=== PATIENT | male | born 1985 | race African-American/Black ===

== ENCOUNTER 2016-03-17 12:15 | Inpatient (IN) | payer OTHER ==
[2016-03-17 12:31] VITALS: BMI 22.3
[2016-03-17] MEDS ORDERED: SODIUM CHLORIDE 2,000 ML IV STA ×2 (12:33→21:13)
--- NOTE | 2016-03-17 12:33 | PDOC ---
History of Present Illness - History of Present Illness Initial Comments: 03/17/16 13:35 Patient is a 30 year old male with significant medical hx of Type I DM who is presenting to the ED complaining of weakness and nausea for two days. Two nights ago the patient went out and had a heavy night of drinking. The following day he left work because he wasn't feeling well and went to [facility] at 3AM. The patient reports his sugar was high and he was put on an insulin drip. He also had an episode of vomiting yesterday but did not have any today. This afternoon the patient left [facility] because he wanted to go to work but continued to feel weak and decided to come here for further evaluation. Denies cough, chest pain, shortness of breath, diarrhea, abdominal pain, dysuria. Denies past surgeries and tobacco use. <Deann Noble - Last Filed: 03/17/16 13:35> - General History Source: Patient, Old Records Exam Limitations: No Limitations <Roxanne Ngo - Last Filed: 03/17/16 18:31> - General Chief Complaint: Weakness Stated Complaint: DIABETIC Time Seen by Provider: 03/17/16 12:27 Past History <Deann Noble - Last Filed: 03/17/16 13:35> - Past Medical History Asthma: Yes Diabetes: Yes (IDDM) - Immunization History Immunization Up to Date: Yes - Psycho/Social/Smoking Cessation Hx Anxiety: No Suicidal Ideation: No Smoking Status: No Smoking History: Never smoked Have you smoked in the past 12 months: No Number of Cigarettes Smoked Daily: 0 Information on smoking cessation initiated: No Hx Alcohol Use: Yes Drug/Substance Use Hx: No Substance Use Type: Alcohol <Roxanne Ngo - Last Filed: 03/17/16 18:31> - Past Medical History Allergies/Adverse Reactions: Allergies Allergy/AdvReac Type Severity Reaction Status Date / Time No Known Allergies Allergy Verified 03/17/16 12:31 Home Medications: Ambulatory Orders Insulin (Levemir) [Levemir Flexpen -] 30 units SQ ASDIR 10/12/13 Fluticasone Prop 0.05% Nasal [Flonase -] 1 spray NS BID #1 spray.pump 07/01/15 Insulin Aspart [Novolog] 0 unit SQ ASDIR 07/01/15 Montelukast Na [Singulair -] 10 mg PO HS #30 tablet 07/01/15 Review of Systems - Review of Systems Comments:: 03/17/16 13:40 GENERAL/CONSTITUTIONAL: Weakness. No fever or chills. HEAD, EYES, EARS, NOSE AND THROAT: No change in vision. No ear pain or discharge. No sore throat. CARDIOVASCULAR: No chest pain or shortness of breath. RESPIRATORY: No cough, wheezing, or hemoptysis. GASTROINTESTINAL: Nausea, vomiting. No diarrhea or constipation. GENITOURINARY: No dysuria, frequency, or change in urination. MUSCULOSKELETAL: No joint or muscle swelling or pain. No neck or back pain. SKIN: No rash NEUROLOGIC: No headache, vertigo, loss of consciousness, or change in strength/ sensation. <Deann Noble - Last Filed: 03/17/16 13:35> *Physical Exam - Vital Signs Last Vital Signs Temp Pulse Resp BP Pulse Ox 97.7 F 83 18 129/75 100 03/17/16 12:29 03/17/16 12:29 03/17/16 12:29 03/17/16 12:29 03/17/16 12:29 - Physical Exam Comments: 03/17/16 13:41 GENERAL: Awake, alert, and fully oriented, in no acute distress HEAD: No signs of trauma EYES: PERRLA, EOMI, sclera anicteric, conjunctiva clear ENT: Auricles normal inspection, hearing grossly normal, nares patent, oropharynx clear without exudates. Dry mucosa NECK: Normal ROM, supple, no lymphadenopathy, JVD, or masses LUNGS: Breath sounds equal, clear to auscultation bilaterally. No wheezes, and no crackles HEART: Regular rate and rhythm, normal S1 and S2, no murmurs, rubs or gallops ABDOMEN: Soft, nontender, normoactive bowel sounds. No guarding, no rebound. No masses EXTREMITIES: Normal range of motion, no edema. No clubbing or cyanosis. No cords, erythema, or tenderness NEUROLOGICAL: Cranial nerves II through XII grossly intact. Normal speech, normal gait SKIN: Warm, Dry, normal turgor, no rashes or lesions noted. ENDOCRINE: No abnormal weight change. HEMATOLOGIC/LYMPHATIC: No anemia, easy bleeding, or history of blood clots. ALLERGIC/IMMUNOLOGIC: No hives or skin allergy. <Deann Noble - Last Filed: 03/17/16 13:35> - Vital Signs Last Vital Signs Temp Pulse Resp BP Pulse Ox 97.7 F 83 18 129/75 100 03/17/16 12:29 03/17/16 12:29 03/17/16 12:29 03/17/16 12:29 03/17/16 12:29 <Roxanne Ngo - Last Filed: 03/17/16 18:31> ED Treatment Course - LABORATORY CBC & Chemistry Diagram: 03/17/16 12:50 03/17/16 12:50 - ADDITIONAL ORDERS Additional order review: 03/17/16 12:50 RBC 4.79 MCV 96.3 H MCHC 32.5 RDW 13.8 MPV 8.6 Neutrophils % 85.3 H D Lymphocytes % 10.4 D Monocytes % 3.9 Eosinophils % 0.1 D Basophils % 0.3 - RADIOLOGY Radiograph Interpretation: 03/17/16 13:42 Chest X-Ray Impression: No acute pathology. No significant change. Weak inspiratory effort. Clear lungs Reported By: Magan Wilder MD <Deann Noble - Last Filed: 03/17/16 13:35> - LABORATORY CBC & Chemistry Diagram: 03/17/16 12:50 03/17/16 17:00 <Roxanne Ngo - Last Filed: 03/17/16 18:31> Medical Decision Making - Medical Decision Making 03/17/16 13:00 30-year-old male with history of insulin-dependent diabetes who presents to the emergency department with three-day history of nausea, vomiting, generalized weakness; the patient signed out AMA from [facility] this morning. Glucose in the field was 380. Differential diagnosis includes but is not limited to: DKA, uncontrolled diabetes/hyperglycemia, dehydration, electrolyte abnormality, toxic/metabolic derangement. Plan: 1. Labs 2. EKG 3. Urine 4. IV fluids for hydration 5. Observe and reevaluate 03/17/16 14:55 Addendum: The labs were reviewed and are noted in the EMR. His glucose is 480 and he has an anion gap of 22 with a bicarbonate of 14. The potassium is 5.8. An insulin drip has been started at 0.1 units per kilogram per hour. He has positive ketones in his urine and the serum acetone is pending.. The plan is to admit the patient to a monitored setting on an insulin drip and continued IV fluids for hydration with a presumed diagnosis of diabetic ketoacidosis. 03/17/16 17:17 Addendum: Last glucose was 119 mg/dL. The IVF were changed to D5 1/2NS and the insulin drip was decreased to 3u/hr. Will recheck a potassium level as well to see if repletion is necessary at this time. 03/17/16 18:30 Addendum: Potassium is 3.0--KCL 40 mEq was added to the IVF. Will also order KCL 40mEq PO. <Roxanne Ngo - Last Filed: 03/17/16 18:31> *DC/Admit/Observation/Transfer - Attestations Scribe Attestion: 03/17/16 13:43 Documentation prepared by Deann Noble, acting as biomedical equipment specialist for Roxanne Ngo MD. <Deann Noble - Last Filed: 03/17/16 13:35> - Discharge Dispostion Admit: Yes - Attestations Physician Attestion: 03/17/16 13:02 I, Dr. Roxanne Ngo, attest that the scribes documentation that appears above has been prepared under my direction and personally reviewed by me in its entirety. I confirmed that the note above accurately reflects all work, treatment, procedures, and medical decision-making performed by me. <Roxanne Ngo - Last Filed: 03/17/16 18:31> Diagnosis at time of Disposition: Hyperglycemia, DKA (diabetic ketoacidoses), Hypokalemia - Discharge Dispostion Condition at time of disposition: Stable - Referrals
[2016-03-17 13:30] LABS: BASOPHIL 0.3 % (0-2.0); EOSINOPHIL 0.1 % (0-4.5); MCH 31.3 pg (25.7-33.7); MCHC 32.5 g/dl (32.0-35.9); MEAN CELL VOLUME 96.3 fl (80-96); MEAN PLT VOLUME 8.6 fl (7.5-11.1); NEUTROPHILS 85.3 % (42.8-82.8); PLATELET COUNT 247 K/MM3 (134-434); RDW 13.8 % (11.9-15.9); URINE APPEARANCE CLEAR; URINE BILIRUBIN NEGATIVE (NEGATIVE); URINE BLOOD NEGATIVE (NEGATIVE); URINE COLOR COLORLESS; URINE GLUCOSE (UA) 3+ (NEGATIVE); URINE KETONE 2+ (NEGATIVE); URINE LEUK ESTERASE NEGATIVE (NEGATIVE); URINE NITRITE NEGATIVE (NEGATIVE); URINE PROTEIN NEGATIVE (NEGATIVE); URINE UROBILINOGEN NEGATIVE E.U./dl (0.2-1.0); WHITE BLOOD COUNT 9.7 K/mm3 (4.0-10.0)
[2016-03-17 14:38] LABS: ALBUMIN 3.9 g/dl (3.4-5.0); ANION GAP 22 (8-16); BILIRUBIN,TOTAL 1.1 mg/dL (0.2-1.0); CALCIUM 8.7 mg/dL (8.5-10.1); CO2 14 mmol/L (21-32); CREATININE 1.4 mg/dL (0.7-1.3); SGOT/AST 20 U/L (15-37); SGPT/ALT 26 U/L (12-78); TOT PROT 7.2 g/dl (6.4-8.2)
[2016-03-17 14:39] LABS: ALK PHOS 81 U/L (45-117)
[2016-03-17 14:41] LABS: TROPONIN I < 0.02 ng/ml (0.00-0.05)
[2016-03-17 14:44] LABS: GLUCOSE,RANDOM 479 mg/dL (74-106)
[2016-03-17] MEDS ORDERED: INSULIN REGULAR 100 UNITS in SODIUM CHLORIDE 99 ML IVPB SCH (14:45)
[2016-03-17] MEDS ORDERED: SODIUM CHLORIDE 1,000 ML IV STA (14:47)
[2016-03-17] MEDS ORDERED: INSULIN REGULAR HUMAN 100 UNITS/ML *VIAL ONE (14:59)
[2016-03-17 15:28] LABS: ACETONE SERUM POSITIVE LARGE 3+ (NEGATIVE)
[2016-03-17 15:43] LABS: VENOUS BLOOD GAS HCO3 14.9 meq/L (22-29)
[2016-03-17 15:45] LABS: VENOUS PH 7.26 (7.31-7.41)
--- NOTE | 2016-03-17 16:43 | EKG ---
Test Reason : Blood Pressure : / mmHG Vent. Rate : 079 BPM Atrial Rate : 079 BPM P-R Int : 156 ms QRS Dur : 084 ms QT Int : 378 ms P-R-T Axes : 055 032 022 degrees QTc Int : 433 ms NORMAL SINUS RHYTHM ST ELEVATION, CONSIDER EARLY REPOLARIZATION, PERICARDITIS, OR INJURY ABNORMAL ECG WHEN COMPARED WITH ECG OF 14-APR-2006 16:25, NO SIGNIFICANT CHANGE WAS FOUND (p wave morphology has normalized) Confirmed by RAMON AGUILERA MD ([id number]) on 03/17/2016 4:42:47 PM Referred By: Confirmed By:RAMON AGUILERA MD
[2016-03-17] MEDS ORDERED: DEXTROSE 5%-0.45% SALINE 1,000 ML IV SCH (17:30)
[2016-03-17] MEDS ORDERED: D5-1/2NS+40 MEQ KCL - 1,000 ML IV SCH (18:30)
[2016-03-17] MEDS ORDERED: POTASSIUM CHLORIDE TABS 20 MEQ TABLET.ER (FP) PO ONE ×2 (18:31→18:38)
[2016-03-17] MEDS ORDERED: HEMOQUE TEST 1 EACH EACH ONE (20:01)
--- NOTE | 2016-03-17 20:08 | PN ---
<WonSammy - Last Filed: 03/17/16 20:08> Teaching Attending Note Name of Resident: Chiqui Raymond ATTENDING PHYSICIAN STATEMENT I saw and evaluated the patient. I reviewed the resident's note and discussed the case with the resident. I agree with the resident's findings and plan as documented. SUBJECTIVE: OBJECTIVE: ASSESSMENT AND PLAN: <SherronSawyer - Last Filed: 03/18/16 00:34> Teaching Attending Note ATTENDING PHYSICIAN STATEMENT I saw and evaluated the patient. I reviewed the resident's note and discussed the case with the resident. I agree with the resident's findings and plan as documented. Imaging and data charts reviewed. SUBJECTIVE: Patient is a 30 year old male with significant medical history of Type I DM (non -compliant) who is presented to the ED with weakness and nausea for two days. The patient reported that two nights ago he went out and had a heavy night of drinking. The following day he left work s/p 2 episodes of vomiting and was admitted at [facility]. The patient reported that the next morning he left [facility] AMA because he felt better and wanted to go to work. When the patient got home from work yesterday he said that he began to feel weak and nauseous again and presented to [facility]. The patient stated that he has been hospitalized 5 times before with similar symptoms after heavy alcohol intake. The patient also stated that he does not check his finger-stick regularly and only takes his diabetic medication when he remembers. Denies headache, fever, cough, chest pain, shortness of breath, diarrhea, abdominal pain, dysuria. Denies past surgeries and tobacco use. OBJECTIVE: Vital Signs: Last Vital Signs Temp Pulse Resp BP Pulse Ox 97.7 F 80 18 120/78 98 03/17/16 12:29 03/17/16 20:23 03/17/16 20:23 03/17/16 20:23 03/17/16 20:23 Physical Exam: GENERAL: Awake, alert, and fully oriented, in no acute distress. HEENT: Atraumatic. Dry oral mucosa. Normocephalic. No sinus tenderness. No LAD. NECK: No JVD. No thyroid masses. Supple. LUNGS: Clear to auscultation bilaterally. No wheezing, rhonchi or rales. HEART: Regular rate and rhythm, normal S1 and S2, no murmurs, rubs or gallops, peripheral pulses normal and equal bilaterally. ABDOMEN: Soft, nontender, normoactive bowel sounds. No guarding, no rebound. No Masses. MUSCULOSKELETAL: No joint tenderness or erythema. No muscle tenderness. Normal muscle bulk and tone. EXTREMITIES: Normal inspection, No edema. No clubbing or cyanosis. Moves all extremities. NEUROLOGICAL: Normal speech, normal gait, no focal sensorimotor deficits. SKIN: Warm, dry, normal turgor, no rashes or lesions noted. Tattoos on the skin. Labs: CBCD WBC 10.5 K/mm3 (4.0-10.0) H 03/17/16 20:55 RBC 4.22 M/mm3 (4.00-5.60) 03/17/16 20:55 Hgb 13.3 GM/dL (11.7-16.9) D 03/17/16 20:55 Hct 39.4 % (35.4-49) 03/17/16 20:55 MCV 93.4 fl (80-96) 03/17/16 20:55 MCHC 33.8 g/dl (32.0-35.9) 03/17/16 20:55 RDW 13.4 % (11.9-15.9) 03/17/16 20:55 Plt Count 222 K/MM3 (134-434) 03/17/16 20:55 MPV 8.3 fl (7.5-11.1) 03/17/16 20:55 CMP Sodium 136 mmol/L (136-145) 03/17/16 12:50 Potassium 3.0 mmol/L (3.5-5.1) L D 03/17/16 17:00 Chloride 100 mmol/L (98-107) 03/17/16 12:50 Carbon Dioxide 14 mmol/L (21-32) L D 03/17/16 12:50 Anion Gap 22 (8-16) H 03/17/16 12:50 BUN 15 mg/dL (7-18) D 03/17/16 12:50 Creatinine 1.4 mg/dL (0.7-1.3) H D 03/17/16 12:50 Creat Clearance w eGFR > 60 (>60) 03/17/16 12:50 Calcium 8.7 mg/dL (8.5-10.1) 03/17/16 12:50 Total Bilirubin 1.1 mg/dL (0.2-1.0) H D 03/17/16 12:50 AST 20 U/L (15-37) 03/17/16 12:50 ALT 26 U/L (12-78) 03/17/16 12:50 Alkaline Phosphatase 81 U/L (45-117) D 03/17/16 12:50 Total Protein 7.2 g/dl (6.4-8.2) 03/17/16 12:50 Albumin 3.9 g/dl (3.4-5.0) 03/17/16 12:50 Imaging: CXR Discussion: Single AP portable view of the chest reveals a weak inspiratory effort, clear lungs, normal mediastinum and sharp angles. The bones and soft tissues are intact. Since 12/21/2013, there is no change of an adverse nature. Impression: No acute pathology. No significant change. Weak inspiratory effort. Clear lungs. ASSESSMENT AND PLAN: 1. DKA secondary to medication non com. and ETOH abuse now improved after insulin drip and IVF given in the ER. -Continue insulin trip until anion gap closes and bridge with lung acting insulin -DKA protocol -Switch to D5V half normal NS when glucose is <200 mg/dl -Copious IVF hydration -K supplementation -Recheck Electrolytes including Mg and phosphate and replace as necessary -Switch to insulin sliding scale when DKA resolved -If no more nausea and vomiting, restart diabetic diet -Diabetes counseling 2. LILIAN likely pre-renal -Urine lytes -UA -IVF hydration -Avoid nephrotoxic medications 3. Lucocytosis likely reactive from DKA. No evidence of current infection. Now improved. 4. DVT PPX low risk -intermittent compression stockings Admit to ICU Documentation prepared by Sawyer Siu, acting as medical sociologist for Dr. Won MD.
--- NOTE | 2016-03-17 20:19 | HP ---
CHIEF COMPLAINT: Weakness and feeling tired x 2 days PCP: Dr. Shnatel Varghese HISTORY OF PRESENT ILLNESS: 30 year old female presented to the ED via EMS with the chief complaint of weakness and feeling tired x 2 days. A/c to the patient, he was feeling well until when he went to the bar and had a couple of drinks (binge drinking). Was able to drive home, but the next day he started feeling unwell. He went to his work, had stomach pain, nausea, 4 episodes of vomiting. EMS was called, finger stick glucose was around 400, was taken to [facility]. Patient mentioned he got IV fluids and Insulin at [facility], felt better and signed out AMA since he wanted to go to work. As soon as patient went home, he started feeling unwell with stomach pain and nausea but no vomiting and immediately called 911. Patient reports that he takes sliding scale insulin and long acting but is non compliant. Denies chest pain, sob, palpitation, cough, headache, fever, chills rigors, sweating. No bowel movements since 3 days. Passed urine once since admission here. Denies burning urination, urgency or incontinence. Appetite decreased since illness. Sleep normal. ER course was notable for: (1) CBC, CMP, LA-2.4, RBS-479, AG-22, creat-1.4 (2) VBG-Metabolic acidosis, UA-Glucose +++, Ketones ++ (3) CXR normal. Recent Travel: None PAST MEDICAL HISTORY: Diabetes type 1 diagnosed 12 yrs ago PAST SURGICAL HISTORY: None Social History: Smoking: Occasional smoker Alcohol: Binge drinking once a week Drugs: No use of illicit drugs Family History: Grandmother had Type 2 DM Allergies No Known Allergies Allergy (Verified 03/17/16 12:31) HOME MEDICATIONS: Home Medications Medication Instructions Recorded Insulin (Levemir) [Levemir Flexpen 30 units SQ ASDIR 10/12/13 -] Fluticasone Prop 0.05% Nasal 1 spray NS BID #1 spray.pump 07/01/15 [Flonase -] Insulin Aspart [Novolog] 0 unit SQ ASDIR 07/01/15 Montelukast Na [Singulair -] 10 mg PO HS #30 tablet 07/01/15 REVIEW OF SYSTEMS CONSTITUTIONAL: Absent: fever, chills, diaphoresis, generalized weakness, malaise, loss of appetite, weight change HEENT: Absent: rhinorrhea, nasal congestion, throat pain, throat swelling, difficulty swallowing, mouth swelling, ear pain, eye pain, visual changes CARDIOVASCULAR: Absent: chest pain, syncope, palpitations, irregular heart rate, lightheadedness , peripheral edema RESPIRATORY: Absent: cough, shortness of breath, dyspnea with exertion, orthopnea, wheezing, stridor, hemoptysis GASTROINTESTINAL: Present: abdominal pain, abdominal distension, nausea, vomiting Absent: diarrhea, constipation, melena, hematochezia GENITOURINARY: Absent: dysuria, frequency, urgency, hesitancy, hematuria, flank pain, genital pain MUSCULOSKELETAL: Absent: myalgia, arthralgia, joint swelling, back pain, neck pain SKIN: Absent: rash, itching, pallor HEMATOLOGIC/IMMUNOLOGIC: Absent: easy bleeding, easy bruising, lymphadenopathy, frequent infections ENDOCRINE: Absent: unexplained weight gain, unexplained weight loss, heat intolerance, cold intolerance NEUROLOGIC: Absent: headache, focal weakness or paresthesias, dizziness, unsteady gait, seizure, mental status changes, bladder or bowel incontinence PSYCHIATRIC: Absent: anxiety, depression, suicidal or homicidal ideation, hallucinations. PHYSICAL EXAMINATION GENERAL: Young male, comfortably lying in bed, Awake, alert, and fully oriented , in no acute distress. HEAD: Normal with no signs of trauma. EYES:EOM intact, no pallor or icterus EARS, NOSE, THROAT: Ears normal. Dry mucous membranes. NECK: Supple LUNGS: Breath sounds equal, clear to auscultation bilaterally. No wheezes, and no crackles. No accessory muscle use. HEART: Regular rate and rhythm, normal S1 and S2 without murmur, rub or gallop. ABDOMEN: Soft, nontender, not distended, normoactive bowel sounds, no guarding, no rebound, no masses. No hepatomegaly or splenomegaly. MUSCULOSKELETAL: Normal range of motion at all joints. No bony deformities or tenderness. No CVA tenderness. UPPER EXTREMITIES: 2+ pulses, warm, well-perfused. No cyanosis. No clubbing. Cap refill <2 seconds. No peripheral edema. LOWER EXTREMITIES: 2+ pulses, warm, well-perfused. No calf tenderness. No peripheral edema. NEUROLOGICAL: Cranial nerves II-XII intact. Normal speech. Normal gait. PSYCHIATRIC: Cooperative. Good eye contact. Appropriate mood and affect. SKIN: Multiple tattoos, Warm, dry, normal turgor, no rashes or lesions noted. Laboratory Results - last 24 hr 03/17/16 03/17/16 03/17/16 15:35 16:34 16:40 VBG pH 7.26 L POC VBG pCO2 34.7 L POC VBG pO2 37.6 Potassium POC Glucometer [phone] Random Glucose 119 H D 03/17/16 03/17/16 17:00 18:28 VBG pH POC VBG pCO2 POC VBG pO2 Potassium 3.0 L D POC Glucometer [id number] Random Glucose ASSESSMENT/PLAN: 30 year old male with significant past medical hx of Type I Diabetes presented to the ED via EMS with the chief complaint of weakness and feeling tired x 2 days. # Diabetic Ketoacidosis most likely precipitated by binge drinking and non compliance to Insulin. 2days ago, patient had nausea, 4episdose of vomiting. Signed out AMA at [facility]. On arrival, hemodyanmically stable, LA-2.4, RBS-479, AG-22, creat-1.4, VBG showed Metabolic acidosis, UA-Glucose +++, Ketones ++ In the ED, Patient received 1unit of Insulin, 2L of NS, D5 1/2NS with 40K @ 150mls Patient now admitted in the ICU. Ordered stat EKG, CMP, CMP, Lactic acid, Magnesium, Phosphorus, will adjust medication once repeat labs are obtained 2L of bolus of NS given and maintainance @ 150mls/hr as patient looks very dehydrated, patient passed urine once since 10hrs. IV D5-1/2NS 40mEq K @ 150 Insulin drip @ 3Units, repeat finger stick was 220 Started him on diabetic diet, patient tolerated Once patients AG closes will overlap Insulin drip with sliding scale CMP to be ordered 4 hrly, BGM every hrly Watch for hypoglycemic episodes Monitor vitals Patient counselled about medication compliance, the effects of uncontrolled diabetes. To follow up with primary doctor within a day or two once he gets discharged. Yearly eye/foot examination. # LILIAN Creatinine of 1.4, baseline unknown IV NS Avoid nephrotoxic drugs # Leukocytosis Afebrile, No acute infection at this time. # Binge drinking counseling # FEN 2L of bolus of NS followed by NS @ 150mls/hr D5-1/2NS with K 40mEq @ 150mls/hr\ Pending electrolytes Diabetic diet. # Prophylaxis For DVT- On SCDS, ambulatory For GI- Not indicated # Code Status- Full code # Dispo- Admitted in the ICU. Duration of stay unknown. Illness, Investigation and Plan of care explained to the patient. He verbalized understanding. Case seen and discussed with Dr. Upton. Visit type - Emergency Visit Emergency Visit: Yes ED Registration Date: 03/17/16 Care time: The patient presented to the Emergency Department on the above date and was hospitalized for further evaluation of their emergent condition. - New Patient This patient is new to me today: Yes Date on this admission: 03/17/16 - Critical Care Critical Care patient: No
--- NOTE | 2016-03-17 21:11 | CONSULT ---
Consult Consult Specialty:: Pulm/Critical Care Referred by:: Dick Phan Reason for Consultation:: DKA - History of Present Illness Chief Complaint: nausea, abdominal pain History of Present Illness: 30 y/o man with type 1DM who presented with weakness and nausea x 2 days. Per pt , he was out drinking 2 nights prior to admission. He felt fine that night and went to bed but developed nausea the following day and left work. He presented to [facility] and was told his fingerstick was high, started on insulin gtt. He signed out AMA because he wanted to go to work but had worsening abdominal pain and nausea and called 911, presented to [facility] ED. Pt reports longstanding non-compliance and multiple hospital admissions for DKA. He denied CP, SOB, palpitation, cough, fever, urinary symptoms. In the ED, labs notable for lactate 2.4, BG 479, creatinine 1.4 and anion gap 22 with UA + ketones. He was started on insulin gtt. He had a CXR which was unremarkable and was transferred to ICU. In the ICU, pt continued on IVF and potassium supplemented. Blood sugars down trending. CBCD WBC 10.5 K/mm3 (4.0-10.0) H 03/17/16 20:55 RBC 4.22 M/mm3 (4.00-5.60) 03/17/16 20:55 Hgb 13.3 GM/dL (11.7-16.9) D 03/17/16 20:55 Hct 39.4 % (35.4-49) 03/17/16 20:55 MCV 93.4 fl (80-96) 03/17/16 20:55 MCHC 33.8 g/dl (32.0-35.9) 03/17/16 20:55 RDW 13.4 % (11.9-15.9) 03/17/16 20:55 Plt Count 222 K/MM3 (134-434) 03/17/16 20:55 MPV 8.3 fl (7.5-11.1) 03/17/16 20:55 CMP Sodium 140 mmol/L (136-145) 03/17/16 20:55 Potassium 4.9 mmol/L (3.5-5.1) D 03/17/16 20:55 Chloride 109 mmol/L (98-107) H 03/17/16 20:55 Carbon Dioxide 21 mmol/L (21-32) D 03/17/16 20:55 Anion Gap 10 (8-16) 03/17/16 20:55 BUN 9 mg/dL (7-18) D 03/17/16 20:55 Creatinine 1.0 mg/dL (0.7-1.3) D 03/17/16 20:55 Creat Clearance w eGFR > 60 (>60) 03/17/16 20:55 Calcium 8.1 mg/dL (8.5-10.1) L 03/17/16 20:55 Total Bilirubin 1.1 mg/dL (0.2-1.0) H 03/17/16 20:55 AST 16 U/L (15-37) 03/17/16 20:55 ALT 19 U/L (12-78) D 03/17/16 20:55 Alkaline Phosphatase 62 U/L (45-117) D 03/17/16 20:55 Total Protein 5.5 g/dl (6.4-8.2) L D 03/17/16 20:55 Albumin 3.0 g/dl (3.4-5.0) L D 03/17/16 20:55 - History Source History Provided By: Patient, Medical Record Limitations to Obtaining History: No Limitations - Past Medical History Pulmonary: Yes: Asthma Endocrine: Yes: Diabetes Mellitus - Alcohol/Substance Use Hx Alcohol Use: Yes - Smoking History Smoking history: Never smoked Have you smoked in the past 12 months: No Aproximately how many cigarettes per day: 0 - Social History Usual Living Arrangement: With Parent Occupation: [employer] Home Medications - Allergies Allergies/Adverse Reactions: Allergies Allergy/AdvReac Type Severity Reaction Status Date / Time No Known Allergies Allergy Verified 03/17/16 12:31 - Home Medications Home Medications: Ambulatory Orders Insulin (Levemir) [Levemir Flexpen -] 30 units SQ ASDIR 10/12/13 Fluticasone Prop 0.05% Nasal [Flonase -] 1 spray NS BID #1 spray.pump 07/01/15 Insulin Aspart [Novolog] 0 unit SQ ASDIR 07/01/15 Montelukast Na [Singulair -] 10 mg PO HS #30 tablet 07/01/15 Review of Systems - Review of Systems Constitutional: reports: Weakness Cardiovascular: denies: Chest Pain, Palpitations, Shortness of Breath Respiratory: denies: Cough, SOB Gastrointestinal: reports: Abdominal Pain, Nausea. denies: Vomiting Genitourinary: denies: Burning, Dysuria Physical Exam Vital Signs: Vital Signs Temperature 97.7 F 03/17/16 12:29 Pulse Rate 80 03/17/16 20:23 Respiratory Rate 18 03/17/16 20:23 Blood Pressure 120/78 03/17/16 20:23 O2 Sat by Pulse Oximetry (%) 98 03/17/16 20:23 Constitutional: Yes: Well Nourished Eyes: Yes: WNL, Conjunctiva Clear, PERRL HENT: Yes: Atraumatic Cardiovascular: Yes: Regular Rate and Rhythm. No: Murmur Respiratory: Yes: CTA Bilaterally. No: Wheezes Gastrointestinal: Yes: Normal Bowel Sounds, Soft. No: Distention, Tenderness Extremities: Yes: WNL Edema: No Peripheral Pulses WNL: Yes Neurological: Yes: WNL ...Motor Strength: WNL Labs: CBCD WBC 10.5 K/mm3 (4.0-10.0) H 03/17/16 20:55 RBC 4.22 M/mm3 (4.00-5.60) 03/17/16 20:55 Hgb 13.3 GM/dL (11.7-16.9) D 03/17/16 20:55 Hct 39.4 % (35.4-49) 03/17/16 20:55 MCV 93.4 fl (80-96) 03/17/16 20:55 MCHC 33.8 g/dl (32.0-35.9) 03/17/16 20:55 RDW 13.4 % (11.9-15.9) 03/17/16 20:55 Plt Count 222 K/MM3 (134-434) 03/17/16 20:55 MPV 8.3 fl (7.5-11.1) 03/17/16 20:55 CMP Sodium 140 mmol/L (136-145) 03/17/16 20:55 Potassium 4.9 mmol/L (3.5-5.1) D 03/17/16 20:55 Chloride 109 mmol/L (98-107) H 03/17/16 20:55 Carbon Dioxide 21 mmol/L (21-32) D 03/17/16 20:55 Anion Gap 10 (8-16) 03/17/16 20:55 BUN 9 mg/dL (7-18) D 03/17/16 20:55 Creatinine 1.0 mg/dL (0.7-1.3) D 03/17/16 20:55 Creat Clearance w eGFR > 60 (>60) 03/17/16 20:55 Calcium 8.1 mg/dL (8.5-10.1) L 03/17/16 20:55 Total Bilirubin 1.1 mg/dL (0.2-1.0) H 03/17/16 20:55 AST 16 U/L (15-37) 03/17/16 20:55 ALT 19 U/L (12-78) D 03/17/16 20:55 Alkaline Phosphatase 62 U/L (45-117) D 03/17/16 20:55 Total Protein 5.5 g/dl (6.4-8.2) L D 03/17/16 20:55 Albumin 3.0 g/dl (3.4-5.0) L D 03/17/16 20:55 Imaging - Results Chest X-ray: Report Reviewed Problem List - Problems (1) DKA (diabetic ketoacidoses) Code(s): E13.10 - OTH DIABETES MELLITUS WITH KETOACIDOSIS WITHOUT COMA (2) AA (alcohol abuse) Code(s): F10.10 - ALCOHOL ABUSE, UNCOMPLICATED Assessment/Plan ASSESSMENT/PLAN: 30 y/o man with DM1 who presented with weakness and nausea in setting of binge drinking, found to be in DKA, admitted to ICU Endo: DKA -continue insulin gtt until ketones clear -continue IVF with potassium now that K < 5.0 -additional K supplementation as needed -phos supplementation as needed -would maintain pt NPO until gap closed -serial fingerstick and adjust insulin as needed -monitor for hypoglycemia -trend BMP, lytes, AG and urine ketones/ serum acetone -diabetes counseling CV: dehydration, lactic acidosis -IVF for rehydration -trend lactate -hemodynamic monitoring ID: no active issues; leukocytosis likely in setting of DKA -trend fever curve, wbc Renal: elevated creatinine, unknown baseline, likely in setting of dehydration -fluid resuscitation -trend creatinine Ppx: -SCDs -no GI ppx indicated Jacki Busch ACNP 35 mins
[2016-03-17] MEDS ORDERED: SODIUM CHLORIDE 1,000 ML IV SCH ×2 (21:15→22:15)
[2016-03-17 21:27] LABS: MCH 31.5 pg (25.7-33.7); MCHC 33.8 g/dl (32.0-35.9); MEAN CELL VOLUME 93.4 fl (80-96); MEAN PLT VOLUME 8.3 fl (7.5-11.1); PLATELET COUNT 222 K/MM3 (134-434); RDW 13.4 % (11.9-15.9); WHITE BLOOD COUNT 10.5 K/mm3 (4.0-10.0)
[2016-03-17 21:59] LABS: ALK PHOS 62 U/L (45-117); ANION GAP 10 (8-16); BILIRUBIN,TOTAL 1.1 mg/dL (0.2-1.0); CALCIUM 8.1 mg/dL (8.5-10.1); CO2 21 mmol/L (21-32); GLUCOSE,RANDOM 242 mg/dL (74-106); MAGNESIUM 2.3 mg/dL (1.8-2.4); PHOSPHOROUS 2.1 mg/dL (2.5-4.9); SGOT/AST 16 U/L (15-37); SGPT/ALT 19 U/L (12-78); TOT PROT 5.5 g/dl (6.4-8.2)
[2016-03-17] MEDS ORDERED: MUPIROCIN 2% TOPICAL OINTMENT FOR DECOLONIZATION NS SCH (22:00)
[2016-03-17] MEDS ORDERED: CHLORHEXIDINE GLUCONATE 4% CLEANSER FOR DECOLONIZATION TP SCH (22:00)
[2016-03-17] MEDS ORDERED: INSULIN DETEMIR 100 UNITS/ML MDV SQ ONE (22:08)
[2016-03-18] MEDS ORDERED: IBUPROFEN 400 MG TABLET (FP) PO ONE (05:42)
[2016-03-18] MEDS ORDERED: SODIUM CHLORIDE NASAL SPRAY 44 ML BOTTLE NS PRN ×2 (05:54→08:48)
[2016-03-18 05:56] LABS: MCH 31.9 pg (25.7-33.7); MEAN CELL VOLUME 93.8 fl (80-96); MEAN PLT VOLUME 7.8 fl (7.5-11.1); PLATELET COUNT 217 K/MM3 (134-434); RDW 13.6 % (11.9-15.9); WHITE BLOOD COUNT 7.6 K/mm3 (4.0-10.0)
[2016-03-18 06:31] LABS: ALBUMIN 2.6 g/dl (3.4-5.0); ANION GAP 12 (8-16); BILIRUBIN,TOTAL 0.8 mg/dL (0.2-1.0); CALCIUM 7.6 mg/dL (8.5-10.1); CO2 19 mmol/L (21-32); CREATININE 0.9 mg/dL (0.7-1.3); GLUCOSE,RANDOM 103 mg/dL (74-106); SGOT/AST 20 U/L (15-37); SGPT/ALT 18 U/L (12-78); TOT PROT 4.9 g/dl (6.4-8.2)
[2016-03-18 06:32] LABS: ALK PHOS 50 U/L (45-117)
[2016-03-18] MEDS ORDERED: INSULIN SLIDING SCALE (NOVOLOG) 1 VIAL SQ SCH ×2 (07:00→11:00)
--- NOTE | 2016-03-18 08:39 | PN ---
Progress Note, Physician - Current Medication List Current Medications: Active Medications Chlorhexidine Gluconate (Hibiclens For Decolonization -) 1 applic TP HS SENG Last Admin: 03/17/16 22:13 Dose: 1 applic Sodium Chloride (Normal Saline -) 1,000 mls @ 100 mls/hr IV ASDIR SENG Last Admin: 03/17/16 22:30 Dose: 100 mls/hr Insulin Aspart (Novolog Vial Sliding Scale -) 1 vial SQ ACHS SENG PRN Reason: Protocol Last Admin: 03/18/16 06:20 Dose: Not Given Insulin Detemir (Levemir Vial) 10 units SQ HS SENG Mupirocin (Bactroban Ointment (For Decolonization) -) 1 applic NS BID SENG Stop: 03/22/16 21:59 Last Admin: 03/17/16 22:14 Dose: 1 applic Sodium Chloride ([place] Nasal [place] -) 1 spray NS Q6H PRN PRN Reason: NASAL CONGESTION Last Admin: 03/18/16 06:20 Dose: 1 spray - Objective Vital Signs: Vital Signs Temperature 98.3 F 03/18/16 06:00 Pulse Rate 84 03/18/16 06:00 Respiratory Rate 21 03/18/16 06:00 Blood Pressure 127/86 03/18/16 06:00 O2 Sat by Pulse Oximetry (%) 100 03/18/16 07:37 Constitutional: Yes: Well Nourished, No Distress, Calm Eyes: Yes: WNL, Conjunctiva Clear HENT: Yes: Atraumatic, Normocephalic, Other (dry mucous membranes) Neck: Yes: WNL, Supple, Trachea Midline Cardiovascular: Yes: WNL, Regular Rate and Rhythm Respiratory: Yes: WNL, Regular, CTA Bilaterally Gastrointestinal: Yes: WNL, Normal Bowel Sounds Musculoskeletal: Yes: WNL Extremities: Yes: WNL Edema: No Integumentary: Yes: WNL Neurological: Yes: WNL, Alert, Oriented ...Motor Strength: WNL Psychiatric: Yes: WNL Labs: CBC, BMP 03/18/16 05:20 03/18/16 05:20 Impression/Plan Impression/Plan: 30 year old man with type ! DM admitted for acute DKA with metabolic acidosis DM -anion gap has remained closed greater than 12 hours -AAOx3 with no complaints -pt states he is supposed to take levemir 30 daily at home with sliding scale but often forgets to take insulin -as he had hypoglycemic episode last night with just 10 units levemir will cont that dose for now (pt is now eating) -cont sliding scale insulin -cont IVF as pt has dry mucous membranes and still has decreased bicarb -trend labs in the AM Visit type - Emergency Visit Emergency Visit: Yes ED Registration Date: 03/17/16 Care time: The patient presented to the Emergency Department on the above date and was hospitalized for further evaluation of their emergent condition. - New Patient This patient is new to me today: Yes Date on this admission: 03/18/16 - Critical Care Critical Care patient: Yes Total Critical Care Time (in minutes): 40 Critical Care Statement: The care of this patient involved high complexity decision making to prevent further life threatening deterioration of the patient 's condition and/or to evalute & treat vital organ system(s) failure or risk of failure.
[2016-03-18] MEDS ORDERED: SODIUM CHLORIDE 1,000 ML IV SCH (08:48)
--- NOTE | 2016-03-18 09:03 | PN ---
Progress Note (short form) - Note Progress Note: PULMONARY / CRITICAL CARE MEDICINE PROGRESS NOTE: Pt seen and examined in the ICU EVENTS: AG closed, transitioned to SQ insulin, tolerating a PO diet, called in for floor bed Current Medications Sodium Chloride (Normal Saline -) 1,000 mls @ 125 mls/hr IV ASDIR SENG Insulin Aspart (Novolog Vial Sliding Scale -) 1 vial SQ ACHS SENG PRN Reason: Protocol Insulin Detemir (Levemir Vial) 10 units SQ HS SENG Sodium Chloride ([place] Nasal [place] -) 1 spray NS Q6H PRN PRN Reason: NASAL CONGESTION Vital Signs Temp 98.3 F 03/18/16 06:00 Pulse 84 03/18/16 06:00 Resp 21 03/18/16 06:00 BP 127/86 03/18/16 06:00 Pulse Ox 100 03/18/16 07:37 Intake & Output 03/17/16 03/18/16 03/18/16 18:59 06:59 18:59 Intake Total 1000 2810 Output Total 400 Balance 1000 2410 Weight 58.967 kg 59 kg Intake: IV 1000 2700 Normal Saline - 2,000 ml 2000 @ 1000 mls/hr IV ASDIR STA Rx#:[id number] Normal Saline - 1,000 ml 700 @ 100 mls/hr IV ASDIR SENG Rx#:[id number] IVPB 10 Oral 100 Output: Urine 400 Void 400 Other: Voiding Method Urinal Urinal Bowel Movement No Height 5 ft 4 in 5 ft 4 in Body Mass Index (BMI) 22.3 22.3 Weight Measurement Method Built in Bedscale EXAM Neuro: alert HENNT: PERRL Lungs: clear Heart: RRR Abd: soft Skin: warm/dry CBC, BMP 03/18/16 05:20 03/18/16 05:20 Imaging - Results Chest X-ray: Report Reviewed Problem List - Problems (1) DKA (diabetic ketoacidoses) Code(s): E13.10 - OTH DIABETES MELLITUS WITH KETOACIDOSIS WITHOUT COMA (2) AA (alcohol abuse) Code(s): F10.10 - ALCOHOL ABUSE, UNCOMPLICATED Assessment/Plan ASSESSMENT/PLAN: 30 y/o man with DM1 who presented with weakness and nausea in setting of binge drinking, found to be in DKA, admitted to ICU, now AG is closed, he has been transitioned to SQ insulin and is tolerating a PO diet. -SQ insulin -PO diet -Education Transfer to the floor Ted Powell/SCOTT RATCHET SETTER
[2016-03-18] MEDS: KCL 10 MEQ IVPB 100 ML IVPB SCH (09:07)
[2016-03-18 14:20] VITALS: BP 128/88; PULSE 75; TEMP 98
[2016-03-18] MEDS ORDERED: INSULIN DETEMIR 100 UNITS/ML MDV SQ SCH ×2 (22:00)
== END 2016-03-18 16:00 | disposition left against medical advice (07) | DRG 420 ==
LOC: JER 12:15 → JERBED 15:31 → UNDOADMIN 15:34 → JERBED 15:34 → JICU 20:29
PROVIDERS: ADMIT Internal Medicine; ATTEND Internal Medicine
DX: E10.10 Type 1 diabetes mellitus with ketoacidosis without coma (principal); F10.10 Alcohol abuse, uncomplicated; E86.0 Dehydration; E87.2 Acidosis; Z79.4 Long term (current) use of insulin; N17.9 Acute kidney failure, unspecified; D72.829 Elevated white blood cell count, unspecified
CPT/HCPCS: 36415; 71010-TC; 80053; 81003; 82009; 82550; 82553; 82803; 82947; 83036; 83605; 83690; 83735; 84100; 84132; 84484; 85025; 85027; 93005; 93010; 99285-25

== ENCOUNTER 2016-04-09 00:39 | Emergency (ER) | payer OTHER ==
[2016-04-09 00:50] VITALS: BP 146/93; PULSE 93; TEMP 98.3; BMI 22.3
--- NOTE | 2016-04-09 01:29 | PDOC ---
"History of Present Illness - General Chief Complaint: Toothache Stated Complaint: TOOTH PAIN Time Seen by Provider: 04/09/16 01:10 History Source: Patient Exam Limitations: No Limitations - History of Present Illness Initial Comments: 04/09/16 01:22 30yo Male patient presents to ED c/o dental pain/caries. Patient reports symptoms ongoing. He states he does not have money or dental insurance but is trying to find a way to deal with current situation. Patient denies any other complaints at this time. logo Welcome Kartik Gaston Update Personal Info | FAQ | Help | Search Results Help Mandatory Electronic Prescribing Effective as of May 08, 2015. Additional information pertaining to electronic prescribing may be accessed at the following link: [email or web address].[place].gov/professionals/[email or web address] Patient Search Multi-Patient Search Reports Drug Listing Designation My DEMARCO Numbers Data Detail Level: Printer-Friendly View | Show Extended View Confidential Drug Utilization Report Search Terms: Spencer Danielle, 1985 Search Date: 04/09/2016 01:22:07 AM The Drug Utilization Report below displays all of the controlled substance prescriptions, if any, that your patient has filled in the last twelve months. The information displayed on this report is compiled from pharmacy submissions to the Department, and accurately reflects the information as submitted by the pharmacies. This report was requested by: Kartik Gaston | Reference #: [id number] There are no results for the search terms that you entered. Past History - Travel Traveled outside of the country in the last 30 days: No Close contact w/someone who was outside of country & ill: No - Past Medical History Allergies/Adverse Reactions: Allergies Allergy/AdvReac Type Severity Reaction Status Date / Time No Known Allergies Allergy Verified 04/09/16 00:49 Home Medications: Ambulatory Orders Insulin (Levemir) [Levemir Flexpen -] 30 units SQ ASDIR 10/12/13 Fluticasone Prop 0.05% Nasal [Flonase -] 1 spray NS BID #1 spray.pump 07/01/15 Insulin Aspart [Novolog] 0 unit SQ ASDIR 07/01/15 Montelukast Na [Singulair -] 10 mg PO HS #30 tablet 07/01/15 Amoxicillin - [Amoxicillin 500mg Capsule -] 500 mg PO Q6H #28 capsule 04/09/16 Ibuprofen [Motrin -] 600 mg PO Q6H PRN #30 tablet 04/09/16 Oxycodone HCl/Acetaminophen [Percocet 5-325 mg Tablet] 1 tab PO Q8H PRN #6 tablet MDD 3 tabs 04/09/16 Asthma: Yes Diabetes: Yes (IDDM) - Immunization History Immunization Up to Date: Yes - Psycho/Social/Smoking Cessation Hx Anxiety: No Suicidal Ideation: No Smoking Status: No Smoking History: Never smoked Have you smoked in the past 12 months: No Number of Cigarettes Smoked Daily: 0 'Breaking Loose' booklet given: 03/17/16 Hx Alcohol Use: Yes Drug/Substance Use Hx: Yes Substance Use Type: Alcohol Hx Substance Use Treatment: No Review of Systems - Review of Systems Able to Perform ROS?: Yes Is the patient limited [place] Citizen proficient: No Constitutional: No: Chills, Fever HEENTM: Yes: Dental Problems. No: Nose Congestion, Throat Pain, Mouth Pain Respiratory: No: Cough, Orthopnea, Shortness of Breath, Stridor, Wheezing, Productive cough Cardiac (ROS): No: Chest Pain All Other Systems: Reviewed and Negative *Physical Exam - Vital Signs Last Vital Signs Temp Pulse Resp BP Pulse Ox 98.3 F 93 H 18 146/93 100 04/09/16 00:49 04/09/16 00:49 04/09/16 00:49 04/09/16 00:49 04/09/16 00:49 - Physical Exam General Appearance: Yes: Nourished, Appropriately Dressed. No: Apparent Distress, Mild Distress, Moderate Distress, Severe Distress HEENT: positive: EOMI, ZACHERY, Normal ENT Inspection, Normal Voice, Symmetrical, TMs Normal, Pharynx Normal, Other (teeth 14-16 decay to root. No inflammation of gums noted. No active bleeding noted.). negative: Pharyngeal Erythema, Tonsillar Exudate, Tonsillar Erythema, TM Bulging, TM Dull, TM Erythema Neck: positive: Trachea midline, Normal Thyroid, Supple Respiratory/Chest: positive: Lungs Clear, Normal Breath Sounds. negative: Chest Tender, Respiratory Distress, Accessory Muscle Use, Labored Respiration, Rapid RR Cardiovascular: positive: Regular Rhythm, Regular Rate Extremity: positive: Normal Capillary Refill, Normal Inspection, Normal Range of Motion Integumentary: positive: Normal Color, Dry, Warm Neurologic: positive: wire insulator II-XII NML intact, Fully Oriented, Alert, Normal Mood/ Affect, Normal Response, Motor Strength 5/5 *DC/Admit/Observation/Transfer Diagnosis at time of Disposition: Dental caries - Discharge Dispostion Disposition: HOME Condition at time of disposition: Stable Admit: No - Prescriptions Prescriptions: Amoxicillin - [Amoxicillin 500mg Capsule -] 500 mg PO Q6H #28 capsule Ibuprofen [Motrin -] 600 mg PO Q6H PRN #30 tablet PRN Reason: Mild Pain Oxycodone HCl/Acetaminophen [Percocet 5-325 mg Tablet] 1 tab PO Q8H PRN #6 tablet MDD 3 tabs PRN Reason: Severe Pain - Patient Instructions Printed Discharge Instructions: DI for Dental Pain Print Language: IRANIAN"
[2016-04-09] MEDS ORDERED: OXYCODONE/APAP 5/325MG COMBO TABLET PO ONE (01:35)
[2016-04-09] MEDS ORDERED: AMOXICILLIN 500 MG CAPSULE (FP) PO ONE (01:35)
[2016-04-09] MEDS ORDERED: AMOXICILLIN 500 MG CAPSULE (FP) ONE (01:38)
[2016-04-09] MEDS ORDERED: OXYCODONE/APAP 5/325MG COMBO TABLET ONE (01:39)
== END 2016-04-09 01:51 | disposition home or self-care (01) ==
LOC: JER 00:39
DX: K02.9 Dental caries, unspecified (principal); E10.9 Type 1 diabetes mellitus without complications; Z79.4 Long term (current) use of insulin; J45.909 Unspecified asthma, uncomplicated
CPT/HCPCS: 99281-25

== ENCOUNTER 2016-06-09 04:04 | Observation (INO) | payer OTHER ==
[2016-06-09 04:18] VITALS: BMI 22.3
--- NOTE | 2016-06-09 04:34 | PDOC ---
History of Present Illness - General Chief Complaint: Overdose Stated Complaint: OVER DOSE ON INSULIN Time Seen by Provider: 06/09/16 04:14 History Source: Patient Exam Limitations: No Limitations - History of Present Illness Initial Comments: 06/09/16 05:32 30-year-old male with a history of IDDM presents to the emergency department after taking twice the amount of insulin just prior to his arrival. Patient states instead of taking insulin 30 units, he decided to take 60 units times one hour prior to his arrival. Patient states he was eating a lot this afternoon into this evening and the food contained an increased amount of sugar. Patient states he wanted to try something new and decided to double dose his insulin. Patient denies any headache, dizziness, lightheadedness, visual disturbance, lethargy, chest pain, shortness of breath, abdominal pains, urinary symptoms. 06/09/16 06:20 Timing/Duration: 1-3 hours Severity: mild Associated Symptoms: reports: denies symptoms Past History - Travel Traveled outside of the country in the last 30 days: No Close contact w/someone who was outside of country & ill: No - Past Medical History Allergies/Adverse Reactions: Allergies Allergy/AdvReac Type Severity Reaction Status Date / Time No Known Allergies Allergy Verified 06/09/16 04:16 Home Medications: Ambulatory Orders Insulin (Levemir) [Levemir Flexpen -] 30 units SQ ASDIR 10/12/13 Fluticasone Prop 0.05% Nasal [Flonase -] 1 spray NS BID #1 spray.pump 07/01/15 Montelukast Na [Singulair -] 10 mg PO HS #30 tablet 07/01/15 Asthma: Yes Diabetes: Yes (IDDM) - Immunization History Immunization Up to Date: Yes - Psycho/Social/Smoking Cessation Hx Anxiety: No Suicidal Ideation: No Smoking Status: No Smoking History: Never smoked Have you smoked in the past 12 months: No Number of Cigarettes Smoked Daily: 0 Information on smoking cessation initiated: No 'Breaking Loose' booklet given: 03/17/16 Hx Alcohol Use: No Drug/Substance Use Hx: No Substance Use Type: None Hx Substance Use Treatment: No Review of Systems - Review of Systems Able to Perform ROS?: Yes Comments:: 06/09/16 05:31 CONSTITUTIONAL: Absent: fever, chills, diaphoresis, generalized weakness, malaise, loss of appetite HEENT: Absent: rhinorrhea, nasal congestion, throat pain, throat swelling, difficulty swallowing, mouth swelling, ear pain, eye pain, visual Changes CARDIOVASCULAR: Absent: chest pain, loss of consciousness, palpitations, irregular heart rate, peripheral edema RESPIRATORY: Absent: cough, shortness of breath, dyspnea with exertion, orthopnea, wheezing, stridor, hemoptysis GASTROINTESTINAL: Absent: abdominal pain, abdominal distension, nausea, vomiting, diarrhea, constipation, melena, hematochezia GENITOURINARY: Absent: dysuria, frequency, urgency, hesitancy, hematuria, flank pain, genital pain MUSCULOSKELETAL: Absent: myalgia, arthralgia, joint swelling SKIN: Absent: rash, itching, pallor HEMATOLOGIC/IMMUNOLOGIC: Absent: easy bleeding, easy bruising, lymphadenopathy, frequent infections ENDOCRINE: Absent: unexplained weight gain, unexplained weight loss, heat intolerance, cold intolerance NEUROLOGIC: Absent: headache, focal weakness or paresthesias, dizziness, unsteady gait, seizure, mental status changes, bladder or bowel incontinence PSYCHIATRIC: Absent: anxiety, depression, suicidal or homicidal ideation, hallucinations. Is the patient limited [place] proficient: No *Physical Exam - Vital Signs Last Vital Signs Temp Pulse Resp BP Pulse Ox 97.6 F 84 20 127/87 99 06/09/16 04:16 06/09/16 04:16 06/09/16 04:16 06/09/16 04:16 06/09/16 04:16 - Physical Exam Comments: 06/09/16 05:32 GENERAL: Well developed, well nourished. Awake and alert. No acute distress. HEENT: Normocephalic, atraumatic. PERRLA, EOMI. No conjunctival pallor. Sclera are non- icteric. Moist mucous membranes. Oropharynx is clear. NECK: Supple. Full ROM. No JVD. Carotid pulses 2+ and symmetric, without bruits. No thyromegaly. No lymphadenopathy. CARDIOVASCULAR: Regular rate and rhythm. No murmurs, rubs, or gallops. Distal pulses are 2+ and symmetric. PULMONARY: No evidence of respiratory distress. Lungs clear to auscultation bilaterally. No wheezing, rales or rhonchi. ABDOMINAL: Soft. Non-tender. Non-distended. No rebound or guarding. No organomegaly. Normoactive bowel sounds. MUSCULOSKELETAL Normal range of motion at all joints. No bony deformities or tenderness. No CVA tenderness. EXTREMITIES: No cyanosis. No clubbing. No edema. No calf tenderness. SKIN: Warm and dry. Normal capillary refill. No rashes. No jaundice. NEUROLOGICAL: Alert, awake, appropriate. Cranial nerves 2-12 intact. No deficits to light touch and temperature in face, upper extremities and lower extremities. No motor deficits in the in face, upper extremities and lower extremities. Normoreflexic in the upper and lower extremities. Normal speech. Toes are down- going bilaterally. Gait is normal without ataxia. PSYCHIATRIC: Cooperative. Good eye contact. Appropriate mood and affect. ED Treatment Course - LABORATORY CBC & Chemistry Diagram: 06/09/16 04:40 06/09/16 04:40 *DC/Admit/Observation/Transfer Diagnosis at time of Disposition: Insulin overdose Qualifiers: Encounter type: initial encounter Injury intent: undetermined intent Qualified Code(s): T38.3X4A - Poisoning by insulin and oral hypoglycemic [antidiabetic] drugs, undetermined, initial encounter - Discharge Dispostion Disposition: HOME Condition at time of disposition: Stable Admit: Yes - Referrals
[2016-06-09 04:53] LABS: BASOPHIL 0.5 % (0-2.0); EOSINOPHIL 3.3 % (0-4.5); MCH 31.2 pg (25.7-33.7); MCHC 33.6 g/dl (32.0-35.9); MEAN CELL VOLUME 92.8 fl (80-96); MEAN PLT VOLUME 7.5 fl (7.5-11.1); NEUTROPHILS 52.8 % (42.8-82.8); PLATELET COUNT 230 K/MM3 (134-434); RDW 12.9 % (11.9-15.9); WHITE BLOOD COUNT 5.7 K/mm3 (4.0-10.0)
[2016-06-09 05:16] LABS: ALBUMIN 3.3 g/dl (3.4-5.0); ALK PHOS 60 U/L (45-117); ANION GAP 11 (8-16); BILIRUBIN,TOTAL 0.2 mg/dL (0.2-1.0); CALCIUM 8.6 mg/dL (8.5-10.1); CO2 25 mmol/L (21-32); COCKROFT - GAULT 101.91; CREATININE 0.9 mg/dL (0.7-1.3); GLUCOSE,RANDOM 129 mg/dL (74-106); SGOT/AST 22 U/L (15-37); SGPT/ALT 21 U/L (12-78)
--- NOTE | 2016-06-09 06:23 | PN ---
Teaching Attending Note Name of Resident: Dru Bauer ATTENDING PHYSICIAN STATEMENT I saw and evaluated the patient. I reviewed the resident's note and discussed the case with the resident. I agree with the resident's findings and plan as documented. SUBJECTIVE: 30 y/o male with IDDM since age 14y reported to have taken double his normal dose of insulin today out of curiousity. Denies any depressed mood or suicidal intent. OBJECTIVE: Physical Exam GEN: A&Ox3 in no acute distress HEENT: NC. AT, PERRLA, EOMI, oral mucosa moist CVS: RRR, S1, S2 no M/G/R Lungs: CTA no wheezing, rhonchi Abd: Soft, NT, ND, BS+, no organomegaly Ext: 2+ DP, nl ROM, no edema CBCD WBC 5.7 K/mm3 (4.0-10.0) 06/09/16 04:40 RBC 4.02 M/mm3 (4.00-5.60) 06/09/16 04:40 Hgb 12.5 GM/dL (11.7-16.9) 06/09/16 04:40 Hct 37.3 % (35.4-49) 06/09/16 04:40 MCV 92.8 fl (80-96) 06/09/16 04:40 MCHC 33.6 g/dl (32.0-35.9) 06/09/16 04:40 RDW 12.9 % (11.9-15.9) 06/09/16 04:40 Plt Count 230 K/MM3 (134-434) 06/09/16 04:40 MPV 7.5 fl (7.5-11.1) 06/09/16 04:40 CMP Sodium 140 mmol/L (136-145) 06/09/16 04:40 Potassium 3.9 mmol/L (3.5-5.1) 06/09/16 04:40 Chloride 104 mmol/L (98-107) 06/09/16 04:40 Carbon Dioxide 25 mmol/L (21-32) D 06/09/16 04:40 Anion Gap 11 (8-16) 06/09/16 04:40 BUN 13 mg/dL (7-18) D 06/09/16 04:40 Creatinine 0.9 mg/dL (0.7-1.3) 06/09/16 04:40 Creat Clearance w eGFR > 60 (>60) 06/09/16 04:40 Random Glucose 129 mg/dL (74-106) H D 06/09/16 04:40 Calcium 8.6 mg/dL (8.5-10.1) 06/09/16 04:40 Total Bilirubin 0.2 mg/dL (0.2-1.0) D 06/09/16 04:40 AST 22 U/L (15-37) 06/09/16 04:40 ALT 21 U/L (12-78) 06/09/16 04:40 Alkaline Phosphatase 60 U/L (45-117) 06/09/16 04:40 Total Protein 6.0 g/dl (6.4-8.2) L D 06/09/16 04:40 Albumin 3.3 g/dl (3.4-5.0) L D 06/09/16 04:40 ASSESSMENT AND PLAN: Hypoglycemia secondary to Insulin overdose- Observation hold insulin today D5 1/2NS at 100cc/h Diabetic diet with snacks monitor FS q2h, then once stable q4h Diabetes education Patient counselled on the risk of insulin overdose including coma and .
--- NOTE | 2016-06-09 06:36 | HP ---
CHIEF COMPLAINT: Levemir overdose PCP:Najma HISTORY OF PRESENT ILLNESS: Patient is a 30 year old male with PMH of Type I DM (since age 14) who presents to ED s/p Levemir overdose. Patient states he "ate way too much food" yesterday so he decided at 10pm to increase his Levemir dose from 30units to 60units. He states he woke up around 3am and felt a little light-headed & weak and became concerned that he may have took too much Levemir. He decided to come to ED. Patient adamantly states that he is not suicidal & has no problems at home. He states that he simply thought the increased food intake warranted increased dose of medication. Denies chest pain, shortness of breath, headache, visual changes, fever, chills , dysuria. ER course was notable for: (1)Glucose 133 in triage, dropped to 88 within 2 hours (2)Started on D5-1/2NS drip @100cc/hr (3)Instructed nursing staff to check FS BG q2h & monitor for changes in mental status Recent Travel: none noted PAST MEDICAL HISTORY: as above PAST SURGICAL HISTORY: none reported Social History: Smoking:denies Alcohol:social, 3-5 drinks Drugs: denies Family History: DM (GM) Allergies No Known Allergies Allergy (Verified 06/09/16 04:16) HOME MEDICATIONS: Home Medications Medication Instructions Recorded Insulin (Levemir) [Levemir Flexpen 30 units SQ ASDIR 10/12/13 -] Fluticasone Prop 0.05% Nasal 1 spray NS BID #1 spray.pump 07/01/15 [Flonase -] Montelukast Na [Singulair -] 10 mg PO HS #30 tablet 07/01/15 REVIEW OF SYSTEMS CONSTITUTIONAL: (+)generalized weakness, Absent: fever, chills, diaphoresis, malaise, loss of appetite, weight change HEENT: Absent: rhinorrhea, nasal congestion, throat pain, throat swelling, difficulty swallowing, mouth swelling, ear pain, eye pain, visual changes CARDIOVASCULAR: Absent: chest pain, syncope, palpitations, irregular heart rate, lightheadedness , peripheral edema RESPIRATORY: Absent: cough, shortness of breath, dyspnea with exertion, orthopnea, wheezing, stridor, hemoptysis GASTROINTESTINAL: Absent: abdominal pain, abdominal distension, nausea, vomiting, diarrhea, constipation, melena, hematochezia GENITOURINARY: Absent: dysuria, frequency, urgency, hesitancy, hematuria, flank pain, genital pain MUSCULOSKELETAL: Absent: myalgia, arthralgia, joint swelling, back pain, neck pain SKIN: Absent: rash, itching, pallor HEMATOLOGIC/IMMUNOLOGIC: Absent: easy bleeding, easy bruising, lymphadenopathy, frequent infections ENDOCRINE: Absent: unexplained weight gain, unexplained weight loss, heat intolerance, cold intolerance NEUROLOGIC: Absent: headache, focal weakness or paresthesias, dizziness, unsteady gait, seizure, mental status changes, bladder or bowel incontinence PSYCHIATRIC: Absent: anxiety, depression, suicidal or homicidal ideation, hallucinations. PHYSICAL EXAMINATION Vital Signs - 24 hr 06/09/16 04:16 Temperature 97.6 F Pulse Rate 84 Respiratory 20 Rate Blood Pressure 127/87 O2 Sat by Pulse 99 Oximetry (%) GENERAL: Awake, alert, and fully oriented, in no acute distress. HEENT: LUNGS: Breath sounds equal, clear to auscultation bilaterally. No wheezes, and no crackles. No accessory muscle use. HEART: Regular rate and rhythm, normal S1 and S2 without murmur, rub or gallop. ABDOMEN: Soft, nontender, not distended, normoactive bowel sounds, no guarding, no rebound, no masses. No hepatomegaly or splenomegaly. MUSCULOSKELETAL: Normal range of motion at all joints. No bony deformities or tenderness. No CVA tenderness. UPPER EXTREMITIES: 2+ pulses, warm, well-perfused. No cyanosis. No clubbing. No peripheral edema. LOWER EXTREMITIES: 2+ pulses, warm, well-perfused. No calf tenderness. No peripheral edema. NEUROLOGICAL: Cranial nerves II-XII intact. Normal speech. Normal gait. PSYCHIATRIC: Cooperative. Good eye contact. Appropriate mood and affect. SKIN: Warm, dry, normal turgor, no rashes or lesions noted, normal capillary refill. Laboratory Results - last 24 hr 06/09/16 06/09/16 04:40 04:40 WBC 5.7 RBC 4.02 Hgb 12.5 Hct 37.3 MCV 92.8 MCHC 33.6 RDW 12.9 Plt Count 230 MPV 7.5 Neutrophils % 52.8 D Lymphocytes % 34.1 D Monocytes % 9.3 D Eosinophils % 3.3 D Basophils % 0.5 Sodium 140 Potassium 3.9 Chloride 104 Carbon Dioxide 25 D Anion Gap 11 BUN 13 D Creatinine 0.9 Creat Clearance w eGFR > 60 Random Glucose 129 H D Calcium 8.6 Total Bilirubin 0.2 D AST 22 ALT 21 Alkaline Phosphatase 60 Total Protein 6.0 L D Albumin 3.3 L D ASSESSMENT/PLAN: 30 year old male with PMH of Type I DM (since age 14) who presents to ED s/p Levemir overdose. #Accidental Levemir Overdose -placed in observation -D5-1/2NS started at 100cc/hr -fingerstick BGM q2h, when stabilizes can switch to q4h -regular diet -diabetes education -urine toxicology ordered Prophylaxis -EAM -no PPI indicated Visit type - Emergency Visit Emergency Visit: Yes Care time: The patient presented to the Emergency Department on the above date and was hospitalized for further evaluation of their emergent condition. - New Patient This patient is new to me today: Yes Date on this admission: 06/09/16 - Critical Care Critical Care patient: No
[2016-06-09] MEDS ORDERED: DEXTROSE 5%-0.45% SALINE 1,000 ML IV SCH (06:45)
[2016-06-09 07:54] VITALS: BP 133/74; PULSE 78; TEMP 97.7
--- NOTE | 2016-06-09 08:44 | PN ---
Physical Exam: SUBJECTIVE: Patient seen and examined Patient is comfortable with no acute distress, no nausea or vomiting, no loss of consciousness, no nausea otr vomting, no lightheadedness. OBJECTIVE: Vital Signs Temperature 97.7 F 06/09/16 07:48 Pulse Rate 78 06/09/16 07:48 Respiratory Rate 20 06/09/16 07:58 Blood Pressure 133/74 06/09/16 07:48 O2 Sat by Pulse Oximetry (%) 99 06/09/16 07:58 GENERAL: The patient is awake, alert, and fully oriented, in no acute distress. HEAD: Normal with no signs of trauma. EYES: PERRL, extraocular movements intact, sclera anicteric, conjunctiva clear. No ptosis. ENT: Ears normal, nares patent, oropharynx clear without exudates, moist mucous membranes. NECK: Trachea midline, full range of motion, supple. LUNGS: Breath sounds equal, clear to auscultation bilaterally, no wheezes, no crackles, no accessory muscle use. HEART: Regular rate and rhythm, S1, S2 without murmur, rub or gallop. ABDOMEN: Soft, nontender, nondistended, normoactive bowel sounds, no guarding, no rebound, no hepatosplenomegaly, no masses. EXTREMITIES: 2+ pulses, warm, well-perfused, no edema. NEUROLOGICAL: Cranial nerves II through XII grossly intact. Normal speech, gait not observed. PSYCH: Normal mood, normal affect. SKIN: Warm, dry, normal turgor, no rashes or lesions noted CBCD WBC 5.7 K/mm3 (4.0-10.0) 06/09/16 04:40 RBC 4.02 M/mm3 (4.00-5.60) 06/09/16 04:40 Hgb 12.5 GM/dL (11.7-16.9) 06/09/16 04:40 Hct 37.3 % (35.4-49) 06/09/16 04:40 MCV 92.8 fl (80-96) 06/09/16 04:40 MCHC 33.6 g/dl (32.0-35.9) 06/09/16 04:40 RDW 12.9 % (11.9-15.9) 06/09/16 04:40 Plt Count 230 K/MM3 (134-434) 06/09/16 04:40 MPV 7.5 fl (7.5-11.1) 06/09/16 04:40 CMP Sodium 140 mmol/L (136-145) 06/09/16 04:40 Potassium 3.9 mmol/L (3.5-5.1) 06/09/16 04:40 Chloride 104 mmol/L (98-107) 06/09/16 04:40 Carbon Dioxide 25 mmol/L (21-32) D 06/09/16 04:40 Anion Gap 11 (8-16) 06/09/16 04:40 BUN 13 mg/dL (7-18) D 06/09/16 04:40 Creatinine 0.9 mg/dL (0.7-1.3) 06/09/16 04:40 Creat Clearance w eGFR > 60 (>60) 06/09/16 04:40 Random Glucose 129 mg/dL (74-106) H D 06/09/16 04:40 Calcium 8.6 mg/dL (8.5-10.1) 06/09/16 04:40 Total Bilirubin 0.2 mg/dL (0.2-1.0) D 06/09/16 04:40 AST 22 U/L (15-37) 06/09/16 04:40 ALT 21 U/L (12-78) 06/09/16 04:40 Alkaline Phosphatase 60 U/L (45-117) 06/09/16 04:40 Total Protein 6.0 g/dl (6.4-8.2) L D 06/09/16 04:40 Albumin 3.3 g/dl (3.4-5.0) L D 06/09/16 04:40 Current Medications Generic Name Dose Route Start Last Admin Trade Name Freq PRN Reason Stop Dose Admin Dextrose/Sodium Chloride 1,000 mls @ 100 mls/hr 06/09/16 06:45 06/09/16 06:47 D5-1/2ns - IV 100 mls/hr ASDIR SENG Administration Home Medications Medication Instructions Recorded Insulin (Levemir) [Levemir Flexpen 30 units SQ ASDIR 10/12/13 -] Fluticasone Prop 0.05% Nasal 1 spray NS BID #1 spray.pump 07/01/15 [Flonase -] Montelukast Na [Singulair -] 10 mg PO HS #30 tablet 07/01/15 ASSESSMENT/PLAN: Patient is a 30 year old male with PMH of Type I DM (since age 14) who presents to ED s/p Levemir overdose. #Accidental Levemir Overdose, patient is comfortable now, had his lunch with no hypoglycemic event will discharge the patient. will discharge the patient. discharge time 32 minutes Visit type - Emergency Visit Emergency Visit: Yes ED Registration Date: 06/09/16 Care time: The patient presented to the Emergency Department on the above date and was hospitalized for further evaluation of their emergent condition. - New Patient This patient is new to me today: Yes Date on this admission: 06/09/16 - Critical Care Critical Care patient: No
--- NOTE | 2016-06-09 13:50 | DS ---
Physical Exam: SUBJECTIVE: Patient seen and examined Patient is comfortable with no acute distress. OBJECTIVE: Vital Signs Period Temp Pulse Resp BP Sys/Eid Pulse Ox Last 24 Hr 97.5 F-97.8 F 77-80 18-20 127-138/74-94 99-99 PHYSICAL EXAM GENERAL: The patient is awake, alert, and fully oriented, in no acute distress. HEAD: Normal with no signs of trauma. EYES: PERRL, extraocular movements intact, sclera anicteric, conjunctiva clear. ENT: Ears normal, nares patent, oropharynx clear without exudates, moist mucous membranes. NECK: Trachea midline, full range of motion, supple. LUNGS: Breath sounds equal, clear to auscultation bilaterally, no wheezes, no crackles, no accessory muscle use. HEART: Regular rate and rhythm, S1, S2 without murmur, rub or gallop. ABDOMEN: Soft, nontender, nondistended, normoactive bowel sounds, no guarding, no rebound, no hepatosplenomegaly, no masses. EXTREMITIES: 2+ pulses, warm, well-perfused, no edema. NEUROLOGICAL: Cranial nerves II through XII grossly intact. Normal speech, gait not observed. PSYCH: Normal mood, normal affect. SKIN: Warm, dry, normal turgor, no rashes or lesions noted. LABS Laboratory Results - last 24 hr 06/09/16 06/09/16 11:19 13:24 POC Glucometer 136 223 HOSPITAL COURSE: Date of Admission:06/09/16 Date of Discharge: 06/09/16 Patient is a 30 year old male with PMH of Type I DM (since age 14) who presents to ED s/p Levemir overdose. #Accidental Levemir Overdose, patient is comfortable now, had his lunch with no hypoglycemic event will discharge the patient. discharge time 32 minutes Minutes to complete discharge: 32 Discharge Summary Reason For Visit: INSULIN OVERDOSE Current Active Problems Insulin overdose (Acute) Condition: Stable - Instructions Diet, Activity, Other Instructions: continue current regimen , No extra levemir without notification of your doctor. Do not adjust or give extra Levemir to yourself. Referrals: Lauren Amaya MD [Primary Care Provider] - Disposition: HOME - Home Medications Comprehensive Discharge Medication List: Ambulatory Orders Insulin (Levemir) [Levemir Flexpen -] 30 units SQ ASDIR 10/12/13 Fluticasone Prop 0.05% Nasal [Flonase -] 1 spray NS BID #1 spray.pump 07/01/15 Montelukast Na [Singulair -] 10 mg PO HS #30 tablet 07/01/15 This patient is new to me today: Yes Date on this admission: 06/09/16 Emergency Visit: Yes ED Registration Date: 06/09/16 Care time: The patient presented to the Emergency Department on the above date and was hospitalized for further evaluation of their emergent condition. Critical Care patient: No - Discharge Referral Referred to [facility] No Physician Referral: Steve Taylor MD ([facility]), Cele Sharif MD ([facility])
== END 2016-06-09 13:53 | disposition home or self-care (01) ==
LOC: JER 04:04 → JERBED 06:14 → J8W 07:46
PROVIDERS: ADMIT Internal Medicine; ATTEND Internal Medicine
PROC: 3E0337Z Introduction of Electrolytic and Water Balance Substance into Peripheral Vein, Percutaneous Approach (ICD-10-PCS; principal; 2016-06-09)
DX: T38.3X4A Poisoning by insulin and oral hypoglycemic [antidiabetic] drugs, undetermined, initial encounter (principal); E10.649 Type 1 diabetes mellitus with hypoglycemia without coma; Y92.9 Unspecified place or not applicable; Z79.4 Long term (current) use of insulin
CPT/HCPCS: 36415; 80053; 85025; 99285-25; G0378

== ENCOUNTER 2016-07-27 20:24 | Emergency (ER) | payer OTHER ==
[2016-07-27 20:28] VITALS: BP 148/101; PULSE 90; TEMP 98; BMI 22.3
--- NOTE | 2016-07-27 21:03 | PDOC ---
History of Present Illness - General Chief Complaint: Toothache Stated Complaint: INFECTION Time Seen by Provider: 07/27/16 20:40 History Source: Patient Exam Limitations: No Limitations - History of Present Illness Initial Comments: 07/27/16 20:55 Patient is a 30-year-old male who presents for evaluation of dental pain. Patient states that he had 2 teeth extracted #21 and 20 for dental abscess. And now having increased pain, and feels the antibiotics are not working for the infection. Seen at the dentist yesterday, states was told to continue antibiotics. Patient has been afebrile, no edema to face. Past Medical History: Denies. Allergies: No known allergies Medications: Amoxicillin Family History: Non-contributory Social History: Denies smoking, alcohol use, or IVDU Review of Systems GENERAL/CONSTITUTIONAL: No fever or chills. No weakness. No weight change. HEAD, EYES, EARS, NOSE AND THROAT: No change in vision. No ear pain or discharge. No sore throat. Pain to dental area of #21 and 20 CARDIOVASCULAR: No chest pain or shortness of breath. RESPIRATORY: No cough, wheezing, or hemoptysis. MUSCULOSKELETAL: No joint or muscle swelling or pain. No neck or back pain. SKIN : No rash or easy bruising. NEUROLOGIC: No headache, vertigo, loss of consciousness, or loss of sensation. PSYCHIATRIC: Reports depression from pain HEMATOLOGIC/LYMPHATIC: No anemia, easy bleeding, or history of blood clots. No lymphadenopathy Physical Exam: GENERAL: The patient is awake, alert, and fully oriented, in no acute distress. EYES: Pupils equal, round and reactive to light, extraocular movements intact, sclera anicteric, conjunctiva clear. ENT: Ears normal, nares patent, oropharynx clear without exudates. Moist mucous membranes. No uvula deviation. Clean socket to dental extraction #20 and 21 there is no visible abscess erythema to the gumline. NECK: Normal range of motion, supple without lymphadenopathy, JVD, or masses. LUNGS: Breath sounds equal, clear to auscultation bilaterally. No wheezes, and no crackles. HEART: Regular rate and rhythm, normal S1 and S2 without murmur, rub or gallop. MUSCULOSKELETAL: Normal range of motion, no edema. No clubbing or cyanosis. No cords, erythema, or tenderness. No CVA Tenderness with fist palpation. SKIN: Warm, Dry, normal turgor, no rashes or lesions noted. Past History - Past Medical History Allergies/Adverse Reactions: Allergies Allergy/AdvReac Type Severity Reaction Status Date / Time No Known Allergies Allergy Verified 07/27/16 20:26 Home Medications: Ambulatory Orders Insulin (Levemir) [Levemir Flexpen -] 30 units SQ ASDIR 10/12/13 Fluticasone Prop 0.05% Nasal [Flonase -] 1 spray NS BID #1 spray.pump 07/01/15 Montelukast Na [Singulair -] 10 mg PO HS #30 tablet 07/01/15 Amox-Tr/K Cl [Augmentin - 875Mg Tablet] 1 tab PO BID #14 tablet 07/27/16 Chlorhexidine Gluconate 10 ml MM BID #1 bottle 07/27/16 Asthma: Yes Diabetes: Yes (IDDM) - Immunization History Immunization Up to Date: Yes - Psycho/Social/Smoking Cessation Hx Anxiety: No Suicidal Ideation: No Smoking Status: No Smoking History: Never smoked Have you smoked in the past 12 months: No Number of Cigarettes Smoked Daily: 0 'Breaking Loose' booklet given: 03/17/16 Hx Alcohol Use: No Drug/Substance Use Hx: No Substance Use Type: None Hx Substance Use Treatment: No *Physical Exam - Vital Signs Last Vital Signs Temp Pulse Resp BP Pulse Ox 98 F 90 18 148/101 100 07/27/16 20:27 07/27/16 20:27 07/27/16 20:27 07/27/16 20:27 07/27/16 20:27 Medical Decision Making - Medical Decision Making 07/27/16 21:00 A/P: Patient with dental pain after extraction and scraping of abscess. Patient is on amoxicillin 3 times a day . Patient reports that infection continues to persist and feels that is not being cured by antibiotic. Also complaining of foul odor in mouth and pain 10 out of 10. On physical examination there is no new visible abscess noted, no facial edema, no lymphadenopathy, gumline is erythematous. Extractions are healing well with no dry socket. Chlorhexidine oral wash once a day strict follow-up with dental tomorrow morning. Motrin for pain. Take pain medication that was prescribed to for severe pain *DC/Admit/Observation/Transfer Diagnosis at time of Disposition: Dental abscess, Pain, dental - Discharge Dispostion Disposition: HOME Condition at time of disposition: Good Admit: No - Prescriptions Prescriptions: Amox-Tr/K Cl [Augmentin - 875Mg Tablet] 1 tab PO BID #14 tablet Chlorhexidine Gluconate 10 ml MM BID #1 bottle - Referrals Referrals: Lauren Amaya MD [Primary Care Provider] - - Patient Instructions Printed Discharge Instructions: DI for Dental Pain Additional Instructions: Please follow-up with dentist tomorrow If any respiratory difficulty, increased pain, vomiting, fever, or any other concerns return to ER Please take pain medication as previously prescribed
== END 2016-07-27 22:14 | disposition home or self-care (01) ==
LOC: JERFT 20:24
DX: K04.7 Periapical abscess without sinus (principal); K08.1 Complete loss of teeth; E10.9 Type 1 diabetes mellitus without complications; Z79.4 Long term (current) use of insulin
CPT/HCPCS: 99281-25

== ENCOUNTER 2016-11-26 16:32 | Emergency (ER) | payer OTHER ==
[2016-11-26 16:41] VITALS: BP 138/88; PULSE 80; TEMP 97.6; BMI 23.1
[2016-11-26] MEDS ORDERED: KETOROLAC TROMETHAMINE 30 MG/1 ML VIAL IM ONE (17:07)
--- NOTE | 2016-11-26 17:12 | PDOC ---
History of Present Illness - General Chief Complaint: Toothache Stated Complaint: HEADACHE Past History - Past Medical History Allergies/Adverse Reactions: Allergies Allergy/AdvReac Type Severity Reaction Status Date / Time No Known Allergies Allergy Verified 11/26/16 16:42 Home Medications: Ambulatory Orders Insulin (Levemir) [Levemir Flexpen -] 30 units SQ ASDIR 10/12/13 Fluticasone Prop 0.05% Nasal [Flonase -] 1 spray NS BID #1 spray.pump 07/01/15 Montelukast Na [Singulair -] 10 mg PO HS #30 tablet 07/01/15 Amox-Tr/K Cl [Augmentin - 875Mg Tablet] 1 tab PO BID #14 tablet 07/27/16 Chlorhexidine Gluconate 10 ml MM BID #1 bottle 07/27/16 Amoxicillin/Potassium Clav [Amox-Clav 875-125 mg Tablet] 1 each PO BID #14 tablet 11/26/16 Asthma: Yes Diabetes: Yes (IDDM) - Immunization History Immunization Up to Date: Yes - Suicide/Smoking/Psychosocial Hx Smoking Status: No Smoking History: Never smoked Have you smoked in the past 12 months: No Number of Cigarettes Smoked Daily: 0 Information on smoking cessation initiated: No 'Breaking Loose' booklet given: 03/17/16 Hx Alcohol Use: Yes (WEEKENDS) Drug/Substance Use Hx: No Substance Use Type: Alcohol Hx Substance Use Treatment: No *Physical Exam - Vital Signs Last Vital Signs Temp Pulse Resp BP Pulse Ox 97.6 F 80 16 138/88 98 11/26/16 16:39 11/26/16 16:39 11/26/16 16:39 11/26/16 16:39 11/26/16 16:39 *DC/Admit/Observation/Transfer Diagnosis at time of Disposition: Toothache - Discharge Dispostion Disposition: HOME Condition at time of disposition: Good Admit: No - Patient Instructions Printed Discharge Instructions: DI for Tooth Decay Additional Instructions: Discharge instructions 1. Please follow up with your primary physician within the next few days and explain that you have been seen here in the Emergency Room. You must follow up with a dentist and make an appointment to be seen I have started you on antibiotics You can take motrin for pain Avoid hard foods and candy 2. If you experience any worsening of symptoms, please return to the ER 3. Rest 4. Drink plenty of water
[2016-11-26] MEDS ORDERED: KETOROLAC TROMETHAMINE 60 MG/2 ML VIAL ONE (17:14)
[2016-11-26] MEDS ORDERED: KETOROLAC TROMETHAMINE 30 MG/1 ML VIAL ONE (17:15)
== END 2016-11-26 17:17 | disposition home or self-care (01) ==
LOC: JERFT 16:32
PROC: 3E0233Z Introduction of Anti-inflammatory into Muscle, Percutaneous Approach (ICD-10-PCS; principal; 2016-11-26)
DX: K08.9 Disorder of teeth and supporting structures, unspecified (principal)
CPT/HCPCS: 96372; 99281-25

== ENCOUNTER 2017-06-21 09:28 | Emergency (ER) | payer OTHER ==
[2017-06-21 09:38] VITALS: BP 130/92; PULSE 75; TEMP 97.7; BMI 22.3
[2017-06-21] MEDS ORDERED: IBUPROFEN 400 MG TABLET (FP) PO ONE ×2 (10:52→10:59)
--- NOTE | 2017-06-21 11:36 | PDOC ---
History of Present Illness - General Chief Complaint: Injury Stated Complaint: LEFT FOOT PAIN Time Seen by Provider: 06/21/17 10:17 History Source: Patient - History of Present Illness Occurred: reports: this morning Severity: Yes: moderate Lower Extremity Pain Location: left: foot Method of Injury: Yes: other Past History - Past Medical History Allergies/Adverse Reactions: Allergies Allergy/AdvReac Type Severity Reaction Status Date / Time No Known Allergies Allergy Verified 06/21/17 09:34 Home Medications: Ambulatory Orders Insulin (Levemir) [Levemir Flexpen -] 30 units SQ ASDIR 10/12/13 Fluticasone Prop 0.05% Nasal [Flonase -] 1 spray NS BID #1 spray.pump 07/01/15 Montelukast Na [Singulair -] 10 mg PO HS #30 tablet 07/01/15 Amox-Tr/K Cl [Augmentin - 875Mg Tablet] 1 tab PO BID #14 tablet 07/27/16 Chlorhexidine Gluconate 10 ml MM BID #1 bottle 07/27/16 Amoxicillin/Potassium Clav [Amox-Clav 875-125 mg Tablet] 1 each PO BID #14 tablet 11/26/16 Amoxicillin/Potassium Clav [Amox-Clav 875-125 mg Tablet] 1 each PO BID #14 tablet 11/26/16 Asthma: Yes COPD: No Diabetes: Yes (IDDM) - Immunization History Immunization Up to Date: Yes - Suicide/Smoking/Psychosocial Hx Smoking Status: No Smoking History: Never smoked Have you smoked in the past 12 months: No Number of Cigarettes Smoked Daily: 0 Information on smoking cessation initiated: No 'Breaking Loose' booklet given: 03/17/16 Hx Alcohol Use: No Drug/Substance Use Hx: No Substance Use Type: Alcohol Hx Substance Use Treatment: No Review of Systems - Review of Systems Musculoskeletal: Yes: Joint Pain, Joint Swelling *Physical Exam - Vital Signs Last Vital Signs Temp Pulse Resp BP Pulse Ox 97.7 F 75 16 130/92 100 06/21/17 09:34 06/21/17 09:34 06/21/17 09:34 06/21/17 09:34 06/21/17 09:34 - Physical Exam General Appearance: Yes: Appropriately Dressed. No: Apparent Distress HEENT: positive: Normal Voice Neck: positive: Supple Respiratory/Chest: negative: Respiratory Distress Musculoskeletal: positive: Other (minimal swelling and ttp over dorsum of proximal mid to lateral L foot) ED Treatment Course - RADIOLOGY Radiology Studies Ordered: Category Date Time Status FOOT-LEFT [RAD] Stat Radiology 06/21/17 10:52 Taken - Medications Given in the ED: ED Medications Discontinued Medications Generic Name Dose Route Start Last Admin Trade Name [place] PRN Reason Stop Dose Admin Ibuprofen 800 mg 06/21/17 10:52 06/21/17 10:58 Motrin - PO 06/21/17 10:53 800 mg ONCE ONE Administration Medical Decision Making - Medical Decision Making 06/21/17 11:32 31-year-old male, no significant history here with left foot pain after injury at work this a.m. States while getting out of truck, foot got caught between truck and a trailer. Has been able to bear weight but painful. No ankle pain or swelling. Patient well-appearing and stable with minimal tenderness and swelling to lateral aspect of left foot. X-ray done and negative for any obvious fracture or other acute pathology. DC with supportive treatment and orthopedic follow-up as needed in 2 weeks *DC/Admit/Observation/Transfer Diagnosis at time of Disposition: Sprain of foot, left Qualifiers: Encounter type: initial encounter Qualified Code(s): S93.602A - Unspecified sprain of left foot, initial encounter - Discharge Dispostion Disposition: HOME Condition at time of disposition: Good - Referrals Referrals: Colten Keene MD [Staff Physician] - - Patient Instructions Printed Discharge Instructions: DI for Foot Sprain Additional Instructions: You have a foot sprain, which will heal over the next few days to week. Use ice and elevate leg to help with swelling. Take Motrin for pain. Use crutches as needed. If pain persists after 2 weeks, follow-up with Dr. Keene of orthopedics - Post Discharge Activity Forms/Work/School Notes: Back to Work
== END 2017-06-21 12:01 | disposition home or self-care (01) ==
LOC: JERFT 09:28
DX: S93.602A Unspecified sprain of left foot, initial encounter (principal); X58.XXXA Exposure to other specified factors, initial encounter; Y99.0 Civilian activity done for income or pay; Y93.89 Activity, other specified; Y92.9 Unspecified place or not applicable; J45.909 Unspecified asthma, uncomplicated; E11.9 Type 2 diabetes mellitus without complications
CPT/HCPCS: 73630-TC-LT; 99281-25

== ENCOUNTER 2017-10-16 15:46 | Emergency (ER) | payer SELFPAY ==
[2017-10-16 16:00] VITALS: BP 123/76; PULSE 86; TEMP 98.2; BMI 22.3
--- NOTE | 2017-10-16 16:00 | PDOC ---
Rapid Medical Evaluation Time Seen by Provider: 10/16/17 15:58 Medical Evaluation: Allergies Allergy/AdvReac Type Severity Reaction Status Date / Time No Known Allergies Allergy Verified 06/21/17 09:34 10/16/17 15:58 Pt c/o: rash x 2 days Pt on brief exam: scattered erythematous papular rash to periumbilical area, Pt ordered for: none pt to proceed to the ED 10/16/17 15:59 Discharge Disposition - Diagnosis Rash - Referrals - Patient Instructions - Post Discharge Activity
[2017-10-16] MEDS ORDERED: AZITHROMYCIN 1 GM PACKET PO ONE (16:16)
[2017-10-16] MEDS ORDERED: AZITHROMYCIN 250 MG TABLET PO ONE (16:20)
--- NOTE | 2017-10-16 16:22 | PDOC ---
History of Present Illness - General Chief Complaint: Rash Stated Complaint: RASH Time Seen by Provider: 10/16/17 15:58 - History of Present Illness Initial Comments: 32-year-old male type I diabetic presents for evaluation of rash and a painful lesion on his penis times one day. He states he saw primary care provider he was given of the given a prescription for hydrocortisone cream for the rash and it was no concern about the lesion on his penis. The rash is pruritic in the lesion on his penis is painful. He has no other associated symptoms. 10/16/17 16:17 Past History - Past Medical History Allergies/Adverse Reactions: Allergies Allergy/AdvReac Type Severity Reaction Status Date / Time No Known Allergies Allergy Verified 10/16/17 16:01 Home Medications: Ambulatory Orders Insulin (Levemir) [Levemir Flexpen -] 30 units SQ ASDIR 10/12/13 Asthma: Yes COPD: No Diabetes: Yes (IDDM) - Immunization History Immunization Up to Date: Yes - Suicide/Smoking/Psychosocial Hx Smoking Status: No Smoking History: Never smoked Have you smoked in the past 12 months: No Number of Cigarettes Smoked Daily: 0 'Breaking Loose' booklet given: 03/17/16 Hx Alcohol Use: No Drug/Substance Use Hx: No Substance Use Type: Alcohol Hx Substance Use Treatment: No Review of Systems - Review of Systems : Yes: See HPI, Lesions Integumentary: Yes: Pruritus, Rash All Other Systems: Reviewed and Negative *Physical Exam - Vital Signs Last Vital Signs Temp Pulse Resp BP Pulse Ox 98.2 F 86 18 123/76 98 10/16/17 15:57 10/16/17 15:57 10/16/17 15:57 10/16/17 15:57 10/16/17 15:57 - Physical Exam Comments: HEAD: NC/AT EYES: Conjuntiva clear Ears: Canals and TM's normal NOSE: No d/c THROAT: Moist mucous membrances, oral pharanx clear, uvula midline NECK: Supple without adenopathy CARDIAC: S1 S2 LUNGS: CTA Full and Equal breath sounds ABDOMEN: Soft NT ND MS: Full ROM in all joints without edema NEUROLOGIC: No gross sensory or motor deficits, NVID SKIN: Normal color and temperature there is a diffuse maculopapular rash on the anterior aspect of the abdomen and bilateral upper extremities there is normal surrounding skin color and temperature the rash appears to have raised wheals. Genitourinary exam: There is a tender raised irregularly-shaped lesion which is closed without losing on the right lateral shaft of the penis just below the glans. The remainder of the penis and external genitalia are normal 10/16/17 16:18 Medical Decision Making - Medical Decision Making 10/16/17 16:21 I will treat him for chancroid GC and chlamydia, he already has prescription for hydrocortisone for his rash. He has declined HIV testing because he does not want to wait for results. *DC/Admit/Observation/Transfer Diagnosis at time of Disposition: Rash, Rash due to allergy, [place] - Discharge Dispostion Disposition: HOME Condition at time of disposition: Stable Decision to Admit order: No - Referrals - Patient Instructions Printed Discharge Instructions: Facts About Sexually Transmitted Infections, How to Detect and Treat STDs, Chlamydia: The Silent STD, DI for Rash Additional Instructions: Continue with the hydrocortisone cream as prescribed. You were treated for gonorrhea and chlamydia today in the emergency room. Follow-up with her primary care provider in one to 2 days for further evaluation and treatment options. Return to the emergency room should you want an HIV test. Return to the emergency room if symptoms worsen or go unresolved. - Post Discharge Activity
[2017-10-16] MEDS ORDERED: AZITHROMYCIN 500 MG TABLET ONE (16:40)
== END 2017-10-16 16:48 | disposition home or self-care (01) ==
LOC: JERFT 15:46
PROC: 3E0233Z Introduction of Anti-inflammatory into Muscle, Percutaneous Approach (ICD-10-PCS; principal; 2017-10-16)
DX: R21 Rash and other nonspecific skin eruption (principal); A51.0 Primary genital syphilis; E11.9 Type 2 diabetes mellitus without complications; Z79.4 Long term (current) use of insulin
CPT/HCPCS: 36415; 87491; 87591; 99281-25

== ENCOUNTER 2017-10-17 10:40 | Emergency (ER) | payer SELFPAY ==
[2017-10-17 10:55] VITALS: BP 116/60; PULSE 82; TEMP 98.5; BMI 22.3
--- NOTE | 2017-10-17 11:42 | PDOC ---
History of Present Illness - General Chief Complaint: Rash Stated Complaint: REVISIT, RASH Time Seen by Provider: 10/17/17 11:14 History Source: Patient Exam Limitations: No Limitations - History of Present Illness Initial Comments: 10/17/17 11:41 32y M hx of IDDM presents with complaint of penile lesion. Non pruitic, non painful. x 2 days. Pt notes he had sexual intercourse on saturday where his condom broke. 2 days ago, he noticed a penile lesion that was nonpainful, no associated fever/chills, penile dc, abd pain, diarrhea, dysuria. Pt was here yesterday and was treated with abx for GC, chancroid. no testicular tendnerness , no back pain. pt has no new complaints but was wondering if there was anything topical he can put on it. Past History - Past Medical History Allergies/Adverse Reactions: Allergies Allergy/AdvReac Type Severity Reaction Status Date / Time No Known Allergies Allergy Verified 10/16/17 16:01 Home Medications: Ambulatory Orders Insulin (Levemir) [Levemir Flexpen -] 30 units SQ ASDIR 10/12/13 Asthma: Yes COPD: No Diabetes: Yes (IDDM) - Immunization History Immunization Up to Date: Yes - Suicide/Smoking/Psychosocial Hx Smoking Status: No Smoking History: Former smoker Have you smoked in the past 12 months: No Number of Cigarettes Smoked Daily: 0 Information on smoking cessation initiated: No 'Breaking Loose' booklet given: 03/17/16 Hx Alcohol Use: No Drug/Substance Use Hx: No Substance Use Type: Alcohol Hx Substance Use Treatment: No Review of Systems - Review of Systems Able to Perform ROS?: Yes Comments:: 10/17/17 12:04 Constitutional - no reported Fever, Chills, Abd/GI: no reported abd pain, nausea, vomiting, diarrhea : +Penile lesion no reported dysuria, frequency, discharge Musculskelatal - no reported back pain, joint swelling skin - no reported bruising, erythema, rash *Physical Exam - Vital Signs Last Vital Signs Temp Pulse Resp BP Pulse Ox 98.5 F 82 20 116/60 98 10/17/17 10:53 10/17/17 10:53 10/17/17 10:53 10/17/17 10:53 10/17/17 10:53 - Physical Exam Comments: 10/17/17 12:05 GENERAL: The patient is awake, alert, and fully oriented, Nontoxic - in no acute distress. ABDOMEN: Soft, nontender, normoactive bowel sounds. No guarding, no rebound. . No CVA tenderness : approx 4x5cm lesion on penis that his smooth, raised, nontender, non erythemadous, no testciuarl tendenrss, normal lie. +lymphadenoapthy on L inguinal region Medical Decision Making - Medical Decision Making 10/17/17 12:06 consider possible chancroid pt s/p treatment will await gc will dc with pmd fu return precautions were dsicussed *DC/Admit/Observation/Transfer Diagnosis at time of Disposition: Penile lesion - Discharge Dispostion Disposition: HOME Condition at time of disposition: Improved Decision to Admit order: No - Referrals Referrals: [facility] [Provider Group] - Patient Instructions Printed Discharge Instructions: DI for Rash Additional Instructions: Please follow up with your primary care doctor for reevaluation of your rash. if it does not improve return for furthe revaluation. Print Language: MALIAN - Post Discharge Activity
== END 2017-10-17 15:02 | disposition home or self-care (01) ==
LOC: JER 10:40
DX: L98.8 Other specified disorders of the skin and subcutaneous tissue (principal); N48.89 Other specified disorders of penis; E10.9 Type 1 diabetes mellitus without complications; Z79.4 Long term (current) use of insulin
CPT/HCPCS: 99281-25

== ENCOUNTER 2017-11-26 18:51 | Emergency (ER) | payer OTHER ==
[2017-11-26 19:54] VITALS: BP 137/87; PULSE 87; TEMP 98.4; BMI 25.7
--- NOTE | 2017-11-26 20:21 | PDOC ---
History of Present Illness - General Chief Complaint: Cold Symptoms Stated Complaint: COLD SYMPTOMS Time Seen by Provider: 11/26/17 20:15 - History of Present Illness Initial Comments: 11/26/17 20:19 32-year-old male presents for evaluation of cold symptoms 3 days. No associated fever his is an insulin-dependent diabetic. Past History - Past Medical History Allergies/Adverse Reactions: Allergies Allergy/AdvReac Type Severity Reaction Status Date / Time No Known Allergies Allergy Verified 11/26/17 20:05 Home Medications: Ambulatory Orders Insulin (Levemir) [Levemir Flexpen -] 30 units SQ ASDIR 10/12/13 Asthma: Yes COPD: No Diabetes: Yes (IDDM) - Immunization History Immunization Up to Date: Yes - Suicide/Smoking/Psychosocial Hx Smoking Status: No Smoking History: Never smoked Have you smoked in the past 12 months: No Number of Cigarettes Smoked Daily: 0 Information on smoking cessation initiated: No 'Breaking Loose' booklet given: 03/17/16 Hx Alcohol Use: No Drug/Substance Use Hx: No Substance Use Type: Alcohol Hx Substance Use Treatment: No Review of Systems - Review of Systems HEENTM: Yes: Nose Congestion All Other Systems: Reviewed and Negative *Physical Exam - Vital Signs Last Vital Signs Temp Pulse Resp BP Pulse Ox 98.4 F 87 20 137/87 100 11/26/17 19:51 11/26/17 19:51 11/26/17 19:51 11/26/17 19:51 11/26/17 19:51 - Physical Exam Comments: 11/26/17 20:20 HEAD: NC/AT EYES: Conjuntiva clear Ears: Canals and TM's normal NOSE: No d/c THROAT: Moist mucous membrances, oral pharanx clear, uvula midline NECK: Supple without adenopathy CARDIAC: S1 S2 LUNGS: CTA Full and Equal breath sounds ABDOMEN: Soft NT ND MS: Full ROM in all joints without edema NEUROLOGIC: No gross sensory or motor deficits, NVID SKIN: Normal color and temperature no lesions or rashes Medical Decision Making - Medical Decision Making Benign exam and his 32-year-old insulin-dependent diabetic was likely an upper respiratory infection I'll have her follow up with his primary care physician. 11/26/17 20:20 *DC/Admit/Observation/Transfer Diagnosis at time of Disposition: URI (upper respiratory infection) - Discharge Dispostion Disposition: HOME Condition at time of disposition: Stable Decision to Admit order: No - Referrals Referrals: Donald Chung [Non Staff, Medical] - - Patient Instructions Printed Discharge Instructions: DI for Viral Upper Respiratory Infection -- Adult Additional Instructions: Return to the emergency room should symptoms worsen ago unresolved. Otherwise follow-up with her primary care physician in one to 2 days for further evaluation and treatment options. He may take Tylenol and Motrin as needed for pain or fever should you develop one. Also vzfa-udy-wydhlga Mucinex twice a day with plenty of water help with her cough - Post Discharge Activity
== END 2017-11-26 20:27 | disposition home or self-care (01) ==
LOC: JERFT 18:51
DX: J06.9 Acute upper respiratory infection, unspecified (principal); E10.9 Type 1 diabetes mellitus without complications; Z79.4 Long term (current) use of insulin; Z87.09 Personal history of other diseases of the respiratory system
CPT/HCPCS: 99281-25

== ENCOUNTER 2017-12-06 12:57 | Emergency (ER) | payer OTHER ==
[2017-12-06 13:05] VITALS: BP 135/88; PULSE 114; TEMP 97.9; BMI 25.7
[2017-12-06] MEDS ORDERED: SODIUM CHLORIDE 1,000 ML IV STA (13:32)
--- NOTE | 2017-12-06 13:46 | PDOC ---
History of Present Illness - General History Source: Patient - History of Present Illness Timing/Duration: 1 hour <Romain Cai - Last Filed: 12/06/17 13:59> <Jesus Machado - Last Filed: 12/06/17 15:34> - General Chief Complaint: Substance Abuse Stated Complaint: INTOX Time Seen by Provider: 12/06/17 13:23 Past History - Past Medical History Asthma: Yes COPD: No Diabetes: Yes (IDDM) - Immunization History Immunization Up to Date: Yes - Suicide/Smoking/Psychosocial Hx Smoking Status: No Smoking History: Current every day smoker Have you smoked in the past 12 months: No Number of Cigarettes Smoked Daily: 0 Information on smoking cessation initiated: No 'Breaking Loose' booklet given: 03/17/16 Hx Alcohol Use: No Drug/Substance Use Hx: No Substance Use Type: Alcohol Hx Substance Use Treatment: No <Romain Cai - Last Filed: 12/06/17 13:59> <Jesus Machado - Last Filed: 12/06/17 15:34> - Past Medical History Allergies/Adverse Reactions: Allergies Allergy/AdvReac Type Severity Reaction Status Date / Time No Known Allergies Allergy Verified 12/06/17 13:04 Review of Systems - Review of Systems Respiratory: No: Shortness of Breath Cardiac (ROS): No: Chest Pain, Lightheadedness, Palpitations ABD/GI: No: Nausea, Vomiting, Abdominal cramping <Romain Cai - Last Filed: 12/06/17 13:59> *Physical Exam - Vital Signs Last Vital Signs Temp Pulse Resp BP Pulse Ox 97.9 F 114 H 18 135/88 100 12/06/17 13:04 12/06/17 13:04 12/06/17 13:04 12/06/17 13:04 12/06/17 13:04 - Physical Exam Comments: 12/06/17 14:07 Pt lying on stretcher in no apparent distress General Appearance: Yes: Appropriately Dressed. No: Apparent Distress HEENT: positive: Normal Voice Neck: positive: Supple Respiratory/Chest: positive: Lungs Clear, Normal Breath Sounds. negative: Respiratory Distress Cardiovascular: positive: S1, S2, Tachycardia Gastrointestinal/Abdominal: positive: Soft. negative: Tender Extremity: positive: Normal Inspection Integumentary: positive: Dry, Warm Neurologic: positive: Alert, Other (odd affect) <Romain Cai - Last Filed: 12/06/17 13:59> - Vital Signs Last Vital Signs Temp Pulse Resp BP Pulse Ox 97.9 F 114 H 18 135/88 100 12/06/17 13:04 12/06/17 13:04 12/06/17 13:04 12/06/17 13:04 12/06/17 13:04 <Jesus Machado - Last Filed: 12/06/17 15:34> Medical Decision Making - Medical Decision Making 12/06/17 13:48 32-year-old male, history of type 1 diabetes, here with AMS in the setting of smoking marijuana. Patient states an hr after smoking marijuana an hr go, began "feeling weird" w/ racing throughts and head spinning per pt. Patient admits smoking marijuana frequently but has never felt like this before. Patient vague w/ answers and refuses to answer some of my questions and at some point tells me that I'm asking him too many questions. Refuses to tell me where he got the marijuana today and if he tried any other substances. When asked if he feels like hurting himself, pt told me yes but then told ED nurse that he does not feel like hurting himself. Denies auditory/visual hallucinations. 1:1 was ordered on patient, but patient eloped from ER immediately after I placed order and prior to 1:1 being executed. Staff including ED nurse and security chased after patient but to no avail. Security to contact [employer]. No IV was in placed at the time. ED attg made aware 12/06/17 14:07 <Romain Cai - Last Filed: 12/06/17 13:59> - Medical Decision Making I reviewed the case of the mid-level practitioner and was available for consultation while in the emergency department <Jesus Machado - Last Filed: 12/06/17 15:34> *DC/Admit/Observation/Transfer <Romain Cai - Last Filed: 12/06/17 13:59> <Jesus Machado - Last Filed: 12/06/17 15:34> Diagnosis at time of Disposition: Altered mental state Qualifiers: Altered mental status type: unspecified Qualified Code(s): R41.82 - Altered mental status, unspecified - Discharge Dispostion Disposition: ELOPED - Referrals Referrals: America Tim MD [Primary Care Provider] - - Patient Instructions - Post Discharge Activity
== END 2017-12-06 14:00 | disposition left against medical advice (07) ==
LOC: JER 12:57
DX: R41.82 Altered mental status, unspecified (principal); F17.210 Nicotine dependence, cigarettes, uncomplicated; J45.909 Unspecified asthma, uncomplicated; E11.9 Type 2 diabetes mellitus without complications
CPT/HCPCS: 99282-25

== ENCOUNTER 2018-02-22 09:44 | Inpatient (IN) | payer OTHER ==
[2018-02-22 09:55] VITALS: BMI 23.1
--- NOTE | 2018-02-22 10:21 | PDOC ---
History of Present Illness - General Chief Complaint: Blood Pressure Problem Stated Complaint: BLOOD SUGAR PROBLEM Time Seen by Provider: 02/22/18 10:17 History Source: Patient, Old Records Exam Limitations: No Limitations - History of Present Illness Initial Comments: HPI: 32 y/o male presenting to [facility] ER via private auto complaining of nausea and hyperglycemia. Pt states the nausea started after waking this morning. Denies vomiting or abdominal pain. Reports drinking two glasses of vodka and smoking hookah last night. Denies marijuana or other street drug usage. Checked his BGL this AM and found it above range of glucometer. Took eight units of short acting insulin (Novilin 70-30) at approx. 9 am before arrival at department. Did not take his BGL yesterday. 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 Obtains insulin by just calling the hospital. Had a insulin pump in the past but didnt like it. PCP: None Social Hx: - H/o EtOH abuse, last drank 2 cups of vodka last night - Tobacco: Hookah last night - Street Drugs: H/o of marijuana abuse per chart but pt denies recent Medical Hx: - T1DM, managed with Novilin (70-30) and Novalog per chart Past History - Past Medical History Allergies/Adverse Reactions: Allergies Allergy/AdvReac Type Severity Reaction Status Date / Time No Known Allergies Allergy Verified 12/06/17 13:04 Home Medications: Ambulatory Orders Insulin (Novolog 70/30) [Novolog Mix 70/30 Vial] 0 ml SQ DAILY 02/22/18 Insulin NPH Hum/Reg Insulin Hm [Novolin 70-30 Flexpen] 0 unit SQ DAILY 02/22/18 Asthma: Yes COPD: No Diabetes: Yes (IDDM) - Immunization History Immunization Up to Date: Yes - Suicide/Smoking/Psychosocial Hx Smoking Status: No Smoking History: Never smoked Have you smoked in the past 12 months: No Number of Cigarettes Smoked Daily: 0 'Breaking Loose' booklet given: 03/17/16 Hx Alcohol Use: No Drug/Substance Use Hx: No Substance Use Type: Alcohol Hx Substance Use Treatment: No Review of Systems - Review of Systems Able to Perform ROS?: Yes Comments:: In addition to that documented in the HPI above, the additional ROS was obtained : Constitutional: Denies fevers or chills Eyes: Denies vision changes ENMT: Denies sore throat CV: Denies chest pain Resp: Denies SOB GI: Denies vomiting or diarrhea : Denies painful urination MSK: Denies recent trauma Skin: Denies new rashes Neuro: Denies new numbness or tingling or weakness Endocrine: Endorses dry mouth Heme: Denies bleeding or bruising *Physical Exam - Vital Signs Last Vital Signs Temp Pulse Resp BP Pulse Ox 97.9 F 107 H 16 153/69 96 02/22/18 09:52 02/22/18 09:52 02/22/18 09:52 02/22/18 09:52 02/22/18 09:52 - Physical Exam Comments: Constitutional: Well-developed, well-nourished male in no acute distress or obvious discomfort. Found semi-fowlers in hospital bed. Alert and oriented x4. Answered all questions appropriately and completely. Speech was non-labored, non -pressured. Head: Normocephalic. No obvious external signs of trauma. Eyes: Sclerae white. Conjunctiva moist and not injected. EARS: Hearing grossly intact. NOSE: No nasal discharge. THROAT: Oral cavity and pharynx normal. No inflammation, swelling, exudate, or lesions. Mucosa dry appearing. Neck: Supple, trachea is midline. Cardiovascular: Regular rate and regular rhythm. No murmur, rubs, clicks, or gallops. Peripheral pulses: Radial pulses full. Respiratory: Breathing unlabored. Equal chest rise and fall. Clear to auscultation bilaterally. No stridor, no wheezing, no rhonchi. Gastrointestinal: abdomen is soft, non-tender, non-distended. No pulsatile masses. No overlying skin lesions or obvious signs of trauma.. Neuro: Alert and oriented. Moving all four extremities spontaneously. Skin: Warm, dry, and intact. Psych: Affect: appropriate. Mood: normal. Moderate Sedation - Procedure Monitoring Vital Signs: Procedure Monitoring Vital Signs Temperature 97.9 F 02/22/18 09:52 Pulse Rate 107 H 02/22/18 09:52 Respiratory Rate 16 02/22/18 09:52 Blood Pressure 153/69 02/22/18 09:52 O2 Sat by Pulse Oximetry (%) 96 02/22/18 09:52 ED Treatment Course - LABORATORY CBC & Chemistry Diagram: 02/22/18 10:39 02/22/18 10:39 Medical Decision Making - Medical Decision Making *Reviewed vital signs, nursing notes, and prior visit documentation (if available). 32 y/o T1DM presenting to hyperglycemia above home and ED POC glucometers. Endorses nausea without vomiting or abdominal pain. Drank vodka last night and smoked hookah. Reports noncompliance with home insulin regimen. Does not follow with any clinic. D/D includes symptomatic hyperglycemia with/without DKA, nausea following acute EtOH intoxication, carbon monoxide poisoning. Ordered 2L NS IFVB. CMP revealed elevated glucose with elevated anion gap. Bicarb of 17. 2+ serum acetone. VBG revealed mild acidosis. Suspect DKA. Repeated POC glucose to evaluate current BGL as pt took insulin just prior to arrival. Ordered insulin bolus, insulin drip, and D5NS gtts. Will repeat POC glucose in one hour to evaluate trend. Potassium not repeated as it was above 3.5. 12:06 Microblog sent to [facility] Hospitalist service for admission. Awaiting call back. 12:07 Page sent to ICU for consultation. Awaiting callback. ED Attending consulted with both Dr. Barr and LOPEZ Patterson of ICU service. Pt will be accepted to ICU for Dr. Montes. *DC/Admit/Observation/Transfer Diagnosis at time of Disposition: Acute kidney injury DKA (diabetic ketoacidoses) Qualifiers: Diabetes mellitus type: type 1 Diabetes mellitus complication detail: without coma Qualified Code(s): E10.10 - Type 1 diabetes mellitus with ketoacidosis without coma - Discharge Dispostion Condition at time of disposition: Stable - Referrals - Patient Instructions - Post Discharge Activity
[2018-02-22] MEDS ORDERED: SODIUM CHLORIDE 0.9% 500 ML INFUS.BAG IV ONE ×2 (10:36→12:02)
--- NOTE | 2018-02-22 10:54 | PDOC ---
Attending Attestation - Resident Resident Name: Brandon Gupta - ED Attending Attestation I have performed the following: I have examined & evaluated the patient, The case was reviewed & discussed with the resident, I agree w/resident's findings & plan, Exceptions are as noted - HPI HPI: 02/22/18 11:03 32 year old male c/ hx of marijuana and alcohol abuse, type 1 DM (intermittent adherent to her novolin and lantus) presents with hyperglycemia. Yesterday, has had 2 drinks of alcohol and food. Today, woke up. Intermittent compliance with his insulin. This morning, noted that his sugars were over 300 and noted that he had nausea. No davion vomiting, fevers, chills, diarrhea, dysuria. Came in out of concerns for elevated glucose. - Physicial Exam PE: 02/22/18 11:09 GENERAL: Awake, alert, and fully oriented, in no acute distress HEAD: No signs of trauma EYES: EOMI, sclera anicteric, conjunctiva clear ENT: Auricles normal inspection, hearing grossly normal, nares patent, dry mucous membranes NECK: Normal ROM, supple, LUNGS: Breath sounds equal, clear to auscultation bilaterally. No wheezes, and no crackles HEART: Regular rate and rhythm, normal S1 and S2, no murmurs, rubs or gallops ABDOMEN: Soft, nontender No guarding, no rebound. No masses EXTREMITIES: Normal range of motion, no edema. No clubbing or cyanosis. No cords, erythema, or tenderness NEUROLOGICAL: Cranial nerves II through XII grossly intact. Normal speech, normal gait SKIN: Warm, Dry, normal turgor, no rashes or lesions noted. - Critical Care Time Total Critical Care Time: 35 Critical Care Statement: The care of this patient involved high complexity decision making to prevent further life threatening deterioration of the patient 's condition and/or to evaluate & treat vital organ system(s) failure or risk of failure. - Medical Decision Making 02/22/18 11:09 Vital Signs Temp Pulse Resp BP Pulse Ox 97.9 F 94 H 18 127/75 98 02/22/18 09:52 02/22/18 10:47 02/22/18 10:47 02/22/18 10:47 02/22/18 10:47 Given the elevated hyperglycemia, I suspect this is secondary to nonadherence to his medications. However, we'll need to rule out diabetic ketoacidosis. We' ll obtain labs including a CMP for anion gap and a VBG to evaluate for pH. Patient has some nausea and vomiting which may be secondary to gastroparesis or from his hyperglycemia. However, we'll obtain labs including lipase. Less likely to be cardiac but we'll obtain a troponin and EKG. IV fluids, insulin and reassess. 02/22/18 12: CBC, BMP 02/22/18 10:39 02/22/18 10:39 CMP Sodium 128 mmol/L (136-145) L 02/22/18 10:39 Potassium 5.0 mmol/L (3.5-5.1) 02/22/18 10:39 Chloride 91 mmol/L (98-107) L 02/22/18 10:39 Carbon Dioxide 17 mmol/L (21-32) L 02/22/18 10:39 Anion Gap 20 MMOL/L (8-16) H 02/22/18 10:39 BUN 25 mg/dL (7-18) H 02/22/18 10:39 Creatinine 1.5 mg/dL (0.55-1.3) H 02/22/18 10:39 Creat Clearance w eGFR 54.95 (>60) 02/22/18 10:39 Calcium 10.0 mg/dL (8.5-10.1) 02/22/18 10:39 Phosphorus 6.9 mg/dL (2.5-4.9) H 02/22/18 10:39 Magnesium 2.7 mg/dL (1.8-2.4) H 02/22/18 10:39 Total Bilirubin 0.8 mg/dL (0.2-1) 02/22/18 10:39 AST 22 U/L (15-37) 02/22/18 10:39 ALT 35 U/L (13-61) 02/22/18 10:39 Alkaline Phosphatase 113 U/L (45-117) 02/22/18 10:39 Troponin I < 0.02 ng/ml (0.00-0.05) 02/22/18 10:39 Total Protein 8.0 g/dl (6.4-8.2) 02/22/18 10:39 Albumin 4.2 g/dl (3.4-5.0) 02/22/18 10:39 Lipase 76 U/L (73-393) 02/22/18 10:39 Urine Test Results Urine Color Straw 02/22/18 11:28 Urine Appearance Clear 02/22/18 11:28 Urine pH 5.0 (5.0-8.0) 02/22/18 11:28 Ur Specific [place] 1.026 (1.010-1.035) 02/22/18 11:28 Urine Protein Negative (NEGATIVE) 02/22/18 11:28 Urine Glucose (UA) 3+ (NEGATIVE) H 02/22/18 11:28 Urine Ketones 2+ (NEGATIVE) H 02/22/18 11:28 Urine Blood Negative (NEGATIVE) 02/22/18 11:28 Urine Nitrite Negative (NEGATIVE) 02/22/18 11:28 Urine Bilirubin Negative (<2.0 mg/dL) 02/22/18 11:28 Ur Leukocyte Esterase Negative (NEGATIVE) 02/22/18 11:28 2+ ketones, elevated AG, concerning for DKA. Will start insulin subq, insulin drip. As glucose is getting closer to 250, start D5 NS drip. Admit 02/22/18 12:45 Case discussed with ICU BRAND ENGINEER Jesus. Patient accepted to ICU. Case discussed with Dr. Johnathon Barr. Pt accepted. *DC/Admit/Observation/Transfer Diagnosis at time of Disposition: Acute kidney injury DKA (diabetic ketoacidoses) Qualifiers: Diabetes mellitus type: type 1 Diabetes mellitus complication detail: without coma Qualified Code(s): E10.10 - Type 1 diabetes mellitus with ketoacidosis without coma - Discharge Dispostion Condition at time of disposition: Stable Decision to Admit order: Yes - Referrals Referrals: America Tim MD [Primary Care Provider] - - Patient Instructions - Post Discharge Activity Heart Score/ECG Review #1 ECG reviewed & interpreted by me at: 11:20 02/22/18 11:20 NR 94, no std/jessica, normal axis, normal intervals, QTC 425 msec
[2018-02-22 11:09] LABS: VENOUS PC02 33.3 mmHg (38-52); VENOUS PH 7.31 (7.32-7.42); VENOUS PO2 85.3 mmHg (28-48)
[2018-02-22 11:10] LABS: BASO % 0.5 % (0-2.0); EOS % 0.2 % (0-4.5); HEMATOCRIT 46.8 % (35.4-49); HEMOGLOBIN 16.3 GM/dL (11.7-16.9); LYMPH % 11.8 % (8-40); MCH 32.5 pg (25.7-33.7); MCHC 34.7 g/dl (32.0-35.9); MEAN CELL VOLUME 93.6 fl (80-96); MEAN PLT VOLUME 8.4 fl (7.5-11.1); MONO % 5.4 % (3.8-10.2); NEUT % 82.1 % (42.8-82.8); PLATELET COUNT 308 K/MM3 (134-434); RDW 13.6 % (11.9-15.9); WHITE BLOOD COUNT 8.7 K/mm3 (4.0-10.0)
[2018-02-22 11:33] LABS: ALBUMIN 4.2 g/dl (3.4-5.0); ALK PHOS 113 U/L (45-117); ANION GAP 20 MMOL/L (8-16); BILIRUBIN,TOTAL 0.8 mg/dL (0.2-1); BLOOD UREA NITROGEN 25 mg/dL (7-18); CHLORIDE 91 mmol/L (98-107); CO2 17 mmol/L (21-32); CREATININE 1.5 mg/dL (0.55-1.3); LIPASE 76 U/L (73-393); PHOSPHOROUS 6.9 mg/dL (2.5-4.9); SGOT/AST 22 U/L (15-37); SGPT/ALT 35 U/L (13-61); SODIUM 128 mmol/L (136-145)
[2018-02-22 11:47] LABS: URINE APPEARANCE CLEAR; URINE BILIRUBIN NEGATIVE (<2.0 mg/dL); URINE COLOR STRAW; URINE GLUCOSE (UA) 3+ (NEGATIVE); URINE KETONE 2+ (NEGATIVE); URINE LEUK ESTERASE NEGATIVE (NEGATIVE); URINE NITRITE NEGATIVE (NEGATIVE); URINE PROTEIN NEGATIVE (NEGATIVE); URINE UROBILINOGEN NEGATIVE mg/dL (0.2-1.0)
[2018-02-22] MEDS ORDERED: INSULIN REGULAR HUMAN 100 UNITS/ML *VIAL SQ ONE (12:12)
[2018-02-22] MEDS ORDERED: INSULIN REGULAR 100 UNITS in SODIUM CHLORIDE 99 ML IVPB SCH (12:15)
[2018-02-22 12:16] LABS: MAGNESIUM 2.7 mg/dL (1.8-2.4)
[2018-02-22 12:21] LABS: GLUCOSE,RANDOM 429 mg/dL (74-106)
[2018-02-22] MEDS ORDERED: DEXTROSE 5%-NORMAL SALINE 1,000 ML IV SCH (12:30)
[2018-02-22] MEDS ORDERED: INSULIN REGULAR HUMAN 100 UNITS/ML *VIAL ONE (12:30)
--- NOTE | 2018-02-22 13:59 | HP ---
Admitting History and Physical - Primary Care Physician PCP: none - Admission Chief Complaint: Low energy History of Present Illness: Mr Danielle is a 32 year old male with history of Type 1 diabetes who comes in with DKA. He is disinterested in discussing the reason he came into the hospital , often closing his eyes and not answering questions. From what I can gather he was out last night smoking hookah (tobacco) and drank 2-[address] beers[address] He drove home and was in his normal state of health, but this morning he woke up feeling weak. He said he also had a sore throat secondary to his allergies. He denies fevers, chills, recent illness, lightheadedness, dizziness, passing out, chest pain or pressure, shortness of breath, nausea, vomiting, diarrhea, constipation , difficulty or pain on urination, or swelling. He says he feels "ok" now. He is non-compliant with his insulin regimen. He says he will not test his sugars on a regular basis and only takes insulin when he feels he "needs it". History Source: Patient Limitations to Obtaining History: No Limitations - Past Medical History Pulmonary: Yes: Asthma Endocrine: Yes: Diabetes Mellitus - Smoking History Smoking history: Never smoked Have you smoked in the past 12 months: No Aproximately how many cigarettes per day: 0 - Alcohol/Substance Use Hx Alcohol Use: Yes (2-3 drinks on the weekend) History of Substance Use: reports: None - Social History ADL: Independent Occupation: [employer] History of Recent Travel: No Home Medications - Allergies Allergies/Adverse Reactions: Allergies Allergy/AdvReac Type Severity Reaction Status Date / Time No Known Allergies Allergy Verified 12/06/17 13:04 - Home Medications Home Medications: Ambulatory Orders Insulin (Novolog 70/30) [Novolog Mix 70/30 Vial] 0 ml SQ DAILY 02/22/18 Insulin NPH Hum/Reg Insulin Hm [Novolin 70-30 Flexpen] 0 unit SQ DAILY 02/22/18 Family Disease History - Family Disease History Family Disease History: Diabetes: Grandparent (HTN) Review of Systems Findings/Remarks: Full review of systems obtained, as per HPI and otherwise negative Physical Examination Vital Signs: Vital Signs Temperature 36.6 C 02/22/18 09:52 Pulse Rate 94 H 02/22/18 10:47 Respiratory Rate 18 02/22/18 10:47 Blood Pressure 130/76 02/22/18 11:17 O2 Sat by Pulse Oximetry (%) 98 02/22/18 10:47 Constitutional: Yes: Well Nourished, No Distress, Calm Eyes: Yes: Conjunctiva Clear, EOM Intact, PERRL HENT: Yes: Atraumatic, Normocephalic Cardiovascular: Yes: Regular Rate and Rhythm. No: Gallop, Murmur, Rub Respiratory: Yes: Regular, CTA Bilaterally. No: Rales, Rhonchi, Wheezes Gastrointestinal: Yes: Normal Bowel Sounds, Soft. No: Distention, Tenderness Extremities: Yes: WNL Edema: No Labs: CBC, BMP 02/22/18 10:39 02/22/18 10:39 Problem List - Problems (1) DKA (diabetic ketoacidoses) Assessment/Plan: -admit patient to the hospital -placed on insulin gtt in the ED -upon seeing him, glucose was below 250 so D5 NS was added until gap closed -checked FSBS q1h -bmp q3h until gap closed -since gap has closed at time of writing, patient was given levemir 10 units SC x1 and insulin gtt was stopped -changed D5 NS to NS at same rate -started on diet -rechecked bmp, gap remains closed -put on levemir 10 units qam -diabetic diet and SSI -if has nausea or vomiting, check ABG, BMP, glucose to see if gap reopened Code(s): E13.10 - OTH DIABETES MELLITUS WITH KETOACIDOSIS WITHOUT COMA Qualifiers: Diabetes mellitus type: type 1 Diabetes mellitus complication detail: without coma Qualified Code(s): E10.10 - Type 1 diabetes mellitus with ketoacidosis without coma (2) Acute kidney injury Assessment/Plan: -resolving with IVF -continue NS at 125 ml/hr Code(s): N17.9 - ACUTE KIDNEY FAILURE, UNSPECIFIED
[2018-02-22] MEDS ORDERED: LORATADINE 10 MG TABLET PO SCH (14:15)
[2018-02-22 14:32] LABS: ANION GAP 9 MMOL/L (8-16); BLOOD UREA NITROGEN 20 mg/dL (7-18); CHLORIDE 104 mmol/L (98-107); CO2 22 mmol/L (21-32); CREATININE 1.1 mg/dL (0.55-1.3); GLUCOSE,RANDOM 159 mg/dL (74-106); POTASSIUM 4.2 mmol/L (3.5-5.1); SODIUM 135 mmol/L (136-145)
[2018-02-22 14:47] VITALS: PULSE 95
[2018-02-22] MEDS ORDERED: INSULIN (LEVEMIR) 100 UNITS/ML UNITS SQ ONE ×3 (15:02→16:49)
[2018-02-22] MEDS ORDERED: LORATADINE 10 MG TABLET ONE (15:23)
[2018-02-22] MEDS ORDERED: BENZOCAINE/MENTH/CETYLPYRD CL 1 EACH LOZENGE MM PRN (15:55)
[2018-02-22] MEDS ORDERED: SODIUM CHLORIDE 1,000 ML IV SCH (16:00)
[2018-02-22 16:47] VITALS: BP 134/85; TEMP 98.4
[2018-02-22 18:03] LABS: ANION GAP 10 MMOL/L (8-16); BLOOD UREA NITROGEN 18 mg/dL (7-18); CALCIUM 8.8 mg/dL (8.5-10.1); CHLORIDE 102 mmol/L (98-107); CO2 24 mmol/L (21-32); CREATININE 1.1 mg/dL (0.55-1.3); GLUCOSE,RANDOM 108 mg/dL (74-106); POTASSIUM 4.6 mmol/L (3.5-5.1); SODIUM 136 mmol/L (136-145)
--- NOTE | 2018-02-22 20:17 | HOSP ---
Subjective - Review of Symptoms Events since last encounter: Called to see patient in ED as he wanted to leave AMA. Discussed risks of leaving with pt, explained at length. Pt still refusing tx and decided to leave AMA. Form given to ED nurse Mehreen Goldberg MD PGY-2 Night resident Physical Examination Vital Signs: Vital Signs Temperature 98.4 F 02/22/18 16:46 Pulse Rate 95 H 02/22/18 16:46 Respiratory Rate 18 02/22/18 14:46 Blood Pressure 134/85 02/22/18 16:46 O2 Sat by Pulse Oximetry (%) 98 02/22/18 17:46 Labs: CBC, BMP 02/22/18 10:39 02/22/18 17:12 Visit type - Emergency Visit Emergency Visit: Yes ED Registration Date: 02/22/18 Care time: The patient presented to the Emergency Department on the above date and was hospitalized for further evaluation of their emergent condition. - New Patient This patient is new to me today: Yes Date on this admission: 02/22/18 - Critical Care Critical Care patient: No
[2018-02-22] MEDS ORDERED: INSULIN SLIDING SCALE (NOVOLOG) 1 VIAL SQ SCH (22:00)
[2018-02-22] MEDS ORDERED: MUPIROCIN 2% TOPICAL OINTMENT FOR DECOLONIZATION NS SCH (22:00)
[2018-02-22] MEDS ORDERED: CHLORHEXIDINE GLUCONATE 4% CLEANSER FOR DECOLONIZATION TP SCH (22:00)
[2018-02-23] MEDS ORDERED: INSULIN (LEVEMIR) 100 UNITS/ML UNITS SQ SCH (07:00)
--- NOTE | 2018-02-23 08:42 | EKG ---
Test Reason : Blood Pressure : / mmHG Vent. Rate : 094 BPM Atrial Rate : 094 BPM P-R Int : 150 ms QRS Dur : 070 ms QT Int : 340 ms P-R-T Axes : 066 039 039 degrees QTc Int : 425 ms NORMAL SINUS RHYTHM BIATRIAL ENLARGEMENT ABNORMAL ECG WHEN COMPARED WITH ECG OF 17-MAR-2016 15:41, NO SIGNIFICANT CHANGE WAS FOUND Confirmed by OLMAN STOREY, STERLING ([id number]) on 02/23/2018 8:42:12 AM Referred By: Confirmed By:STERLING THURMAN MD
--- NOTE | 2018-02-23 11:26 | DS ---
Physical Examination Vital Signs: Vital Signs Temperature 36.9 C 02/22/18 16:46 Pulse Rate 95 H 02/22/18 16:46 Respiratory Rate 18 02/22/18 14:46 Blood Pressure 134/85 02/22/18 16:46 O2 Sat by Pulse Oximetry (%) 98 02/22/18 17:46 Labs: CBC, BMP 02/22/18 10:39 02/22/18 17:12 Discharge Summary Reason For Visit: ACUTE KIDNEY INJURY, DIABETIC KETOACIDOSIS Current Active Problems Acute kidney injury (Acute) DKA (diabetic ketoacidoses) (Acute) Hospital Course: Mr Danielle left AMA overnight Condition: Stable - Instructions Referrals: America iTm MD [Primary Care Provider] - - Home Medications Comprehensive Discharge Medication List: Ambulatory Orders Insulin (Novolog 70/30) [Novolog Mix 70/30 Vial] 0 ml SQ DAILY 02/22/18 Insulin NPH Hum/Reg Insulin Hm [Novolin 70-30 Flexpen] 0 unit SQ DAILY 02/22/18
== END 2018-02-22 20:30 | disposition left against medical advice (07) | DRG 460 ==
LOC: JER 09:44 → JERBED 12:45
PROVIDERS: ADMIT Internal Medicine; ATTEND Internal Medicine
DX: N17.9 Acute kidney failure, unspecified (principal); E10.10 Type 1 diabetes mellitus with ketoacidosis without coma; Z91.14 Patient's other noncompliance with medication regimen; F10.10 Alcohol abuse, uncomplicated; Z79.4 Long term (current) use of insulin
CPT/HCPCS: 36415; 80048; 80053; 81003; 82009; 82375; 82803; 82962; 83690; 83735; 84100; 84484; 85025; 93005; 93010; 99285-25; J7030

== ENCOUNTER 2018-05-22 09:26 | Emergency (ER) | payer OTHER ==
[2018-05-22 09:33] VITALS: BP 123/75; PULSE 73; TEMP 97.6; BMI 22.3
[2018-05-22] MEDS ORDERED: SODIUM CHLORIDE 1,000 ML IV STA (10:01)
[2018-05-22] MEDS ORDERED: INSULIN REGULAR HUMAN 100 UNITS/ML *VIAL IVPUSH ONE (10:01)
--- NOTE | 2018-05-22 10:06 | PDOC ---
History of Present Illness - General Chief Complaint: Blood Sugar Problem Stated Complaint: SUGAR PROBLEM Time Seen by Provider: 05/22/18 09:34 History Source: Patient - History of Present Illness Timing/Duration: other (this am) Past History - Past Medical History Allergies/Adverse Reactions: Allergies Allergy/AdvReac Type Severity Reaction Status Date / Time No Known Allergies Allergy Verified 12/06/17 13:04 Home Medications: Ambulatory Orders Ipratropium [place] 2 sprays NS BID PRN #1 spray 09/27/17 Methylprednisolone [Medrol Dose Etienne] 4 mg PO ASDIR #21 tablet 09/27/17 Insulin (Novolog 70/30) [Novolog Mix 70/30 Vial] 0 ml SQ DAILY 02/22/18 Insulin NPH Hum/Reg Insulin Hm [Novolin 70-30 Flexpen] 0 unit SQ DAILY 02/22/18 Asthma: Yes COPD: No Diabetes: Yes (I) Hypercholesterolemia: No - Surgical History GI Surgery: No - Immunization History Immunization Up to Date: Yes - Suicide/Smoking/Psychosocial Hx Smoking Status: No Smoking History: Current some day smoker Have you smoked in the past 12 months: Yes Number of Cigarettes Smoked Daily: 0 Information on smoking cessation initiated: No 'Breaking Loose' booklet given: 03/17/16 Hx Alcohol Use: No Drug/Substance Use Hx: No Substance Use Type: None, Alcohol Hx Substance Use Treatment: No Review of Systems - Review of Systems Constitutional: No: Chills, Fever Respiratory: No: Shortness of Breath Cardiac (ROS): No: Chest Pain ABD/GI: No: Nausea, Vomiting, Abdominal cramping : No: Dysuria Neurological: No: Headache, Dizziness *Physical Exam - Vital Signs Last Vital Signs Temp Pulse Resp BP Pulse Ox 97.6 F 73 18 123/75 100 05/22/18 09:30 05/22/18 09:30 05/22/18 09:30 05/22/18 09:30 05/22/18 09:30 - Physical Exam Comments: 05/22/18 10:58 Well-appearing, currently sitting on stretcher and talking on his cell phone General Appearance: Yes: Appropriately Dressed. No: Apparent Distress HEENT: positive: Normal Voice Neck: positive: Supple Respiratory/Chest: positive: Lungs Clear, Normal Breath Sounds. negative: Respiratory Distress Cardiovascular: positive: Regular Rate, S1, S2 Gastrointestinal/Abdominal: positive: Soft. negative: Tender Musculoskeletal: negative: CVA Tenderness Integumentary: positive: Dry, Warm Neurologic: positive: Fully Oriented, Alert, Normal Mood/Affect ED Treatment Course - LABORATORY CBC & Chemistry Diagram: 05/22/18 10:08 05/22/18 10:08 - ADDITIONAL ORDERS Additional order review: Laboratory Results 05/22/18 09:55 POC Glucometer 439 05/22/18 09:55 POC Glucometer 439 Medical Decision Making - Medical Decision Making 05/22/18 10:05 32 yo male, IDDM, DKA (s/p admission for same 03/01), polysubstance abuse, here with hyperglycemia. Patient states his sugar this a.m. was over 500. Only complains of generalized body cramping that started this morning. Patient admits that he does not take his insulin as he should and states that this is because at work, he is usually too busy to keep up with his nutrition and fears taken his insulin if his blood sugar is low. Patient states he has not followed up with his delivery specialist in a long time See exam Hyperglycemia R/o complications Non-compliant w/ insulin -IVF -insulin -labs -reassess 05/22/18 10:56 05/22/18 11:23 No acetone or gap on labs. NA 128 w/ cr 1.5 and K 5.5 prior to IVF. Finger stick after meds now 100. Patient remains stable and well-appearing. Will discharge with strict instructions to resume his insulin and follow-up with delivery specialist this week. ED attg aware of dispo *DC/Admit/Observation/Transfer Diagnosis at time of Disposition: Hyperglycemia - Discharge Dispostion Disposition: HOME Condition at time of disposition: Improved - Referrals - Patient Instructions Printed Discharge Instructions: DI for Hyperglycemia -- Adult Additional Instructions: You need to start taking your insulin as prescribed in order to prevent complications as discussed today in the ER. Return to ER for worsening of symptoms. Otherwise, please follow-up with your delivery specialist this week - Post Discharge Activity
[2018-05-22 10:20] LABS: BASO % 0.9 % (0-2.0); EOS % 3.1 % (0-4.5); HEMATOCRIT 49.7 % (35.4-49); HEMOGLOBIN 17.1 GM/dL (11.7-16.9); LYMPH % 29.8 % (8-40); MCH 31.8 pg (25.7-33.7); MCHC 34.4 g/dl (32.0-35.9); MEAN CELL VOLUME 92.4 fl (80-96); MEAN PLT VOLUME 8.6 fl (7.5-11.1); MONO % 5.2 % (3.8-10.2); PLATELET COUNT 260 K/MM3 (134-434); RBC 5.38 M/mm3 (4.00-5.60); RDW 12.7 % (11.9-15.9); WHITE BLOOD COUNT 5.6 K/mm3 (4.0-10.0)
[2018-05-22 11:01] LABS: URINE APPEARANCE CLEAR; URINE BILIRUBIN NEGATIVE (NEGATIVE); URINE COLOR YELLOW; URINE GLUCOSE (UA) 3+ (NEGATIVE); URINE KETONE TRACE (NEGATIVE); URINE LEUK ESTERASE NEGATIVE (NEGATIVE); URINE NITRITE NEGATIVE (NEGATIVE); URINE PROTEIN NEGATIVE (NEGATIVE); URINE UROBILINOGEN 0.2 mg/dL (0.2-1.0)
[2018-05-22 11:12] LABS: ALBUMIN 4.4 g/dl (3.4-5.0); ALK PHOS 106 U/L (45-117); ANION GAP 9 MMOL/L (8-16); BILIRUBIN,TOTAL 0.7 mg/dL (0.2-1); BLOOD UREA NITROGEN 21 mg/dL (7-18); CALCIUM 9.9 mg/dL (8.5-10.1); CHLORIDE 96 mmol/L (98-107); CO2 23 mmol/L (21-32); CREATININE 1.5 mg/dL (0.55-1.3); POTASSIUM 5.4 mmol/L (3.5-5.1); SGOT/AST 19 U/L (15-37); SGPT/ALT 22 U/L (13-61); SODIUM 128 mmol/L (136-145); TOT PROT 8.4 g/dl (6.4-8.2)
[2018-05-22 11:36] LABS: GLUCOSE,RANDOM 426 mg/dL (74-106)
== END 2018-05-22 12:12 | disposition home or self-care (01) ==
LOC: JER 09:26
PROC: 3E033VG Introduction of Insulin into Peripheral Vein, Percutaneous Approach (ICD-10-PCS; principal; 2018-05-22)
PROC: 3E0337Z Introduction of Electrolytic and Water Balance Substance into Peripheral Vein, Percutaneous Approach (ICD-10-PCS; 2018-05-22)
DX: E11.65 Type 2 diabetes mellitus with hyperglycemia (principal); F10.121 Alcohol abuse with intoxication delirium
CPT/HCPCS: 36415; 80053; 81003; 82009; 82962; 85025; 99282-25; J7030

== ENCOUNTER 2018-07-13 14:25 | Inpatient (IN) | payer OTHER ==
[2018-07-13] MEDS ORDERED: ONDANSETRON 4 MG/2 ML VIAL IVPUSH ONE (14:44)
[2018-07-13] MEDS ORDERED: SODIUM CHLORIDE 1,000 ML IV STA ×2 (14:44→16:10)
[2018-07-13] MEDS ORDERED: ONDANSETRON 4 MG/2 ML VIAL ONE (14:54)
--- NOTE | 2018-07-13 15:06 | PDOC ---
History of Present Illness - General Chief Complaint: Nausea/Vomiting Stated Complaint: HIGH BLOOD SUGAR Time Seen by Provider: 07/13/18 14:36 History Source: Patient Exam Limitations: No Limitations - History of Present Illness Initial Comments: 07/13/18 15:07 Patient is a 32M with history of IDDM, multiple DKA admissions, here today complaining of vomiting and epigastric abdominal pain that started this morning. Patient reports that his blood sugar was in the 400s at home. Endorses multiple episodes non-bloody, non-bilious vomiting. Endorses drinking only grape juice today. Patient states that he "doesn't know" if he has been taking his insulin. Denies fevers, chills. Denies chest pain, shortness of breath, and dysuria. Patient states that he is not seeing anyone for his diabetes. Past History - Past Medical History Allergies/Adverse Reactions: Allergies Allergy/AdvReac Type Severity Reaction Status Date / Time No Known Allergies Allergy Verified 07/08/18 05:54 Home Medications: Ambulatory Orders Ipratropium [place] 2 sprays NS BID PRN #1 spray 09/27/17 Methylprednisolone [Medrol Dose Etienne] 4 mg PO ASDIR #21 tablet 09/27/17 Insulin (Novolog 70/30) [Novolog Mix 70/30 Vial] 0 ml SQ DAILY 02/22/18 Insulin NPH Hum/Reg Insulin Hm [Novolin 70-30 Flexpen] 0 unit SQ DAILY 02/22/18 Asthma: Yes COPD: No Diabetes: Yes (I) Hypercholesterolemia: No - Surgical History GI Surgery: No - Immunization History Immunization Up to Date: Yes - Suicide/Smoking/Psychosocial Hx Smoking Status: No Smoking History: Unknown if ever smoked Have you smoked in the past 12 months: No Number of Cigarettes Smoked Daily: 0 'Breaking Loose' booklet given: 03/17/16 Hx Alcohol Use: No Drug/Substance Use Hx: No Substance Use Type: None, Alcohol Hx Substance Use Treatment: No Review of Systems - Review of Systems Able to Perform ROS?: Yes Comments:: 07/13/18 15:14 GENERAL/CONSTITUTIONAL: No fever or chills. No weakness. HEAD, EYES, EARS, NOSE AND THROAT: No change in vision. No sore throat. CARDIOVASCULAR: No chest pain or shortness of breath RESPIRATORY: No cough, wheezing, or hemoptysis. GASTROINTESTINAL: +nausea, +vomiting, no diarrhea or constipation. GENITOURINARY: No dysuria, frequency, or change in urination. MUSCULOSKELETAL: No joint or muscle swelling or pain. No neck or back pain. SKIN: No rash NEUROLOGIC: No headache, vertigo, loss of consciousness, or change in strength/ sensation. ENDOCRINE: No increased thirst. No abnormal weight change ALLERGIC/IMMUNOLOGIC: No hives or skin allergy. *Physical Exam - Vital Signs Last Vital Signs Temp Pulse Resp BP Pulse Ox 97.4 F L 104 H 18 127/77 96 07/13/18 14:32 07/13/18 14:32 07/13/18 14:32 07/13/18 14:32 07/13/18 14:32 - Physical Exam Comments: 07/13/18 15:16 GENERAL: Awake, alert, and fully oriented HEAD: No signs of trauma, normocephalic, atraumatic EYES: PERRLA, EOMI, sclera anicteric, conjunctiva clear ENT: Auricles normal inspection, hearing grossly normal, nares patent, oropharynx clear without exudates. Dry mucosa NECK: Normal ROM, supple, no lymphadenopathy, JVD, or masses LUNGS: No distress, speaks full sentences, clear to auscultation bilaterally HEART: Regular rate and rhythm, normal S1 and S2, no murmurs, rubs or gallops, peripheral pulses normal and equal bilaterally. ABDOMEN: Soft, nontender, normoactive bowel sounds. No guarding, no rebound. No masses EXTREMITIES: Normal inspection, Normal range of motion, no edema. No clubbing or cyanosis. NEUROLOGICAL: Cranial nerves II through XII grossly intact. Normal speech, no focal sensorimotor deficits SKIN: Warm, Dry, normal turgor, no rashes or lesions noted. ED Treatment Course - LABORATORY CBC & Chemistry Diagram: 07/13/18 14:58 07/13/18 14:58 - RADIOLOGY Radiology Studies Ordered: Category Date Time Status CHEST X-RAY PORTABLE* [RAD] Stat Radiology 07/13/18 14:44 Ordered Medical Decision Making - Critical Care Time Total Critical Care Time (minutes): 45 Critical Care Statement: The care of this patient involved high complexity decision making to prevent further life threatening deterioration of the patient 's condition and/or to evaluate & treat vital organ system(s) failure or risk of failure. - Medical Decision Making 07/13/18 15:17 Patient is 32M here today with vomiting. DDx includes, but is not limited to: dka, gastritis, gastroparesis. Vitals notable for tachycardia. Abdomen soft and nontender. Will evaluate with cbc, cmp, pt/inr, ekg, vbg, bc, ua, uc. Will treat with fluids, zofran, and pepcid. 07/13/18 15:46 EKG shows NSR, no st elevations/depressions. Normal axis. Normal intervals. No significant t wave abnormalities. No u waves. 07/13/18 16:36 K 6.2 Gap 24 Bicarb 14 Glucose 702. CXR clear. UA pending. 10U insulin bolus given. Drip started. Approved for ICU by Brendan Rodarte Accepted by Dr Mendoza *DC/Admit/Observation/Transfer Diagnosis at time of Disposition: DKA (diabetic ketoacidoses) - Discharge Dispostion Condition at time of disposition: Critical Decision to Admit order: Yes - Referrals - Patient Instructions - Post Discharge Activity
[2018-07-13] MEDS ORDERED: FAMOTIDINE 20 MG/50 ML IVPB 20 MG/50 ML MG IVPB ONE ×2 (15:07→15:17)
[2018-07-13 15:23] LABS: VENOUS PH 7.2 (7.31-7.41); VENOUS PO2 36.2 mmHg (30-40)
[2018-07-13 15:25] LABS: HEMATOCRIT 53.4 % (35.4-49); HEMOGLOBIN 17.3 GM/dL (11.7-16.9); INR 0.92 (0.83-1.09); MCH 31.7 pg (25.7-33.7); MCHC 32.5 g/dl (32.0-35.9); MEAN CELL VOLUME 97.5 fl (80-96); MEAN PLT VOLUME 9.1 fl (7.5-11.1); PLATELET COUNT 297 K/MM3 (134-434); PROTHROMBIN TIME (PATIENT) 10.8 SEC (9.7-13.0); RBC 5.48 M/mm3 (4.00-5.60); RDW 14.4 % (11.9-15.9); WHITE BLOOD COUNT 9.3 K/mm3 (4.0-10.0)
--- NOTE | 2018-07-13 15:37 | PDOC ---
Documentation entered by Demond Ardon SCRIBE, acting as scribe for Indira Ware MD. Indira Ware MD: This documentation has been prepared by the Duglas myrick Daniel, SCRIBE, under my direction and personally reviewed by me in its entirety. I confirm that the documentation accurately reflects all work, treatment, procedures, and medical decision making performed by me. Attending Attestation - Resident Resident Name: Bib Pardo - ED Attending Attestation I have performed the following: I have examined & evaluated the patient, The case was reviewed & discussed with the resident, I agree w/resident's findings & plan, Exceptions are as noted - HPI HPI: 07/13/18 14:52 The patient is a 32 year old male with a past medical history of diabetes and multiple episodes of DKA (patient non compliant with medication) here today for evaluation of nausea vomiting. The patient reports that he had an onset of nausea and vomiting today. He notes that his vomit looked red but states that he has been drinking grape juice. Patient denies headache, lightheadedness. Denies fever, chills. Denies chest pain, shortness of breath. Denies diarrhea, abdominal pain. Allergies: NKA - Physicial Exam PE: GENERAL: Awake, alert, and fully oriented, appears ill HEAD: No signs of trauma EYES: PERRLA, EOMI, sclera anicteric, conjunctiva clear ENT: Auricles normal inspection, hearing grossly normal, nares patent, oropharynx clear without exudates. Dry mucosa NECK: Normal ROM, supple, no lymphadenopathy, JVD, or masses LUNGS: Breath sounds equal, clear to auscultation bilaterally. No wheezes, and no crackles HEART: Regular rate and rhythm, normal S1 and S2, no murmurs, rubs or gallops ABDOMEN: Soft, nontender, +hypoactive bowel sounds. No guarding, no rebound. No masses EXTREMITIES: Normal range of motion, no edema. No clubbing or cyanosis. No cords, erythema, or tenderness NEUROLOGICAL: Cranial nerves II through XII grossly intact. Normal speech, normal gait. Motor and sensation intact SKIN: Warm, Dry, normal turgor, no rashes or lesions noted. - Medical Decision Making 32 yo M with poorly controlled diabetes (is "not sure" if he took insulin today ) presents with hyperglycemia, vomiting, dehydration. High suspicoin for DKA. Await labs, then will start insulin gtt.
[2018-07-13 15:56] LABS: ALBUMIN 5.1 g/dl (3.4-5.0); ALK PHOS 123 U/L (45-117); ANION GAP 24 MMOL/L (8-16); BILIRUBIN,TOTAL 0.9 mg/dL (0.2-1); BLOOD UREA NITROGEN 38 mg/dL (7-18); CALCIUM 11.6 mg/dL (8.5-10.1); CHLORIDE 89 mmol/L (98-107); CO2 14 mmol/L (21-32); CREATININE 1.9 mg/dL (0.55-1.3); SGOT/AST 56 U/L (15-37); SGPT/ALT 47 U/L (13-61); SODIUM 127 mmol/L (136-145); TOT PROT 9.2 g/dl (6.4-8.2)
[2018-07-13 16:08] LABS: GLUCOSE,RANDOM 702 mg/dL (74-106)
[2018-07-13 16:09] LABS: POTASSIUM 6.2 mmol/L (3.5-5.1)
[2018-07-13] MEDS ORDERED: INSULIN REGULAR HUMAN 100 UNITS/ML *VIAL IVPUSH ONE (16:09)
[2018-07-13] MEDS ORDERED: INSULIN REGULAR 100 UNITS in SODIUM CHLORIDE 99 ML IVPB SCH ×2 (16:15→20:32)
[2018-07-13] MEDS ORDERED: INSULIN REGULAR HUMAN 100 UNITS/ML *VIAL ONE (16:18)
--- NOTE | 2018-07-13 16:32 | CONSULT ---
Consult - text type - Consultation Consultation Note: PULM/CCM CC: nausea HPI: obtained from pt and medical record: 32 y/o man with poorly controlled IDDM , multiple DKA admissions presents with same in setting of non-compliance, without sick prodrome or localizing symptoms of infection. He relates being at barbeque, drinking and eating alot yesterday. Started feeling bad today. States "not sure" if taking insulin or how often checks BGL. Developed N/V in last 24+ hrs, non-bloody non bilious, also poor po intake. In ED normothermic, SBP 120s, HR 100, RR 18. Labs notable for pH 7.2, BGL 700, AG 24, K 6.2, Hco3 14 , Cr 1.9. Appear clinically dry. EKG without acute hyperkalemic changes. Given 2L IV fluid, Bolus Insulin and gtt, zofran. 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 Travel No Ambulatory Orders Ipratropium Savage 2 sprays NS BID PRN #1 spray 09/27/17 Methylprednisolone [Medrol Dose Etienne] 4 mg PO ASDIR #21 tablet 09/27/17 Insulin (Novolog 70/30) [Novolog Mix 70/30 Vial] 0 ml SQ DAILY 02/22/18 Insulin NPH Hum/Reg Insulin Hm [Novolin 70-30 Flexpen] 0 unit SQ DAILY 02/22/18 Current Medications Chlorhexidine Gluconate (Hibiclens For Decolonization -) 1 applic TP HS SENG Enoxaparin Sodium (Lovenox -) 40 mg SQ DAILY [facility] Insulin Human Regular 100 (units/ Sodium Chloride) 100 mls @ 5.89 mls/hr IVPB TITR SENG; Protocol Sodium Chloride (Normal Saline -) 1,000 mls @ 1,000 mls/hr IV ASDIR SENG Stop: 07/15/18 18:29 Mupirocin (Bactroban Ointment (For Decolonization) -) 1 applic NS BID SENG Stop: 07/18/18 21:59 Thiamine HCl (Vitamin B1 Injection -) 100 mg IVPB DAILY [facility] CBC, BMP 07/13/18 14:58 07/13/18 14:58 Vital Signs Temp 97.4 F L 07/13/18 14:32 Pulse 104 H 07/13/18 14:32 Resp 18 07/13/18 14:32 BP 127/77 07/13/18 14:32 Pulse Ox 96 07/13/18 14:32 Intake & Output 07/12/18 07/13/18 07/13/18 23:59 11:59 23:59 Weight 58.967 kg Other: Height 5 ft 4 in Body Mass Index (BMI) 22.3 Weight Measurement Method Est/Stated by Patient PE: GENERAL: Awake, alert, and fully oriented, in no acute distress. HEAD: Normal with no signs of trauma. EYES: PERRL, EOMI EARS, NOSE, THROAT: Ears normal, nares patent, oropharynx clear without exudates. Dry mucous membranes. NECK: Normal range of motion, supple without lymphadenopathy, JVD, or masses. LUNGS: CTAB HEART: Regular rate and rhythm, normal S1 and S2 without murmur, rub or gallop. ABDOMEN: Soft, nontender, not distended, normoactive bowel sounds, no guarding, no rebound, no masses. No hepatomegaly or splenomegaly. UPPER EXTREMITIES: 2+ pulses, warm, well-perfused. No cyanosis. No clubbing. No peripheral edema. LOWER EXTREMITIES: 2+ pulses, warm, well-perfused. No calf tenderness. No peripheral edema. NEUROLOGICAL: Cranial nerves II-XII intact. Normal speech. Normal gait. PSYCHIATRIC:WNL SKIN: dry, no rash Plan/ DKA, Pseudohyponatremia (na 137) -Insulin drip 0.1units/kg/hr --if BG doesnt fall by 50-70 mg/dl in first hr double insulin infusion until BG drops by 50-70 mg/dl --goal B-200mg/dl until AG closes --if BG fall <70 mg/dl hold insulin x15m and bolus D50 IVP --restart insulin at half prior dose and notify prodiver -IV fluids 100-250ml/hr --corrected sodium >140 use d5 1/2NS --corrected sodium <140 use NS --add D5 once BG reaches 250 mg/dl -potassium replacement --K> 5.5mEq/l no replacement --K 4-5 mEq/l add KCl 20 mEq to each liter of IVF --K 3.5-3.9 mEq/l add KCL 20-40 mEq to each liter of IVF --K 3.1-3.4 mEq/l add KCL 40-60 mEq to each liter of IVF --K <3 mEq/l add KCL 40-80 mEq to each liter of IVF (call provider) -BMP q4hrs until AG closes -Once AG closed and ketosis resolved and able to tolerate PO diet transition to long acting insulin sq LILIAN --IVF as above -Trend BUN/CR -monitor UOP -further workup if doesnt improve Rest of plan as per primary team ICU monitoring Cayden ACNP [id number] 35min CCT
[2018-07-13 17:02] LABS: URINE APPEARANCE CLEAR; URINE BILIRUBIN NEGATIVE (NEGATIVE); URINE COLOR YELLOW; URINE GLUCOSE (UA) 3+ (NEGATIVE); URINE KETONE 4+ (NEGATIVE); URINE LEUK ESTERASE NEGATIVE (NEGATIVE); URINE NITRITE NEGATIVE (NEGATIVE); URINE PROTEIN NEGATIVE (NEGATIVE); URINE UROBILINOGEN 0.2 mg/dL (0.2-1.0)
--- NOTE | 2018-07-13 17:04 | PN ---
Teaching Attending Note Name of Resident: Mehreen Goldberg ATTENDING PHYSICIAN STATEMENT I saw and evaluated the patient. I reviewed the resident's note and discussed the case with the resident. I agree with the resident's findings and plan as documented. SUBJECTIVE: Nausea, vomiting, abdominal discomfort resolving. He cannot remember when he last took insulin - now says earlier today, previously said last week. OBJECTIVE: Afebrile, Hemodynamically Stable. Appears mildly confused - Oriented x 2, drowsy. ED reports AAO x 3 on presentation. Last Vital Signs Temp Pulse Resp BP Pulse Ox 97.4 F L 104 H 18 127/77 96 07/13/18 14:32 07/13/18 14:32 07/13/18 14:32 07/13/18 14:32 07/13/18 14:32 HEENT - Atraumatic, Normocephalic. Heart - S1, S2, RRR Lungs - Clear to auscultation Abdomen - soft, epigastric tenderness. Bowel Sounds normal. Extremities - no edema, no calf tenderness. Neuro - AAO x 2. Moving all 4 extremities, no tremor. Laboratory Results - last 24 hr 07/13/18 07/13/18 07/13/18 14:58 14:58 14:58 WBC 9.3 RBC 5.48 Hgb 17.3 H Hct 53.4 H MCV 97.5 H MCH 31.7 MCHC 32.5 RDW 14.4 D Plt Count 297 MPV 9.1 PT with INR 10.80 INR 0.92 VBG pH 7.20 L POC VBG pCO2 39.0 L POC VBG pO2 36.2 VBG HCO3 15.3 L VBG O2 Sat (Thomas) 53.2 L VBG Base Excess -11.9 L Sodium Potassium Chloride Carbon Dioxide Anion Gap BUN Creatinine Est GFR (CKD-EPI)AfAm Est GFR (CKD-EPI)NonAf POC Glucometer Random Glucose Calcium Total Bilirubin AST ALT Alkaline Phosphatase Total Protein Albumin Alcohol, Quantitative 07/13/18 07/13/18 14:58 15:07 WBC RBC Hgb Hct MCV MCH MCHC RDW Plt Count MPV PT with INR INR VBG pH POC VBG pCO2 POC VBG pO2 VBG HCO3 VBG O2 Sat (Thomas) VBG Base Excess Sodium 127 L Potassium 6.2 H* Chloride 89 L Carbon Dioxide 14 L Anion Gap 24 H BUN 38 H Creatinine 1.9 H Est GFR (CKD-EPI)AfAm 53.64 Est GFR (CKD-EPI)NonAf 46.28 POC Glucometer > 600 Random Glucose 702 H* Calcium 11.6 H Total Bilirubin 0.9 AST 56 H ALT 47 Alkaline Phosphatase 123 H Total Protein 9.2 H Albumin 5.1 H Alcohol, Quantitative < 3.0 Current Medications Generic Name Dose Route Start Last Admin Trade Name Freq PRN Reason Stop Dose Admin Insulin Human Regular 100 100 mls @ 5.89 mls/hr 07/13/18 16:15 units/ Sodium Chloride IVPB TITR SENG Protocol 0.1 UNITS/KG/HR Sodium Chloride 1,000 mls @ 1,000 mls/hr 07/13/18 16:10 07/13/18 16:20 Normal Saline - IV 07/13/18 17:09 1,000 mls/hr ASDIR STA Administration Home Medications Medication Instructions Recorded Insulin (Novolog 70/30) [Novolog 0 ml SQ DAILY 02/22/18 Mix 70/30 Vial] Insulin NPH Hum/Reg Insulin Hm 0 unit SQ DAILY 02/22/18 [Novolin 70-30 Flexpen] ASSESSMENT AND PLAN: 32 year old male with history of DM 1, non-compliant with Insulin, presents with nausea, vomiting, epigastric discomfort after alcohol binge last night. Vomiting is NBNB. No hematemesis, melena, hematochezia. 1. Acute DKA secondary to non-compliance with Insulin Bicarb 14, AG 24, Glucose 702 Currently on 2nd liter of normal saline bolus Recommend 3 further boluses x 1L with subsequent maintenance at 175mls/hr Insulin drip with q1hr fingerstick glucose measurements. No signs of underlying infection, asymptomatic, CXR normal. Once FS < 250, change fluid to to D5-0.5NS and continue Insulin drip until acidosis resolves and gap is closed. ICU admission, q4hly labs. Lipase added to admission labs - to follow. Home Insulin regimen is unclear - will need to confirm meds. 2. Acute Encephalopathy secondary to DKA/Dehydration - waxing/waning orientation Although no signs of head trauma, will order CT Head to exclude any intra- cranial cause for altered sensorium. Thiamine IV ordered. 3. LILIAN - BUN/Creat 38/1.9 - likely secondary to dehydration/pre-renal failure due to intravascular volume depletion due to DKA Monitor renal function in response to IV hydration 4. Hyperkalemia sec to LILIAN/dehydration Received 10 units Insulin bolus IV in ED Monitor K levels in response to insulin and hydration Will also monitor other electrolytes. 5. Hx Alcohol Binge Drinking - denies daily alcohol use. No history or evidence of withdrawals Will monitor. Will give MVI, Thiamine, Folic Acid 6. Pseudohyponateremia sec to hyperglycemia - Na corrected to 137 DVT Px - Lovenox SQ GI Px - Famotidine
[2018-07-13 17:25] LABS: ACETONE SERUM POSITIVE SMALL 1+ (NEGATIVE)
--- NOTE | 2018-07-13 17:29 | HP ---
CHIEF COMPLAINT: nausea/vomiting/epigastric PCP:none HISTORY OF PRESENT ILLNESS: 32 y/o male with PMH of insulin dependent diabetes (type 1 diagnosed at age 14) with multiple admissions for DKA presents to the ED with complaints of nausea/ vomiting epigastric pain. Patient states that last night he had about 6 cups of brown liquor mixed with grape juice at a libertarian and when he woke up this AM he felt very nauseated with epigatsric pain and vomited around 5 times (non-bloody , non-bilious) so he came to the ED. Patient does not recall the last time he took his insulin thinks its been about 5-6 days and he does not check his sugars regularly nor does he follow up with a PCP regularly. In terms of his insulin regimen, he states that he takes 30 of long acting with a sliding scale (occasionally). he denies any recent travel, sick contacts or recent illnesses. ER course was notable for: (1)Glucose 720, Ph 7.2, AG 24 4+ ketones (2)given 10 units of insulin; started on drip; given zofran/pepcid (3)CXR clear Recent Travel: denies PAST MEDICAL HISTORY: see above PAST SURGICAL HISTORY: none Social History: Smoking:denies tobacco use; occasional marijuana use Alcohol:has episodes of binge drinking; denies ever suffering from withdrawals Drugs: Family History: DM on both sides of family (later diagnoses in life) Allergies No Known Allergies Allergy (Verified 07/08/18 05:54) HOME MEDICATIONS: Home Medications Medication Instructions Recorded Ipratropium Marshall 2 sprays NS BID PRN #1 spray 09/27/17 Methylprednisolone [Medrol Dose 4 mg PO ASDIR #21 tablet 09/27/17 Etienne] Insulin (Novolog 70/30) [Novolog 0 ml SQ DAILY 02/22/18 Mix 70/30 Vial] Insulin NPH Hum/Reg Insulin Hm 0 unit SQ DAILY 02/22/18 [Novolin 70-30 Flexpen] REVIEW OF SYSTEMS CONSTITUTIONAL: Absent: fever, chills, diaphoresis, generalized weakness, malaise, loss of appetite, weight change HEENT: Absent: rhinorrhea, nasal congestion, throat pain, throat swelling, difficulty swallowing, mouth swelling, ear pain, eye pain, visual changes CARDIOVASCULAR: Absent: chest pain, syncope, palpitations, irregular heart rate, lightheadedness , peripheral edema RESPIRATORY: Absent: cough, shortness of breath, dyspnea with exertion, orthopnea, wheezing, stridor, hemoptysis GASTROINTESTINAL: Present: nausea/vomiting/epigastric discomfort Absent:, abdominal distension, diarrhea, constipation, melena, hematochezia GENITOURINARY: Absent: dysuria, frequency, urgency, hesitancy, hematuria, flank pain, genital pain MUSCULOSKELETAL: Absent: myalgia, arthralgia, joint swelling, back pain, neck pain SKIN: Absent: rash, itching, pallor HEMATOLOGIC/IMMUNOLOGIC: Absent: easy bleeding, easy bruising, lymphadenopathy, frequent infections ENDOCRINE: Absent: unexplained weight gain, unexplained weight loss, heat intolerance, cold intolerance NEUROLOGIC: Absent: headache, focal weakness or paresthesias, dizziness, unsteady gait, seizure, mental status changes, bladder or bowel incontinence PSYCHIATRIC: Absent: anxiety, depression, suicidal or homicidal ideation, hallucinations. PHYSICAL EXAMINATION Vital Signs - 24 hr 07/13/18 14:32 Temperature 97.4 F L Pulse Rate 104 H Respiratory 18 Rate Blood Pressure 127/77 O2 Sat by Pulse 96 Oximetry (%) GENERAL: slightly drowsy but arousable; NAD EYES: PEERLA: EOMI; no scleral icterus LUNGS: CTA B/L; no rales, rhonchi or wheezing HEART: Regular rate and rhythm, normal S1 and S2 without murmur, rub or gallop. ABDOMEN: Soft, slight epigastric tenderness, not distended, normoactive bowel sounds, no guarding, no rebound, no masses. No hepatomegaly or splenomegaly. MUSCULOSKELETAL: Normal range of motion at all joints. No bony deformities or tenderness. No CVA tenderness. EXTREMITIES; warm; well-perfused no clubbing/cyanosis or edema NEUROLOGICAL: Cranial nerves II-XII intact. Normal speech. Normal gait. PSYCHIATRIC: Cooperative. Good eye contact. Appropriate mood and affect. SKIN: Warm, dry, normal turgor, no rashes or lesions noted, normal capillary refill. Laboratory Results - last 24 hr 07/13/18 07/13/18 07/13/18 14:58 14:58 14:58 WBC 9.3 RBC 5.48 Hgb 17.3 H Hct 53.4 H MCV 97.5 H MCH 31.7 MCHC 32.5 RDW 14.4 D Plt Count 297 MPV 9.1 PT with INR 10.80 INR 0.92 VBG pH 7.20 L POC VBG pCO2 39.0 L POC VBG pO2 36.2 VBG HCO3 15.3 L VBG O2 Sat (Thomas) 53.2 L VBG Base Excess -11.9 L Sodium Potassium Chloride Carbon Dioxide Anion Gap BUN Creatinine Est GFR (CKD-EPI)AfAm Est GFR (CKD-EPI)NonAf POC Glucometer Random Glucose Calcium Total Bilirubin AST ALT Alkaline Phosphatase Total Protein Albumin Urine Color Urine Appearance Urine pH Ur Specific [place] Urine Protein Urine Glucose (UA) Urine Ketones Urine Blood Urine Nitrite Urine Bilirubin Urine Urobilinogen Ur Leukocyte Esterase Alcohol, Quantitative Acetone, Qual 07/13/18 07/13/18 07/13/18 14:58 15:07 16:30 WBC RBC Hgb Hct MCV MCH MCHC RDW Plt Count MPV PT with INR INR VBG pH POC VBG pCO2 POC VBG pO2 VBG HCO3 VBG O2 Sat (Thomas) VBG Base Excess Sodium 127 L Potassium 6.2 H* Chloride 89 L Carbon Dioxide 14 L Anion Gap 24 H BUN 38 H Creatinine 1.9 H Est GFR (CKD-EPI)AfAm 53.64 Est GFR (CKD-EPI)NonAf 46.28 POC Glucometer > 600 Random Glucose 702 H* Calcium 11.6 H Total Bilirubin 0.9 AST 56 H ALT 47 Alkaline Phosphatase 123 H Total Protein 9.2 H Albumin 5.1 H Urine Color Yellow Urine Appearance Clear Urine pH 5.0 Ur Specific [place] 1.030 Urine Protein Negative Urine Glucose (UA) 3+ H Urine Ketones 4+ H Urine Blood Negative Urine Nitrite Negative Urine Bilirubin Negative Urine Urobilinogen 0.2 Ur Leukocyte Esterase Negative Alcohol, Quantitative < 3.0 Acetone, Qual Positive small 1+ ASSESSMENT/PLAN: 32 y/o male with PMH of Type 1 diabetes presents with nausea/vomiting/ epigastric pain found to be in DKA #DKA 2/2 medication non-compliance patients glucose was 720, PH 7.2, AG 24, 4+ ketones in urine K 6.2 -given 10 units of insulin then started on insulin drip -on 2nd liter of NS, will give 3 more boluses then c/w NS @175 for maintenance; -insulin drip with BGMS q1h and BMP q4H starting at 7pm -NPO for now -once BGM <250- switch fluids to d51/2 NS -c/w insulin drip until gap closes and no longer in acidosis then switch to long acting sub q insulin and can advance diet if tolerate -f/u lipase as patient was complaining of epigastric discomfort and also has drinking history #LILIAN likely 2/2 dehydration -Cr 1.9 on admission -c/w IVF -monitor response #Binge drinking history patient not withdrawing nor has he ever suffered from withdrawal in past -Thiamine/multivitamin/folate -monitor for signs and symptoms of withdrawal #Pseudohyponatremia 2/2 hyperglycemia; corrected 137 #Hyperkalemia K 6.2; patient already received 10 units of insulin -will continue to monitor -no changes on EKG F/E/N NS bolus X3; then maintenance NS at 175mls/hr BMP q4H starting at 7pm NPO DVT PPX: lovenox GI PPX: IV famotidine BID dispo: ICU Problem List - Problem (1) DKA (diabetic ketoacidoses) Code(s): E13.10 - OTH DIABETES MELLITUS WITH KETOACIDOSIS WITHOUT COMA (2) AA (alcohol abuse) Code(s): F10.10 - ALCOHOL ABUSE, UNCOMPLICATED (3) Abdominal pain Code(s): R10.9 - UNSPECIFIED ABDOMINAL PAIN (4) Acute kidney injury Code(s): N17.9 - ACUTE KIDNEY FAILURE, UNSPECIFIED Visit type - Emergency Visit Emergency Visit: Yes ED Registration Date: 07/13/18 Care time: The patient presented to the Emergency Department on the above date and was hospitalized for further evaluation of their emergent condition. - New Patient This patient is new to me today: Yes Date on this admission: 07/13/18 - Critical Care Critical Care patient: Yes Total Critical Care Time (in minutes): 35 Critical Care Statement: The care of this patient involved high complexity decision making to prevent further life threatening deterioration of the patient 's condition and/or to evaluate & treat vital organ system(s) failure or risk of failure.
[2018-07-13] MEDS ORDERED: SODIUM CHLORIDE 1,000 ML IV SCH ×2 (17:30→20:00)
[2018-07-13] MEDS ORDERED: ENOXAPARIN NA (PORCINE) 40 MG/0.4 ML DISP.SYRIN SQ ONE (17:37)
[2018-07-13] MEDS ORDERED: THIAMINE HCL 200 MG/2 ML VIAL ONE (17:37)
[2018-07-13] MEDS: THIAMINE HCL 200 MG/2 ML VIAL IVPB SCH (17:40)
[2018-07-13] MEDS: ENOXAPARIN NA (PORCINE) 40 MG/0.4 ML DISP.SYRIN SQ SCH (17:53)
[2018-07-13 18:11] LABS: LIPASE 66 U/L (73-393)
[2018-07-13 18:46] VITALS: BMI 20.9
[2018-07-13 19:58] LABS: CALCIUM 9.1 mg/dL (8.5-10.1); CREATININE 1.6 mg/dL (0.55-1.3); MAGNESIUM 2.7 mg/dL (1.8-2.4); PHOSPHOROUS 3.7 mg/dL (2.5-4.9); POTASSIUM 4.5 mmol/L (3.5-5.1)
[2018-07-13] MEDS ORDERED: D5-1/2NS+20 MEQ KCL - 20 MEQ/1,000 ML INFUS.BAG IV SCH (20:15)
[2018-07-13] MEDS: MUPIROCIN 2% TOPICAL OINTMENT FOR DECOLONIZATION NS SCH (21:15)
[2018-07-13] MEDS: FAMOTIDINE 20 MG/50 ML IVPB 20 MG/50 ML MG IVPB SCH (21:17)
[2018-07-13] MEDS ORDERED: FOLIC ACID 5 MG/1 ML SQ ONE (21:30)
[2018-07-13] MEDS ORDERED: CHLORHEXIDINE GLUCONATE 4% CLEANSER FOR DECOLONIZATION TP SCH (22:00)
[2018-07-13] MEDS: FOLIC ACID 1 MG TABLET (FP) PO SCH (23:43)
[2018-07-14 00:19] LABS: CALCIUM 8.9 mg/dL (8.5-10.1); CREATININE 1.4 mg/dL (0.55-1.3); POTASSIUM 4.9 mmol/L (3.5-5.1)
[2018-07-14] MEDS ORDERED: INSULIN (LEVEMIR) 100 UNITS/ML UNITS SQ ONE ×2 (00:26→08:00)
[2018-07-14 05:44] LABS: BASO % 0.5 % (0-2.0); HEMATOCRIT 39.8 % (35.4-49); HEMOGLOBIN 13.4 GM/dL (11.7-16.9); LYMPH % 20.1 % (8-40); MCH 31.6 pg (25.7-33.7); MCHC 33.7 g/dl (32.0-35.9); MEAN CELL VOLUME 93.9 fl (80-96); MEAN PLT VOLUME 8.5 fl (7.5-11.1); MONO % 7.5 % (3.8-10.2); NEUT % 70.9 % (42.8-82.8); PLATELET COUNT 250 K/MM3 (134-434); RBC 4.24 M/mm3 (4.00-5.60); RDW 14.1 % (11.9-15.9); WHITE BLOOD COUNT 11.4 K/mm3 (4.0-10.0)
[2018-07-14] MEDS ORDERED: FOLIC ACID 5 MG/1 ML SQ ONE (06:00)
[2018-07-14 06:22] LABS: ALBUMIN 3.4 g/dl (3.4-5.0); BILIRUBIN,TOTAL 0.8 mg/dL (0.2-1); CALCIUM 8.7 mg/dL (8.5-10.1); CREATININE 1.3 mg/dL (0.55-1.3); MAGNESIUM 2.5 mg/dL (1.8-2.4); PHOSPHOROUS 4.2 mg/dL (2.5-4.9); POTASSIUM 4.9 mmol/L (3.5-5.1); TOT PROT 6.2 g/dl (6.4-8.2)
--- NOTE | 2018-07-14 07:47 | PN ---
Physical Exam: SUBJECTIVE: Patient seen and examined at beside; no acute events overnight patient states he is feeling well and is no longer having any nausea or abodminal pains; AG closed at midnight and the drip stopped at around 2 am; denies CP/SOB/N/V OBJECTIVE: Vital Signs Period Temp Pulse Resp BP Sys/Eid Pulse Ox Last 24 Hr 97.4 F-98.5 F 72-112 14-21 104-131/65-82 96-100 GENERAL: The patient is awake, alert, and fully oriented, in no acute distress.. EYES:PEERLA: EOMI no scleral icterus . NECKno JVD; no lymphadenopathy LUNGS: CTA B/L; no rales, rhonchi or wheezing HEART: Regular rate and rhythm, S1, S2 without murmur, rub or gallop. ABDOMEN: Soft, nontender, nondistended, normoactive bowel sounds, no guarding, no rebound, no hepatosplenomegaly, no masses. EXTREMITIES: 2+ pulses, warm, well-perfused, no edema. PSYCH: Normal mood, normal affect. SKIN: Warm, dry, normal turgor, no rashes or lesions noted Laboratory Results - last 24 hr 07/13/18 07/13/18 07/13/18 14:58 14:58 14:58 WBC 9.3 RBC 5.48 Hgb 17.3 H Hct 53.4 H MCV 97.5 H MCH 31.7 MCHC 32.5 RDW 14.4 D Plt Count 297 MPV 9.1 Absolute Neuts (auto) Neutrophils % Lymphocytes % Monocytes % Eosinophils % Basophils % Nucleated RBC % PT with INR 10.80 INR 0.92 VBG pH 7.20 L POC VBG pCO2 39.0 L POC VBG pO2 36.2 VBG HCO3 15.3 L VBG O2 Sat (Thomas) 53.2 L VBG Base Excess -11.9 L Sodium Potassium Chloride Carbon Dioxide Anion Gap BUN Creatinine Est GFR (CKD-EPI)AfAm Est GFR (CKD-EPI)NonAf POC Glucometer Random Glucose Calcium Phosphorus Magnesium Total Bilirubin AST ALT Alkaline Phosphatase Total Protein Albumin Lipase Urine Color Urine Appearance Urine pH Ur Specific [place] Urine Protein Urine Glucose (UA) Urine Ketones Urine Blood Urine Nitrite Urine Bilirubin Urine Urobilinogen Ur Leukocyte Esterase Alcohol, Quantitative Acetone, Qual 07/13/18 07/13/18 07/13/18 14:58 15:07 16:30 WBC RBC Hgb Hct MCV MCH MCHC RDW Plt Count MPV Absolute Neuts (auto) Neutrophils % Lymphocytes % Monocytes % Eosinophils % Basophils % Nucleated RBC % PT with INR INR VBG pH POC VBG pCO2 POC VBG pO2 VBG HCO3 VBG O2 Sat (Thomas) VBG Base Excess Sodium 127 L Potassium 6.2 H* Chloride 89 L Carbon Dioxide 14 L Anion Gap 24 H BUN 38 H Creatinine 1.9 H Est GFR (CKD-EPI)AfAm 53.64 Est GFR (CKD-EPI)NonAf 46.28 POC Glucometer > 600 Random Glucose 702 H* Calcium 11.6 H Phosphorus Magnesium Total Bilirubin 0.9 AST 56 H ALT 47 Alkaline Phosphatase 123 H Total Protein 9.2 H Albumin 5.1 H Lipase 66 L Urine Color Yellow Urine Appearance Clear Urine pH 5.0 Ur Specific [place] 1.030 Urine Protein Negative Urine Glucose (UA) 3+ H Urine Ketones 4+ H Urine Blood Negative Urine Nitrite Negative Urine Bilirubin Negative Urine Urobilinogen 0.2 Ur Leukocyte Esterase Negative Alcohol, Quantitative < 3.0 Acetone, Qual Positive small 1+ 07/13/18 07/13/18 07/13/18 17:49 18:50 19:25 WBC RBC Hgb Hct MCV MCH MCHC RDW Plt Count MPV Absolute Neuts (auto) Neutrophils % Lymphocytes % Monocytes % Eosinophils % Basophils % Nucleated RBC % PT with INR INR VBG pH POC VBG pCO2 POC VBG pO2 VBG HCO3 VBG O2 Sat (Thomas) VBG Base Excess Sodium 144 Potassium 4.5 Chloride 110 H Carbon Dioxide 17 L Anion Gap 18 H BUN 33 H Creatinine 1.6 H Est GFR (CKD-EPI)AfAm 66.02 Est GFR (CKD-EPI)NonAf 56.96 POC Glucometer 358 285 Random Glucose 265 H Calcium 9.1 Phosphorus 3.7 Magnesium 2.7 H Total Bilirubin AST ALT Alkaline Phosphatase Total Protein Albumin Lipase Urine Color Urine Appearance Urine pH Ur Specific [place] Urine Protein Urine Glucose (UA) Urine Ketones Urine Blood Urine Nitrite Urine Bilirubin Urine Urobilinogen Ur Leukocyte Esterase Alcohol, Quantitative Acetone, Qual 07/13/18 07/13/18 07/13/18 20:11 20:18 21:30 WBC RBC Hgb Hct MCV MCH MCHC RDW Plt Count MPV Absolute Neuts (auto) Neutrophils % Lymphocytes % Monocytes % Eosinophils % Basophils % Nucleated RBC % PT with INR INR VBG pH POC VBG pCO2 POC VBG pO2 VBG HCO3 VBG O2 Sat (Thomas) VBG Base Excess Sodium Potassium Chloride Carbon Dioxide Anion Gap BUN Creatinine Est GFR (CKD-EPI)AfAm Est GFR (CKD-EPI)NonAf POC Glucometer 164 166 126 Random Glucose Calcium Phosphorus Magnesium Total Bilirubin AST ALT Alkaline Phosphatase Total Protein Albumin Lipase Urine Color Urine Appearance Urine pH Ur Specific [place] Urine Protein Urine Glucose (UA) Urine Ketones Urine Blood Urine Nitrite Urine Bilirubin Urine Urobilinogen Ur Leukocyte Esterase Alcohol, Quantitative Acetone, Qual 07/13/18 07/13/18 07/14/18 23:13 23:30 00:13 WBC RBC Hgb Hct MCV MCH MCHC RDW Plt Count MPV Absolute Neuts (auto) Neutrophils % Lymphocytes % Monocytes % Eosinophils % Basophils % Nucleated RBC % PT with INR INR VBG pH POC VBG pCO2 POC VBG pO2 VBG HCO3 VBG O2 Sat (Thomas) VBG Base Excess Sodium 142 Potassium 4.9 Chloride 112 H Carbon Dioxide 22 Anion Gap 8 BUN 25 H Creatinine 1.4 H Est GFR (CKD-EPI)AfAm 77.59 Est GFR (CKD-EPI)NonAf 66.94 POC Glucometer 98 137 Random Glucose 114 H Calcium 8.9 Phosphorus Magnesium Total Bilirubin AST ALT Alkaline Phosphatase Total Protein Albumin Lipase Urine Color Urine Appearance Urine pH Ur Specific [place] Urine Protein Urine Glucose (UA) Urine Ketones Urine Blood Urine Nitrite Urine Bilirubin Urine Urobilinogen Ur Leukocyte Esterase Alcohol, Quantitative Acetone, Qual 07/14/18 07/14/18 07/14/18 00:58 02:09 04:10 WBC RBC Hgb Hct MCV MCH MCHC RDW Plt Count MPV Absolute Neuts (auto) Neutrophils % Lymphocytes % Monocytes % Eosinophils % Basophils % Nucleated RBC % PT with INR INR VBG pH POC VBG pCO2 POC VBG pO2 VBG HCO3 VBG O2 Sat (Thomas) VBG Base Excess Sodium Potassium Chloride Carbon Dioxide Anion Gap BUN Creatinine Est GFR (CKD-EPI)AfAm Est GFR (CKD-EPI)NonAf POC Glucometer 137 174 232 Random Glucose Calcium Phosphorus Magnesium Total Bilirubin AST ALT Alkaline Phosphatase Total Protein Albumin Lipase Urine Color Urine Appearance Urine pH Ur Specific [place] Urine Protein Urine Glucose (UA) Urine Ketones Urine Blood Urine Nitrite Urine Bilirubin Urine Urobilinogen Ur Leukocyte Esterase Alcohol, Quantitative Acetone, Qual 06/04/2907/14/18 07/14/18 05:31 05:31 06:52 WBC 11.4 H RBC 4.24 Hgb 13.4 Hct 39.8 D MCV 93.9 MCH 31.6 MCHC 33.7 RDW 14.1 Plt Count 250 MPV 8.5 Absolute Neuts (auto) 8.1 H Neutrophils % 70.9 Lymphocytes % 20.1 D Monocytes % 7.5 Eosinophils % 1.0 Basophils % 0.5 Nucleated RBC % 0 PT with INR INR VBG pH POC VBG pCO2 POC VBG pO2 VBG HCO3 VBG O2 Sat (Thomas) VBG Base Excess Sodium 139 Potassium 4.9 Chloride 109 H Carbon Dioxide 22 Anion Gap 8 BUN 22 H Creatinine 1.3 Est GFR (CKD-EPI)AfAm 84.86 Est GFR (CKD-EPI)NonAf 73.22 POC Glucometer 191 Random Glucose 241 H Calcium 8.7 Phosphorus 4.2 Magnesium 2.5 H Total Bilirubin 0.8 AST 27 ALT 30 Alkaline Phosphatase 74 Total Protein 6.2 L Albumin 3.4 Lipase Urine Color Urine Appearance Urine pH Ur Specific [place] Urine Protein Urine Glucose (UA) Urine Ketones Urine Blood Urine Nitrite Urine Bilirubin Urine Urobilinogen Ur Leukocyte Esterase Alcohol, Quantitative Acetone, Qual Active Medications Generic Name Dose Route Start Last Admin Trade Name Freq PRN Reason Stop Dose Admin Chlorhexidine Gluconate 1 applic 07/13/18 22:00 07/13/18 21:16 Hibiclens For Decolonization - TP 1 applic HS SENG Administration Enoxaparin Sodium 40 mg 07/13/18 17:30 07/13/18 17:53 Lovenox - SQ 40 mg DAILY SENG Administration Folic Acid 1 mg 07/13/18 21:30 07/13/18 23:43 Folic Acid - PO 1 mg DAILY SENG Administration Famotidine/Sodium Chloride 20 mg in 50 mls @ 100 mls/hr 07/13/18 22:00 21:17 Pepcid 20 Mg Premixed Ivpb - IVPB 100 mls/hr BID SENG Administration Potassium Chloride/Dextrose/Sod Cl 20 meq in 1,000 mls @ 150 mls/hr 07/13/18 20:15 07/13/18 20:20 D5-1/2ns+20 Meq Kcl - IV 150 mls/hr ASDIR SENG Administration Insulin Human Regular 100 100 mls @ 2.94 mls/hr 07/13/18 20:32 07/14/18 02:27 units/ Sodium Chloride IVPB 0 units/kg/hr TITR SENG 0 mls/hr Titration Protocol 0.05 UNITS/KG/HR Insulin Aspart 1 vial 07/14/18 07:00 Novolog Vial Sliding Scale - SQ ACHS SENG Protocol Insulin Detemir 15 units 07/14/18 08:00 Levemir Vial SQ 07/14/18 08:01 ONCE ONE Multivitamins/Minerals/Vitamin C 1 tab 07/14/18 10:00 Tab-A-Vit - PO DAILY SENG Mupirocin 1 applic 07/13/18 22:00 07/13/18 21:15 Bactroban Ointment (For Decolonization) - NS 07/18/18 21:59 1 applic BID SENG Administration Thiamine HCl 100 mg 07/13/18 17:15 07/13/18 17:40 Vitamin B1 Injection - IVPB 100 mg DAILY SENG Administration ASSESSMENT/PLAN: 32 y/o male with PMH of insulin dependent diabetes who presented to the ED with complaints of nausea/vomiting/epigastric pain found to have an elevated anion gap metabolic acidosis #Endocrine high anion gap metabolic acidosis 2/2 medication non compliance -DKA resolving; no longer on insulin drip -ISS -BGMS ACHS -stressed importance of medication compliance -should have consistent endocrine follow up upon discharge #Renal patient presented with LILIAN and hyperkalemia likely 2/2 dehydration -resolving -Cr down to 1.6 from 1.9 -K has now normalized -monitor electrolytes F/E/N not on fluids monitor electrolytes diabetic diet DVt PPX: lovenox GI PPX: famotidine dispo: transfer to med-surg Problem List - Problems (1) DKA (diabetic ketoacidoses) Code(s): E13.10 - OTH DIABETES MELLITUS WITH KETOACIDOSIS WITHOUT COMA (2) AA (alcohol abuse) Code(s): F10.10 - ALCOHOL ABUSE, UNCOMPLICATED (3) Abdominal pain Code(s): R10.9 - UNSPECIFIED ABDOMINAL PAIN (4) Acute kidney injury Code(s): N17.9 - ACUTE KIDNEY FAILURE, UNSPECIFIED Visit type - Emergency Visit Emergency Visit: Yes ED Registration Date: 07/13/18 Care time: The patient presented to the Emergency Department on the above date and was hospitalized for further evaluation of their emergent condition. - New Patient This patient is new to me today: No - Critical Care Critical Care patient: Yes Total Critical Care Time (in minutes): 35 Critical Care Statement: The care of this patient involved high complexity decision making to prevent further life threatening deterioration of the patient 's condition and/or to evaluate & treat vital organ system(s) failure or risk of failure.
[2018-07-14] MEDS: INSULIN SLIDING SCALE (NOVOLOG) 1 VIAL SQ SCH ×3 (07:51→16:40)
[2018-07-14] MEDS ORDERED: MULTIVITAMINS (DAILY MVI) TABLET (FP) PO SCH (10:00)
[2018-07-14] MEDS ORDERED: PT OWN MED DRAWER 7, Y5N ONE (10:27)
[2018-07-14] MEDS: FAMOTIDINE 20 MG/50 ML IVPB 20 MG/50 ML MG IVPB SCH (11:10)
[2018-07-14] MEDS: FOLIC ACID 1 MG TABLET (FP) PO SCH (11:11)
[2018-07-14] MEDS: ENOXAPARIN NA (PORCINE) 40 MG/0.4 ML DISP.SYRIN SQ SCH (11:11)
[2018-07-14] MEDS: MUPIROCIN 2% TOPICAL OINTMENT FOR DECOLONIZATION NS SCH (11:13)
--- NOTE | 2018-07-14 11:16 | EKG ---
Test Reason : Blood Pressure : / mmHG Vent. Rate : 099 BPM Atrial Rate : 099 BPM P-R Int : 148 ms QRS Dur : 082 ms QT Int : 340 ms P-R-T Axes : 075 060 050 degrees QTc Int : 436 ms NORMAL SINUS RHYTHM RIGHT ATRIAL ENLARGEMENT BORDERLINE ECG WHEN COMPARED WITH ECG OF 22-FEB-2018 11:16, NO SIGNIFICANT CHANGE WAS FOUND Confirmed by MICHELL MCGREGOR MD ([id number]) on 07/14/2018 11:16:32 AM Referred By: Confirmed By:MICHELL MCGREGOR MD
[2018-07-14] MEDS: THIAMINE HCL 200 MG/2 ML VIAL IVPB SCH (11:41)
--- NOTE | 2018-07-14 12:18 | PN ---
Teaching Attending Note Name of Resident: Fouzia Hall ATTENDING PHYSICIAN STATEMENT I saw and evaluated the patient. I reviewed the resident's note and discussed the case with the resident. I agree with the resident's findings and plan as documented. SUBJECTIVE: Patient seen and examined in the ICU. Awake and alert. Currently off IV Insulin. No CP or SOB. No GI or complaints. Intake & Output 07/11/18 07/12/18 07/13/18 07/14/18 23:59 23:59 23:59 23:59 Intake Total 1999 2071 Output Total 900 500 Balance 1100 1572 Weight 122 lb 1.6 oz 126 lb 8 oz Last Vital Signs Temp Pulse Resp BP Pulse Ox 98.3 F 85 22 H 118/77 100 07/14/18 08:00 07/14/18 10:00 07/14/18 10:00 07/14/18 10:00 07/14/18 09:00 Active Medications Chlorhexidine Gluconate (Hibiclens For Decolonization -) 1 applic TP HS [facility] Last Admin: 07/13/18 21:16 Dose: 1 applic Enoxaparin Sodium (Lovenox -) 40 mg SQ DAILY [facility] Last Admin: 07/14/18 11:11 Dose: 40 mg Folic Acid (Folic Acid -) 1 mg PO DAILY [facility] Last Admin: 07/14/18 11:11 Dose: 1 mg Famotidine/Sodium Chloride (Pepcid 20 Mg Premixed Ivpb -) 20 mg in 50 mls @ 100 mls/hr IVPB BID [facility] Last Admin: 07/14/18 11:10 Dose: 100 mls/hr Insulin Aspart (Novolog Vial Sliding Scale -) 1 vial SQ ACHS [facility]; Protocol Last Admin: 07/14/18 07:51 Dose: Not Given Multivitamins/Minerals/Vitamin C (Tab-A-Vit -) 1 tab PO DAILY [facility] Last Admin: 07/14/18 11:11 Dose: 1 tab Mupirocin (Bactroban Ointment (For Decolonization) -) 1 applic NS BID [facility] Stop: 07/18/18 21:59 Last Admin: 07/14/18 11:13 Dose: 1 applic Thiamine HCl (Vitamin B1 Injection -) 100 mg IVPB DAILY [facility] Last Admin: 07/14/18 11:41 Dose: Not Given GENERAL: Awake and alert EYES: PEERLA: EOMI; no scleral icterus LUNGS: CTA B/L; no rales, rhonchi or wheezing HEART: Regular rate and rhythm, normal S1 and S2 without murmur, rub or gallop. ABDOMEN: Soft, slight epigastric tenderness, not distended, normoactive bowel sounds, no guarding, no rebound, no masses. No hepatomegaly or splenomegaly. MUSCULOSKELETAL: Normal range of motion at all joints. No bony deformities or tenderness. No CVA tenderness. EXTREMITIES; warm; well-perfused no clubbing/cyanosis or edema NEUROLOGICAL: Non-focal PSYCHIATRIC: Cooperative. Good eye contact. Appropriate mood and affect. SKIN: Warm, dry, normal turgor, no rashes or lesions noted, normal capillary refill. Laboratory Results - last 24 hr 07/13/18 07/13/18 07/13/18 14:58 14:58 14:58 WBC 9.3 RBC 5.48 Hgb 17.3 H Hct 53.4 H MCV 97.5 H MCH 31.7 MCHC 32.5 RDW 14.4 D Plt Count 297 MPV 9.1 Absolute Neuts (auto) Neutrophils % Lymphocytes % Monocytes % Eosinophils % Basophils % Nucleated RBC % PT with INR 10.80 INR 0.92 VBG pH 7.20 L POC VBG pCO2 39.0 L POC VBG pO2 36.2 VBG HCO3 15.3 L VBG O2 Sat (Thomas) 53.2 L VBG Base Excess -11.9 L Sodium Potassium Chloride Carbon Dioxide Anion Gap BUN Creatinine Est GFR (CKD-EPI)AfAm Est GFR (CKD-EPI)NonAf POC Glucometer Random Glucose Calcium Phosphorus Magnesium Total Bilirubin AST ALT Alkaline Phosphatase Total Protein Albumin Lipase Urine Color Urine Appearance Urine pH Ur Specific [place] Urine Protein Urine Glucose (UA) Urine Ketones Urine Blood Urine Nitrite Urine Bilirubin Urine Urobilinogen Ur Leukocyte Esterase Alcohol, Quantitative Acetone, Qual 07/13/18 07/13/18 07/13/18 14:58 15:07 16:30 WBC RBC Hgb Hct MCV MCH MCHC RDW Plt Count MPV Absolute Neuts (auto) Neutrophils % Lymphocytes % Monocytes % Eosinophils % Basophils % Nucleated RBC % PT with INR INR VBG pH POC VBG pCO2 POC VBG pO2 VBG HCO3 VBG O2 Sat (Thomas) VBG Base Excess Sodium 127 L Potassium 6.2 H* Chloride 89 L Carbon Dioxide 14 L Anion Gap 24 H BUN 38 H Creatinine 1.9 H Est GFR (CKD-EPI)AfAm 53.64 Est GFR (CKD-EPI)NonAf 46.28 POC Glucometer > 600 Random Glucose 702 H* Calcium 11.6 H Phosphorus Magnesium Total Bilirubin 0.9 AST 56 H ALT 47 Alkaline Phosphatase 123 H Total Protein 9.2 H Albumin 5.1 H Lipase 66 L Urine Color Yellow Urine Appearance Clear Urine pH 5.0 Ur Specific [place] 1.030 Urine Protein Negative Urine Glucose (UA) 3+ H Urine Ketones 4+ H Urine Blood Negative Urine Nitrite Negative Urine Bilirubin Negative Urine Urobilinogen 0.2 Ur Leukocyte Esterase Negative Alcohol, Quantitative < 3.0 Acetone, Qual Positive small 1+ 07/13/18 07/13/18 07/13/18 17:49 18:50 19:25 WBC RBC Hgb Hct MCV MCH MCHC RDW Plt Count MPV Absolute Neuts (auto) Neutrophils % Lymphocytes % Monocytes % Eosinophils % Basophils % Nucleated RBC % PT with INR INR VBG pH POC VBG pCO2 POC VBG pO2 VBG HCO3 VBG O2 Sat (Thomas) VBG Base Excess Sodium 144 Potassium 4.5 Chloride 110 H Carbon Dioxide 17 L Anion Gap 18 H BUN 33 H Creatinine 1.6 H Est GFR (CKD-EPI)AfAm 66.02 Est GFR (CKD-EPI)NonAf 56.96 POC Glucometer 358 285 Random Glucose 265 H Calcium 9.1 Phosphorus 3.7 Magnesium 2.7 H Total Bilirubin AST ALT Alkaline Phosphatase Total Protein Albumin Lipase Urine Color Urine Appearance Urine pH Ur Specific [place] Urine Protein Urine Glucose (UA) Urine Ketones Urine Blood Urine Nitrite Urine Bilirubin Urine Urobilinogen Ur Leukocyte Esterase Alcohol, Quantitative Acetone, Qual 07/13/18 07/13/18 07/13/18 20:11 20:18 21:30 WBC RBC Hgb Hct MCV MCH MCHC RDW Plt Count MPV Absolute Neuts (auto) Neutrophils % Lymphocytes % Monocytes % Eosinophils % Basophils % Nucleated RBC % PT with INR INR VBG pH POC VBG pCO2 POC VBG pO2 VBG HCO3 VBG O2 Sat (Thomas) VBG Base Excess Sodium Potassium Chloride Carbon Dioxide Anion Gap BUN Creatinine Est GFR (CKD-EPI)AfAm Est GFR (CKD-EPI)NonAf POC Glucometer 164 166 126 Random Glucose Calcium Phosphorus Magnesium Total Bilirubin AST ALT Alkaline Phosphatase Total Protein Albumin Lipase Urine Color Urine Appearance Urine pH Ur Specific [place] Urine Protein Urine Glucose (UA) Urine Ketones Urine Blood Urine Nitrite Urine Bilirubin Urine Urobilinogen Ur Leukocyte Esterase Alcohol, Quantitative Acetone, Qual 07/13/18 07/13/18 07/14/18 23:13 23:30 00:13 WBC RBC Hgb Hct MCV MCH MCHC RDW Plt Count MPV Absolute Neuts (auto) Neutrophils % Lymphocytes % Monocytes % Eosinophils % Basophils % Nucleated RBC % PT with INR INR VBG pH POC VBG pCO2 POC VBG pO2 VBG HCO3 VBG O2 Sat (Thomas) VBG Base Excess Sodium 142 Potassium 4.9 Chloride 112 H Carbon Dioxide 22 Anion Gap 8 BUN 25 H Creatinine 1.4 H Est GFR (CKD-EPI)AfAm 77.59 Est GFR (CKD-EPI)NonAf 66.94 POC Glucometer 98 137 Random Glucose 114 H Calcium 8.9 Phosphorus Magnesium Total Bilirubin AST ALT Alkaline Phosphatase Total Protein Albumin Lipase Urine Color Urine Appearance Urine pH Ur Specific [place] Urine Protein Urine Glucose (UA) Urine Ketones Urine Blood Urine Nitrite Urine Bilirubin Urine Urobilinogen Ur Leukocyte Esterase Alcohol, Quantitative Acetone, Qual 07/14/18 07/14/18 07/14/18 00:58 02:09 04:10 WBC RBC Hgb Hct MCV MCH MCHC RDW Plt Count MPV Absolute Neuts (auto) Neutrophils % Lymphocytes % Monocytes % Eosinophils % Basophils % Nucleated RBC % PT with INR INR VBG pH POC VBG pCO2 POC VBG pO2 VBG HCO3 VBG O2 Sat (Thomas) VBG Base Excess Sodium Potassium Chloride Carbon Dioxide Anion Gap BUN Creatinine Est GFR (CKD-EPI)AfAm Est GFR (CKD-EPI)NonAf POC Glucometer 137 174 232 Random Glucose Calcium Phosphorus Magnesium Total Bilirubin AST ALT Alkaline Phosphatase Total Protein Albumin Lipase Urine Color Urine Appearance Urine pH Ur Specific [place] Urine Protein Urine Glucose (UA) Urine Ketones Urine Blood Urine Nitrite Urine Bilirubin Urine Urobilinogen Ur Leukocyte Esterase Alcohol, Quantitative Acetone, Qual 07/14/18 07/14/18 07/14/18 05:31 05:31 06:52 WBC 11.4 H RBC 4.24 Hgb 13.4 Hct 39.8 D MCV 93.9 MCH 31.6 MCHC 33.7 RDW 14.1 Plt Count 250 MPV 8.5 Absolute Neuts (auto) 8.1 H Neutrophils % 70.9 Lymphocytes % 20.1 D Monocytes % 7.5 Eosinophils % 1.0 Basophils % 0.5 Nucleated RBC % 0 PT with INR INR VBG pH POC VBG pCO2 POC VBG pO2 VBG HCO3 VBG O2 Sat (Thomas) VBG Base Excess Sodium 139 Potassium 4.9 Chloride 109 H Carbon Dioxide 22 Anion Gap 8 BUN 22 H Creatinine 1.3 Est GFR (CKD-EPI)AfAm 84.86 Est GFR (CKD-EPI)NonAf 73.22 POC Glucometer 191 Random Glucose 241 H Calcium 8.7 Phosphorus 4.2 Magnesium 2.5 H Total Bilirubin 0.8 AST 27 ALT 30 Alkaline Phosphatase 74 Total Protein 6.2 L Albumin 3.4 Lipase Urine Color Urine Appearance Urine pH Ur Specific [place] Urine Protein Urine Glucose (UA) Urine Ketones Urine Blood Urine Nitrite Urine Bilirubin Urine Urobilinogen Ur Leukocyte Esterase Alcohol, Quantitative Acetone, Qual Problem List - Problem (1) DKA (diabetic ketoacidoses) Code(s): E13.10 - OTH DIABETES MELLITUS WITH KETOACIDOSIS WITHOUT COMA (2) AA (alcohol abuse) Code(s): F10.10 - ALCOHOL ABUSE, UNCOMPLICATED (3) Abdominal pain Code(s): R10.9 - UNSPECIFIED ABDOMINAL PAIN (4) Acute kidney injury Code(s): N17.9 - ACUTE KIDNEY FAILURE, UNSPECIFIED ASSESSMENT/PLAN: Resolving DKA Medication non-compliance Resolving LILIAN History of ETOH binge drinking Hyperkalemia IVF Insulin SQ PO as tolerated Advised about medication compliance OOB to chair VTE prophylaxis Floor Dr Bobo
--- NOTE | 2018-07-14 13:32 | PN ---
Teaching Attending Note Name of Resident: Mehreen Goldberg ATTENDING PHYSICIAN STATEMENT I saw and evaluated the patient. I reviewed the resident's note and discussed the case with the resident. I agree with the resident's findings and plan as documented. SUBJECTIVE:asymptomatic. poor appetite this AM but states he is starting to get hungry. states he forgets to take his insulin. use to have a pump but was not working well adn would have labile sugars. have not seen PMD for over a year. denies Cp, SOB, fever, chills, N/V/C/D OBJECTIVE: Last Vital Signs Temp Pulse Resp BP Pulse Ox 97.8 F 70 18 120/82 100 07/14/18 12:00 07/14/18 12:00 07/14/18 12:00 07/14/18 12:00 07/14/18 09:00 General NAD CV S1 S2 RRR no murmur/rub/gallop Lungs CTA B/L no wheezing/rales/rhonchi Abdomen soft NT/ND Extremiteis no pedal edema ASSESSMENT AND PLAN: 33 yo M with PMH DM with non compliance presenting with nausea/vomiting after ETOH binge yesterday and found to have DKA with acute metabolic encephalopathy 1. DKA- AG closed. received lantus 10 units last night. and 18 units this AM. will cont to check BGM and titrate insulin as tolerated. should try to do an easy regimen for him to follow. Ideally once a day in order to gain better compliance. stressed importance of compliance and [facility] complications of hyperglycemia. encouraged to put alarm on phone to remind to take insulin. dietary consult. stressed need for compliance and follow up with PMD, can d/w them other treatment modalities 2. ACute metabolic encephalopathy- due to hyperglycemia. resolved. 3. LILIAN - due to dehydration and hyperglycemia. improved. cont to trend. avoid nephrotoxic agents 4. Hyperkalemia- due to fluid shifts. now resolved 5. Intermittent ETOH abuse- binges on the weekends. counselled need on reduce ETOH intake. AA meetings as outpatient 6. pseudohyponatremia- due to fluid shifts. now resolved 7. DVT ppx- lovenox 8. MICU. can downgrade to medical floors. possible discharge in next 24-48H
[2018-07-14 18:34] VITALS: BP 134/93; PULSE 73; TEMP 98.8
--- NOTE | 2018-07-14 18:44 | PN ---
Physical Exam: SUBJECTIVE: Patient seen and examined at bedside. Able to tolerate half of food. Without emesis. OBJECTIVE: Vital Signs Period Temp Pulse Resp BP Sys/Eid Pulse Ox Last 24 Hr 97.8 F-98.8 F 70-103 14-23 104-134/68-93 100-100 GENERAL: The patient is awake, alert, and fully oriented, in no acute distress. HEAD: Normal with no signs of trauma. EYES: PERRL, extraocular movements intact, sclera anicteric, conjunctiva clear. ENT: Ears normal, nares patent, oropharynx clear without exudates, dry mucous membranes. NECK: Trachea midline, supple. LUNGS: Breath sounds equal, clear to auscultation bilaterally, no wheezes, no crackles, no accessory muscle use. HEART: Regular rate and rhythm, S1, S2 without murmur, rub or gallop. ABDOMEN: Soft, nontender, nondistended EXTREMITIES: 2+ pt pulses, warm, well-perfused, no edema. NEUROLOGICAL: Cranial nerves II through XII grossly intact. PSYCH: Normal mood, normal affect. SKIN: Warm, dry Laboratory Results 07/14/18 07/14/18 07/14/18 05:31 12:54 16:37 Sodium 139 Potassium 4.9 Chloride 109 H Carbon Dioxide 22 Anion Gap 8 BUN 22 H POC Glucometer 267 165 Random Glucose 241 H Calcium 8.7 Phosphorus 4.2 Magnesium 2.5 H Total Protein 6.2 L Albumin 3.4 ASSESSMENT/PLAN: 32 y/o M with hx IDDM, DKA, who presented with N/V after intoxication. Found to be in DKA. #DKA -AG closed, off insulin gtt. for transfer out of ICU to floor -will start with levemir 20u AM tomorrow. will trend sugars, can also c/w ISS -dietary consult -c/w pepcid -will need close f/u. noncompliant #LILIAN 2/2 dehydration 2/2 DKA -will encourage PO intake. resolving -cont to monitor #F/E/N off ivf continue to follow lytes diabetic diet #PPX dvt: lovenox #Dispo for transfer out of icu to floor anticipate dc in 24 hrs if sugars better controlled Visit type - Emergency Visit Emergency Visit: No - New Patient This patient is new to me today: No - Critical Care Critical Care patient: No
[2018-07-14] MEDS ORDERED: INSULIN SLIDING SCALE (NOVOLOG) 1 VIAL SQ SCH (22:00)
[2018-07-14] MEDS ORDERED: FAMOTIDINE 20 MG/50 ML IVPB 20 MG/50 ML MG IVPB SCH (22:00)
[2018-07-15] MEDS ORDERED: INSULIN (LEVEMIR) 100 UNITS/ML UNITS SQ SCH (07:00)
[2018-07-15] MEDS ORDERED: MULTIVITAMINS (DAILY MVI) TABLET (FP) PO SCH (10:00)
[2018-07-15] MEDS ORDERED: FOLIC ACID 1 MG TABLET (FP) PO SCH (10:00)
[2018-07-15] MEDS ORDERED: ENOXAPARIN NA (PORCINE) 40 MG/0.4 ML DISP.SYRIN SQ SCH (10:00)
--- NOTE | 2018-07-15 15:42 | DS ---
Physical Exam: SUBJECTIVE: Patient left AMA before I could reassess him yesterday. OBJECTIVE: Vital Signs Period Temp Pulse Resp BP Sys/Eid Pulse Ox Last 24 Hr 98.8 F 73-79 15-23 126-134/92-93 100 PHYSICAL EXAM please see above. unable to conduct exam as pt left AMA LABS Laboratory Results - last 24 hr 07/14/18 07/14/18 16:37 20:38 POC Glucometer 165 200 Additional labs 07/13/18 07/13/18 07/13/18 14:58 14:58 16:30 Hgb 17.3 H Hct 53.4 H Sodium 127 L Carbon Dioxide 14 L BUN 38 H Creatinine 1.9 H Random Glucose 702 H* Urine Glucose (UA) 3+ H Urine Ketones 4+ H 07/13/18 07/13/18 07/14/18 19:25 23:30 05:31 Hgb Hct Sodium 144 142 139 Carbon Dioxide 17 L 22 22 BUN 33 H 25 H 22 H Creatinine 1.6 H 1.4 H 1.3 Random Glucose 265 H 114 H 241 H Urine Glucose (UA) Urine Ketones HOSPITAL COURSE: Date of Admission:07/13/18 Date of Discharge: 07/14/18 Admit diagnosis: DKA 32 y/o male with PMH of insulin dependent diabetes (type 1 diagnosed at age 14) with multiple admissions for DKA presents to the ED with complaints of nausea/ vomiting epigastric pain. Patient states that last night he had about 6 cups of brown liquor mixed with grape juice at a libertarian and when he woke up this AM he felt very nauseated with epigatsric pain and vomited around 5 times (non-bloody , non-bilious) so he came to the ED. Patient does not recall the last time he took his insulin thinks its been about 5-6 days and he does not check his sugars regularly nor does he follow up with a PCP regularly. In terms of his insulin regimen, he states that he takes 30 of long acting with a sliding scale (occasionally). he denies any recent travel, sick contacts or recent illnesses. ER course was notable for: (1)Glucose 720, Ph 7.2, AG 24 4+ ketones (2)given 10 units of insulin; started on drip; given zofran/pepcid (3)CXR clear Pt was initially managed in the ICU with insulin gtt, BMP q4h, pepcid for sx relief, as well as BGM q1hr. Anion gap closed in the evening of admission, and pt was d/c off insulin gtt. Pt was transitioned to levemir 10u sq and was given food. Was able to tolerate most of meal. Was transferred to floor, however pt left AMA before reassessment. Minutes to complete discharge: 44 Discharge Summary Reason For Visit: DIABETIC KETOACIDOSIS Condition: Fair - Instructions Disposition: ELOPED - Home Medications Comprehensive Discharge Medication List: Ambulatory Orders Ipratropium [place] 2 sprays NS BID PRN #1 spray 09/27/17 Insulin (Novolog 70/30) [Novolog Mix 70/30 Vial] 0 ml SQ DAILY 02/22/18 Insulin NPH Hum/Reg Insulin Hm [Novolin 70-30 Flexpen] 0 unit SQ DAILY 02/22/18 This patient is new to me today: No Emergency Visit: No Critical Care patient: No - Discharge Referral Referred to [facility] No
== END 2018-07-14 22:55 | disposition left against medical advice (07) | DRG 420 ==
LOC: JER 14:25 → JERBED 16:36 → JICU 18:20 → J7W 07-14 18:43
PROVIDERS: ATTEND Internal Medicine
DX: E11.10 Type 2 diabetes mellitus with ketoacidosis without coma (principal); N17.9 Acute kidney failure, unspecified; G93.49 Other encephalopathy; E87.5 Hyperkalemia; E86.0 Dehydration; Z91.14 Patient's other noncompliance with medication regimen; Z79.4 Long term (current) use of insulin; J45.909 Unspecified asthma, uncomplicated; E87.1 Hypo-osmolality and hyponatremia; F10.10 Alcohol abuse, uncomplicated; E87.2 Acidosis
CPT/HCPCS: 36415; 71045-TC-FY; 80048; 80053; 80307; 81003; 82009; 82803; 82962; 83690; 83735; 84100; 85025; 85027; 85610; 87040; 87086; 93005; 93010; 99283-25; J7030

== ENCOUNTER 2018-10-22 13:12 | Inpatient (IN) | payer OTHER ==
--- NOTE | 2018-10-22 13:24 | PDOC ---
Rapid Medical Evaluation Time Seen by Provider: 10/22/18 13:18 Medical Evaluation: Allergies Allergy/AdvReac Type Severity Reaction Status Date / Time No Known Allergies Allergy Verified 07/08/18 05:54 10/22/18 13:18 Pt with PMH of IDDM (uncontrolled) presents to the ER for cough, sore throat and upper abdominal pain for two days. Pt states that when he eats he feels nauseous. Admits to NBNB vomiting, but denies diarrhea. Last took his sugar yesterday and it was in the 200's. Did not use any insulin this morning. Exam: NAD, abdomen SNT, lungs CTAB Orders: Labs, IV insert, rapid strep Pt to proceed to the ER for further evaluation Discharge Disposition - Diagnosis Weakness - Referrals - Patient Instructions - Post Discharge Activity
[2018-10-22] MEDS ORDERED: ONDANSETRON 4 MG/2 ML VIAL IVPUSH ONE (13:26)
[2018-10-22] MEDS ORDERED: SODIUM CHLORIDE 1,000 ML IV STA ×2 (13:26→14:37)
[2018-10-22] MEDS ORDERED: ONDANSETRON 4 MG/2 ML VIAL ONE (13:32)
--- NOTE | 2018-10-22 13:33 | PDOC ---
History of Present Illness - General Chief Complaint: Pain Stated Complaint: ABDOMINAL PAIN/NAUSEA Time Seen by Provider: 10/22/18 13:18 Past History - Past Medical History Allergies/Adverse Reactions: Allergies Allergy/AdvReac Type Severity Reaction Status Date / Time No Known Allergies Allergy Verified 10/22/18 13:23 Home Medications: Ambulatory Orders Ipratropium [place] 2 sprays NS BID PRN #1 spray 09/27/17 Insulin (Novolog 70/30) [Novolog Mix 70/30 Vial] 0 ml SQ DAILY 02/22/18 Insulin NPH Hum/Reg Insulin Hm [Novolin 70-30 Flexpen] 0 unit SQ DAILY 02/22/18 Asthma: Yes COPD: No Diabetes: Yes (I) Hypercholesterolemia: No - Surgical History GI Surgery: No - Immunization History Immunization Up to Date: Yes - Suicide/Smoking/Psychosocial Hx Smoking Status: No Smoking History: Never smoked Have you smoked in the past 12 months: No Number of Cigarettes Smoked Daily: 0 Information on smoking cessation initiated: No 'Breaking Loose' booklet given: 03/17/16 Hx Alcohol Use: No Drug/Substance Use Hx: No Substance Use Type: Alcohol Hx Substance Use Treatment: No *Physical Exam - Vital Signs Last Vital Signs Temp Pulse Resp BP Pulse Ox 98.2 F 91 H 19 136/84 100 10/22/18 13:20 10/22/18 13:20 10/22/18 13:20 10/22/18 13:20 10/22/18 13:20 ED Treatment Course - LABORATORY CBC & Chemistry Diagram: 10/22/18 13:43 10/23/18 09:42 Medical Decision Making - Medical Decision Making HPI: 33yo M with PMH of type 1 diabetes, multiple DKA admissions presenting with nausea, sore throat, and dry cough. Patient reports feeling "congested" with pressure in his forehead and sinus area. Patient endorses nausea that started today and has vomited three times today with no blood. He took aspirin "for the nausea" which "seemed to help." Drinking water makes the nausea worse. Denies abdominal pain. Was recently admitted to this ICU for DKA in July 2018. When asked if this feels like his DKA, he states "maybe." Patient takes novalog and humalog for his diabetes and has been non-adherent, missing about half the doses. Last took novalog yesterday. He also reports chills, foul smelling urine for 2 days, dry mouth. He denies fever, increased thirst, MAJOR, chest pain, SOB, abdominal pain, penile discharge, or loose stools. Personal Lines Sales Executive: Dr. Mendoza (spelling?) PCP: none ROS: Constitutional: no fever, +chills HEENT: +throat pain, +dry mouth Cardiovascular: no chest pain, no palpitations Respiratory: +cough, no shortness of breath Gastrointestinal: no abdominal pain, +nausea Genitourinary: no dysuria, +foul-smelling urine Musculoskeletal: no myalgia, no arthralgia Skin: no rash, no itching Neurologic: +headache, no weakness PE: General: Awake, alert, and fully oriented, in no acute distress Head: No signs of trauma Eyes: EOMI, sclera anicteric ENT: Dry mucus membranes Neck: Normal ROM, supple Lungs: Lungs clear, Normal breath sounds Cardio: Regular rhythm, S1 and S2, systolic murmur present Abdomen: Soft, nontender. No guarding, no rebound, no masses Extremities: Normal range of motion, Distal pulses present SKIN: Warm, Dry, normal turgor Neurologic: Cranial nerves II through XII grossly intact. Normal speech ED Course/MDM: DDX including but not limited to DKA, URI, Strep, electrolyte disturbance, sinusitis, gastroenteritis Patient poorly compliant with novalog and humalog at home; concern for DKA Labs, EKG, CXR IV fluids EKG: rate 92, QTc 432, NSR 10/22/18 13:33 Fingerstick glucose >600 CBC WBC 6.6 K/mm3 (4.0-10.0) 10/22/18 13:43 RBC 4.58 M/mm3 (4.00-5.60) 10/22/18 13:43 Hgb 14.7 GM/dL (11.7-16.9) 10/22/18 13:43 Hct 44.2 % (35.4-49) 10/22/18 13:43 MCV 96.6 fl (80-96) H 10/22/18 13:43 MCH 32.0 pg (25.7-33.7) 10/22/18 13:43 MCHC 33.2 g/dl (32.0-35.9) 10/22/18 13:43 RDW 13.0 % (11.9-15.9) 10/22/18 13:43 Plt Count 259 K/MM3 (134-434) 10/22/18 13:43 MPV 8.8 fl (7.5-11.1) 10/22/18 13:43 Absolute Neuts (auto) 5.4 K/mm3 (1.5-8.0) 10/22/18 13:43 Neutrophils % 82.7 % (42.8-82.8) 10/22/18 13:43 Lymphocytes % 11.0 % (8-40) D 10/22/18 13:43 Monocytes % 4.6 % (3.8-10.2) 10/22/18 13:43 Eosinophils % 1.0 % (0-4.5) 10/22/18 13:43 Basophils % 0.7 % (0-2.0) 10/22/18 13:43 Nucleated RBC % 0 % (0-0) 10/22/18 13:43 No leukocytosis CMP Sodium 127 mmol/L (136-145) L 10/22/18 13:43 Potassium 5.2 mmol/L (3.5-5.1) H 10/22/18 13:43 Chloride 88 mmol/L (98-107) L 10/22/18 13:43 Carbon Dioxide 19 mmol/L (21-32) L 10/22/18 13:43 Anion Gap 19 MMOL/L (8-16) H 10/22/18 13:43 BUN 22.4 mg/dL (7-18) H 10/22/18 13:43 Creatinine 1.5 mg/dL (0.55-1.3) H 10/22/18 13:43 Est GFR (CKD-EPI)AfAm 70.88 10/22/18 13:43 Est GFR (CKD-EPI)NonAf 61.15 10/22/18 13:43 POC Glucometer > 600 UNITS (80-120) 10/22/18 14:15 Random Glucose 840 mg/dL (74-106) H* 10/22/18 13:43 Lactic Acid 2.1 mmol/L (0.4-2.0) H 10/22/18 13:43 Calcium 10.1 mg/dL (8.5-10.1) 10/22/18 13:43 Total Bilirubin 0.9 mg/dL (0.2-1) 10/22/18 13:43 AST 22 U/L (15-37) 10/22/18 13:43 ALT 34 U/L (13-61) 10/22/18 13:43 Alkaline Phosphatase 120 U/L (45-117) H 10/22/18 13:43 Total Protein 7.7 g/dl (6.4-8.2) 10/22/18 13:43 Albumin 4.2 g/dl (3.4-5.0) 10/22/18 13:43 Corrected Na is 139 Glucose 840 Anion gap is 19 Consistent with DKA 10/22/18 14:49 Following the [place] [employer] Protocol for the management of adult patients with DKA Patient is ~60kg We will administer a 6u bolus of insulin 6u/hr insulin drip 125cc/hr fluids with 20meq KCl q1hr glucose checks q2hr BMP ABG ordered 10/22/18 15:01 ABG with pH=7.3 Patient expressing frustration at having another episode of DKA. Amenable to admission but states: "This is just going to happen again. This has happened so many times." 10/22/18 16:10 Glc 412 Repeat CMP planned for 5pm 10/22/18 16:25 CMP Sodium 140 mmol/L (136-145) 10/22/18 16:57 Potassium 4.2 mmol/L (3.5-5.1) 10/22/18 16:57 Chloride 104 mmol/L (98-107) 10/22/18 16:57 Carbon Dioxide 16 mmol/L (21-32) L 10/22/18 16:57 Anion Gap 20 MMOL/L (8-16) H 10/22/18 16:57 BUN 17.3 mg/dL (7-18) 10/22/18 16:57 Creatinine 1.5 mg/dL (0.55-1.3) H 10/22/18 16:57 Est GFR (CKD-EPI)AfAm 70.88 10/22/18 16:57 Est GFR (CKD-EPI)NonAf 61.15 10/22/18 16:57 POC Glucometer 149 UNITS (80-120) 10/22/18 18:00 Random Glucose 313 mg/dL (74-106) H 10/22/18 16:57 Lactic Acid 2.1 mmol/L (0.4-2.0) H 10/22/18 13:43 Calcium 9.2 mg/dL (8.5-10.1) 10/22/18 16:57 Total Bilirubin 0.6 mg/dL (0.2-1) 10/22/18 16:57 AST 18 U/L (15-37) 10/22/18 16:57 ALT 29 U/L (13-61) 10/22/18 16:57 Alkaline Phosphatase 98 U/L (45-117) 10/22/18 16:57 Total Protein 7.0 g/dl (6.4-8.2) 10/22/18 16:57 Albumin 3.8 g/dl (3.4-5.0) 10/22/18 16:57 Patient still with anion gap, now slightly increased to 20 Glucose 149 K=4.2 Fluids changed to D5-1/2NS at 150cc/hr with 20meq KCl Insulin infusion changed to 3cc/hr Plan for admission to ICU 10/22/18 18:[address] Pardo who accepted patient to the ICU 10/22/18 18:18 *DC/Admit/Observation/Transfer Diagnosis at time of Disposition: Weakness DKA (diabetic ketoacidoses) Qualifiers: Diabetes mellitus type: type 1 Diabetes mellitus complication detail: without coma Qualified Code(s): E10.10 - Type 1 diabetes mellitus with ketoacidosis without coma - Discharge Dispostion Condition at time of disposition: Guarded Decision to Admit order: Yes - Referrals - Patient Instructions - Post Discharge Activity
[2018-10-22 14:01] LABS: BASO % 0.7 % (0-2.0); HEMATOCRIT 44.2 % (35.4-49); HEMOGLOBIN 14.7 GM/dL (11.7-16.9); MCHC 33.2 g/dl (32.0-35.9); MEAN CELL VOLUME 96.6 fl (80-96); MEAN PLT VOLUME 8.8 fl (7.5-11.1); MONO % 4.6 % (3.8-10.2); NEUT % 82.7 % (42.8-82.8); PLATELET COUNT 259 K/MM3 (134-434); RBC 4.58 M/mm3 (4.00-5.60); VENOUS PC02 36.8 mmHg (38-52); VENOUS PH 7.29 (7.31-7.41); VENOUS PO2 52.4 mmHg (28-48); WHITE BLOOD COUNT 6.6 K/mm3 (4.0-10.0)
[2018-10-22 14:11] LABS: INR 0.9 (0.83-1.09); PROTHROMBIN TIME (PATIENT) 10.6 SEC (9.7-13.0)
[2018-10-22 14:36] LABS: ALBUMIN 4.2 g/dl (3.4-5.0); BILIRUBIN,TOTAL 0.9 mg/dL (0.2-1); BLOOD UREA NITROGEN 22.4 mg/dL (7-18); CALCIUM 10.1 mg/dL (8.5-10.1); CREATININE 1.5 mg/dL (0.55-1.3); POTASSIUM 5.2 mmol/L (3.5-5.1); TOT PROT 7.7 g/dl (6.4-8.2)
--- NOTE | 2018-10-22 14:41 | EKG ---
Test Reason : Blood Pressure : / mmHG Vent. Rate : 092 BPM Atrial Rate : 092 BPM P-R Int : 144 ms QRS Dur : 086 ms QT Int : 350 ms P-R-T Axes : 060 015 038 degrees QTc Int : 432 ms NORMAL SINUS RHYTHM POSSIBLE LEFT ATRIAL ENLARGEMENT BORDERLINE ECG WHEN COMPARED WITH ECG OF 13-JUL-2018 15:21, NO SIGNIFICANT CHANGE WAS FOUND Confirmed by STERLING THURMAN MD ([id number]) on 10/22/2018 2:40:41 PM Referred By: Confirmed By:STERLING THURMAN MD
[2018-10-22] MEDS ORDERED: INSULIN REGULAR HUMAN 100 UNITS/ML *VIAL IVPUSH ONE (14:58)
[2018-10-22] MEDS ORDERED: INSULIN REGULAR 100 UNITS in SODIUM CHLORIDE 99 ML IVPB SCH ×2 (15:00→18:12)
[2018-10-22 15:14] LABS: ARTERIAL BLD GAS O2 SATURATION 97.5 % (95-98); ARTERIAL BLOOD GAS BASE EXCESS -9.2 meq/l (-2-2); ARTERIAL BLOOD GAS PCO2 34.1 mmHg (35-45); ARTERIAL BLOOD GAS PO2 103 mmHg (80-100); CARBOXYHEMOGLOBIN 1.2 % (0-2)
[2018-10-22] MEDS ORDERED: SODIUM CHLORIDE 0.9%/KCL 20 MEQ/1,000 ML INFUS.BAG IV SCH (15:15)
[2018-10-22 15:17] LABS: ALLENS TEST POSITIVE
[2018-10-22 16:29] LABS: URINE APPEARANCE CLEAR; URINE BILIRUBIN NEGATIVE (NEGATIVE); URINE COLOR YELLOW; URINE GLUCOSE (UA) 3+ (NEGATIVE); URINE KETONE 2+ (NEGATIVE); URINE LEUK ESTERASE NEGATIVE (NEGATIVE); URINE NITRITE NEGATIVE (NEGATIVE); URINE PROTEIN NEGATIVE (NEGATIVE); URINE UROBILINOGEN 0.2 mg/dL (0.2-1.0)
--- NOTE | 2018-10-22 17:24 | PDOC ---
Documentation entered by Demond Ardon SCRIBE, acting as scribe for Joseline Chau MD. Joseline Chau MD: This documentation has been prepared by the Duglas myrick Daniel, SCRIBE, under my direction and personally reviewed by me in its entirety. I confirm that the documentation accurately reflects all work, treatment, procedures, and medical decision making performed by me. Attending Attestation - Resident Resident Name: KelliiAlynIndira - ED Attending Attestation I have performed the following: I have examined & evaluated the patient, The case was reviewed & discussed with the resident, I agree w/resident's findings & plan, Exceptions are as noted - HPI HPI: 10/22/18 15:01 The patient is a 33 year old male with a past medical history of insulin dependent diabetes (poorly controlled) here today for evaluation of sore throat , cough, and nausea. The patient reports that he has had a few days of sore throat, cough, and nausea. He notes vomiting 3 times prior to arrival today. He also notes foul smelling urine 2 days ago but attributes that to drinking sugary alcoholic drinks. Patient admits to missing a few insulin doses. Patient denies headache, lightheadedness. Denies fever, chills. Denies chest pain, shortness of breath. Denies diarrhea, abdominal pain. Allergies: NKA PCP: none Compliance Testing Analyst: Romero Poe - Physicial Exam PE: 10/22/18 16:08 GENERAL: The patient is in no acute distress. HEAD: Normal with no signs of trauma. EYES: PERRLA, EOMI, sclera anicteric, conjunctiva clear. ENT: Ears normal, nares patent, oropharynx clear without exudates. Dry mucous membranes. NECK: Normal range of motion, supple without lymphadenopathy, JVD, or masses. LUNGS: Breath sounds equal, clear to auscultation bilaterally. No wheezes, and no crackles. HEART:Regular rate and rhythm, normal S1 and S2 without murmur, rub or gallop. ABDOMEN: Soft, nontender, normoactive bowel sounds. No guarding, no rebound. No masses palpable. EXTREMITIES: Normal range of motion, no edema. No clubbing or cyanosis. No erythema, or tenderness. NEUROLOGICAL: Cranial nerves II through XII grossly intact. Normal speech. No focal neurological deficits. MUSCULOSKELETAL: Back non-tender to palpation, no CVA tenderness SKIN: Warm, Dry, normal turgor, no rashes or lesions noted. - Critical Care Time Total Critical Care Time: 60 Critical Care Statement: The care of this patient involved high complexity decision making to prevent further life threatening deterioration of the patient 's condition and/or to evaluate & treat vital organ system(s) failure or risk of failure. - Medical Decision Making 10/22/18 14:11 Spencer is a 33 yo M h/o IDDM (previously pt had an Insulin pump) Pt presents with throat pain, elevated blood glucose, polyuria and polydypsia Pt is not compliant with Insulin therapy EKG : NSR rate of 92 bpm, axis nml, intervals nml, no st elevation or depression , j point elevation v 2-v3 10/22/18 16:47 Laboratory Tests 10/22/18 10/22/18 10/22/18 13:30 13:43 13:43 WBC 6.6 Hgb 14.7 Hct 44.2 Plt Count 259 INR ABG pH ABG pCO2 at Pt Temp ABG pO2 at Pt Temp ABG HCO3 Sodium 127 L Potassium 5.2 H Chloride 88 L Carbon Dioxide 19 L Anion Gap 19 H BUN 22.4 H Creatinine 1.5 H Random Glucose 840 H* Lactic Acid Urine Blood Urine Nitrite Ur Leukocyte Esterase Acetone, Qual Group A Strep Rapid Negative 10/22/18 10/22/18 10/22/18 13:43 13:43 13:43 WBC Hgb Hct Plt Count INR 0.90 ABG pH ABG pCO2 at Pt Temp ABG pO2 at Pt Temp ABG HCO3 Sodium Potassium Chloride Carbon Dioxide Anion Gap BUN Creatinine Random Glucose Lactic Acid 2.1 H Urine Blood Urine Nitrite Ur Leukocyte Esterase Acetone, Qual Positive small 1+ Group A Strep Rapid 10/22/18 10/22/18 14:51 15:30 WBC Hgb Hct Plt Count INR ABG pH 7.30 L ABG pCO2 at Pt Temp 34.1 L ABG pO2 at Pt Temp 103 H ABG HCO3 16.0 L Sodium Potassium Chloride Carbon Dioxide Anion Gap BUN Creatinine Random Glucose Lactic Acid Urine Blood Negative Urine Nitrite Negative Ur Leukocyte Esterase Negative Acetone, Qual Group A Strep Rapid 10/22/18 16:53 Insulin drip initiated Repeat fingerstick 400 Will do CMP 10/22/18 18:09 Laboratory Tests 10/22/18 10/22/18 16:57 18:00 Sodium 140 Potassium 4.2 Chloride 104 Carbon Dioxide 16 L Anion Gap 20 H Creatinine 1.5 H POC Glucometer 149 BLood glucose less than 200 Will initiate Dextrose 5 - 1/2 NS 200cc/hr Will decrease Insulin drip to 3 units/hr Will admit to ICU Clinical Impression: DKA, initial presentation Dehydration , initial presentation
[2018-10-22 17:41] LABS: ALBUMIN 3.8 g/dl (3.4-5.0); BILIRUBIN,TOTAL 0.6 mg/dL (0.2-1); BLOOD UREA NITROGEN 17.3 mg/dL (7-18); CALCIUM 9.2 mg/dL (8.5-10.1); CREATININE 1.5 mg/dL (0.55-1.3); POTASSIUM 4.2 mmol/L (3.5-5.1)
[2018-10-22] MEDS ORDERED: D5-1/2NS+20 MEQ KCL - 20 MEQ/1,000 ML INFUS.BAG IV SCH (18:15)
--- NOTE | 2018-10-22 18:46 | CONSULT ---
Consultation: REQUESTING PROVIDER: CONSULT REQUEST: We have been asked to medically evaluate this patient for ICU care. HISTORY OF PRESENT ILLNESS: Patient is a 33M with history of T1DM with prior episodes of DKA 2/2 insulin noncompliance here today complaining of vomiting that started today. Patient endorses rhinorrhea, cough and chest pain worsening with cough. No sick contacts reported. Patient reports that he hasn't been taking insulin as directed. Denies fevers, chills. Denies blood and bile in vomit. Denies shortness of breath, abdominal pain, dysuria, urinary frequency, back pain, headache and neck pain. REVIEW OF SYSTEMS: CONSTITUTIONAL: Absent: fever, chills, diaphoresis, generalized weakness HEENT: Present: rhinorrhea, nasal congestion, throat pain Absent: throat swelling, difficulty swallowing, mouth swelling, ear pain, eye pain, visual changes CARDIOVASCULAR: Absent: syncope, palpitations, irregular heart rate, lightheadedness, peripheral edema Present: Chest pain RESPIRATORY: Absent: shortness of breath, dyspnea with exertion, orthopnea, wheezing, stridor , hemoptysis Present: cough GASTROINTESTINAL: Absent: abdominal pain, abdominal distension, diarrhea, constipation, melena, hematochezia Present: nausea, vomiting GENITOURINARY: Absent: dysuria, frequency, urgency, hesitancy, hematuria, flank pain, genital pain MUSCULOSKELETAL: Absent: myalgia, arthralgia, joint swelling, back pain, neck pain SKIN: Absent: rash, itching, pallor HEMATOLOGIC/IMMUNOLOGIC: Absent: easy bleeding, easy bruising, lymphadenopathy, frequent infections ENDOCRINE: Absent: unexplained weight gain, unexplained weight loss, heat intolerance, cold intolerance NEUROLOGIC: Absent: headache, focal weakness or paresthesias, dizziness, unsteady gait PSYCHIATRIC: Absent: anxiety, depression, suicidal or homicidal ideation, hallucinations. PHYSICAL EXAMINATION Vital Signs - 24 hr 10/22/18 10/22/18 13:20 17:25 Temperature 98.2 F Pulse Rate 91 H Respiratory 19 Rate Blood Pressure 136/84 O2 Sat by Pulse 100 98 Oximetry (%) GENERAL: Awake, alert, and fully oriented, in no acute distress. HEAD: Normal with no signs of trauma. EYES: Pupils equal, round and reactive to light, extraocular movements intact, sclera anicteric, conjunctiva clear. No lid lag. EARS, NOSE, THROAT: Ears normal, nares patent, oropharynx clear without exudates. Moist mucous membranes. NECK: Normal range of motion, supple without lymphadenopathy, JVD, or masses. LUNGS: Breath sounds equal, clear to auscultation bilaterally. No wheezes, and no crackles. No accessory muscle use. HEART: Regular rate and rhythm, normal S1 and S2 without murmur, rub or gallop. ABDOMEN: Soft, nontender, not distended, normoactive bowel sounds, no guarding, no rebound, no masses. No hepatomegaly or splenomegaly. MUSCULOSKELETAL: Normal range of motion at all joints. No bony deformities or tenderness. No CVA tenderness. UPPER EXTREMITIES: 2+ pulses, warm, well-perfused. No cyanosis. No clubbing. Cap refill <2 seconds. No peripheral edema. LOWER EXTREMITIES: 2+ pulses, warm, well-perfused. No calf tenderness. No peripheral edema. NEUROLOGICAL: Cranial nerves II-XII intact. Normal speech. Normal gait. PSYCHIATRIC: Cooperative. Good eye contact. Appropriate mood and affect. SKIN: Warm, dry, normal turgor, no rashes or lesions noted. Laboratory Results - last 24 hr 10/22/18 10/22/18 10/22/18 13:30 13:43 13:43 WBC 6.6 RBC 4.58 Hgb 14.7 Hct 44.2 MCV 96.6 H MCH 32.0 MCHC 33.2 RDW 13.0 Plt Count 259 MPV 8.8 Absolute Neuts (auto) 5.4 Neutrophils % 82.7 Lymphocytes % 11.0 D Monocytes % 4.6 Eosinophils % 1.0 Basophils % 0.7 Nucleated RBC % 0 PT with INR INR Anticoagulation Therapy Puncture Site ABG pH ABG pCO2 at Pt Temp ABG pO2 at Pt Temp ABG HCO3 ABG O2 Sat (Measured) ABG O2 Content ABG Base Excess Miguel Test VBG pH POC VBG pCO2 POC VBG pO2 VBG HCO3 VBG O2 Sat (Thomas) VBG Base Excess Carboxyhemoglobin Methemoglobin O2 Delivery Device Oxygen Flow Rate Vent Mode Vent Rate Mechanical Rate Pressure Support Vent Sodium 127 L Potassium 5.2 H Chloride 88 L Carbon Dioxide 19 L Anion Gap 19 H BUN 22.4 H Creatinine 1.5 H Est GFR (CKD-EPI)AfAm 70.88 Est GFR (CKD-EPI)NonAf 61.15 POC Glucometer Random Glucose 840 H* Lactic Acid Calcium 10.1 Total Bilirubin 0.9 AST 22 ALT 34 Alkaline Phosphatase 120 H Total Protein 7.7 Albumin 4.2 Urine Color Urine Appearance Urine pH Ur Specific [place] Urine Protein Urine Glucose (UA) Urine Ketones Urine Blood Urine Nitrite Urine Bilirubin Urine Urobilinogen Ur Leukocyte Esterase Acetone, Qual Group A Strep Rapid Negative 10/22/18 10/22/18 10/22/18 13:43 13:43 13:43 WBC RBC Hgb Hct MCV MCH MCHC RDW Plt Count MPV Absolute Neuts (auto) Neutrophils % Lymphocytes % Monocytes % Eosinophils % Basophils % Nucleated RBC % PT with INR 10.60 INR 0.90 Anticoagulation Therapy Puncture Site ABG pH ABG pCO2 at Pt Temp ABG pO2 at Pt Temp ABG HCO3 ABG O2 Sat (Measured) ABG O2 Content ABG Base Excess Miguel Test VBG pH 7.29 L POC VBG pCO2 36.8 L POC VBG pO2 52.4 H VBG HCO3 17.3 L VBG O2 Sat (Thomas) 82.6 H VBG Base Excess -8.1 L Carboxyhemoglobin Methemoglobin O2 Delivery Device Oxygen Flow Rate Vent Mode Vent Rate Mechanical Rate Pressure Support Vent Sodium Potassium Chloride Carbon Dioxide Anion Gap BUN Creatinine Est GFR (CKD-EPI)AfAm Est GFR (CKD-EPI)NonAf POC Glucometer Random Glucose Lactic Acid Calcium Total Bilirubin AST ALT Alkaline Phosphatase Total Protein Albumin Urine Color Urine Appearance Urine pH Ur Specific [place] Urine Protein Urine Glucose (UA) Urine Ketones Urine Blood Urine Nitrite Urine Bilirubin Urine Urobilinogen Ur Leukocyte Esterase Acetone, Qual Positive small 1+ Group A Strep Rapid 10/22/18 10/22/18 10/22/18 13:43 14:15 14:51 WBC RBC Hgb Hct MCV MCH MCHC RDW Plt Count MPV Absolute Neuts (auto) Neutrophils % Lymphocytes % Monocytes % Eosinophils % Basophils % Nucleated RBC % PT with INR INR Anticoagulation Therapy No Result Required. Puncture Site Right brachial ABG pH 7.30 L ABG pCO2 at Pt Temp 34.1 L ABG pO2 at Pt Temp 103 H ABG HCO3 16.0 L ABG O2 Sat (Measured) 97.5 ABG O2 Content 18.1 ABG Base Excess -9.2 L Miguel Test Positive VBG pH POC VBG pCO2 POC VBG pO2 VBG HCO3 VBG O2 Sat (Thomas) VBG Base Excess Carboxyhemoglobin 1.2 Methemoglobin < 1.0 O2 Delivery Device No Result Required. Oxygen Flow Rate No Vent Mode No Result Required. Vent Rate No Result Required. Mechanical Rate No Result Required. Pressure Support Vent No Result Required. Sodium Potassium Chloride Carbon Dioxide Anion Gap BUN Creatinine Est GFR (CKD-EPI)AfAm Est GFR (CKD-EPI)NonAf POC Glucometer > 600 Random Glucose Lactic Acid 2.1 H Calcium Total Bilirubin AST ALT Alkaline Phosphatase Total Protein Albumin Urine Color Urine Appearance Urine pH Ur Specific [place] Urine Protein Urine Glucose (UA) Urine Ketones Urine Blood Urine Nitrite Urine Bilirubin Urine Urobilinogen Ur Leukocyte Esterase Acetone, Qual Group A Strep Rapid 10/22/18 10/22/18 10/22/18 15:30 16:14 16:57 WBC RBC Hgb Hct MCV MCH MCHC RDW Plt Count MPV Absolute Neuts (auto) Neutrophils % Lymphocytes % Monocytes % Eosinophils % Basophils % Nucleated RBC % PT with INR INR Anticoagulation Therapy Puncture Site ABG pH ABG pCO2 at Pt Temp ABG pO2 at Pt Temp ABG HCO3 ABG O2 Sat (Measured) ABG O2 Content ABG Base Excess Miguel Test VBG pH POC VBG pCO2 POC VBG pO2 VBG HCO3 VBG O2 Sat (Thomas) VBG Base Excess Carboxyhemoglobin Methemoglobin O2 Delivery Device Oxygen Flow Rate Vent Mode Vent Rate Mechanical Rate Pressure Support Vent Sodium 140 Potassium 4.2 Chloride 104 Carbon Dioxide 16 L Anion Gap 20 H BUN 17.3 Creatinine 1.5 H Est GFR (CKD-EPI)AfAm 70.88 Est GFR (CKD-EPI)NonAf 61.15 POC Glucometer 417 Random Glucose 313 H Lactic Acid Calcium 9.2 Total Bilirubin 0.6 AST 18 ALT 29 Alkaline Phosphatase 98 Total Protein 7.0 Albumin 3.8 Urine Color Yellow Urine Appearance Clear Urine pH 5.0 Ur Specific [place] 1.037 H Urine Protein Negative Urine Glucose (UA) 3+ H Urine Ketones 2+ H Urine Blood Negative Urine Nitrite Negative Urine Bilirubin Negative Urine Urobilinogen 0.2 Ur Leukocyte Esterase Negative Acetone, Qual Group A Strep Rapid 10/22/18 18:00 WBC RBC Hgb Hct MCV MCH MCHC RDW Plt Count MPV Absolute Neuts (auto) Neutrophils % Lymphocytes % Monocytes % Eosinophils % Basophils % Nucleated RBC % PT with INR INR Anticoagulation Therapy Puncture Site ABG pH ABG pCO2 at Pt Temp ABG pO2 at Pt Temp ABG HCO3 ABG O2 Sat (Measured) ABG O2 Content ABG Base Excess Miguel Test VBG pH POC VBG pCO2 POC VBG pO2 VBG HCO3 VBG O2 Sat (Thomas) VBG Base Excess Carboxyhemoglobin Methemoglobin O2 Delivery Device Oxygen Flow Rate Vent Mode Vent Rate Mechanical Rate Pressure Support Vent Sodium Potassium Chloride Carbon Dioxide Anion Gap BUN Creatinine Est GFR (CKD-EPI)AfAm Est GFR (CKD-EPI)NonAf POC Glucometer 149 Random Glucose Lactic Acid Calcium Total Bilirubin AST ALT Alkaline Phosphatase Total Protein Albumin Urine Color Urine Appearance Urine pH Ur Specific [place] Urine Protein Urine Glucose (UA) Urine Ketones Urine Blood Urine Nitrite Urine Bilirubin Urine Urobilinogen Ur Leukocyte Esterase Acetone, Qual Group A Strep Rapid Active Medications Generic Name Dose Route Start Last Admin Trade Name Freq PRN Reason Stop Dose Admin Potassium Chloride/Dextrose/Sod Cl 20 meq in 1,000 mls @ 150 mls/hr 10/22/18 18:15 10/22/18 18:31 D5-1/2ns+20 Meq Kcl - IV 150 mls/hr ASDIR SENG Administration Insulin Human Regular 100 100 mls @ 3 mls/hr 10/22/18 18:12 10/22/18 18:31 units/ Sodium Chloride IVPB 3 units/hr TITR SENG 3 mls/hr Administration Protocol 3 UNITS/HR ASSESSMENT/PLAN: Patient is 33M with history of T1DM here today with DKA 2/2 insulin noncompliance. No signs of infection. Vitals stable. #Endocrine DKA 2/2 insulin noncompliance - Corrected Na >140, K 4.2, FSG 150, will give d5-1/2NS-20meq KCl at 200cc/hr - Insulin drip set to 0.05 units/kg/hr due to rapid drop in sugar - BMP Q4H, FSG Q1H given rapid drop in sugars - If BGM <70 hold insulin for 15 minutes, bolus d50 ivp - Once gap closes, transition to PO diet and insulin to sq #ID - CXR clear, UA clear, Strep negative - No signs of infection at this time #GI - NPO - Current not nauseated Dispo: ICU monitoring Visit type - Emergency Visit Emergency Visit: Yes ED Registration Date: 10/22/18 Care time: The patient presented to the Emergency Department on the above date and was hospitalized for further evaluation of their emergent condition. - New Patient This patient is new to me today: Yes Date on this admission: 10/22/18 - Critical Care Critical Care patient: Yes Total Critical Care Time (in minutes): 35 Critical Care Statement: The care of this patient involved high complexity decision making to prevent further life threatening deterioration of the patient 's condition and/or to evaluate & treat vital organ system(s) failure or risk of failure. ATTENDING PHYSICIAN STATEMENT I saw and evaluated the patient. I reviewed the resident's note and discussed the case with the resident. I agree with the resident's findings and plan as documented. SUBJECTIVE: OBJECTIVE: ASSESSMENT AND PLAN:
[2018-10-22] MEDS ORDERED: ACETAMINOPHEN 1000 MG/100 ML VIAL (NON FORMULARY) IVPB PRN (20:30)
--- NOTE | 2018-10-22 20:42 | HP ---
Admitting History and Physical - Primary Care Physician PCP: Loc Castillo - Admission History of Present Illness: 33yo M with PMH of type 1 diabetes, multiple DKA admissions presenting with nausea, sore throat, and dry cough. Patient reports feeling "congested" with pressure in his forehead and sinus area. Patient endorses nausea that started today and has vomited three times today with no blood. He took aspirin "for the nausea" which "seemed to help." Drinking water makes the nausea worse. Denies abdominal pain. Was recently admitted to this ICU for DKA in July 2018. When asked if this feels like his DKA, he states "maybe." Patient takes novalog and humalog for his diabetes and has been non-adherent, missing about half the doses. Last took novalog yesterday. He also reports chills, foul smelling urine for 2 days, dry mouth. He denies fever, increased thirst, MAJOR, chest pain, SOB, abdominal pain, diarrhea, penile discharge. - Past Medical History Pulmonary: Yes: Asthma Endocrine: Yes: Diabetes Mellitus - Smoking History Smoking history: Never smoked Have you smoked in the past 12 months: No Aproximately how many cigarettes per day: 0 - Alcohol/Substance Use Hx Alcohol Use: No History of Substance Use: reports: None - Social History ADL: Independent Occupation: [employer] History of Recent Travel: No Home Medications - Allergies Allergies/Adverse Reactions: Allergies Allergy/AdvReac Type Severity Reaction Status Date / Time No Known Allergies Allergy Verified 10/22/18 13:23 - Home Medications Home Medications: Ambulatory Orders Ipratropium [place] 2 sprays NS BID PRN #1 spray 09/27/17 Insulin (Novolog 70/30) [Novolog Mix 70/30 Vial] 0 ml SQ DAILY 02/22/18 Insulin NPH Hum/Reg Insulin Hm [Novolin 70-30 Flexpen] 0 unit SQ DAILY 02/22/18 Family Disease History - Family Disease History Family Disease History: Diabetes: Grandparent (HTN) Physical Examination Vital Signs: Vital Signs Temperature 98.2 F 10/22/18 13:20 Pulse Rate 91 H 10/22/18 19:33 Respiratory Rate 18 10/22/18 19:33 Blood Pressure 124/84 10/22/18 19:33 O2 Sat by Pulse Oximetry (%) 98 09/11/19 19:33 Constitutional: Yes: No Distress HENT: Yes: Atraumatic Neck: Yes: Supple Cardiovascular: Yes: Regular Rate and Rhythm Respiratory: Yes: CTA Bilaterally Gastrointestinal: Yes: Normal Bowel Sounds Extremities: Yes: WNL Edema: No Neurological: Yes: Alert, Oriented Labs: CBC, BMP 10/22/18 13:43 10/22/18 16:57 Problem List - Problems (1) DKA (diabetic ketoacidoses) Assessment/Plan: ivf insulin drip, bgms endo consult r/o infection Code(s): E13.10 - OTH DIABETES MELLITUS WITH KETOACIDOSIS WITHOUT COMA (2) Weakness Code(s): R53.1 - WEAKNESS (3) AA (alcohol abuse) Assessment/Plan: last drink few days ago watch for withdrawl prn ativan Code(s): F10.10 - ALCOHOL ABUSE, UNCOMPLICATED Assessment/Plan Laboratory Tests 10/22/18 10/22/18 10/22/18 13:30 13:43 13:43 WBC 6.6 RBC 4.58 Hgb 14.7 Hct 44.2 MCV 96.6 H MCH 32.0 MCHC 33.2 RDW 13.0 Plt Count 259 MPV 8.8 Absolute Neuts (auto) 5.4 Neutrophils % 82.7 Lymphocytes % 11.0 D Monocytes % 4.6 Eosinophils % 1.0 Basophils % 0.7 Nucleated RBC % 0 PT with INR INR Anticoagulation Therapy Puncture Site ABG pH ABG pCO2 at Pt Temp ABG pO2 at Pt Temp ABG HCO3 ABG O2 Sat (Measured) ABG O2 Content ABG Base Excess Miguel Test VBG pH POC VBG pCO2 POC VBG pO2 VBG HCO3 VBG O2 Sat (Thomas) VBG Base Excess Carboxyhemoglobin Methemoglobin O2 Delivery Device Oxygen Flow Rate Vent Mode Vent Rate Mechanical Rate Pressure Support Vent Sodium 127 L Potassium 5.2 H Chloride 88 L Carbon Dioxide 19 L Anion Gap 19 H BUN 22.4 H Creatinine 1.5 H Est GFR (CKD-EPI)AfAm 70.88 Est GFR (CKD-EPI)NonAf 61.15 POC Glucometer Random Glucose 840 H* Lactic Acid Calcium 10.1 Total Bilirubin 0.9 AST 22 ALT 34 Alkaline Phosphatase 120 H Total Protein 7.7 Albumin 4.2 Urine Color Urine Appearance Urine pH Ur Specific [place] Urine Protein Urine Glucose (UA) Urine Ketones Urine Blood Urine Nitrite Urine Bilirubin Urine Urobilinogen Ur Leukocyte Esterase Acetone, Qual Group A Strep Rapid Negative 10/22/18 10/22/18 10/22/18 13:43 13:43 13:43 WBC RBC Hgb Hct MCV MCH MCHC RDW Plt Count MPV Absolute Neuts (auto) Neutrophils % Lymphocytes % Monocytes % Eosinophils % Basophils % Nucleated RBC % PT with INR 10.60 INR 0.90 Anticoagulation Therapy Puncture Site ABG pH ABG pCO2 at Pt Temp ABG pO2 at Pt Temp ABG HCO3 ABG O2 Sat (Measured) ABG O2 Content ABG Base Excess Miguel Test VBG pH 7.29 L POC VBG pCO2 36.8 L POC VBG pO2 52.4 H VBG HCO3 17.3 L VBG O2 Sat (Thomas) 82.6 H VBG Base Excess -8.1 L Carboxyhemoglobin Methemoglobin O2 Delivery Device Oxygen Flow Rate Vent Mode Vent Rate Mechanical Rate Pressure Support Vent Sodium Potassium Chloride Carbon Dioxide Anion Gap BUN Creatinine Est GFR (CKD-EPI)AfAm Est GFR (CKD-EPI)NonAf POC Glucometer Random Glucose Lactic Acid Calcium Total Bilirubin AST ALT Alkaline Phosphatase Total Protein Albumin Urine Color Urine Appearance Urine pH Ur Specific [place] Urine Protein Urine Glucose (UA) Urine Ketones Urine Blood Urine Nitrite Urine Bilirubin Urine Urobilinogen Ur Leukocyte Esterase Acetone, Qual Positive small 1+ Group A Strep Rapid 10/22/18 10/22/18 10/22/18 13:43 14:15 14:51 WBC RBC Hgb Hct MCV MCH MCHC RDW Plt Count MPV Absolute Neuts (auto) Neutrophils % Lymphocytes % Monocytes % Eosinophils % Basophils % Nucleated RBC % PT with INR INR Anticoagulation Therapy No Result Required. Puncture Site Right brachial ABG pH 7.30 L ABG pCO2 at Pt Temp 34.1 L ABG pO2 at Pt Temp 103 H ABG HCO3 16.0 L ABG O2 Sat (Measured) 97.5 ABG O2 Content 18.1 ABG Base Excess -9.2 L Miguel Test Positive VBG pH POC VBG pCO2 POC VBG pO2 VBG HCO3 VBG O2 Sat (Thomas) VBG Base Excess Carboxyhemoglobin 1.2 Methemoglobin < 1.0 O2 Delivery Device No Result Required. Oxygen Flow Rate No Vent Mode No Result Required. Vent Rate No Result Required. Mechanical Rate No Result Required. Pressure Support Vent No Result Required. Sodium Potassium Chloride Carbon Dioxide Anion Gap BUN Creatinine Est GFR (CKD-EPI)AfAm Est GFR (CKD-EPI)NonAf POC Glucometer > 600 Random Glucose Lactic Acid 2.1 H Calcium Total Bilirubin AST ALT Alkaline Phosphatase Total Protein Albumin Urine Color Urine Appearance Urine pH Ur Specific [place] Urine Protein Urine Glucose (UA) Urine Ketones Urine Blood Urine Nitrite Urine Bilirubin Urine Urobilinogen Ur Leukocyte Esterase Acetone, Qual Group A Strep Rapid 10/22/18 10/22/18 10/22/18 15:30 16:14 16:57 WBC RBC Hgb Hct MCV MCH MCHC RDW Plt Count MPV Absolute Neuts (auto) Neutrophils % Lymphocytes % Monocytes % Eosinophils % Basophils % Nucleated RBC % PT with INR INR Anticoagulation Therapy Puncture Site ABG pH ABG pCO2 at Pt Temp ABG pO2 at Pt Temp ABG HCO3 ABG O2 Sat (Measured) ABG O2 Content ABG Base Excess Miguel Test VBG pH POC VBG pCO2 POC VBG pO2 VBG HCO3 VBG O2 Sat (Thomas) VBG Base Excess Carboxyhemoglobin Methemoglobin O2 Delivery Device Oxygen Flow Rate Vent Mode Vent Rate Mechanical Rate Pressure Support Vent Sodium 140 Potassium 4.2 Chloride 104 Carbon Dioxide 16 L Anion Gap 20 H BUN 17.3 Creatinine 1.5 H Est GFR (CKD-EPI)AfAm 70.88 Est GFR (CKD-EPI)NonAf 61.15 POC Glucometer 417 Random Glucose 313 H Lactic Acid Calcium 9.2 Total Bilirubin 0.6 AST 18 ALT 29 Alkaline Phosphatase 98 Total Protein 7.0 Albumin 3.8 Urine Color Yellow Urine Appearance Clear Urine pH 5.0 Ur Specific [place] 1.037 H Urine Protein Negative Urine Glucose (UA) 3+ H Urine Ketones 2+ H Urine Blood Negative Urine Nitrite Negative Urine Bilirubin Negative Urine Urobilinogen 0.2 Ur Leukocyte Esterase Negative Acetone, Qual Group A Strep Rapid 10/22/18 10/22/18 18:00 19:51 WBC RBC Hgb Hct MCV MCH MCHC RDW Plt Count MPV Absolute Neuts (auto) Neutrophils % Lymphocytes % Monocytes % Eosinophils % Basophils % Nucleated RBC % PT with INR INR Anticoagulation Therapy Puncture Site ABG pH ABG pCO2 at Pt Temp ABG pO2 at Pt Temp ABG HCO3 ABG O2 Sat (Measured) ABG O2 Content ABG Base Excess Miguel Test VBG pH POC VBG pCO2 POC VBG pO2 VBG HCO3 VBG O2 Sat (Thomas) VBG Base Excess Carboxyhemoglobin Methemoglobin O2 Delivery Device Oxygen Flow Rate Vent Mode Vent Rate Mechanical Rate Pressure Support Vent Sodium Potassium Chloride Carbon Dioxide Anion Gap BUN Creatinine Est GFR (CKD-EPI)AfAm Est GFR (CKD-EPI)NonAf POC Glucometer 149 133 Random Glucose Lactic Acid Calcium Total Bilirubin AST ALT Alkaline Phosphatase Total Protein Albumin Urine Color Urine Appearance Urine pH Ur Specific [place] Urine Protein Urine Glucose (UA) Urine Ketones Urine Blood Urine Nitrite Urine Bilirubin Urine Urobilinogen Ur Leukocyte Esterase Acetone, Qual Group A Strep Rapid Active Medications Generic Name Dose Route Start Last Admin Trade Name Freq PRN Reason Stop Dose Admin Acetaminophen 1,000 mg 10/22/18 20:30 Ofirmev Injection - IVPB Q6H PRN PAIN LEVEL 1-5 OR FEVER Potassium Chloride/Dextrose/Sod Cl 20 meq in 1,000 mls @ 150 mls/hr 10/22/18 18:15 10/22/18 18:31 D5-1/2ns+20 Meq Kcl - IV 150 mls/hr ASDIR SENG Administration Insulin Human Regular 100 100 mls @ 3 mls/hr 10/22/18 18:12 10/22/18 18:31 units/ Sodium Chloride IVPB 3 units/hr TITR SENG 3 mls/hr Administration Protocol 3 UNITS/HR Active Medications Generic Name Dose Route Start Last Admin Trade Name Freq PRN Reason Stop Dose Admin Acetaminophen 1,000 mg 10/22/18 20:30 Ofirmev Injection - IVPB Q6H PRN PAIN LEVEL 1-5 OR FEVER Heparin Sodium (Porcine) 5,000 unit 10/22/18 22:00 Heparin - SQ BID SENG Potassium Chloride/Dextrose/Sod Cl 20 meq in 1,000 mls @ 150 mls/hr 10/22/18 18:15 10/22/18 18:31 D5-1/2ns+20 Meq Kcl - IV 150 mls/hr ASDIR SENG Administration Insulin Human Regular 100 100 mls @ 3 mls/hr 10/22/18 18:12 10/22/18 18:31 units/ Sodium Chloride IVPB 3 units/hr TITR SENG 3 mls/hr Administration Protocol 3 UNITS/HR cc time 60 min
[2018-10-22] MEDS ORDERED: DEXTROSE 50%-WATER - 25 GM/50 ML VIAL IVPUSH ONE (20:51)
[2018-10-22] MEDS ORDERED: LORazepam 2 MG/ML SDV VIAL IVPUSH PRN (20:57)
[2018-10-22 21:01] VITALS: BMI 22.6
[2018-10-22] MEDS ORDERED: SODIUM CHLORIDE NASAL SPRAY 44 ML BOTTLE NS PRN (21:32)
[2018-10-22 21:47] LABS: URINE APPEARANCE CLEAR; URINE BILIRUBIN NEGATIVE (NEGATIVE); URINE COLOR YELLOW; URINE GLUCOSE (UA) 3+ (NEGATIVE); URINE KETONE 3+ (NEGATIVE); URINE LEUK ESTERASE NEGATIVE (NEGATIVE); URINE NITRITE NEGATIVE (NEGATIVE); URINE PROTEIN NEGATIVE (NEGATIVE); URINE UROBILINOGEN 0.2 mg/dL (0.2-1.0)
[2018-10-22] MEDS ORDERED: METOCLOPRAMIDE HCL INJECTION 10 MG/2 ML VIAL IVPUSH PRN (22:10)
[2018-10-22] MEDS: HEPARIN NA (PORCINE) 5,000 UNITS/ML 1ML VIAL SQ SCH (22:23)
[2018-10-22] MEDS ORDERED: METOCLOPRAMIDE HCL INJECTION 10 MG/2 ML VIAL IVPB PRN (22:24)
[2018-10-22 22:28] LABS: BLOOD UREA NITROGEN 12.8 mg/dL (7-18); CREATININE 0.9 mg/dL (0.55-1.3); POTASSIUM 4.1 mmol/L (3.5-5.1)
[2018-10-22] MEDS: D5-1/2NS+20 MEQ KCL - 20 MEQ/1,000 ML INFUS.BAG IV SCH (22:47)
[2018-10-22] MEDS ORDERED: LACTATED RINGERS SOLUTION 1,000 ML/1,000 ML INFUS.BAG IV SCH ×2 (23:15)
[2018-10-22] MEDS ORDERED: INSULIN (LEVEMIR) 100 UNITS/ML UNITS SQ SCH (23:20)
[2018-10-22] MEDS: INSULIN SLIDING SCALE (NOVOLOG) 1 VIAL SQ SCH (23:25)
[2018-10-23 02:55] LABS: BLOOD UREA NITROGEN 9.5 mg/dL (7-18); CALCIUM 7.8 mg/dL (8.5-10.1); CREATININE 0.9 mg/dL (0.55-1.3)
[2018-10-23] MEDS: INSULIN SLIDING SCALE (NOVOLOG) 1 VIAL SQ SCH ×3 (06:12→17:38)
[2018-10-23 06:38] LABS: BLOOD UREA NITROGEN 10.4 mg/dL (7-18); CALCIUM 8.8 mg/dL (8.5-10.1); CREATININE 0.9 mg/dL (0.55-1.3); POTASSIUM 4.2 mmol/L (3.5-5.1)
[2018-10-23] MEDS ORDERED: INSULIN SLIDING SCALE (NOVOLOG) 1 VIAL SQ SCH ×2 (07:00→22:00)
[2018-10-23] MEDS: HEPARIN NA (PORCINE) 5,000 UNITS/ML 1ML VIAL SQ SCH ×2 (09:51→21:49)
[2018-10-23 10:20] LABS: BLOOD UREA NITROGEN 9.1 mg/dL (7-18); CALCIUM 8.9 mg/dL (8.5-10.1); POTASSIUM 4.5 mmol/L (3.5-5.1)
--- NOTE | 2018-10-23 10:53 | PN ---
Teaching Attending Note Name of Resident: Paxton Galarza ATTENDING PHYSICIAN STATEMENT I saw and evaluated the patient. I reviewed the resident's note and discussed the case with the resident. I agree with the resident's findings and plan as documented. SUBJECTIVE: Patient seen and examined in the ICU. Awake and alert. Feels better today. No CP or SOB. Blood sugars improved. No GI or symptoms. Intake & Output 10/20/18 10/21/18 10/22/18 10/23/18 23:59 23:59 23:59 23:59 Intake Total 1253 Output Total 600 400 Balance -600 853 Weight 132 lb 132 lb 1.6 oz Last Vital Signs Temp Pulse Resp BP Pulse Ox 98.5 F 78 15 138/83 98 10/23/18 10:00 10/23/18 10:00 10/23/18 10:00 10/23/18 10:00 10/23/18 08:00 Active Medications Acetaminophen (Ofirmev Injection -) 1,000 mg IVPB Q6H PRN PRN Reason: PAIN LEVEL 1-5 OR FEVER Heparin Sodium (Porcine) (Heparin -) 5,000 unit SQ BID SENG Last Admin: 10/23/18 09:51 Dose: Not Given Potassium Chloride/Dextrose/Sod Cl (D5-1/2ns+20 Meq Kcl -) 20 meq in 1,000 mls @ 100 mls/hr IV ASDIR SENG Last Admin: 10/22/18 22:47 Dose: 100 mls/hr Insulin Aspart (Novolog Vial Sliding Scale -) 1 vial SQ Q6H SENG; Protocol Last Admin: 10/23/18 06:12 Dose: Not Given Insulin Detemir (Levemir Vial) 15 units SQ HS SENG Lorazepam (Ativan Injection -) 1 mg IVPUSH Q4H PRN PRN Reason: WITHDRAWAL(CONT SUBST) Last Admin: 10/22/18 22:17 Dose: 1 mg Metoclopramide HCl (Reglan Injection -) 10 mg IVPB Q6H PRN PRN Reason: NAUSEA AND/OR VOMITING Sodium Chloride ([place] Nasal [place] -) 2 spray NS Q12H PRN PRN Reason: NASAL CONGESTION Last Admin: 10/22/18 22:18 Dose: 2 sprays GENERAL: Awake, alert, and fully oriented, in no acute distress. HEAD: Normal with no signs of trauma. EYES: sclera anicteric, conjunctiva clear. No lid lag. EARS, NOSE, THROAT: Ears normal, nares patent, oropharynx clear without exudates. Moist mucous membranes. NECK: Normal range of motion, supple without lymphadenopathy, JVD, or masses. LUNGS: Clear to auscultation bilaterally. No wheezes, and no crackles. No accessory muscle use. HEART: Regular rate and rhythm, normal S1 and S2 without murmur, rub or gallop. ABDOMEN: Soft, nontender, not distended, normoactive bowel sounds, no guarding, no rebound, no masses. No hepatomegaly or splenomegaly. MUSCULOSKELETAL: Normal range of motion at all joints. No bony deformities or tenderness. No CVA tenderness. UPPER EXTREMITIES: 2+ pulses, warm, well-perfused. No cyanosis. No clubbing. Cap refill <2 seconds. No peripheral edema. LOWER EXTREMITIES: 2+ pulses, warm, well-perfused. No calf tenderness. No peripheral edema. NEUROLOGICAL: Non-focal PSYCHIATRIC: Cooperative. Good eye contact. Appropriate mood and affect. SKIN: Warm, dry, normal turgor, no rashes or lesions noted. Laboratory Results - last 24 hr 10/22/18 10/22/18 10/22/18 13:30 13:43 13:43 WBC 6.6 RBC 4.58 Hgb 14.7 Hct 44.2 MCV 96.6 H MCH 32.0 MCHC 33.2 RDW 13.0 Plt Count 259 MPV 8.8 Absolute Neuts (auto) 5.4 Neutrophils % 82.7 Lymphocytes % 11.0 D Monocytes % 4.6 Eosinophils % 1.0 Basophils % 0.7 Nucleated RBC % 0 PT with INR INR Anticoagulation Therapy Puncture Site ABG pH ABG pCO2 at Pt Temp ABG pO2 at Pt Temp ABG HCO3 ABG O2 Sat (Measured) ABG O2 Content ABG Base Excess Miguel Test VBG pH POC VBG pCO2 POC VBG pO2 VBG HCO3 VBG O2 Sat (Thomas) VBG Base Excess Carboxyhemoglobin Methemoglobin O2 Delivery Device Oxygen Flow Rate Vent Mode Vent Rate Mechanical Rate Pressure Support Vent Sodium 127 L Potassium 5.2 H Chloride 88 L Carbon Dioxide 19 L Anion Gap 19 H BUN 22.4 H Creatinine 1.5 H Est GFR (CKD-EPI)AfAm 70.88 Est GFR (CKD-EPI)NonAf 61.15 POC Glucometer Random Glucose 840 H* Lactic Acid Calcium 10.1 Total Bilirubin 0.9 AST 22 ALT 34 Alkaline Phosphatase 120 H Total Protein 7.7 Albumin 4.2 Urine Color Urine Appearance Urine pH Ur Specific [place] Urine Protein Urine Glucose (UA) Urine Ketones Urine Blood Urine Nitrite Urine Bilirubin Urine Urobilinogen Ur Leukocyte Esterase Acetone, Qual Group A Strep Rapid Negative 10/22/18 10/22/18 10/22/18 13:43 13:43 13:43 WBC RBC Hgb Hct MCV MCH MCHC RDW Plt Count MPV Absolute Neuts (auto) Neutrophils % Lymphocytes % Monocytes % Eosinophils % Basophils % Nucleated RBC % PT with INR 10.60 INR 0.90 Anticoagulation Therapy Puncture Site ABG pH ABG pCO2 at Pt Temp ABG pO2 at Pt Temp ABG HCO3 ABG O2 Sat (Measured) ABG O2 Content ABG Base Excess Miguel Test VBG pH 7.29 L POC VBG pCO2 36.8 L POC VBG pO2 52.4 H VBG HCO3 17.3 L VBG O2 Sat (Thomas) 82.6 H VBG Base Excess -8.1 L Carboxyhemoglobin Methemoglobin O2 Delivery Device Oxygen Flow Rate Vent Mode Vent Rate Mechanical Rate Pressure Support Vent Sodium Potassium Chloride Carbon Dioxide Anion Gap BUN Creatinine Est GFR (CKD-EPI)AfAm Est GFR (CKD-EPI)NonAf POC Glucometer Random Glucose Lactic Acid Calcium Total Bilirubin AST ALT Alkaline Phosphatase Total Protein Albumin Urine Color Urine Appearance Urine pH Ur Specific [place] Urine Protein Urine Glucose (UA) Urine Ketones Urine Blood Urine Nitrite Urine Bilirubin Urine Urobilinogen Ur Leukocyte Esterase Acetone, Qual Positive small 1+ Group A Strep Rapid 10/22/18 10/22/18 10/22/18 13:43 14:15 14:51 WBC RBC Hgb Hct MCV MCH MCHC RDW Plt Count MPV Absolute Neuts (auto) Neutrophils % Lymphocytes % Monocytes % Eosinophils % Basophils % Nucleated RBC % PT with INR INR Anticoagulation Therapy No Result Required. Puncture Site Right brachial ABG pH 7.30 L ABG pCO2 at Pt Temp 34.1 L ABG pO2 at Pt Temp 103 H ABG HCO3 16.0 L ABG O2 Sat (Measured) 97.5 ABG O2 Content 18.1 ABG Base Excess -9.2 L Miguel Test Positive VBG pH POC VBG pCO2 POC VBG pO2 VBG HCO3 VBG O2 Sat (Thomas) VBG Base Excess Carboxyhemoglobin 1.2 Methemoglobin < 1.0 O2 Delivery Device No Result Required. Oxygen Flow Rate No Vent Mode No Result Required. Vent Rate No Result Required. Mechanical Rate No Result Required. Pressure Support Vent No Result Required. Sodium Potassium Chloride Carbon Dioxide Anion Gap BUN Creatinine Est GFR (CKD-EPI)AfAm Est GFR (CKD-EPI)NonAf POC Glucometer > 600 Random Glucose Lactic Acid 2.1 H Calcium Total Bilirubin AST ALT Alkaline Phosphatase Total Protein Albumin Urine Color Urine Appearance Urine pH Ur Specific [place] Urine Protein Urine Glucose (UA) Urine Ketones Urine Blood Urine Nitrite Urine Bilirubin Urine Urobilinogen Ur Leukocyte Esterase Acetone, Qual Group A Strep Rapid 10/22/18 10/22/18 10/22/18 15:30 16:14 16:57 WBC RBC Hgb Hct MCV MCH MCHC RDW Plt Count MPV Absolute Neuts (auto) Neutrophils % Lymphocytes % Monocytes % Eosinophils % Basophils % Nucleated RBC % PT with INR INR Anticoagulation Therapy Puncture Site ABG pH ABG pCO2 at Pt Temp ABG pO2 at Pt Temp ABG HCO3 ABG O2 Sat (Measured) ABG O2 Content ABG Base Excess Miguel Test VBG pH POC VBG pCO2 POC VBG pO2 VBG HCO3 VBG O2 Sat (Thomas) VBG Base Excess Carboxyhemoglobin Methemoglobin O2 Delivery Device Oxygen Flow Rate Vent Mode Vent Rate Mechanical Rate Pressure Support Vent Sodium 140 Potassium 4.2 Chloride 104 Carbon Dioxide 16 L Anion Gap 20 H BUN 17.3 Creatinine 1.5 H Est GFR (CKD-EPI)AfAm 70.88 Est GFR (CKD-EPI)NonAf 61.15 POC Glucometer 417 Random Glucose 313 H Lactic Acid Calcium 9.2 Total Bilirubin 0.6 AST 18 ALT 29 Alkaline Phosphatase 98 Total Protein 7.0 Albumin 3.8 Urine Color Yellow Urine Appearance Clear Urine pH 5.0 Ur Specific [place] 1.037 H Urine Protein Negative Urine Glucose (UA) 3+ H Urine Ketones 2+ H Urine Blood Negative Urine Nitrite Negative Urine Bilirubin Negative Urine Urobilinogen 0.2 Ur Leukocyte Esterase Negative Acetone, Qual Group A Strep Rapid 10/22/18 10/22/18 10/22/18 18:00 19:51 20:45 WBC RBC Hgb Hct MCV MCH MCHC RDW Plt Count MPV Absolute Neuts (auto) Neutrophils % Lymphocytes % Monocytes % Eosinophils % Basophils % Nucleated RBC % PT with INR INR Anticoagulation Therapy Puncture Site ABG pH ABG pCO2 at Pt Temp ABG pO2 at Pt Temp ABG HCO3 ABG O2 Sat (Measured) ABG O2 Content ABG Base Excess Miguel Test VBG pH POC VBG pCO2 POC VBG pO2 VBG HCO3 VBG O2 Sat (Thomas) VBG Base Excess Carboxyhemoglobin Methemoglobin O2 Delivery Device Oxygen Flow Rate Vent Mode Vent Rate Mechanical Rate Pressure Support Vent Sodium Potassium Chloride Carbon Dioxide Anion Gap BUN Creatinine Est GFR (CKD-EPI)AfAm Est GFR (CKD-EPI)NonAf POC Glucometer 149 133 109 Random Glucose Lactic Acid Calcium Total Bilirubin AST ALT Alkaline Phosphatase Total Protein Albumin Urine Color Urine Appearance Urine pH Ur Specific [place] Urine Protein Urine Glucose (UA) Urine Ketones Urine Blood Urine Nitrite Urine Bilirubin Urine Urobilinogen Ur Leukocyte Esterase Acetone, Qual Group A Strep Rapid 10/22/18 10/22/18 10/22/18 21:00 21:30 21:34 WBC RBC Hgb Hct MCV MCH MCHC RDW Plt Count MPV Absolute Neuts (auto) Neutrophils % Lymphocytes % Monocytes % Eosinophils % Basophils % Nucleated RBC % PT with INR INR Anticoagulation Therapy Puncture Site ABG pH ABG pCO2 at Pt Temp ABG pO2 at Pt Temp ABG HCO3 ABG O2 Sat (Measured) ABG O2 Content ABG Base Excess Miugel Test VBG pH POC VBG pCO2 POC VBG pO2 VBG HCO3 VBG O2 Sat (Thomas) VBG Base Excess Carboxyhemoglobin Methemoglobin O2 Delivery Device Oxygen Flow Rate Vent Mode Vent Rate Mechanical Rate Pressure Support Vent Sodium 142 Potassium 4.1 Chloride 108 H Carbon Dioxide 25 Anion Gap 9 BUN 12.8 Creatinine 0.9 Est GFR (CKD-EPI)AfAm 131.44 Est GFR (CKD-EPI)NonAf 113.41 POC Glucometer 101 Random Glucose 99 Lactic Acid Calcium 9.0 Total Bilirubin AST ALT Alkaline Phosphatase Total Protein Albumin Urine Color Yellow Urine Appearance Clear Urine pH 5.0 Ur Specific [place] 1.038 H Urine Protein Negative Urine Glucose (UA) 3+ H Urine Ketones 3+ H Urine Blood Negative Urine Nitrite Negative Urine Bilirubin Negative Urine Urobilinogen 0.2 Ur Leukocyte Esterase Negative Acetone, Qual Group A Strep Rapid 10/22/18 10/23/18 10/23/18 23:09 00:51 02:15 WBC RBC Hgb Hct MCV MCH MCHC RDW Plt Count MPV Absolute Neuts (auto) Neutrophils % Lymphocytes % Monocytes % Eosinophils % Basophils % Nucleated RBC % PT with INR INR Anticoagulation Therapy Puncture Site ABG pH ABG pCO2 at Pt Temp ABG pO2 at Pt Temp ABG HCO3 ABG O2 Sat (Measured) ABG O2 Content ABG Base Excess Miguel Test VBG pH POC VBG pCO2 POC VBG pO2 VBG HCO3 VBG O2 Sat (Thomas) VBG Base Excess Carboxyhemoglobin Methemoglobin O2 Delivery Device Oxygen Flow Rate Vent Mode Vent Rate Mechanical Rate Pressure Support Vent Sodium 138 Potassium 6.0 H Chloride 108 H Carbon Dioxide 23 Anion Gap 7 L BUN 9.5 Creatinine 0.9 Est GFR (CKD-EPI)AfAm 131.44 Est GFR (CKD-EPI)NonAf 113.41 POC Glucometer 121 123 Random Glucose 479 H* Lactic Acid Calcium 7.8 L Total Bilirubin AST ALT Alkaline Phosphatase Total Protein Albumin Urine Color Urine Appearance Urine pH Ur Specific [place] Urine Protein Urine Glucose (UA) Urine Ketones Urine Blood Urine Nitrite Urine Bilirubin Urine Urobilinogen Ur Leukocyte Esterase Acetone, Qual Group A Strep Rapid 10/23/18 10/23/18 10/23/18 03:05 05:00 05:04 WBC RBC Hgb Hct MCV MCH MCHC RDW Plt Count MPV Absolute Neuts (auto) Neutrophils % Lymphocytes % Monocytes % Eosinophils % Basophils % Nucleated RBC % PT with INR INR Anticoagulation Therapy Puncture Site ABG pH ABG pCO2 at Pt Temp ABG pO2 at Pt Temp ABG HCO3 ABG O2 Sat (Measured) ABG O2 Content ABG Base Excess Miguel Test VBG pH POC VBG pCO2 POC VBG pO2 VBG HCO3 VBG O2 Sat (Thomas) VBG Base Excess Carboxyhemoglobin Methemoglobin O2 Delivery Device Oxygen Flow Rate Vent Mode Vent Rate Mechanical Rate Pressure Support Vent Sodium 139 Potassium 4.2 Chloride 106 Carbon Dioxide 24 Anion Gap 9 BUN 10.4 Creatinine 0.9 Est GFR (CKD-EPI)AfAm 131.44 Est GFR (CKD-EPI)NonAf 113.41 POC Glucometer 122 99 Random Glucose 100 Lactic Acid Calcium 8.8 Total Bilirubin AST ALT Alkaline Phosphatase Total Protein Albumin Urine Color Urine Appearance Urine pH Ur Specific [place] Urine Protein Urine Glucose (UA) Urine Ketones Urine Blood Urine Nitrite Urine Bilirubin Urine Urobilinogen Ur Leukocyte Esterase Acetone, Qual Group A Strep Rapid 10/23/18 09:42 WBC RBC Hgb Hct MCV MCH MCHC RDW Plt Count MPV Absolute Neuts (auto) Neutrophils % Lymphocytes % Monocytes % Eosinophils % Basophils % Nucleated RBC % PT with INR INR Anticoagulation Therapy Puncture Site ABG pH ABG pCO2 at Pt Temp ABG pO2 at Pt Temp ABG HCO3 ABG O2 Sat (Measured) ABG O2 Content ABG Base Excess Miguel Test VBG pH POC VBG pCO2 POC VBG pO2 VBG HCO3 VBG O2 Sat (Thomas) VBG Base Excess Carboxyhemoglobin Methemoglobin O2 Delivery Device Oxygen Flow Rate Vent Mode Vent Rate Mechanical Rate Pressure Support Vent Sodium 137 Potassium 4.5 Chloride 103 Carbon Dioxide 26 Anion Gap 8 BUN 9.1 Creatinine 1.0 Est GFR (CKD-EPI)AfAm 115.72 Est GFR (CKD-EPI)NonAf 99.85 POC Glucometer Random Glucose 197 H Lactic Acid Calcium 8.9 Total Bilirubin AST ALT Alkaline Phosphatase Total Protein Albumin Urine Color Urine Appearance Urine pH Ur Specific [place] Urine Protein Urine Glucose (UA) Urine Ketones Urine Blood Urine Nitrite Urine Bilirubin Urine Urobilinogen Ur Leukocyte Esterase Acetone, Qual Group A Strep Rapid ASSESSMENT/PLAN: Resolved DKA DKA due to insulin noncompliance DM1 IVF Glycemic control O2 as needed PO as tolerated Monitor off ABX OOB to chair VTE prophylaxis Floor Dr Bobo
--- NOTE | 2018-10-23 11:02 | PN ---
Physical Exam: SUBJECTIVE: Patient seen and examined at bedside this AM. Pt no longer having any abd pain. OBJECTIVE: Vital Signs Period Temp Pulse Resp BP Sys/Eid Pulse Ox Last 24 Hr 98.1 F-98.9 F 70-92 15-22 103-138/66-84 98-100 GENERAL: The patient is awake, alert, and fully oriented, in mild acute distress , good appetite, tolerating soft diet. HEAD: Normal with no signs of trauma. NECK: supple. LUNGS: Breath sounds equal, clear to auscultation bilaterally, no wheezes, no crackles, no accessory muscle use. HEART: Regular rate and rhythm, S1, S2 without murmur, rub or gallop. ABDOMEN: Soft, nontender, nondistended, hypoactive bowel sounds, no guarding, no rebound. EXTREMITIES: 2+ pulses, warm, well-perfused, no edema. PSYCH: Normal mood, normal affect. SKIN: Warm, dry, no rashes or lesions noted Laboratory Results - last 24 hr 10/22/18 10/22/18 10/22/18 13:30 13:43 13:43 WBC 6.6 RBC 4.58 Hgb 14.7 Hct 44.2 MCV 96.6 H MCH 32.0 MCHC 33.2 RDW 13.0 Plt Count 259 MPV 8.8 Absolute Neuts (auto) 5.4 Neutrophils % 82.7 Lymphocytes % 11.0 D Monocytes % 4.6 Eosinophils % 1.0 Basophils % 0.7 Nucleated RBC % 0 PT with INR INR Anticoagulation Therapy Puncture Site ABG pH ABG pCO2 at Pt Temp ABG pO2 at Pt Temp ABG HCO3 ABG O2 Sat (Measured) ABG O2 Content ABG Base Excess Miguel Test VBG pH POC VBG pCO2 POC VBG pO2 VBG HCO3 VBG O2 Sat (Thomas) VBG Base Excess Carboxyhemoglobin Methemoglobin O2 Delivery Device Oxygen Flow Rate Vent Mode Vent Rate Mechanical Rate Pressure Support Vent Sodium 127 L Potassium 5.2 H Chloride 88 L Carbon Dioxide 19 L Anion Gap 19 H BUN 22.4 H Creatinine 1.5 H Est GFR (CKD-EPI)AfAm 70.88 Est GFR (CKD-EPI)NonAf 61.15 POC Glucometer Random Glucose 840 H* Lactic Acid Calcium 10.1 Total Bilirubin 0.9 AST 22 ALT 34 Alkaline Phosphatase 120 H Total Protein 7.7 Albumin 4.2 Urine Color Urine Appearance Urine pH Ur Specific [place]el Urine Protein Urine Glucose (UA) Urine Ketones Urine Blood Urine Nitrite Urine Bilirubin Urine Urobilinogen Ur Leukocyte Esterase Acetone, Qual Group A Strep Rapid Negative 10/22/18 10/22/18 10/22/18 13:43 13:43 13:43 WBC RBC Hgb Hct MCV MCH MCHC RDW Plt Count MPV Absolute Neuts (auto) Neutrophils % Lymphocytes % Monocytes % Eosinophils % Basophils % Nucleated RBC % PT with INR 10.60 INR 0.90 Anticoagulation Therapy Puncture Site ABG pH ABG pCO2 at Pt Temp ABG pO2 at Pt Temp ABG HCO3 ABG O2 Sat (Measured) ABG O2 Content ABG Base Excess Miguel Test VBG pH 7.29 L POC VBG pCO2 36.8 L POC VBG pO2 52.4 H VBG HCO3 17.3 L VBG O2 Sat (Thomas) 82.6 H VBG Base Excess -8.1 L Carboxyhemoglobin Methemoglobin O2 Delivery Device Oxygen Flow Rate Vent Mode Vent Rate Mechanical Rate Pressure Support Vent Sodium Potassium Chloride Carbon Dioxide Anion Gap BUN Creatinine Est GFR (CKD-EPI)AfAm Est GFR (CKD-EPI)NonAf POC Glucometer Random Glucose Lactic Acid Calcium Total Bilirubin AST ALT Alkaline Phosphatase Total Protein Albumin Urine Color Urine Appearance Urine pH Ur Specific [place] Urine Protein Urine Glucose (UA) Urine Ketones Urine Blood Urine Nitrite Urine Bilirubin Urine Urobilinogen Ur Leukocyte Esterase Acetone, Qual Positive small 1+ Group A Strep Rapid 10/22/18 10/22/18 10/22/18 13:43 14:15 14:51 WBC RBC Hgb Hct MCV MCH MCHC RDW Plt Count MPV Absolute Neuts (auto) Neutrophils % Lymphocytes % Monocytes % Eosinophils % Basophils % Nucleated RBC % PT with INR INR Anticoagulation Therapy No Result Required. Puncture Site Right brachial ABG pH 7.30 L ABG pCO2 at Pt Temp 34.1 L ABG pO2 at Pt Temp 103 H ABG HCO3 16.0 L ABG O2 Sat (Measured) 97.5 ABG O2 Content 18.1 ABG Base Excess -9.2 L Miguel Test Positive VBG pH POC VBG pCO2 POC VBG pO2 VBG HCO3 VBG O2 Sat (Thomas) VBG Base Excess Carboxyhemoglobin 1.2 Methemoglobin < 1.0 O2 Delivery Device No Result Required. Oxygen Flow Rate No Vent Mode No Result Required. Vent Rate No Result Required. Mechanical Rate No Result Required. Pressure Support Vent No Result Required. Sodium Potassium Chloride Carbon Dioxide Anion Gap BUN Creatinine Est GFR (CKD-EPI)AfAm Est GFR (CKD-EPI)NonAf POC Glucometer > 600 Random Glucose Lactic Acid 2.1 H Calcium Total Bilirubin AST ALT Alkaline Phosphatase Total Protein Albumin Urine Color Urine Appearance Urine pH Ur Specific [place]el Urine Protein Urine Glucose (UA) Urine Ketones Urine Blood Urine Nitrite Urine Bilirubin Urine Urobilinogen Ur Leukocyte Esterase Acetone, Qual Group A Strep Rapid 10/22/18 10/22/18 10/22/18 15:30 16:14 16:57 WBC RBC Hgb Hct MCV MCH MCHC RDW Plt Count MPV Absolute Neuts (auto) Neutrophils % Lymphocytes % Monocytes % Eosinophils % Basophils % Nucleated RBC % PT with INR INR Anticoagulation Therapy Puncture Site ABG pH ABG pCO2 at Pt Temp ABG pO2 at Pt Temp ABG HCO3 ABG O2 Sat (Measured) ABG O2 Content ABG Base Excess Miguel Test VBG pH POC VBG pCO2 POC VBG pO2 VBG HCO3 VBG O2 Sat (Thomas) VBG Base Excess Carboxyhemoglobin Methemoglobin O2 Delivery Device Oxygen Flow Rate Vent Mode Vent Rate Mechanical Rate Pressure Support Vent Sodium 140 Potassium 4.2 Chloride 104 Carbon Dioxide 16 L Anion Gap 20 H BUN 17.3 Creatinine 1.5 H Est GFR (CKD-EPI)AfAm 70.88 Est GFR (CKD-EPI)NonAf 61.15 POC Glucometer 417 Random Glucose 313 H Lactic Acid Calcium 9.2 Total Bilirubin 0.6 AST 18 ALT 29 Alkaline Phosphatase 98 Total Protein 7.0 Albumin 3.8 Urine Color Yellow Urine Appearance Clear Urine pH 5.0 Ur Specific [place] 1.037 H Urine Protein Negative Urine Glucose (UA) 3+ H Urine Ketones 2+ H Urine Blood Negative Urine Nitrite Negative Urine Bilirubin Negative Urine Urobilinogen 0.2 Ur Leukocyte Esterase Negative Acetone, Qual Group A Strep Rapid 10/22/18 10/22/18 10/22/18 18:00 19:51 20:45 WBC RBC Hgb Hct MCV MCH MCHC RDW Plt Count MPV Absolute Neuts (auto) Neutrophils % Lymphocytes % Monocytes % Eosinophils % Basophils % Nucleated RBC % PT with INR INR Anticoagulation Therapy Puncture Site ABG pH ABG pCO2 at Pt Temp ABG pO2 at Pt Temp ABG HCO3 ABG O2 Sat (Measured) ABG O2 Content ABG Base Excess Miguel Test VBG pH POC VBG pCO2 POC VBG pO2 VBG HCO3 VBG O2 Sat (Thomas) VBG Base Excess Carboxyhemoglobin Methemoglobin O2 Delivery Device Oxygen Flow Rate Vent Mode Vent Rate Mechanical Rate Pressure Support Vent Sodium Potassium Chloride Carbon Dioxide Anion Gap BUN Creatinine Est GFR (CKD-EPI)AfAm Est GFR (CKD-EPI)NonAf POC Glucometer 149 133 109 Random Glucose Lactic Acid Calcium Total Bilirubin AST ALT Alkaline Phosphatase Total Protein Albumin Urine Color Urine Appearance Urine pH Ur Specific [place] Urine Protein Urine Glucose (UA) Urine Ketones Urine Blood Urine Nitrite Urine Bilirubin Urine Urobilinogen Ur Leukocyte Esterase Acetone, Qual Group A Strep Rapid 10/22/18 10/22/18 10/22/18 21:00 21:30 21:34 WBC RBC Hgb Hct MCV MCH MCHC RDW Plt Count MPV Absolute Neuts (auto) Neutrophils % Lymphocytes % Monocytes % Eosinophils % Basophils % Nucleated RBC % PT with INR INR Anticoagulation Therapy Puncture Site ABG pH ABG pCO2 at Pt Temp ABG pO2 at Pt Temp ABG HCO3 ABG O2 Sat (Measured) ABG O2 Content ABG Base Excess Miguel Test VBG pH POC VBG pCO2 POC VBG pO2 VBG HCO3 VBG O2 Sat (Thomas) VBG Base Excess Carboxyhemoglobin Methemoglobin O2 Delivery Device Oxygen Flow Rate Vent Mode Vent Rate Mechanical Rate Pressure Support Vent Sodium 142 Potassium 4.1 Chloride 108 H Carbon Dioxide 25 Anion Gap 9 BUN 12.8 Creatinine 0.9 Est GFR (CKD-EPI)AfAm 131.44 Est GFR (CKD-EPI)NonAf 113.41 POC Glucometer 101 Random Glucose 99 Lactic Acid Calcium 9.0 Total Bilirubin AST ALT Alkaline Phosphatase Total Protein Albumin Urine Color Yellow Urine Appearance Clear Urine pH 5.0 Ur Specific [place] 1.038 H Urine Protein Negative Urine Glucose (UA) 3+ H Urine Ketones 3+ H Urine Blood Negative Urine Nitrite Negative Urine Bilirubin Negative Urine Urobilinogen 0.2 Ur Leukocyte Esterase Negative Acetone, Qual Group A Strep Rapid 10/22/18 10/23/18 10/23/18 23:09 00:51 02:15 WBC RBC Hgb Hct MCV MCH MCHC RDW Plt Count MPV Absolute Neuts (auto) Neutrophils % Lymphocytes % Monocytes % Eosinophils % Basophils % Nucleated RBC % PT with INR INR Anticoagulation Therapy Puncture Site ABG pH ABG pCO2 at Pt Temp ABG pO2 at Pt Temp ABG HCO3 ABG O2 Sat (Measured) ABG O2 Content ABG Base Excess Miguel Test VBG pH POC VBG pCO2 POC VBG pO2 VBG HCO3 VBG O2 Sat (Thomas) VBG Base Excess Carboxyhemoglobin Methemoglobin O2 Delivery Device Oxygen Flow Rate Vent Mode Vent Rate Mechanical Rate Pressure Support Vent Sodium 138 Potassium 6.0 H Chloride 108 H Carbon Dioxide 23 Anion Gap 7 L BUN 9.5 Creatinine 0.9 Est GFR (CKD-EPI)AfAm 131.44 Est GFR (CKD-EPI)NonAf 113.41 POC Glucometer 121 123 Random Glucose 479 H* Lactic Acid Calcium 7.8 L Total Bilirubin AST ALT Alkaline Phosphatase Total Protein Albumin Urine Color Urine Appearance Urine pH Ur Specific [place] Urine Protein Urine Glucose (UA) Urine Ketones Urine Blood Urine Nitrite Urine Bilirubin Urine Urobilinogen Ur Leukocyte Esterase Acetone, Qual Group A Strep Rapid 10/23/18 10/23/18 10/23/18 03:05 05:00 05:04 WBC RBC Hgb Hct MCV MCH MCHC RDW Plt Count MPV Absolute Neuts (auto) Neutrophils % Lymphocytes % Monocytes % Eosinophils % Basophils % Nucleated RBC % PT with INR INR Anticoagulation Therapy Puncture Site ABG pH ABG pCO2 at Pt Temp ABG pO2 at Pt Temp ABG HCO3 ABG O2 Sat (Measured) ABG O2 Content ABG Base Excess Miguel Test VBG pH POC VBG pCO2 POC VBG pO2 VBG HCO3 VBG O2 Sat (Thomas) VBG Base Excess Carboxyhemoglobin Methemoglobin O2 Delivery Device Oxygen Flow Rate Vent Mode Vent Rate Mechanical Rate Pressure Support Vent Sodium 139 Potassium 4.2 Chloride 106 Carbon Dioxide 24 Anion Gap 9 BUN 10.4 Creatinine 0.9 Est GFR (CKD-EPI)AfAm 131.44 Est GFR (CKD-EPI)NonAf 113.41 POC Glucometer 122 99 Random Glucose 100 Lactic Acid Calcium 8.8 Total Bilirubin AST ALT Alkaline Phosphatase Total Protein Albumin Urine Color Urine Appearance Urine pH Ur Specific [place] Urine Protein Urine Glucose (UA) Urine Ketones Urine Blood Urine Nitrite Urine Bilirubin Urine Urobilinogen Ur Leukocyte Esterase Acetone, Qual Group A Strep Rapid 10/23/18 09:42 WBC RBC Hgb Hct MCV MCH MCHC RDW Plt Count MPV Absolute Neuts (auto) Neutrophils % Lymphocytes % Monocytes % Eosinophils % Basophils % Nucleated RBC % PT with INR INR Anticoagulation Therapy Puncture Site ABG pH ABG pCO2 at Pt Temp ABG pO2 at Pt Temp ABG HCO3 ABG O2 Sat (Measured) ABG O2 Content ABG Base Excess Miguel Test VBG pH POC VBG pCO2 POC VBG pO2 VBG HCO3 VBG O2 Sat (Thomas) VBG Base Excess Carboxyhemoglobin Methemoglobin O2 Delivery Device Oxygen Flow Rate Vent Mode Vent Rate Mechanical Rate Pressure Support Vent Sodium 137 Potassium 4.5 Chloride 103 Carbon Dioxide 26 Anion Gap 8 BUN 9.1 Creatinine 1.0 Est GFR (CKD-EPI)AfAm 115.72 Est GFR (CKD-EPI)NonAf 99.85 POC Glucometer Random Glucose 197 H Lactic Acid Calcium 8.9 Total Bilirubin AST ALT Alkaline Phosphatase Total Protein Albumin Urine Color Urine Appearance Urine pH Ur Specific [place]el Urine Protein Urine Glucose (UA) Urine Ketones Urine Blood Urine Nitrite Urine Bilirubin Urine Urobilinogen Ur Leukocyte Esterase Acetone, Qual Group A Strep Rapid Active Medications Generic Name Dose Route Start Last Admin Trade Name Freq PRN Reason Stop Dose Admin Acetaminophen 1,000 mg 10/22/18 20:30 Ofirmev Injection - IVPB Q6H PRN PAIN LEVEL 1-5 OR FEVER Heparin Sodium (Porcine) 5,000 unit 10/22/18 22:00 10/23/18 09:51 Heparin - SQ Not Given BID SENG Potassium Chloride/Dextrose/Sod Cl 20 meq in 1,000 mls @ 100 mls/hr 10/22/18 22:33 10/22/18 22:47 D5-1/2ns+20 Meq Kcl - IV 100 mls/hr ASDIR SENG Administration Insulin Aspart 1 vial 10/22/18 23:15 10/23/18 06:12 Novolog Vial Sliding Scale - SQ Not Given Q6H [facility] Protocol Insulin Detemir 15 units 10/22/18 23:20 Levemir Vial SQ HS SENG Lorazepam 1 mg 10/22/18 20:57 10/22/18 22:17 Ativan Injection - IVPUSH 1 mg Q4H PRN Administration WITHDRAWAL(CONT SUBST) Metoclopramide HCl 10 mg 10/22/18 22:24 Reglan Injection - IVPB Q6H PRN NAUSEA AND/OR VOMITING Sodium Chloride 2 spray 10/22/18 21:32 10/22/18 22:18 [place] Nasal [place] - NS 2 sprays Q12H PRN Administration NASAL CONGESTION ASSESSMENT/PLAN: Patient is 33M with history of T1DM, multiple DKA episodes in past, here today for DKA 2/2 insulin noncompliance. No signs of infection. Vitals stable. #Endocrine-> possible HHNC/DKA 2/2 insulin noncompliance - stopped insulin gtt now that gap has closed, sugar below 250, HCO3>15. - Started on SQ insulin now. - pt transitioned to PO diet, pt tolerating diet well, good appetite - spoke with Dr. Poe (pt's [employer]) regarding pt receiving needing an insulin pump, appreciate recommendations. - Counseled pt on optimizing diabetes management. 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 Perez consulted and does not believe pt needs abx at this time, pending UA Cx. - No signs of infection at this time. #GI - regular diet - Currently not nauseated Dispo: Pt is now stable enough for transfer to /. Thank you for this consultative opportunity. Visit type - Emergency Visit Emergency Visit: Yes ED Registration Date: 10/22/18 Care time: The patient presented to the Emergency Department on the above date and was hospitalized for further evaluation of their emergent condition. - New Patient This patient is new to me today: Yes Date on this admission: 10/23/18 - Critical Care Critical Care patient: Yes Total Critical Care Time (in minutes): 35 Critical Care Statement: The care of this patient involved high complexity decision making to prevent further life threatening deterioration of the patient 's condition and/or to evaluate & treat vital organ system(s) failure or risk of failure. - Discharge Referral Referred to [facility] No
--- NOTE | 2018-10-23 11:49 | CONSULT ---
Consult Consult Specialty:: Endocrinology Referred by:: Dr Castillo Reason for Consultation:: DKA - History of Present Illness Chief Complaint: Nausea, History of Present Illness: This is a 33 y/o M with h/o T1DM with prior episodes of DKA 2/2 insulin noncompliance here today complaining of vomiting that started today. Patient endorses rhinorrhea, cough and chest pain worsening with cough for 3 days. No sick contacts reported. Patient reports that he hasn't been taking insulin as directed. FS at home has been in the 400s as he has been forgeting to take Insulin. Doesn't take Insulin at work as he is scared he will go low while working. Was on Pump a few years ago which he lost.Denies fevers, chills. Denies blood and bile in vomit. Denies shortness of breath, abdominal pain, dysuria, urinary frequency, back pain, headache and neck pain. - History Source History Provided By: Patient, Medical Record - Past Medical History Pulmonary: Yes: Asthma Endocrine: Yes: Diabetes Mellitus - Alcohol/Substance Use Hx Alcohol Use: No History of Substance Use: reports: None - Smoking History Smoking history: Never smoked Have you smoked in the past 12 months: No Aproximately how many cigarettes per day: 0 - Social History Usual Living Arrangement: With Parent ADL: Independent Occupation: [employer] History of Recent Travel: No Home Medications - Allergies Allergies/Adverse Reactions: Allergies Allergy/AdvReac Type Severity Reaction Status Date / Time No Known Allergies Allergy Verified 10/22/18 13:23 - Home Medications Home Medications: Ambulatory Orders Ipratropium [place] 2 sprays NS BID PRN #1 spray 09/27/17 Insulin (Novolog 70/30) [Novolog Mix 70/30 Vial] 0 ml SQ DAILY 02/22/18 Insulin NPH Hum/Reg Insulin Hm [Novolin 70-30 Flexpen] 0 unit SQ DAILY 02/22/18 Family Disease History - Family Disease History Family Disease History: Diabetes: Grandparent (HTN) Review of Systems - Review of Systems Constitutional: reports: Loss of Appetite, Malaise Eyes: reports: No Symptoms HENT: reports: No Symptoms Neck: reports: No Symptoms Cardiovascular: reports: No Symptoms Respiratory: reports: No Symptoms Gastrointestinal: reports: Nausea Genitourinary: reports: No Symptoms Musculoskeletal: reports: No Symptoms Neurological: reports: No Symptoms Endocrine: reports: No Symptoms Hematology/Lymphatic: reports: No Symptoms Physical Exam Vital Signs: Vital Signs Temperature 98.5 F 10/23/18 10:00 Pulse Rate 78 10/23/18 10:00 Respiratory Rate 15 10/23/18 10:00 Blood Pressure 138/83 10/23/18 10:00 O2 Sat by Pulse Oximetry (%) 98 10/23/18 08:00 Constitutional: Yes: No Distress, Calm Eyes: Yes: Conjunctiva Clear, EOM Intact HENT: Yes: Atraumatic, Normocephalic Neck: Yes: Supple, Trachea Midline Cardiovascular: Yes: Regular Rate and Rhythm Respiratory: Yes: Regular, CTA Bilaterally Gastrointestinal: Yes: Normal Bowel Sounds, Soft Musculoskeletal: Yes: WNL Extremities: Yes: WNL Edema: No Neurological: Yes: Alert, Oriented Labs: CBC, BMP 10/22/18 13:43 10/23/18 09:42 Assessment/Plan AP T1DM DKA sec to noncompliance with Insulin Off Insulin drip BGM QACHS and at 3 AM Got Levemir overnight as per RN. Doesn't show up on the system as given for some reason Levemir 15 units daily at Novolog SS coverage Nutrition consult
[2018-10-23] MEDS: D5-1/2NS+20 MEQ KCL - 20 MEQ/1,000 ML INFUS.BAG IV SCH (12:09)
--- NOTE | 2018-10-23 13:03 | CON.ID ---
Consult Consult Specialty:: infectious diseases Referred by:: Reason for Consultation:: confusion - History of Present Illness Chief Complaint: confusion History of Present Illness: 33yo M with PMH of type 1 diabetes, multiple DKA admissions presenting with nausea, sore throat, and dry cough. Patient reports feeling "congested" with pressure in his forehead and sinus area. Patient endorses nausea that started today and has vomited three times today with no blood. He took aspirin "for the nausea" which "seemed to help." Drinking water makes the nausea worse. Denies abdominal pain. Was recently admitted to this ICU for DKA in July 2018. When asked if this feels like his DKA, he states "maybe." Patient takes novalog and humalog for his diabetes and has been non-adherent, missing about half the doses. Last took novalog yesterday. He also reports chills, foul smelling urine for 2 days, dry mouth. He denies fever, increased thirst, MAJOR, chest pain, SOB, currently feels much better - History Source History Provided By: Patient Limitations to Obtaining History: No Limitations - Past Medical History Pulmonary: Yes: Asthma Endocrine: Yes: Diabetes Mellitus - Alcohol/Substance Use Hx Alcohol Use: No History of Substance Use: reports: None - Smoking History Smoking history: Never smoked Have you smoked in the past 12 months: No Aproximately how many cigarettes per day: 0 - Social History Usual Living Arrangement: With Parent ADL: Independent Occupation: [employer] History of Recent Travel: No Home Medications - Allergies Allergies/Adverse Reactions: Allergies Allergy/AdvReac Type Severity Reaction Status Date / Time No Known Allergies Allergy Verified 10/22/18 13:23 - Home Medications Home Medications: Ambulatory Orders Ipratropium [place] 2 sprays NS BID PRN #1 spray 09/27/17 Insulin (Novolog 70/30) [Novolog Mix 70/30 Vial] 0 ml SQ DAILY 02/22/18 Insulin NPH Hum/Reg Insulin Hm [Novolin 70-30 Flexpen] 0 unit SQ DAILY 02/22/18 Family Disease History - Family Disease History Family Disease History: Diabetes: Grandparent (HTN) Review of Systems - Review of Systems Constitutional: reports: No Symptoms Eyes: reports: No Symptoms HENT: reports: No Symptoms Neck: reports: No Symptoms Cardiovascular: reports: No Symptoms Respiratory: reports: No Symptoms Gastrointestinal: reports: No Symptoms Genitourinary: reports: No Symptoms Musculoskeletal: reports: No Symptoms Integumentary: reports: No Symptoms Neurological: reports: Other (confusion) Hematology/Lymphatic: reports: No Symptoms Psychiatric: reports: No Symptoms Physical Exam Vital Signs: Vital Signs Temperature 98.4 F 10/23/18 12:00 Pulse Rate 72 10/23/18 12:00 Respiratory Rate 17 10/23/18 12:00 Blood Pressure 134/92 10/23/18 12:00 O2 Sat by Pulse Oximetry (%) 98 10/23/18 08:00 Constitutional: Yes: Well Nourished, No Distress, Calm HENT: Yes: Atraumatic, Normocephalic Neck: Yes: Supple, Trachea Midline Cardiovascular: Yes: Regular Rate and Rhythm Respiratory: Yes: Regular, CTA Bilaterally Gastrointestinal: Yes: Normal Bowel Sounds, Soft Musculoskeletal: Yes: WNL Extremities: Yes: WNL Neurological: Yes: Alert, Oriented Psychiatric: Yes: Alert, Oriented Labs: CBC, BMP 10/22/18 13:43 10/23/18 09:42 Imaging - Results Chest X-ray: Report Reviewed, Image Reviewed Assessment/Plan Resolved DKA DKA due to insulin noncompliance DM1 sore throat plan resolved confusion await for urine cx no abx at this time no other issues
--- NOTE | 2018-10-23 16:37 | PN ---
Progress Note, Physician History of Present Illness: stable - Current Medication List Current Medications: Active Medications Acetaminophen (Ofirmev Injection -) 1,000 mg IVPB Q6H PRN PRN Reason: PAIN LEVEL 1-5 OR FEVER Heparin Sodium (Porcine) (Heparin -) 5,000 unit SQ BID SENG Last Admin: 10/23/18 09:51 Dose: Not Given Insulin Aspart (Novolog Vial Sliding Scale -) 1 vial SQ Q6H SENG; Protocol Last Admin: 10/23/18 12:00 Dose: 4 units Insulin Detemir (Levemir Vial) 15 units SQ HS SENG Lorazepam (Ativan Injection -) 1 mg IVPUSH Q4H PRN PRN Reason: WITHDRAWAL(CONT SUBST) Last Admin: 10/22/18 22:17 Dose: 1 mg Metoclopramide HCl (Reglan Injection -) 10 mg IVPB Q6H PRN PRN Reason: NAUSEA AND/OR VOMITING Sodium Chloride ([place] Nasal [place] -) 2 spray NS Q12H PRN PRN Reason: NASAL CONGESTION Last Admin: 10/22/18 22:18 Dose: 2 sprays - Objective Vital Signs: Vital Signs Temperature 98.1 F 10/23/18 14:00 Pulse Rate 78 10/23/18 14:00 Respiratory Rate 16 10/23/18 14:00 Blood Pressure 133/94 10/23/18 14:00 O2 Sat by Pulse Oximetry (%) 98 10/23/18 08:00 Constitutional: Yes: No Distress HENT: Yes: Atraumatic Neck: Yes: Supple Cardiovascular: Yes: Regular Rate and Rhythm Respiratory: Yes: CTA Bilaterally Gastrointestinal: Yes: Normal Bowel Sounds Extremities: Yes: WNL Edema: No Neurological: Yes: Alert, Oriented Labs: CBC, BMP 10/22/18 13:43 10/23/18 09:42 INR, PTT INR 0.90 (0.83-1.09) 10/22/18 13:43 Problem List - Problems (1) DKA (diabetic ketoacidoses) Assessment/Plan: on insulin and bgms endo on board doing better Code(s): E13.10 - OTH DIABETES MELLITUS WITH KETOACIDOSIS WITHOUT COMA Qualifiers: Diabetes mellitus type: type 1 Diabetes mellitus complication detail: without coma Qualified Code(s): E10.10 - Type 1 diabetes mellitus with ketoacidosis without coma (2) Weakness Code(s): R53.1 - WEAKNESS (3) AA (alcohol abuse) Assessment/Plan: no withdrawl symptms Code(s): F10.10 - ALCOHOL ABUSE, UNCOMPLICATED
[2018-10-23] MEDS ORDERED: LORazepam 2 MG/ML SDV VIAL IVPUSH PRN (18:36)
[2018-10-23] MEDS ORDERED: ACETAMINOPHEN 1000 MG/100 ML VIAL (NON FORMULARY) IVPB PRN (18:36)
[2018-10-23] MEDS ORDERED: SODIUM CHLORIDE NASAL SPRAY 44 ML BOTTLE NS PRN (18:36)
[2018-10-23] MEDS ORDERED: METOCLOPRAMIDE HCL INJECTION 10 MG/2 ML VIAL IVPB PRN (18:36)
[2018-10-23] MEDS ORDERED: INSULIN (LEVEMIR) 100 UNITS/ML UNITS SQ SCH ×2 (22:00)
[2018-10-24] MEDS ORDERED: guaiFENesin/D-METHORPHAN HB 10 ML UNIT-DOSE CUPS PO ONE (02:37)
[2018-10-24] MEDS: INSULIN SLIDING SCALE (NOVOLOG) 1 VIAL SQ SCH ×2 (06:13→11:26)
[2018-10-24] MEDS: HEPARIN NA (PORCINE) 5,000 UNITS/ML 1ML VIAL SQ SCH (09:12)
[2018-10-24 09:33] LABS: BLOOD UREA NITROGEN 11.9 mg/dL (7-18); CREATININE 0.9 mg/dL (0.55-1.3); HEMATOCRIT 39.7 % (35.4-49); HEMOGLOBIN 13.6 GM/dL (11.7-16.9); MAGNESIUM 2.1 mg/dL (1.8-2.4); MCHC 34.2 g/dl (32.0-35.9); MEAN CELL VOLUME 93.4 fl (80-96); MEAN PLT VOLUME 8.5 fl (7.5-11.1); PHOSPHOROUS 3.9 mg/dL (2.5-4.9); PLATELET COUNT 239 K/MM3 (134-434); POTASSIUM 3.8 mmol/L (3.5-5.1); RBC 4.25 M/mm3 (4.00-5.60); RDW 12.9 % (11.9-15.9); WHITE BLOOD COUNT 4.8 K/mm3 (4.0-10.0)
--- NOTE | 2018-10-24 09:36 | PN ---
Progress Note (short form) - Note Progress Note: Denies any complaints FS 54 during the night, was symptomatic Vital Signs Period Temp Pulse Resp BP Sys/Eid Pulse Ox Last 24 Hr 97.6 F-98.1 F 62-78 16-20 133-145/80-97 97-98 PE: AOx3 Neck: Supple, No JVD HEENT: PERRL, EOMI Lungs: CTA CVS: S1S2 Abd: Benign EXt: No edema Neuro: No focal deficit CMP Sodium 136 mmol/L (136-145) 10/24/18 07:46 Potassium 3.8 mmol/L (3.5-5.1) 10/24/18 07:46 Chloride 101 mmol/L (98-107) 10/24/18 07:46 Carbon Dioxide 28 mmol/L (21-32) 10/24/18 07:46 Anion Gap 7 MMOL/L (8-16) L 10/24/18 07:46 BUN 11.9 mg/dL (7-18) 10/24/18 07:46 Creatinine 0.9 mg/dL (0.55-1.3) 10/24/18 07:46 Est GFR (CKD-EPI)AfAm 131.44 10/24/18 07:46 Est GFR (CKD-EPI)NonAf 113.41 10/24/18 07:46 POC Glucometer 226 UNITS (80-120) 10/24/18 10:34 Random Glucose 73 mg/dL (74-106) L 10/24/18 07:46 Lactic Acid 2.1 mmol/L (0.4-2.0) H 10/22/18 13:43 Calcium 9.0 mg/dL (8.5-10.1) 10/24/18 07:46 Phosphorus 3.9 mg/dL (2.5-4.9) 10/24/18 07:46 Magnesium 2.1 mg/dL (1.8-2.4) 10/24/18 07:46 Total Bilirubin 0.6 mg/dL (0.2-1) 10/22/18 16:57 AST 18 U/L (15-37) 10/22/18 16:57 ALT 29 U/L (13-61) 10/22/18 16:57 Alkaline Phosphatase 98 U/L (45-117) 10/22/18 16:57 Total Protein 7.0 g/dl (6.4-8.2) 10/22/18 16:57 Albumin 3.8 g/dl (3.4-5.0) 10/22/18 16:57 Current Medications Generic Name Dose Route Start Last Admin Trade Name Freq PRN Reason Stop Dose Admin Acetaminophen 1,000 mg 10/23/18 18:36 10/24/18 05:59 Ofirmev Injection - IVPB 1,000 mg Q6H PRN Administration PAIN LEVEL 1-5 OR FEVER Heparin Sodium (Porcine) 5,000 unit 10/23/18 22:00 10/24/18 09:12 Heparin - SQ Not Given BID SENG Insulin Aspart 1 vial 10/24/18 07:00 10/24/18 11:26 Novolog Vial Sliding Scale - SQ 5 units TIDAC SENG Administration Protocol Insulin Aspart 1 vial 10/23/18 22:00 10/23/18 21:45 Novolog Vial Sliding Scale - SQ 3 units HS SENG Administration Protocol Insulin Detemir 15 units 10/23/18 22:00 10/23/18 21:46 Levemir Vial SQ 15 units HS SENG Administration Lorazepam 1 mg 10/23/18 18:36 Ativan Injection - IVPUSH Q4H PRN WITHDRAWAL(CONT SUBST) Metoclopramide HCl 10 mg 10/23/18 18:36 Reglan Injection - IVPB Q6H PRN NAUSEA AND/OR VOMITING Sodium Chloride 2 spray 10/23/18 18:36 [place] Nasal [place] - NS Q12H PRN NASAL CONGESTION AP T1DM DKA sec to noncompliance with Insulin BGM QACHS and at 3 AM Decrease Levemir 12 units daily at HS Novolog SS coverage Nutrition consult
[2018-10-24] MEDS ORDERED: INSULIN (NOVOLOG) ASPART 100 UNITS/ML 10ML VIAL ONE (11:24)
[2018-10-24 11:54] VITALS: BP 134/80; PULSE 66; TEMP 97.9
--- NOTE | 2018-10-24 12:21 | PN ---
Progress Note, Physician History of Present Illness: stable no new issues - Current Medication List Current Medications: Active Medications Acetaminophen (Ofirmev Injection -) 1,000 mg IVPB Q6H PRN PRN Reason: PAIN LEVEL 1-5 OR FEVER Last Admin: 10/24/18 05:59 Dose: 1,000 mg Heparin Sodium (Porcine) (Heparin -) 5,000 unit SQ BID SENG Last Admin: 10/24/18 09:12 Dose: Not Given Insulin Aspart (Novolog Vial Sliding Scale -) 1 vial SQ TIDAC SENG; Protocol Last Admin: 10/24/18 11:26 Dose: 5 units Insulin Aspart (Novolog Vial Sliding Scale -) 1 vial SQ HS SENG; Protocol Last Admin: 10/23/18 21:45 Dose: 3 units Insulin Detemir (Levemir Vial) 15 units SQ HS SENG Last Admin: 10/23/18 21:46 Dose: 15 units Lorazepam (Ativan Injection -) 1 mg IVPUSH Q4H PRN PRN Reason: WITHDRAWAL(CONT SUBST) Metoclopramide HCl (Reglan Injection -) 10 mg IVPB Q6H PRN PRN Reason: NAUSEA AND/OR VOMITING Sodium Chloride ([place] Nasal [place] -) 2 spray NS Q12H PRN PRN Reason: NASAL CONGESTION - Objective Vital Signs: Vital Signs Temperature 97.9 F 10/24/18 10:00 Pulse Rate 66 10/24/18 10:00 Respiratory Rate 18 10/24/18 10:00 Blood Pressure 134/80 10/24/18 10:00 O2 Sat by Pulse Oximetry (%) 97 10/24/18 10:00 Constitutional: Yes: No Distress, Calm Cardiovascular: Yes: S1, S2 Respiratory: Yes: Regular, CTA Bilaterally Gastrointestinal: Yes: Normal Bowel Sounds, Soft Musculoskeletal: Yes: WNL Extremities: Yes: WNL Neurological: Yes: Alert, Oriented Psychiatric: Yes: Alert, Oriented Labs: CBC, BMP 10/24/18 07:46 10/24/18 07:46 INR, PTT INR 0.90 (0.83-1.09) 10/22/18 13:43 Assessment/Plan Resolved DKA DKA due to insulin noncompliance DM1 sore throat plan resolved confusion urine cx result noted continue monitoring rest as per the team
--- NOTE | 2018-10-24 14:16 | DS ---
Physical Examination Vital Signs: Vital Signs Temperature 97.9 F 10/24/18 10:00 Pulse Rate 66 10/24/18 10:00 Respiratory Rate 18 10/24/18 10:00 Blood Pressure 134/80 10/24/18 10:00 O2 Sat by Pulse Oximetry (%) 97 10/24/18 10:00 Labs: CBC, BMP 10/24/18 07:46 10/24/18 07:46 Discharge Summary Reason For Visit: DIABETIC KETOACIDOSIS Current Active Problems DKA (diabetic ketoacidoses) (Acute) Weakness (Acute) Condition: Guarded - Instructions Disposition: AGAINST MEDICAL ADVICE - Home Medications Comprehensive Discharge Medication List: Ambulatory Orders Ipratropium [place] 2 sprays NS BID PRN #1 spray 09/27/17 Insulin (Novolog 70/30) [Novolog Mix 70/30 Vial] 0 ml SQ DAILY 02/22/18 Insulin NPH Hum/Reg Insulin Hm [Novolin 70-30 Flexpen] 0 unit SQ DAILY 02/22/18 AMA
[2018-10-24] MEDS ORDERED: INSULIN (LEVEMIR) 100 UNITS/ML UNITS SQ SCH (22:00)
== END 2018-10-24 14:18 | disposition left against medical advice (07) | DRG 420 ==
LOC: JER 13:12 → JERBED 18:19 → JICU 20:09 → J6S 10-23 18:29
PROVIDERS: ADMIT Internal Medicine; ATTEND Internal Medicine
DX: E10.10 Type 1 diabetes mellitus with ketoacidosis without coma (principal); R53.1 Weakness; J02.9 Acute pharyngitis, unspecified; T38.3X6A Underdosing of insulin and oral hypoglycemic [antidiabetic] drugs, initial encounter; R10.10 Upper abdominal pain, unspecified; R11.10 Vomiting, unspecified; R05 Cough; J34.89 Other specified disorders of nose and nasal sinuses; F10.10 Alcohol abuse, uncomplicated; E86.0 Dehydration
CPT/HCPCS: 36415; 36600; 71045-TC-FY; 80048; 80053; 81003; 82009; 82375; 82803; 82962; 83050; 83605; 83735; 84100; 85025; 85027; 85610; 87070; 87086; 87880; 93005; 93010; 99284-25; J0131; J7030

== ENCOUNTER 2018-11-29 08:14 | Inpatient (IN) | payer OTHER ==
--- NOTE | 2018-11-29 08:23 | PDOC ---
Attending Attestation - Resident Resident Name: Indira Santana - HPI HPI: 11/29/18 09:15 Pt presents to the ED complaining of nausea, vomiting and generalized malaise. History of DM, frequent episodes of DKA, admits to non compliance with his insulin. Denies abdominal pain. - Physicial Exam PE: 11/29/18 09:18 Agree with resident exam. Patient is alert and oriented x 3 and in no acute distress. Muccous membranes are slightly dry. Abdomen soft, non tender, non distended without guarding or rebound. - Medical Decision Making 11/29/18 09:20 Pt presents to the ED complaining of nausea and vomiting. FS > 600. Most likely DKA. Will check labs and EKG, start IVF, admit to medicine.
[2018-11-29] MEDS ORDERED: SODIUM CHLORIDE 1,000 ML IV STA (08:26)
[2018-11-29] MEDS ORDERED: ONDANSETRON 4 MG/2 ML VIAL IVPUSH ONE (08:28)
--- NOTE | 2018-11-29 08:30 | PDOC ---
History of Present Illness - General Chief Complaint: Blood Sugar Problem Stated Complaint: Blood Sugar Problem Time Seen by Provider: 11/29/18 08:20 Past History - Past Medical History Allergies/Adverse Reactions: Allergies Allergy/AdvReac Type Severity Reaction Status Date / Time No Known Allergies Allergy Verified 10/22/18 13:23 Home Medications: Ambulatory Orders Ipratropium [place] 2 sprays NS BID PRN #1 spray 09/27/17 Insulin (Novolog 70/30) [Novolog Mix 70/30 Vial] 0 ml SQ DAILY 02/22/18 Insulin NPH Hum/Reg Insulin Hm [Novolin 70-30 Flexpen] 0 unit SQ DAILY 02/22/18 Anemia: No Asthma: Yes Cancer: No Cardiac Disorders: No CVA: No COPD: No CHF: No Dementia: No Diabetes: Yes (I) GI Disorders: No Disorders: No HTN: No Hypercholesterolemia: No Liver Disease: No Seizures: No Thyroid Disease: No - Surgical History Abdominal Surgery: No Appendectomy: No Cardiac Surgery: No Cholecystectomy: No GI Surgery: No Lung Surgery: No Neurologic Surgery: No Orthopedic Surgery: No - Immunization History Immunization Up to Date: Yes - Psycho Social/Smoking Cessation Hx Smoking Status: No Smoking History: Never smoked Have you smoked in the past 12 months: No Number of Cigarettes Smoked Daily: 0 'Breaking Loose' booklet given: 03/17/16 Hx Alcohol Use: No Drug/Substance Use Hx: No Substance Use Type: Alcohol Hx Substance Use Treatment: No ED Treatment Course - LABORATORY CBC & Chemistry Diagram: 11/29/18 09:00 11/29/18 09:00 Medical Decision Making - Medical Decision Making 11/29/18 08:29 HPI: 33yo M hx T1DM, multiple DKA admissions, and noncompliance with medications BIBA c/o nausea, vomiting, weakness, and abdominal pain s/p possible missed insulin dose this AM. States was in [place] prior to missing dose this AM. Does not remember what insulin takes or what dose, just long acting and short acting. Per chart review, pt was taking Novalog and Humalog. Gradual onset nausea, NBNB emesis x2, generalized weakness/fatigue, and diffuse nonradiating abdominal pain constant gradual onset, not better/worse with anything, has not tried pain meds, similar to when pt was last in DKA. Denies syncope, falls, head trauma, fever, chills, headache, dizziness, numbness/tingling, weakness, vision changes, shortness of breath, cough, chest pain, palpitations, leg swelling, blood in stool, diarrhea, constipation, dysuria, hematuria, polyuria, polydipsia, confusion. ROS: Constitutional: Positive for generalized weakness. Negative for chills, fever, diaphoresis. HENT: Negative for sore throat, rhinorrhea, congestion. Eyes: Negative for visual disturbance. Respiratory: Negative for shortness of breath, cough, and wheezing. Cardiovascular: Negative for chest pain, palpitations, and leg swelling. Gastrointestinal: Positive for abdominal pain, nausea, and vomiting. Negative for blood in stool, constipation, diarrhea. Genitourinary: Negative for dysuria, flank pain, and hematuria. Musculoskeletal: Negative for myalgias, back pain, and neck pain. Skin: Negative for rash. Neurological: Negative for light-headedness, dizziness, vertigo, syncope, weakness, numbness and headaches. Psychiatric/Behavioral: Negative for behavioral problems and confusion. PE: Gen: Alert, NAD, sleepy but easily arousable, comfortable-appearing. HEENT: PERRL, EOMI, MMM, NCAT. No conjunctival pallor. Sclera are non-icteric. CV: Regular rate and rhythm. No murmurs, rubs, or gallops. PULM: No resp distress. CTAB, no wheezes, rales, or rhonchi. ABD: soft, NT/ND, no rebound tenderness or guarding, no CVA tenderness. BACK: No TTP of c/t/l-spine. No step-offs or deformities. MSK: No bony deformities. 2+ pulses in all extremities. NEURO: AAOx3. PERRL. No gross CN deficits. Strength and sensation grossly intact throughout. EXTREMITIES: No cyanosis. No clubbing. No edema. No calf tenderness. PSYCH: Normal mood and thought pattern. SKIN: Warm and dry. Normal capillary refill. No rashes. No jaundice. MDM: 33yo M hx T1DM, multiple DKA admissions, and noncompliance with medications BIBA c/o nausea, vomiting, weakness, and abdominal pain s/p possible missed insulin dose this AM. Hemodynamically stable, afebrile, benign abdomen exam, neurologically intact. Ddx: DKA, hyperglycemia, metabolic derangement, anemia. Low concern for GI or infectious pathology due to lack of diarrhea or constipation or fever, pt in USOH prior to missing insulin, and benign abdomen exam - no imaging indicated at this time. 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 Of note, K 5.2, Gluc 634, beta-hydroxybutarate>46, anion gap 20, VBG pH 7.29, Na 130, UA 3+ketones and 3+glucose. Started NS + 20meq K, insulin bolus 6 units, and insulin drip. Dr Pardo microblogged and called ICU - pending both call backs. Spoke with IM resident for admission. 11/29/18 10:38 CXR reviewed - no acute pathology 11/29/18 10:51 Spoke with Mathew from ICU - accepted. 11/29/18 10:54 EKG reviewed - NSR, 87bpm, normal axis, normal intervals, no TWIs, no ST elevations or depressions Discharge - Discharge Information Problems reviewed: Yes Clinical Impression/Diagnosis: DKA (diabetic ketoacidoses) Condition: Stable - Admission Yes - Follow up/Referral Referrals: America Tim MD [Staff Physician] - - Patient Discharge Instructions - Post Discharge Activity
[2018-11-29 08:55] VITALS: TEMP 98.4; BMI 23.1
[2018-11-29 09:23] LABS: BASO % 0.5 % (0-2.0); EOS % 2.5 % (0-4.5); HEMATOCRIT 40.8 % (35.4-49); HEMOGLOBIN 13.8 GM/dL (11.7-16.9); LYMPH % 16.8 % (8-40); MCH 32.3 pg (25.7-33.7); MCHC 33.8 g/dl (32.0-35.9); MEAN CELL VOLUME 95.4 fl (80-96); MONO % 4.4 % (3.8-10.2); NEUT % 75.8 % (42.8-82.8); PLATELET COUNT 240 K/MM3 (134-434); RBC 4.28 M/mm3 (4.00-5.60); RDW 12.7 % (11.9-15.9); WHITE BLOOD COUNT 6.7 K/mm3 (4.0-10.0)
[2018-11-29 09:24] LABS: URINE APPEARANCE CLEAR; URINE BILIRUBIN NEGATIVE (NEGATIVE); URINE COLOR YELLOW; URINE GLUCOSE (UA) 3+ (NEGATIVE); URINE KETONE 3+ (NEGATIVE); URINE LEUK ESTERASE NEGATIVE (NEGATIVE); URINE NITRITE NEGATIVE (NEGATIVE); URINE PROTEIN NEGATIVE (NEGATIVE); URINE UROBILINOGEN 0.2 mg/dL (0.2-1.0)
[2018-11-29 09:32] LABS: VENOUS PC02 40.4 mmHg (38-52); VENOUS PH 7.29 (7.31-7.41)
[2018-11-29 09:34] LABS: VENOUS PO2 < 49 mmHg (28-48)
[2018-11-29 09:46] LABS: LIPASE 52 U/L (73-393)
[2018-11-29] MEDS ORDERED: ONDANSETRON 4 MG/2 ML VIAL ONE (09:47)
[2018-11-29 09:51] LABS: ALBUMIN 4.2 g/dl (3.4-5.0); CALCIUM 9.8 mg/dL (8.5-10.1); CREATININE 1.3 mg/dL (0.55-1.3); POTASSIUM 5.2 mmol/L (3.5-5.1); TOT PROT 7.4 g/dl (6.4-8.2)
[2018-11-29] MEDS ORDERED: INSULIN REGULAR HUMAN 100 UNITS/ML *VIAL IVPUSH ONE (09:57)
[2018-11-29] MEDS ORDERED: SODIUM CHLORIDE 0.9%/KCL 20 MEQ/1,000 ML INFUS.BAG IV SCH (10:00)
[2018-11-29] MEDS ORDERED: INSULIN REGULAR 100 UNITS in SODIUM CHLORIDE 99 ML IVPB SCH (10:00)
--- NOTE | 2018-11-29 12:36 | HP ---
CHIEF COMPLAINT: "DKA" PCP: Dr. Lira-but does not follow up HISTORY OF PRESENT ILLNESS: Pt. is a 33 y.o. M w/ PMHx. of Type 1 Diabetes ( diagnosed since 14), and Asthma (not on any medications) presents with weakness and "feeling like he was in DKA." Pt. states that he was at work earlier this morning and was feeling off, he had dry mouth, fruity breath, strong odored urine and generalized weakness. Pt. decided to "tough it out," and cycled home where he took 30 units of Levemir at ~3AM. Pt. called ambulance to the hospital once he started feeling nauseous and vomiting. Pt. states that he has poor memory and has a learning disability therefore it is difficult for him to remember to take his insulin. He has frequent admission to the hospital (6 hospital admission this year) for DKA and insulin use issues. Pt. states that he usually goes home after the admission and does well for about a week before he stops "doing what he should do." Pt. endorses being depressed but denies any suicidal ideations. Pt. has not followed up with his PCP and cannot recall his last visit. Pt. has signed out AMA the last 2 hospital admissions. Pt. denies any shortness of breath, chest pain, abdominal pain, dysuria, diarrhea, constipation, fevers, chills, numbness/tingling or headache. Pt. denies checking his feet every day, seeing or having an Opthamologist or Operations Agent. ER course was notable for: (1) CBC, CMP, CXR, Mag, Phos (2) Insulin Gtt, NS w/ 20meq K+ (3) Recent Travel: No PAST MEDICAL HISTORY: As above PAST SURGICAL HISTORY: None Social History: Smoking: Denies Alcohol: Episodes of binge drinking Drugs: occasional marijuana Allergies No Known Allergies Allergy (Verified 10/22/18 13:23) HOME MEDICATIONS: Home Medications Medication Instructions Recorded Ipratropium [place] 2 sprays NS BID PRN #1 spray 09/27/17 Insulin (Novolog 70/30) [Novolog 0 ml SQ DAILY 02/22/18 Mix 70/30 Vial] Insulin NPH Hum/Reg Insulin Hm 0 unit SQ DAILY 02/22/18 [Novolin 70-30 Flexpen] REVIEW OF SYSTEMS As above PHYSICAL EXAMINATION Vital Signs - 24 hr 11/29/18 11/29/18 11/29/18 08:45 08:46 11:45 Temperature 98.4 F Pulse Rate 91 H Respiratory 19 Rate Blood Pressure 119/71 O2 Sat by Pulse 96 96 99 Oximetry (%) GENERAL: Awake, alert, and fully oriented, in no acute distress. HEAD: Normal with no signs of trauma. EYES: Pupils equal, round and reactive to light, extraocular movements intact, sclera anicteric, conjunctiva clear. EARS, NOSE, THROAT: Ears normal, nares patent, oropharynx clear without exudates. DRY mucous membranes. Fruity breath. NECK: Normal range of motion, supple without lymphadenopathy, JVD, or masses. LUNGS: Breath sounds equal, clear to auscultation bilaterally. No wheezes, and no crackles. No accessory muscle use. HEART: Regular rate and rhythm, normal S1 and S2 without murmur ABDOMEN: Soft, nontender, not distended, normoactive bowel sounds, no guarding, no rebound, no masses. MUSCULOSKELETAL: Normal range of motion at all joints. No bony deformities or tenderness. No CVA tenderness. UPPER EXTREMITIES: 2+ radial pulses, warm, well-perfused. No cyanosis. No clubbing. No peripheral edema. LOWER EXTREMITIES: 2+ dorsal pedal pulses, warm, well-perfused. No calf tenderness. No peripheral edema. NEUROLOGICAL: Normal speech. Gait not assessed PSYCHIATRIC: Cooperative. Good eye contact. Sad affect SKIN: Warm, dry, normal turgor, multiple tattoos Laboratory Results - last 24 hr 11/29/18 11/29/18 11/29/18 08:17 09:00 09:00 WBC 6.7 RBC 4.28 Hgb 13.8 Hct 40.8 MCV 95.4 MCH 32.3 MCHC 33.8 RDW 12.7 Plt Count 240 MPV 9.0 Absolute Neuts (auto) 5.1 Neutrophils % 75.8 Lymphocytes % 16.8 D Monocytes % 4.4 Eosinophils % 2.5 D Basophils % 0.5 Nucleated RBC % 0 VBG pH POC VBG pCO2 POC VBG pO2 VBG HCO3 VBG O2 Sat (Thomas) VBG Base Excess Sodium 130 L Potassium 5.2 H Chloride 94 L Carbon Dioxide 17 L Anion Gap 20 H BUN 21.0 H Creatinine 1.3 Est GFR (CKD-EPI)AfAm 84.27 Est GFR (CKD-EPI)NonAf 72.71 POC Glucometer > 600 Random Glucose 634 H* Calcium 9.8 Total Bilirubin 1.0 AST 24 ALT 22 Alkaline Phosphatase 84 Total Protein 7.4 Albumin 4.2 Lipase Beta-Hydroxybutyrate Urine Color Urine Appearance Urine pH Ur Specific [place] Urine Protein Urine Glucose (UA) Urine Ketones Urine Blood Urine Nitrite Urine Bilirubin Urine Urobilinogen Ur Leukocyte Esterase 11/29/18 11/29/18 11/29/18 09:00 09:00 09:00 WBC RBC Hgb Hct MCV MCH MCHC RDW Plt Count MPV Absolute Neuts (auto) Neutrophils % Lymphocytes % Monocytes % Eosinophils % Basophils % Nucleated RBC % VBG pH 7.29 L POC VBG pCO2 40.4 POC VBG pO2 < 49 H VBG HCO3 18.6 L VBG O2 Sat (Thomas) 47.3 L VBG Base Excess -7.3 L Sodium Potassium Chloride Carbon Dioxide Anion Gap BUN Creatinine Est GFR (CKD-EPI)AfAm Est GFR (CKD-EPI)NonAf POC Glucometer Random Glucose Calcium Total Bilirubin AST ALT Alkaline Phosphatase Total Protein Albumin Lipase 52 L Beta-Hydroxybutyrate > 46.0 H Urine Color Yellow Urine Appearance Clear Urine pH 5.0 Ur Specific [place] 1.031 Urine Protein Negative Urine Glucose (UA) 3+ H Urine Ketones 3+ H Urine Blood Negative Urine Nitrite Negative Urine Bilirubin Negative Urine Urobilinogen 0.2 Ur Leukocyte Esterase Negative 11/29/18 11/29/18 10:29 11:26 WBC RBC Hgb Hct MCV MCH MCHC RDW Plt Count MPV Absolute Neuts (auto) Neutrophils % Lymphocytes % Monocytes % Eosinophils % Basophils % Nucleated RBC % VBG pH POC VBG pCO2 POC VBG pO2 VBG HCO3 VBG O2 Sat (Thomas) VBG Base Excess Sodium Potassium Chloride Carbon Dioxide Anion Gap BUN Creatinine Est GFR (CKD-EPI)AfAm Est GFR (CKD-EPI)NonAf POC Glucometer 383 166 Random Glucose Calcium Total Bilirubin AST ALT Alkaline Phosphatase Total Protein Albumin Lipase Beta-Hydroxybutyrate Urine Color Urine Appearance Urine pH Ur Specific [place] Urine Protein Urine Glucose (UA) Urine Ketones Urine Blood Urine Nitrite Urine Bilirubin Urine Urobilinogen Ur Leukocyte Esterase ASSESSMENT/PLAN: triston is a 33 y.o. M w/ PMHx. of Type 1 Diabetes (diagnosed since 14), and Asthma ( not on any medications) presents with weakness and "feeling like he was in DKA. " #DKA 2/2 Noncompliance Initial Glucose: 634-->383-->166-->87-->69-->57 Initial K+: 5.2-->4.1 A--> c/w Insulin Gtt at 0.5 to ensure AG remains closed Will give Levemir 15units once BGM is above 100 and bridge for 2 hours before shutting off drip c/w IVF BGM Q1H BMP Q2H ICU monitoring Pt. given referral to clinic incase Pt. leaves AMA and strongly advised to make at least the first appointment. It persoanlly told the Pt. that once that happens I will call him once a month to check in on him. #FEN D5-1/2NS @ 75 monitor electrolytes replete as needed Diabetic Diet #DVT Ppx. Lovenox 40 mg Visit type - Emergency Visit Emergency Visit: Yes ED Registration Date: 11/29/18 Care time: The patient presented to the Emergency Department on the above date and was hospitalized for further evaluation of their emergent condition. - New Patient This patient is new to me today: Yes Date on this admission: 11/29/18 - Critical Care Critical Care patient: Yes Total Critical Care Time (in minutes): 45 Critical Care Statement: The care of this patient involved high complexity decision making to prevent further life threatening deterioration of the patient 's condition and/or to evaluate & treat vital organ system(s) failure or risk of failure. ATTENDING PHYSICIAN STATEMENT I saw and evaluated the patient. I reviewed the resident's note and discussed the case with the resident. I agree with the resident's findings and plan as documented. SUBJECTIVE: OBJECTIVE: ASSESSMENT AND PLAN:
[2018-11-29] MEDS ORDERED: DEXTROSE 5%-NORMAL SALINE 1,000 ML IV SCH (12:45)
--- NOTE | 2018-11-29 13:16 | PN ---
Teaching Attending Note Name of Resident: Faraz Finnegan ATTENDING PHYSICIAN STATEMENT I saw and evaluated the patient. I reviewed the resident's note and discussed the case with the resident. I agree with the resident's findings and plan as documented. SUBJECTIVE: cc: nausea and vomiting HPI: 33 y/o man with h/o DM I, depression OCD, learning disability, ETOH abuse, and Marijuana use who presented with N/V. He felt weak at work today and felt nauseous. he felt dry and vomited on his way to home. he denies any diarrhea , abd pain, fever or chills. he denies dysuria, cough or SOB. he states he uses levemir 30 units occasionally. he has novolog but does not use it. he does not use any other meds. he also states he will probably not use insulin as instructed when he leaves the hospital. OBJECTIVE: NAD, awake, alert, cooperative. MMM, no facial droop. CV: RRR, 2/6 SM at apex Lungs: CTAB Abd: soft, NT, ND , NL BS Ext : no tayla or erythema skin : no rash Neuro : no facial droop, EOMI, round equal reactive pupils, strength 5/5 in upper and lower extremities proximally and distally ASSESSMENT AND PLAN: 33 y/o man with h/o DM, depression OCD, learning disability, ETOH abuse, and Marijuana use who presented with N/V. he was found to be in DKA 1- DKA: on insulin gtt. AG closed on repeat BMP . - change IVF to d5NS - replete Phos - decrease insulin gtt - when sugar improves will give 15 of levemir daily and dc gtt 2 hours later - feed patient - follow electrolytes - educated about importance of compliance with meds and danger or DKA - he stated he wanted to leave AMA. he was advised to stay to monitor and to treat. he understands that DKA and hypergklycemia can cause but he signed AMA form . RN witnessed ICU level of care
[2018-11-29 13:24] LABS: BLOOD UREA NITROGEN 16.9 mg/dL (7-18); CALCIUM 8.7 mg/dL (8.5-10.1); CREATININE 1.1 mg/dL (0.55-1.3); MAGNESIUM 2.2 mg/dL (1.8-2.4); PHOSPHOROUS 2.3 mg/dL (2.5-4.9); POTASSIUM 4.1 mmol/L (3.5-5.1)
[2018-11-29] MEDS ORDERED: NAPH,MB-DB/K PH,MBDB POWDER PACKET PO ONE (13:55)
[2018-11-29] MEDS ORDERED: POTASSIUM PHOSPHATE 15 MM in DEXTROSE 5%-WATER - 250 ML IVPB ONE (14:11)
[2018-11-29 14:20] VITALS: BP 124/80; PULSE 90
--- NOTE | 2018-11-29 15:31 | DS ---
Physical Exam: SUBJECTIVE: Patient seen and examined, unchanged from initial presentation. Pt. reiterates his reluctance to stay in the hospital. OBJECTIVE: Vital Signs Period Temp Pulse Resp BP Sys/Eid Pulse Ox Last 24 Hr 98.4 F-98.4 F 87-91 - 119-125/71-82 96-100 PHYSICAL EXAM GENERAL: Awake, alert, and fully oriented, in no acute distress. HEAD: Normal with no signs of trauma. EYES: Pupils equal, round and reactive to light, extraocular movements intact, sclera anicteric, conjunctiva clear. EARS, NOSE, THROAT: Ears normal, nares patent, oropharynx clear without exudates. DRY mucous membranes. Fruity breath. NECK: Normal range of motion, supple without lymphadenopathy, JVD, or masses. LUNGS: Breath sounds equal, clear to auscultation bilaterally. No wheezes, and no crackles. No accessory muscle use. HEART: Regular rate and rhythm, normal S1 and S2 without murmur ABDOMEN: Soft, nontender, not distended, normoactive bowel sounds, no guarding, no rebound, no masses. MUSCULOSKELETAL: Normal range of motion at all joints. No bony deformities or tenderness. No CVA tenderness. UPPER EXTREMITIES: 2+ radial pulses, warm, well-perfused. No cyanosis. No clubbing. No peripheral edema. LOWER EXTREMITIES: 2+ dorsal pedal pulses, warm, well-perfused. No calf tenderness. No peripheral edema. NEUROLOGICAL: Normal speech. Gait not assessed PSYCHIATRIC: Cooperative. Good eye contact. Sad affect SKIN: Warm, dry, normal turgor, multiple tattoos LABS Laboratory Results - last 24 hr 11/29/18 11/29/18 11/29/18 08:17 09:00 09:00 WBC 6.7 RBC 4.28 Hgb 13.8 Hct 40.8 MCV 95.4 MCH 32.3 MCHC 33.8 RDW 12.7 Plt Count 240 MPV 9.0 Absolute Neuts (auto) 5.1 Neutrophils % 75.8 Lymphocytes % 16.8 D Monocytes % 4.4 Eosinophils % 2.5 D Basophils % 0.5 Nucleated RBC % 0 VBG pH POC VBG pCO2 POC VBG pO2 VBG HCO3 VBG O2 Sat (Thomas) VBG Base Excess Sodium 130 L Potassium 5.2 H Chloride 94 L Carbon Dioxide 17 L Anion Gap 20 H BUN 21.0 H Creatinine 1.3 Est GFR (CKD-EPI)AfAm 84.27 Est GFR (CKD-EPI)NonAf 72.71 POC Glucometer > 600 Random Glucose 634 H* Hemoglobin A1c % Calcium 9.8 Phosphorus Magnesium Total Bilirubin 1.0 AST 24 ALT 22 Alkaline Phosphatase 84 Total Protein 7.4 Albumin 4.2 Lipase Beta-Hydroxybutyrate Urine Color Urine Appearance Urine pH Ur Specific Sherman Urine Protein Urine Glucose (UA) Urine Ketones Urine Blood Urine Nitrite Urine Bilirubin Urine Urobilinogen Ur Leukocyte Esterase 11/29/18 11/29/18 11/29/18 09:00 09:00 09:00 WBC RBC Hgb Hct MCV MCH MCHC RDW Plt Count MPV Absolute Neuts (auto) Neutrophils % Lymphocytes % Monocytes % Eosinophils % Basophils % Nucleated RBC % VBG pH 7.29 L POC VBG pCO2 40.4 POC VBG pO2 < 49 H VBG HCO3 18.6 L VBG O2 Sat (Thomas) 47.3 L VBG Base Excess -7.3 L Sodium Potassium Chloride Carbon Dioxide Anion Gap BUN Creatinine Est GFR (CKD-EPI)AfAm Est GFR (CKD-EPI)NonAf POC Glucometer Random Glucose Hemoglobin A1c % Calcium Phosphorus Magnesium Total Bilirubin AST ALT Alkaline Phosphatase Total Protein Albumin Lipase 52 L Beta-Hydroxybutyrate > 46.0 H Urine Color Yellow Urine Appearance Clear Urine pH 5.0 Ur Specific Sherman 1.031 Urine Protein Negative Urine Glucose (UA) 3+ H Urine Ketones 3+ H Urine Blood Negative Urine Nitrite Negative Urine Bilirubin Negative Urine Urobilinogen 0.2 Ur Leukocyte Esterase Negative 11/29/18 11/29/18 11/29/18 10:29 11:26 12:35 WBC RBC Hgb Hct MCV MCH MCHC RDW Plt Count MPV Absolute Neuts (auto) Neutrophils % Lymphocytes % Monocytes % Eosinophils % Basophils % Nucleated RBC % VBG pH POC VBG pCO2 POC VBG pO2 VBG HCO3 VBG O2 Sat (Thomas) VBG Base Excess Sodium Potassium Chloride Carbon Dioxide Anion Gap BUN Creatinine Est GFR (CKD-EPI)AfAm Est GFR (CKD-EPI)NonAf POC Glucometer 383 166 84 Random Glucose Hemoglobin A1c % Calcium Phosphorus Magnesium Total Bilirubin AST ALT Alkaline Phosphatase Total Protein Albumin Lipase Beta-Hydroxybutyrate Urine Color Urine Appearance Urine pH Ur Specific Sherman Urine Protein Urine Glucose (UA) Urine Ketones Urine Blood Urine Nitrite Urine Bilirubin Urine Urobilinogen Ur Leukocyte Esterase 10/19/19 10/19/19 10/19/19 12:56 12:56 13:47 WBC RBC Hgb Hct MCV MCH MCHC RDW Plt Count MPV Absolute Neuts (auto) Neutrophils % Lymphocytes % Monocytes % Eosinophils % Basophils % Nucleated RBC % VBG pH POC VBG pCO2 POC VBG pO2 VBG HCO3 VBG O2 Sat (Thomas) VBG Base Excess Sodium 142 Potassium 4.1 Chloride 108 H Carbon Dioxide 24 Anion Gap 10 BUN 16.9 Creatinine 1.1 Est GFR (CKD-EPI)AfAm 103.13 Est GFR (CKD-EPI)NonAf 88.98 POC Glucometer 57 Random Glucose 69 L Hemoglobin A1c % 10.2 H Calcium 8.7 Phosphorus 2.3 L Magnesium 2.2 Total Bilirubin AST ALT Alkaline Phosphatase Total Protein Albumin Lipase Beta-Hydroxybutyrate Urine Color Urine Appearance Urine pH Ur Specific Sherman Urine Protein Urine Glucose (UA) Urine Ketones Urine Blood Urine Nitrite Urine Bilirubin Urine Urobilinogen Ur Leukocyte Esterase HOSPITAL COURSE: Date of Admission:11/29/18 Date of Discharge: 11/29/18 Pt. admitted and signed out AMA after receiving Lunch. Pt. was started on Insulin drip and had 2 hour over lap with Insulin SQ. Blood glucose was monitored awith BGM and serial BMP with closure of anion gap. Discussion was had at length with Pt. and follow up regularly with me at [facility] and to comply with medication regimen. Pt. decided to leave AMA after receiving lunch. Risks, including and relapsing into DKA were explained to the patient. Minutes to complete discharge: 25 Discharge Summary Problems reviewed: Yes Reason For Visit: DIABETIC KETOACIDOSIS Condition: Stable - Instructions Disposition: AGAINST MEDICAL ADVICE - Home Medications Comprehensive Discharge Medication List: Ambulatory Orders Ipratropium [place] 2 sprays NS BID PRN #1 spray 09/27/17 Insulin (Novolog 70/30) [Novolog Mix 70/30 Vial] 0 ml SQ DAILY 02/22/18 Insulin NPH Hum/Reg Insulin Hm [Novolin 70-30 Flexpen] 0 unit SQ DAILY 02/22/18 This patient is new to me today: Yes Date on this admission: 12/02/18 Emergency Visit: Yes ED Registration Date: 11/29/18 Care time: The patient presented to the Emergency Department on the above date and was hospitalized for further evaluation of their emergent condition. Critical Care patient: Yes Total Critical Care Time (in minutes): 45 Critical Care Statement: The care of this patient involved high complexity decision making to prevent further life threatening deterioration of the patient 's condition and/or to evaluate & treat vital organ system(s) failure or risk of failure. - Discharge Referral Referred to [facility] No ATTENDING PHYSICIAN STATEMENT I saw and evaluated the patient. I reviewed the resident's note and discussed the case with the resident. I agree with the resident's findings and plan as documented. SUBJECTIVE: OBJECTIVE: ASSESSMENT AND PLAN:
[2018-11-29] MEDS ORDERED: INSULIN SLIDING SCALE (NOVOLOG) 1 VIAL SQ SCH (16:30)
--- NOTE | 2018-11-29 20:15 | EKG ---
Test Reason : Blood Pressure : / mmHG Vent. Rate : 087 BPM Atrial Rate : 087 BPM P-R Int : 156 ms QRS Dur : 084 ms QT Int : 366 ms P-R-T Axes : 050 029 035 degrees QTc Int : 440 ms NORMAL SINUS RHYTHM NONSPECIFIC ST AND T WAVE ABNORMALITY ABNORMAL ECG WHEN COMPARED WITH ECG OF 22-OCT-2018 13:28, NONSPECIFIC T WAVE ABNORMALITY NOW EVIDENT IN LATERAL LEADS Confirmed by MD KAR, SHIRA ([id number]) on 11/29/2018 8:14:41 PM Referred By: Confirmed By:SHIRA LAKHANI MD
[2018-11-29] MEDS ORDERED: MUPIROCIN 2% TOPICAL OINTMENT FOR DECOLONIZATION NS SCH (22:00)
[2018-11-29] MEDS ORDERED: CHLORHEXIDINE GLUCONATE 4% CLEANSER FOR DECOLONIZATION TP SCH (22:00)
[2018-11-30] MEDS ORDERED: ENOXAPARIN NA (PORCINE) 40 MG/0.4 ML DISP.SYRIN SQ SCH (10:00)
== END 2018-11-29 15:20 | disposition left against medical advice (07) | DRG 420 ==
LOC: JER 08:14 → JERBED 10:52 → JICU 12:45
PROVIDERS: ADMIT Internal Medicine; ATTEND Internal Medicine
DX: E10.10 Type 1 diabetes mellitus with ketoacidosis without coma (principal); F12.90 Cannabis use, unspecified, uncomplicated; F10.10 Alcohol abuse, uncomplicated; Z79.4 Long term (current) use of insulin; F32.9 Major depressive disorder, single episode, unspecified; R11.2 Nausea with vomiting, unspecified
CPT/HCPCS: 36415; 71045-TC-FY; 80048; 80053; 81003; 82010; 82803; 82962; 83036; 83690; 83735; 84100; 85025; 87086; 93005; 93010; 99285-25; J7030

== ENCOUNTER 2018-12-04 22:30 | Emergency (ER) | payer OTHER ==
[2018-12-04 22:37] VITALS: BP 132/94; PULSE 74; TEMP 98; BMI 23.1
--- NOTE | 2018-12-04 23:27 | PDOC ---
Attending Attestation - Resident Resident Name: Varghese Serrato - ED Attending Attestation I have performed the following: I have examined & evaluated the patient, The case was reviewed & discussed with the resident, I agree w/resident's findings & plan, Exceptions are as noted - HPI HPI: 12/05/18 01:03 33M PMH DM was recently admitted to our ICU for DKA left AMA here today after feeling lightheaded while taking an extra dose of insulin. - Physicial Exam PE: 12/05/18 01:09 NAD, AOx3, NCAT PERRL, Neck supple RRR LCTAB Abd soft, nt, nd SINGH, NFD - Medical Decision Making 12/05/18 01:10 ?symptomatic iatrogenic hypoglycemia f/u labs, fsg dispo per clinical course No anion gap Blood glucose stable during observation DC home with pcp follow up
--- NOTE | 2018-12-05 00:02 | PDOC ---
History of Present Illness - General Chief Complaint: Blood Sugar Problem Stated Complaint: DIABETIC EMERGENCY History Source: Patient Exam Limitations: No Limitations - History of Present Illness Initial Comments: 12/05/18 00:02 33 yo M with a hx DM (insulin dependent; multiple DKA episodes in the past with recent AMA after DKA episode approximately 1 week prior) presents to the emergency department with hypoglycemia. Per the patient, his BG was in the " high 200s low 300s" earlier in the day. He took 18 units of 70/30 novolog at approximately 6 pm which showed a BG of 160. He subsequently took an additional 4 units of fast activing insulin and his repeat sugar in 1 hour was 50. He denies SI/HI. Per the patient, he "wanted to see his numbers better". He denies the following: tachypnea, fever, chills, nausea, vomiting, AMS, headache, lightheadedness, chest pain. SOB, abdominal pain, dysuria, hematuria, diarrhea, hematochezia, melena, and leg pain/swelling. Allergies: NKDA Past History - Past Medical History Allergies/Adverse Reactions: Allergies Allergy/AdvReac Type Severity Reaction Status Date / Time No Known Allergies Allergy Verified 12/04/18 22:37 Home Medications: Ambulatory Orders Ipratropium [place] 2 sprays NS BID PRN #1 spray 09/27/17 Insulin (Novolog 70/30) [Novolog Mix 70/30 Vial] 0 ml SQ DAILY 02/22/18 Insulin NPH Hum/Reg Insulin Hm [Novolin 70-30 Flexpen] 0 unit SQ DAILY 02/22/18 Anemia: No Asthma: Yes Cancer: No Cardiac Disorders: No CVA: No COPD: No CHF: No Dementia: No Diabetes: Yes (I) GI Disorders: No Disorders: No HTN: No Hypercholesterolemia: No Liver Disease: No Seizures: No Thyroid Disease: No - Surgical History Abdominal Surgery: No Appendectomy: No Cardiac Surgery: No Cholecystectomy: No GI Surgery: No Lung Surgery: No Neurologic Surgery: No Orthopedic Surgery: No - Immunization History Immunization Up to Date: Yes - Psycho Social/Smoking Cessation Hx Smoking Status: No Smoking History: Current every day smoker Have you smoked in the past 12 months: No Number of Cigarettes Smoked Daily: 0 Information on smoking cessation initiated: No 'Breaking Loose' booklet given: 03/17/16 Hx Alcohol Use: No Drug/Substance Use Hx: No Substance Use Type: Alcohol Hx Substance Use Treatment: No Review of Systems - Review of Systems Able to Perform ROS?: Yes Is the patient limited Cypriot proficient: No Constitutional: No: Chills, Diaphoresis, Fever, Weakness HEENTM: No: Eye Pain, Ear Pain, Nose Pain, Throat Pain, Mouth Pain Respiratory: No: Cough, Shortness of Breath, Productive cough, Hemoptysis Cardiac (ROS): No: Chest Pain, Lightheadedness, Palpitations, Syncope ABD/GI: No: Constipated, Diarrhea, Nausea, Rectal Bleeding, Vomiting, Tarry Stools : No: Burning, Dysuria, Hematuria, Incontinence Musculoskeletal: No: Back Pain, Joint Pain, Neck Pain Integumentary: No: Bruising, Erythema, Rash Neurological: No: Headache, Numbness, Tingling, Tremors Psychiatric: No: Change in Appetite Endocrine: No: Unexplained Weight Gain Hematologic/Lymphatic: No: Anemia *Physical Exam - Vital Signs Last Vital Signs Temp Pulse Resp BP Pulse Ox 98 F 74 18 132/94 99 12/04/18 22:35 12/04/18 22:35 12/04/18 22:35 12/04/18 22:35 12/04/18 22:35 - Physical Exam General Appearance: Yes: Nourished, Appropriately Dressed. No: Apparent Distress, Intoxicated HEENT: positive: EOMI, ZACHERY, Normal Voice, Symmetrical, Pharynx Normal, Hearing Grossly Normal. negative: Pale Conjunctivae, Scleral Icterus (R), Scleral Icterus (L), Muffled/Hoarse voice, Tonsillar Exudate, Tonsillar Erythema, Nasal Congestion, Rhinorrhea, Sinus Tenderness, Excessive drooling Neck: positive: Supple. negative: Tender, Trachea midline, Lymphadenopathy (R) , Lymphadenopathy (L), Tender lateral, Tender midline Respiratory/Chest: positive: Lungs Clear, Normal Breath Sounds. negative: Chest Tender, Respiratory Distress, Accessory Muscle Use, Crackles, Rales, Rhonchi, Stridor, Wheezing Cardiovascular: positive: Regular Rhythm, Regular Rate, S1, S2. negative: Systolic Murmur Gastrointestinal/Abdominal: positive: Normal Bowel Sounds, Flat, Soft. negative : Tender, Distended, Guarding, Rebound Lymphatic: negative: Adenopathy Musculoskeletal: positive: Normal Inspection. negative: CVA Tenderness, Vertebral Tenderness Extremity: positive: Normal Capillary Refill, Normal Inspection, Normal Range of Motion. 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 Initial vitals: Initial Vital Signs Temp Pulse Resp BP Pulse Ox 98 F 74 18 132/94 99 12/04/18 22:35 12/04/18 22:35 12/04/18 22:35 12/04/18 22:35 12/04/18 22:35 Work up: EMS reading of BGM was 81 in the field. patient presents with hypoglycemia likely secondary to over use of insulin. patient denies use of oral anti- glycemics. the patient denies tachypnea, fevers, coughs, and UTI. denies rapid deep labored breathing. due to the patient having recent dka with ama, will obtain labs to elucidate if the patient is in DKA Laboratory Tests 12/04/18 12/05/18 12/05/18 23:54 00:21 00:21 WBC 5.6 RBC 4.00 Hgb 12.6 Hct 37.5 MCV 93.9 MCH 31.4 MCHC 33.5 RDW 13.0 Plt Count 228 MPV 8.5 Absolute Neuts (auto) 2.1 Neutrophils % 37.1 L D Lymphocytes % 47.2 H D Monocytes % 8.8 D Eosinophils % 6.2 H D Basophils % 0.7 Nucleated RBC % 0 VBG pH POC VBG pCO2 POC VBG pO2 VBG HCO3 VBG O2 Sat (Thomas) VBG Base Excess Sodium Potassium Chloride Carbon Dioxide Anion Gap BUN Creatinine Est GFR (CKD-EPI)AfAm Est GFR (CKD-EPI)NonAf POC Glucometer 177 Random Glucose Calcium Total Bilirubin AST ALT Alkaline Phosphatase Total Protein Albumin B-Hydroxybutyrate 0.60 12/05/18 12/05/18 00:21 00:21 WBC RBC Hgb Hct MCV MCH MCHC RDW Plt Count MPV Absolute Neuts (auto) Neutrophils % Lymphocytes % Monocytes % Eosinophils % Basophils % Nucleated RBC % VBG pH 7.38 POC VBG pCO2 41.7 POC VBG pO2 55.1 H VBG HCO3 24.1 VBG O2 Sat (Thomas) 86.8 H VBG Base Excess -0.5 Sodium 139 Potassium 4.0 Chloride 105 Carbon Dioxide 25 Anion Gap 9 BUN 14.3 Creatinine 1.1 Est GFR (CKD-EPI)AfAm 103.13 Est GFR (CKD-EPI)NonAf 88.98 POC Glucometer Random Glucose 168 H Calcium 8.7 Total Bilirubin 0.2 AST 12 L ALT 17 Alkaline Phosphatase 63 Total Protein 6.0 L Albumin 3.3 L B-Hydroxybutyrate labs within normal limits. no evidence of DKA repeat bgm at 177. patient is asymptomatic. will DC with PMD follow up. Dispo: Discharge Discharge - Discharge Information Problems reviewed: Yes Clinical Impression/Diagnosis: Insulin overdose Condition: Good Disposition: HOME - Admission No - Follow up/Referral Referrals: [facility] [place] [Provider Group] - Patient Discharge Instructions Patient Printed Discharge Instructions: DI for Hyperglycemia -- Adult Additional Instructions: you were seen for your blood sugar elevation. your labs were within normal limits. please follow up with your primary medical doctor or the one referred to you within 1 week after discharge. please return to the emergency department if you have worsening symptoms or new concerning symptoms. thank you. - Post Discharge Activity
[2018-12-05 00:44] LABS: BASO % 0.7 % (0-2.0); EOS % 6.2 % (0-4.5); HEMATOCRIT 37.5 % (35.4-49); HEMOGLOBIN 12.6 GM/dL (11.7-16.9); LYMPH % 47.2 % (8-40); MCH 31.4 pg (25.7-33.7); MCHC 33.5 g/dl (32.0-35.9); MEAN CELL VOLUME 93.9 fl (80-96); MEAN PLT VOLUME 8.5 fl (7.5-11.1); MONO % 8.8 % (3.8-10.2); NEUT % 37.1 % (42.8-82.8); PLATELET COUNT 228 K/MM3 (134-434); WHITE BLOOD COUNT 5.6 K/mm3 (4.0-10.0)
[2018-12-05 00:48] LABS: VENOUS PC02 41.7 mmHg (38-52); VENOUS PH 7.38 (7.31-7.41); VENOUS PO2 55.1 mmHg (28-48)
[2018-12-05 01:53] LABS: ALBUMIN 3.3 g/dl (3.4-5.0); BILIRUBIN,TOTAL 0.2 mg/dL (0.2-1); BLOOD UREA NITROGEN 14.3 mg/dL (7-18); CALCIUM 8.7 mg/dL (8.5-10.1); CREATININE 1.1 mg/dL (0.55-1.3)
== END 2018-12-05 02:59 | disposition home or self-care (01) ==
LOC: JER 22:30
DX: T38.3X1A Poisoning by insulin and oral hypoglycemic [antidiabetic] drugs, accidental (unintentional), initial encounter (principal); R42 Dizziness and giddiness; Y92.038 Other place in apartment as the place of occurrence of the external cause; E10.9 Type 1 diabetes mellitus without complications; Z79.4 Long term (current) use of insulin; J45.909 Unspecified asthma, uncomplicated; F17.210 Nicotine dependence, cigarettes, uncomplicated
CPT/HCPCS: 36415; 80053; 82010; 82803; 82962; 85025; 99282-25

== ENCOUNTER 2019-08-12 00:39 | Emergency (ER) | payer OTHER ==
--- NOTE | 2019-08-12 00:54 | PDOC ---
Attending Attestation - Resident Resident Name: Deni Wolf - ED Attending Attestation I have performed the following: I have examined & evaluated the patient, The case was reviewed & discussed with the resident, I agree w/resident's findings & plan - HPI HPI: 08/12/19 03:43 see resident hpi - Physicial Exam PE: 08/12/19 03:43 see resident exam - Medical Decision Making 08/12/19 03:43 33-year-old male noncompliant insulin-dependent diabetic with vague abdominal pain and concerns for covert infection due to contact with a family member CT scan of the abdomen and pelvis shows no acute abnormality Chest x-ray shows no acute infiltrates Patient was hyperglycemic with mildly decreased potassium IV fluid normal saline 2 L bolus given as well as regular insulin Plan for recheck of blood sugar with likely DC home COVID testing pending Discharge - Discharge Information Problems reviewed: Yes Clinical Impression/Diagnosis: Hyperglycemia due to diabetes mellitus - Follow up/Referral - Patient Discharge Instructions - Post Discharge Activity
--- NOTE | 2019-08-12 01:02 | PDOC ---
History of Present Illness - General Chief Complaint: Pain Stated Complaint: ABDOMINAL PAIN Time Seen by Provider: 08/12/19 00:52 History Source: Patient Exam Limitations: No Limitations - History of Present Illness Initial Comments: Spencer is a 33 yo AA M w a hx of T1IDDM c/b multiple episodes of DKA and childhood asthma who presents with 3 days of worsening left sided abdominal pain stating he feels like he has felt in the past when he had DKA. He also states his mouth has been very dry and he feels weak, fatigued, and dehydrated. He reports not being compliant with his insulin at home. He is supposed to be on a long acting insulin daily and short acting insulins but he is not good at taking his meds. He reports that he simply forgets and is really bad at being on top of himself. Says that no-one in his household is able to help him stay on top of his meds. Endorses polyuria, polyphagia, cotton mouth. Patient also endorses multiple episodes of both diarrhea and constipation. Endorses decreased PO intake. Patient acknowledges that he truly wants to take his insulin and be on top of his meds. He is scared that his kidneys are going to be shot bc he is not good at taking his medications. I counselled the patient at length on the urgent need for him to be on top of his meds. He expressed understandings. Additionally, patient states his sister who lives in the house with him was recently swabbed for COVID and was positive. The patient presents today concerne d that he has COVID. Denies loss of smell, taste, chest pain, SOB, or difficulty breathing. Denies fevers, chills, dysuria, frequency, or urgency. PCP: None (States he has never seen Dr. Lira) PSH: none reported Allergies: NKA, NKDA Social Hx: Smokes cigarettes daily. Denies alcohol or illicit drug usage. Lives with mom and sister. Past History - Medical History Allergies/Adverse Reactions: Allergies Allergy/AdvReac Type Severity Reaction Status Date / Time No Known Allergies Allergy Verified 08/12/19 00:51 Home Medications: Ambulatory Orders Ipratropium [place] 2 sprays NS BID PRN #1 spray 09/27/17 Insulin (Novolog 70/30) [Novolog Mix 70/30 Vial] 0 ml SQ DAILY 02/22/18 Insulin NPH Hum/Reg Insulin Hm [Novolin 70-30 Flexpen] 0 unit SQ DAILY 02/22/18 Anemia: No Asthma: Yes Cancer: No Cardiac Disorders: No CVA: No COPD: No CHF: No Dementia: No Diabetes: Yes (I) GI Disorders: No Disorders: No HTN: No Hypercholesterolemia: No Liver Disease: No Seizures: No Thyroid Disease: No - Surgical History Abdominal Surgery: No Appendectomy: No Cardiac Surgery: No Cholecystectomy: No GI Surgery: No Lung Surgery: No Neurologic Surgery: No Orthopedic Surgery: No - Immunization History Immunization Up to Date: Yes - Psycho-Social/Smoking History Smoking Status: No Smoking History: Current every day smoker Have you smoked in the past 12 months: No Number of Cigarettes Smoked Daily: 3 Information on smoking cessation initiated: No 'Breaking Loose' booklet given: 03/17/16 - Substance Abuse Hx (Audit-C & DAST Scrn) How often the patient has a drink containing alcohol: Monthly or less Number of drinks the patient has on a typical day: 1 or 2 Score: In Men: 4 or > Positive; In Women: 3 or > Positive: 1 Screen Result (Pos requires Nsg. Audit-10AR): Negative In the last yr the pt used illegal drug/Rx for NonMed reason: No Score: Yes response is considered Positive: 0 Screen Result (Positive result requires Nsg. DAST-10): Negative Review of Systems - Review of Systems Able to Perform ROS?: Yes Comments:: CONSTITUTIONAL: Present: generalized weakness, malaise, loss of appetite Absent: fever, chills, diaphoresis HEENT: Absent: rhinorrhea, nasal congestion, throat pain, throat swelling, difficulty swallowing, mouth swelling, ear pain, eye pain, visual Changes CARDIOVASCULAR: Absent: chest pain, syncope, palpitations, irregular heart rate, lightheadedness, peripheral edema RESPIRATORY: Absent: cough, shortness of breath, dyspnea with exertion, orthopnea, wheezing, stridor, hemoptysis GASTROINTESTINAL: Present: Abdominal pain, diarrhea, constipation Absent: abdominal distension, nausea, vomiting, melena, hematochezia GENITOURINARY: Absent: dysuria, frequency, urgency, hesitancy, hematuria, flank pain, genital pain MUSCULOSKELETAL: Absent: myalgia, arthralgia, joint swelling SKIN: Absent: rash, itching, pallor HEMATOLOGIC/IMMUNOLOGIC: Absent: easy bleeding, easy bruising, lymphadenopathy, frequent infections ENDOCRINE: Absent: unexplained weight gain, unexplained weight loss, heat intolerance, cold intolerance NEUROLOGIC: Absent: headache, focal weakness or paresthesias, dizziness, unsteady gait, seizure, mental status changes, bladder or bowel incontinence PSYCHIATRIC: Present: anxiety, depression Absent: suicidal or homicidal ideation, hallucinations. *Physical Exam - Vital Signs Last Vital Signs Temp Pulse Resp BP Pulse Ox 98.7 F 76 20 141/92 98 08/12/19 00:49 08/12/19 00:49 08/12/19 00:49 08/12/19 00:49 08/12/19 00:49 - Physical Exam GENERAL: Well developed, well nourished. Awake and alert. No acute distress. HEENT: Dry mucous membranes.Normocephalic, atraumatic. PERRLA, EOMI. No conjunctival pallor. Sclera are non-icteric. Oropharynx is clear. NECK: Supple. Full ROM. No JVD. CARDIOVASCULAR: Regular rate and rhythm. No murmurs, rubs, or gallops. Distal pulses are 2+ and symmetric. PULMONARY: No evidence of respiratory distress. Lungs clear to auscultation bilaterally. No wheezing, rales or rhonchi. ABDOMINAL: There is mild generalized abdominal tenderness. No focal tenderness. Soft. Non-distended. No rebound or guarding. No organomegaly. Normoactive bowel sounds. MUSCULOSKELETAL Normal range of motion at all joints. No bony deformities or tenderness. No CVA tenderness. EXTREMITIES: No cyanosis. No clubbing. No edema. No calf tenderness. SKIN: Warm and dry. Normal capillary refill. No rashes. No jaundice. NEUROLOGICAL: Alert, awake, appropriate. Cranial nerves 2-12 intact. No deficits to light touch in face, upper extremities and lower extremities. No motor deficits in the in face, upper extremities and lower extremities. Normal speech. Gait is normal without ataxia. PSYCHIATRIC: Cooperative. Good eye contact. Appropriate mood and affect. ED Treatment Course - LABORATORY CBC & Chemistry Diagram: 08/12/19 01:35 08/12/19 01:35 - ADDITIONAL ORDERS Additional order review: Laboratory Results 08/12/19 00:58 POC Glucometer 470 08/12/19 00:58 POC Glucometer 470 Medical Decision Making - Medical Decision Making Spencer is a 33 yo AA M w a hx of T1IDDM c/b multiple episodes of DKA and childhood asthma who presents with 3 days of worsening left sided abdominal pain stating he feels like he has felt in the past when he had DKA. He also states his mouth has been very dry and he feels weak, fatigued, and dehydrated. He reports not being compliant with his insulin at home. He is supposed to be on a long acting insulin daily and short acting insulins but he is not good at taking his meds. He reports that he simply forgets and is really bad at being on top of himself. Says that no-one in his household is able to help him stay on top of his meds. Endorses polyuria, polyphagia, cotton mouth. Patient also endorses multiple episodes of both diarrhea and constipation. Endorses decreased PO intake. Patient acknowledges that he truly wants to take his insulin and be on top of his meds. He is scared that his kidneys are going to be shot bc he is not good a t taking his medications. I counselled the patient at length on the urgent need for him to be on top of his meds. He expressed understandings. Additionally, patient states his sister who lives in the house with him was recently swabbed for COVID and was positive. The patient presents today concern ed that he has COVID. Denies loss of smell, taste, chest pain, SOB, or difficulty breathing. Denies fevers, chills, dysuria, frequency, or urgency. Vital Signs Temp Pulse Resp BP Pulse Ox 98.7 F 76 20 141/92 98 08/12/19 00:49 08/12/19 00:49 08/12/19 00:49 08/12/19 00:49 08/12/19 00:49 DDx IBNLT: DKA, HHNS, electrolyte/metabolic disturbance, COVID, PNA Plan: Fingerstick, labs, ekg, CTAP, cxr, re-assess Fingerstick: 470 Labs: CMP Sodium 132 mmol/L (136-145) L 08/12/19 01:35 Potassium 5.4 mmol/L (3.5-5.1) H 08/12/19 01:35 Chloride 96 mmol/L (98-107) L 08/12/19 01:35 Carbon Dioxide 26 mmol/L (21-32) 08/12/19 01:35 Anion Gap 9 MMOL/L (8-16) 08/12/19 01:35 BUN 9.8 mg/dL (7-18) 08/12/19 01:35 Creatinine 1.1 mg/dL (0.55-1.3) 08/12/19 01:35 Est GFR (CKD-EPI)AfAm 103.13 08/12/19 01:35 Est GFR (CKD-EPI)NonAf 88.98 08/12/19 01:35 POC Glucometer 470 UNITS (80-120) 08/12/19 00:58 Random Glucose 536 mg/dL (74-106) H* 08/12/19 01:35 Calcium 9.6 mg/dL (8.5-10.1) 08/12/19 01:35 Total Bilirubin 0.8 mg/dL (0.2-1) 08/12/19 01:35 AST 22 U/L (15-37) 08/12/19 01:35 ALT 24 U/L (13-61) 08/12/19 01:35 Alkaline Phosphatase 99 U/L (45-117) 08/12/19 01:35 Creatine Kinase 208 U/L (26-308) 08/12/19 01:35 Creatine Kinase Index No Result Required. 08/12/19 01:35 CK-MB (CK-2) < 1.0 ng/mL (0.5-3.6) 08/12/19 01:35 Troponin I < 0.02 ng/ml (0.00-0.05) 08/12/19 01:35 Total Protein 7.2 g/dl (6.4-8.2) 08/12/19 01:35 Albumin 3.9 g/dl (3.4-5.0) 08/12/19 01:35 Lipase 124 U/L (73-393) 08/12/19 01:35 Beta-Hydroxybutyrate 22.0 mg/dL (0.2-2.8) H 08/12/19 01:35 - Giving patient 2L - LR - 6 units insulin CTAP: FINDINGS: Lung bases are clear. The visualized cardiac chambers are normal size and configuration. Normal liver, gallbladder, pancreas, spleen, adrenal glands and kidneys. The stomach and abdominal small and large bowel are normal. Moderate amount of solid stool is noted. There is no aortic aneurysm. There is no significant retroperitoneal lymphadenopathy. The pelvic small and large bowel are normal. The appendix is normal. The urinary bladder and prostate gland are normal. No pelvic free fluid is identified. There is no significant pelvic lymphadenopathy. IMPRESSION: No localizing signs for acute pathology Moderate amount of solid stool Repeat fingerstick: mid 384 - Patient feeling better and trending in the right direction - Will administer another 6 units IV insulin and DC with PCP esvin and gregorio ji. The patient appears clinically sober, is A&O x4, and appears to be capable and have capacity to make reasonable decisions. The patient states they are currently in the emergency department, knows who the president is, states the correct time, correct day, and correct month. The patient is ambulatory in ER and has walked around the nursing station multiple times with a straight gait, and is not ataxic. Tolerating PO well, ate a sandwich and drank juice. Denies having any SI or HI. Patient states will not be driving home. I discussed the physical exam findings, ancillary test results and final diagnoses with the patient. I answered all of the patient's questions. The patient was satisfied with the care received and felt comfortable with the discharge plan and treatment plan. The patient will call their primary care physician within 24 hours to arrange follow-up and will return to the Emergency Department with any new, persistent or worsening symptoms. Dispo: Home w PCP and gregorio ji Please note, this clinical encounter is taking place during a federal and state health care emergency attributable to the novel [place] Virus pandemic. The [place] of the Department of Health and Human Services has declared, pursuant to the Public Health Service Act 319F-3 (42 U.S.C. 247d-6d), that a covered persons activities related to medical countermeasures against COVID-19 will be immune from liability under Federal and State law. Discharge - Discharge Information Problems reviewed: Yes Clinical Impression/Diagnosis: Hyperglycemia due to diabetes mellitus Condition: Improved Disposition: HOME - Admission No - Follow up/Referral Referrals: America Tim MD [Staff Physician] - [facility] [place] [facility] [place] [Provider Group] - Patient Discharge Instructions Patient Printed Discharge Instructions: How to Check Your Blood Glucose Additional Instructions: You must check your glucose immediately when you get home and follow up with your primary care doctor and pv design engineer like we discussed in the ER. Remember how important it is for you to take you insluin every single day for the rest of your like like we discussed. You must return to the Emergency Department with any new complaints, if your symptoms persist and do not improve or if you develop any other new or worsening concerns. As discussed, please call to follow up with your Primary Care physician and pv design engineer in 1-2 days to discuss what happened to you in the emergency room, and make sure you are being looked after and taken care of. Your emergency room visit is not complete without this follow up appointment. Thank you for coming to the [place] ER. We hope you feel better soon! Print Language: KITTITIAN - Post Discharge Activity
[2019-08-12] MEDS ORDERED: LACTATED RINGERS SOLUTION 1000 ML INFUS.BAG IV ONE ×2 (01:20→02:21)
[2019-08-12 01:46] LABS: BASO % 0.6 % (0-2.0); EOS % 2.3 % (0-4.5); HEMATOCRIT 45.3 % (35.4-49); HEMOGLOBIN 15.4 GM/dL (11.7-16.9); LYMPH % 32.8 % (8-40); MCH 32.4 pg (25.7-33.7); MEAN CELL VOLUME 95.3 fl (80-96); MEAN PLT VOLUME 8.8 fl (7.5-11.1); MONO % 9.2 % (3.8-10.2); NEUT % 55.1 % (42.8-82.8); PLATELET COUNT 229 K/MM3 (134-434); RBC 4.76 M/mm3 (4.00-5.60); RDW 13.4 % (11.9-15.9); WHITE BLOOD COUNT 5.3 K/mm3 (4.0-10.0)
[2019-08-12 01:49] VITALS: TEMP 98.7; BMI 22.3
[2019-08-12 01:54] LABS: INR 0.81 (0.83-1.09); PROTHROMBIN TIME (PATIENT) 9.5 SEC (9.7-13.0)
[2019-08-12 01:56] LABS: VENOUS BASE EXCESS -0.5 mmol/L (-2-2); VENOUS O2 SATURATION 74.4 % (70-80); VENOUS PCO2 43.7 mmHg (38-52); VENOUS PH 7.374 (7.310-7.410)
[2019-08-12 01:57] LABS: ACTIVATED PTT 26.8 SECONDS (25.2-36.5)
[2019-08-12] MEDS ORDERED: ACETAMINOPHEN 1000 MG/100 ML VIAL (NON FORMULARY) IVPB ONE (02:14)
[2019-08-12 02:18] LABS: ALBUMIN 3.9 g/dl (3.4-5.0); ALK PHOS 99 U/L (45-117); ANION GAP 9 MMOL/L (8-16); BILIRUBIN,TOTAL 0.8 mg/dL (0.2-1); BLOOD UREA NITROGEN 9.8 mg/dL (7-18); CALCIUM 9.6 mg/dL (8.5-10.1); CHLORIDE 96 mmol/L (98-107); CO2 26 mmol/L (21-32); CREATININE 1.1 mg/dL (0.55-1.3); POTASSIUM 5.4 mmol/L (3.5-5.1); SGOT/AST 22 U/L (15-37); SGPT/ALT 24 U/L (13-61); SODIUM 132 mmol/L (136-145); TOT PROT 7.2 g/dl (6.4-8.2)
[2019-08-12] MEDS ORDERED: INSULIN REGULAR HUMAN 100 UNITS/ML *VIAL IVPUSH ONE ×2 (02:19→02:49)
[2019-08-12 02:48] LABS: GLUCOSE,RANDOM 536 mg/dL (74-106)
[2019-08-12] MEDS ORDERED: ACETAMINOPHEN INJECTION 100 ML IVPB ONE (02:53)
[2019-08-12] MEDS ORDERED: INSULIN REGULAR HUMAN 100 UNITS/ML *VIAL ONE (02:54)
[2019-08-12] MEDS ORDERED: POTASSIUM CHLORIDE ORAL LIQUID 20 MEQ/15 ML PO ONE (03:55)
[2019-08-12] MEDS ORDERED: POTASSIUM CHLORIDE ORAL LIQUID 20 MEQ/15 ML ONE (04:21)
[2019-08-12 04:37] VITALS: BP 144/76; PULSE 86
--- NOTE | 2019-08-12 10:36 | EKG ---
Test Reason : Blood Pressure : / mmHG Vent. Rate : 077 BPM Atrial Rate : 077 BPM P-R Int : 148 ms QRS Dur : 084 ms QT Int : 368 ms P-R-T Axes : 132 045 067 degrees QTc Int : 416 ms NORMAL SINUS RHYTHM LOW VOLTAGE QRS ST ELEVATION, CONSIDER EARLY REPOLARIZATION, PERICARDITIS, OR INJURY ABNORMAL ECG Confirmed by Chandana Jensen MD ([id number]) on 08/12/2019 10:36:10 AM Referred By: Confirmed By:Chandana Jensen MD
== END 2019-08-12 04:38 | disposition home or self-care (01) ==
LOC: JER 00:39
PROC: 3E033GC Introduction of Other Therapeutic Substance into Peripheral Vein, Percutaneous Approach (ICD-10-PCS; principal; 2019-08-12)
DX: E11.65 Type 2 diabetes mellitus with hyperglycemia (principal)
CPT/HCPCS: 36415; 71045-TC-FY; 74176-TC; 80053; 82010; 82550; 82553; 82803; 82962; 83690; 84484; 85025; 85610; 85730; 93005; 93010; 99285-25; J0131; U0003

== ENCOUNTER 2019-10-08 14:16 | Emergency (ER) | payer OTHER ==
[2019-10-08 14:41] VITALS: BMI 26.6
--- NOTE | 2019-10-08 15:20 | PDOC ---
History of Present Illness - General Chief Complaint: Blood Sugar Problem Stated Complaint: BLOOD SUGAR PROBLEMS Time Seen by Provider: 10/08/19 15:18 - History of Present Illness Initial Comments: 10/08/19 16:38 34yo M PMH DM1 w/ poor medication and BG monitoring compliance p/w weakness and believed his blood sugar was low this afternoon. He states he started to feel like his blood glucose was dropping - weak and shaky - so he tried eating a sandwich. When the weakness and shakiness did not resolve he called 911. He states he might have taken too much insulin and does not regularly check his BG. He states his BG in the ambulance was 115. Denies LOC, dizziness, vertiginous symptoms, n/v/d/fever/cough/sore throat/recen t illness. 10/08/19 16:43 He currently feels like his BG is still decreasing, but on the BGM monitor it was 197. Past History - Medical History Allergies/Adverse Reactions: Allergies Allergy/AdvReac Type Severity Reaction Status Date / Time No Known Allergies Allergy Verified 10/08/19 14:41 Home Medications: Ambulatory Orders Ipratropium [place] 2 sprays NS BID PRN #1 spray 09/27/17 Insulin (Novolog 70/30) [Novolog Mix 70/30 Vial] 0 ml SQ DAILY 02/22/18 Insulin NPH Hum/Reg Insulin Hm [Novolin 70-30 Flexpen] 0 unit SQ DAILY 02/22/18 Anemia: No Asthma: Yes Cancer: No Cardiac Disorders: No CVA: No COPD: No CHF: No Dementia: No Diabetes: Yes (I) GI Disorders: No Disorders: No HTN: No Hypercholesterolemia: No Liver Disease: No Seizures: No Thyroid Disease: No - Surgical History Abdominal Surgery: No Appendectomy: No Cardiac Surgery: No Cholecystectomy: No GI Surgery: No Lung Surgery: No Neurologic Surgery: No Orthopedic Surgery: No - Immunization History Immunization Up to Date: Yes - Psycho-Social/Smoking History Smoking Status: No Smoking History: Never smoked Have you smoked in the past 12 months: No Number of Cigarettes Smoked Daily: 3 Information on smoking cessation initiated: No 'Breaking Loose' booklet given: 03/17/16 - Substance Abuse Hx (Audit-C & DAST Scrn) How often the patient has a drink containing alcohol: 2-4 times / month Number of drinks the patient has on a typical day: 3 or 4 How often the patient has six or more drinks on one occasion: Never Score: In Men: 4 or > Positive; In Women: 3 or > Positive: 3 Screen Result (Pos requires Nsg. Audit-10AR): Negative In the last yr the pt used illegal drug/Rx for NonMed reason: No Score: Yes response is considered Positive: 0 Screen Result (Positive result requires Nsg. DAST-10): Negative Review of Systems - Review of Systems Able to Perform ROS?: Yes Is the patient limited Sinhala proficient: No Constitutional: No: Chills, Diaphoresis, Fever, Loss of Appetite, Night Sweats HEENTM: No: Blurred Vision, Double Vision, Nose Congestion Respiratory: No: Cough, Orthopnea, Shortness of Breath Cardiac (ROS): No: Chest Pain ABD/GI: Yes: Other (bloating). No: Abdominal Distended, Abd. Pain w/ defecation, Blood Streaked Bowels, Diarrhea, Nausea, Poor Appetite, Poor Fluid Intake, Vomiting : No: Burning, Dysuria, Discharge, Flank Pain, Hematuria Musculoskeletal: No: Joint Swelling, Muscle Pain Integumentary: No: Rash Neurological: Yes: Weakness. No: Headache, Paresthesia, Unsteady Gait Psychiatric: No: Change in Appetite Endocrine: Yes: Increased Urine. No: Excessive Sweating, Change in Weight *Physical Exam - Vital Signs Last Vital Signs Temp Pulse Resp BP Pulse Ox 98.0 F 83 18 138/92 100 10/08/19 14:29 10/08/19 14:29 10/08/19 14:29 10/08/19 14:29 10/08/19 14:29 - Physical Exam General Appearance: Yes: Nourished, Appropriately Dressed, Thin HEENT: positive: Normal Voice. negative: Rhinorrhea, Excessive drooling Neck: positive: Trachea midline Respiratory/Chest: positive: Lungs Clear, Normal Breath Sounds. negative: Labored Respiration, Rapid RR Cardiovascular: positive: Regular Rhythm, Regular Rate, S1, S2. negative: JVD, Murmur Gastrointestinal/Abdominal: positive: Normal Bowel Sounds, Soft. negative: Tender, Pulsatile Mass, Increased Bowel Sounds, Guarding, Rebound, Mass Male Genitalia: negative: CVAT Rectal Exam: positive: deferred Musculoskeletal: positive: Normal Inspection Extremity: positive: Normal Capillary Refill. negative: Tender Neurologic: positive: Alert, Normal Mood/Affect, Normal Response ED Treatment Course - LABORATORY CBC & Chemistry Diagram: 10/08/19 16:00 10/08/19 16:00 Medical Decision Making - Medical Decision Making 10/08/19 18:11 Diabetic patient w/ low compliance p/w weakness -> measure electrolytes, CBC, assess volume status, UA. All labs normal except for BG 222 and Urine 3+ glucosuria. Pt feels better at reassessment. wants to go home. Will d/c w/ PCP George f/u. 10/08/19 18:12 Discharge - Discharge Information Problems reviewed: Yes Clinical Impression/Diagnosis: Abdominal pain Qualifiers: Abdominal location: unspecified location Qualified Code(s): R10.9 - Unspecified abdominal pain Condition: Improved Disposition: HOME - Admission No - Follow up/Referral Referrals: Rubén Bassett MD [Staff Physician] - - Patient Discharge Instructions Additional Instructions: You came to the ED because you felt your blood sugar was going down and you felt weak. In the ED we gave you some fluids and evaluated your blood and urine. Your blood sugar was elevated to 222, and you had glucose in your urine. Please follow up with Dr. Rubén Bassett within 3 days of leaving the ED. He is a doctor who will help optimize your diabetic care. Please come back to the emergency room if this happens again, or you experience any other symptoms that are concerning to you. - Post Discharge Activity
[2019-10-08] MEDS ORDERED: LACTATED RINGERS SOLUTION 1000 ML INFUS.BAG IV ONE ×2 (15:45→17:45)
[2019-10-08] MEDS ORDERED: FAMOTIDINE 20 MG/50 ML IVPB 20 MG/50 ML MG IVPB ONE (16:26)
[2019-10-08 16:41] VITALS: BP 123/87; PULSE 77; TEMP 98.4
--- NOTE | 2019-10-08 16:50 | PDOC ---
Documentation entered by Tootie Miranda SCRIBE, acting as scribe for Penny Dunham MD. Penny Dunhma MD: This documentation has been prepared by the thaiibe, Tootie Miranda SCRIBE, under my direction and personally reviewed by me in its entirety. I confirm that the documentation accurately reflects all work, treatment, procedures, and medical decision making performed by me. Attending Attestation - Resident Resident Name: Demond Munoz - ED Attending Attestation I have performed the following: I have examined & evaluated the patient, The case was reviewed & discussed with the resident, I agree w/resident's findings & plan, Exceptions are as noted - HPI HPI: 10/08/19 16:40 The patient is a 34-year-old male with a past medical history significant for T1DM (with multiple DKA admissions) and asthma who presents to the emergency department for hypoglycemia. The patient reports he had an acute onset of weakness and jitteriness today, and the patient checked his blood glucose level which was noted to be low. The patient reports he doesnt recall the number. The patient reports he had some candy and drank juice, then rechecked his blood glucose, which was noted to be 115. The patient reports it was still lower than his baseline, so he called 911. The patient reports additional complaint of epigastric pain, denies taking any medication for the pain. The patient reports he had 2 cups of vodka yesterday and had too much insulin, which might be the reason for the hypoglycemia today. Denies fever, chills, chest pain, shortness of breath. - Physicial Exam PE: 10/08/19 16:40 GENERAL: Awake, alert, and fully oriented, in no acute distress HEAD: No signs of trauma EYES: PERRLA, EOMI, sclera anicteric, conjunctiva clear ENT: Auricles normal inspection, hearing grossly normal, nares patent, oropharynx clear without exudates. Moist mucosa NECK: Normal ROM, supple, no lymphadenopathy, JVD, or masses LUNGS: Breath sounds equal, clear to auscultation bilaterally. No wheezes, and no crackles HEART: Regular rate and rhythm, normal S1 and S2, no murmurs, rubs or gallops ABDOMEN: Soft, nontender, normoactive bowel sounds. No guarding, no rebound. No masses EXTREMITIES: Normal range of motion, no edema. No clubbing or cyanosis. No cords, erythema, or tenderness BACK: No midline spinal tenderness in cervical/thoracic/lumbar region NEUROLOGICAL: Normal speech, cranial nerves intact, negative pronator drift, 5/5 strength in all 4 extremities, normal sensation to light touch in all 4 extremities, normal cerebellar exam, normal gait, normal reflexes and tone SKIN: Warm, Dry, normal turgor, no rashes or lesions noted. - Medical Decision Making 10/08/19 16:28 34-year-old male with a history of type 1 diabetes presents the emergency department with low blood sugar and epigastric pain Patient does not remember how low his blood sugar was but states it only improved to 115 after candy and juice prompting him to come to the emergency department. He admits to forgetting how much insulin he took last night as he was drinking alcohol. Vitals within normal limits, exam with mild epigastric tenderness to palpation. His fingerstick in the emergency department is 197. It is possible that the patient took too much insulin last night in the setting of etoh use. Will obtain labs to make sure his kidney function is within normal limits. With regards to epigastric pain, will obtain lipase to rule out pancreatitis. Will give Pepcid and reassess.
[2019-10-08 17:03] LABS: HEMATOCRIT 45.5 % (35.4-49); HEMOGLOBIN 15.4 GM/dL (11.7-16.9); MCH 32.3 pg (25.7-33.7); MCHC 33.8 g/dl (32.0-35.9); MEAN CELL VOLUME 95.4 fl (80-96); MEAN PLT VOLUME 8.6 fl (7.5-11.1); PLATELET COUNT 222 K/MM3 (134-434); RBC 4.77 M/mm3 (4.00-5.60); RDW 13.5 % (11.9-15.9); WHITE BLOOD COUNT 4.4 K/mm3 (4.0-10.0)
[2019-10-08 17:27] LABS: VENOUS O2 SATURATION 65.7 % (70-80); VENOUS PCO2 51.5 mmHg (38-52); VENOUS PH 7.361 (7.310-7.410)
[2019-10-08 17:29] LABS: URINE APPEARANCE CLEAR; URINE BILIRUBIN NEGATIVE (NEGATIVE); URINE COLOR YELLOW; URINE GLUCOSE (UA) 3+ (NEGATIVE); URINE KETONE NEGATIVE (NEGATIVE); URINE LEUK ESTERASE NEGATIVE (NEGATIVE); URINE NITRITE NEGATIVE (NEGATIVE); URINE PROTEIN NEGATIVE (NEGATIVE); URINE UROBILINOGEN 0.2 mg/dL (0.2-1.0)
[2019-10-08 17:37] LABS: ALBUMIN 3.7 g/dl (3.4-5.0); BILIRUBIN,TOTAL 0.3 mg/dL (0.2-1); BLOOD UREA NITROGEN 9.6 mg/dL (7-18); CALCIUM 9.1 mg/dL (8.5-10.1); POTASSIUM 4.6 mmol/L (3.5-5.1); TOT PROT 6.9 g/dl (6.4-8.2)
== END 2019-10-08 18:52 | disposition home or self-care (01) ==
LOC: JER 14:16
PROC: 3E033GC Introduction of Other Therapeutic Substance into Peripheral Vein, Percutaneous Approach (ICD-10-PCS; principal; 2019-10-08)
DX: R10.9 Unspecified abdominal pain (principal)
CPT/HCPCS: 36415; 80053; 81003; 82010; 82803; 82962; 83690; 85027; 99284-25

== ENCOUNTER 2019-10-20 14:02 | Inpatient (IN) | payer OTHER ==
--- NOTE | 2019-10-20 14:36 | PDOC ---
Rapid Medical Evaluation Chief Complaint: Pain, Acute Time Seen by Provider: 10/20/19 14:31 Medical Evaluation: Allergies Allergy/AdvReac Type Severity Reaction Status Date / Time No Known Allergies Allergy Verified 10/08/19 14:41 10/20/19 14:32 I have performed a brief in-person evaluation of this patient. The patient presents with a chief complaint of: IDDM non-complaint with insulin present with complains of abdominal pain and nausea. pt was seen over a week ago for same complains and glucose was found to be elevated. Denies fever Pertinent physical exam findings: afebrile. walking around waiting room in distress I have ordered the following: CBC, CMP, fingerstick The patient will proceed to the ED for further evaluation. Discharge Disposition - Diagnosis Abdominal pain Qualifiers: Abdominal location: generalized Qualified Code(s): R10.84 - Generalized abdominal pain - Discharge Dispostion Condition at time of disposition: Stable - Referrals - Patient Instructions - Post Discharge Activity
[2019-10-20] MEDS ORDERED: METOCLOPRAMIDE HCL INJECTION 10 MG/2 ML VIAL IVPB ONE (14:37)
[2019-10-20] MEDS ORDERED: FAMOTIDINE 20 MG/50 ML IVPB 20 MG/50 ML MG IVPB ONE (14:37)
[2019-10-20] MEDS ORDERED: SODIUM CHLORIDE 1,000 ML IV STA (14:37)
--- NOTE | 2019-10-20 15:27 | PDOC ---
*Physical Exam - Vital Signs Last Vital Signs Temp Pulse Resp BP Pulse Ox 98.8 F 95 H 20 108/71 100 10/20/19 14:32 10/20/19 14:32 10/20/19 14:32 10/20/19 14:32 10/20/19 14:32 - Physical Exam 10/20/19 15:26 agree with ANJU note Heart Score/ECG Review #1 ECG reviewed & interpreted by me at: 16:01 General ECG Interpretation: Sinus Rhythm, Normal Rate (92), Normal Intervals, No acute ischemic changes (peaked T isolated V3) Medical Decision Making - Medical Decision Making 10/20/19 15:26 Pt seen by the Advanced Practice Provider under my direct supervision Pt interviewed and examined Ancillary studies reviewed I agree with plan as outlined by the Advanced Practice Provider 34-year-old male with history of insulin-dependent diabetes, no noncompliance with medications recently seen here with hyperglycemia presents now with intractable nausea/vomiting/abdominal pain in the setting of persistent noncompliance with insulin. Check labs including VBG and beta hydroxybutyrate IV fluid resuscitation, antiemetics Disposition accordingly, likely admission pending DKA work-up Discharge - Discharge Information Problems reviewed: Yes Clinical Impression/Diagnosis: IDDM (insulin dependent diabetes mellitus) Abdominal pain Qualifiers: Abdominal location: generalized Qualified Code(s): R10.84 - Generalized abdominal pain Condition: Stable - Follow up/Referral - Patient Discharge Instructions - Post Discharge Activity
--- NOTE | 2019-10-20 15:32 | PDOC ---
History of Present Illness - General Chief Complaint: Pain, Acute Stated Complaint: NAUSEA/ABD.PAIN Time Seen by Provider: 10/20/19 14:31 History Source: Patient Exam Limitations: No Limitations Past History - Travel History Traveled outside of the country in the last 30 days: No Close contact w/someone who was outside of country & ill: No - Medical History Allergies/Adverse Reactions: Allergies Allergy/AdvReac Type Severity Reaction Status Date / Time No Known Allergies Allergy Verified 10/20/19 14:31 Home Medications: Ambulatory Orders Ipratropium [place] 2 sprays NS BID PRN #1 spray 09/27/17 Insulin (Novolog 70/30) [Novolog Mix 70/30 Vial] 0 ml SQ DAILY 02/22/18 Insulin NPH Hum/Reg Insulin Hm [Novolin 70-30 Flexpen] 0 unit SQ DAILY 02/22/18 Anemia: No Asthma: Yes Cancer: No Cardiac Disorders: No CVA: No COPD: No CHF: No Dementia: No Diabetes: Yes (I) GI Disorders: No Disorders: No HTN: No Hypercholesterolemia: No Liver Disease: No Seizures: No Thyroid Disease: No - Surgical History Abdominal Surgery: No Appendectomy: No Cardiac Surgery: No Cholecystectomy: No GI Surgery: No Lung Surgery: No Neurologic Surgery: No Orthopedic Surgery: No - Immunization History Immunization Up to Date: Yes - Psycho-Social/Smoking History Smoking Status: No Smoking History: Current every day smoker Have you smoked in the past 12 months: No Number of Cigarettes Smoked Daily: 3 Information on smoking cessation initiated: No 'Breaking Loose' booklet given: 03/17/16 - Substance Abuse Hx (Audit-C & DAST Scrn) How often the patient has a drink containing alcohol: 4 0r more times/wk Number of drinks the patient has on a typical day: 3 or 4 How often the patient has six or more drinks on one occasion: Less than monthly Score: In Men: 4 or > Positive; In Women: 3 or > Positive: 6 Screen Result (Pos requires Nsg. Audit-10AR): Positive In the last yr the pt used illegal drug/Rx for NonMed reason: No Score: Yes response is considered Positive: 0 Screen Result (Positive result requires Nsg. DAST-10): Negative Review of Systems - Review of Systems Able to Perform ROS?: Yes Comments:: 10/20/19 15:30 CONSTITUTIONAL: Absent: fever, chills, diaphoresis, generalized weakness, malaise, loss of appetite HEENT: Absent: rhinorrhea, nasal congestion, throat pain, throat swelling, difficulty swallowing, mouth swelling, ear pain, eye pain, visual Changes CARDIOVASCULAR: Absent: chest pain, loss of consciousness, palpitations, irregular heart rate, peripheral edema RESPIRATORY: Absent: cough, shortness of breath, dyspnea with exertion, orthopnea, wheezing, stridor, hemoptysis GASTROINTESTINAL: Absent: abdominal pain, abdominal distension, nausea, vomiting, diarrhea, constipation, melena, hematochezia GENITOURINARY: Absent: dysuria, frequency, urgency, hesitancy, hematuria, flank pain, genital pain MUSCULOSKELETAL: Absent: myalgia, arthralgia, joint swelling SKIN: Absent: rash, itching, pallor HEMATOLOGIC/IMMUNOLOGIC: Absent: easy bleeding, easy bruising, lymphadenopathy, frequent infections ENDOCRINE: Absent: unexplained weight gain, unexplained weight loss, heat intolerance, cold intolerance NEUROLOGIC: Absent: headache, focal weakness or paresthesias, dizziness, unsteady gait, seizure, mental status changes, bladder or bowel incontinence PSYCHIATRIC: Absent: anxiety, depression, suicidal or homicidal ideation, hallucinations. Is the patient limited [place] proficient: No *Physical Exam - Vital Signs Last Vital Signs Temp Pulse Resp BP Pulse Ox 98.8 F 95 H 20 108/71 100 10/20/19 14:32 10/20/19 14:32 10/20/19 14:32 10/20/19 14:32 10/20/19 14:32 - Physical Exam 10/20/19 18:31 GENERAL: Well developed, well nourished. Awake and alert. Patient appears uncomfortable, Actively vomiting. HEENT: Normocephalic, atraumatic. PERRLA, EOMI. No conjunctival pallor. Sclera are non- icteric. Moist mucous membranes. Oropharynx is clear. NECK: Supple. Full ROM. No lymphadenopathy. CARDIOVASCULAR: Regular rate and rhythm. No murmurs, rubs, or gallops. Distal pulses are 2+ and symmetric. PULMONARY: No evidence of respiratory distress. Lungs clear to auscultation bilaterally. No wheezing, rales or rhonchi. ABDOMINAL: Diffuse abdominal tenderness with no focal findings. Soft. Non-distended. No rebound or guarding. No organomegaly. Normoactive bowel sounds. MUSCULOSKELETAL Normal range of motion at all joints. No bony deformities or tenderness. No CVA tenderness. EXTREMITIES: No cyanosis. No clubbing. No edema. No calf tenderness. SKIN: Warm and dry. Normal capillary refill. No rashes. No jaundice. NEUROLOGICAL: Alert, awake, appropriate. Cranial nerves 2-12 intact. No deficits to light touch and temperature in face, upper extremities and lower extremities. No motor deficits in the in face, upper extremities and lower extremities. Normoreflexic in the upper and lower extremities. Normal speech. Toes are down-going bilaterally. Gait is normal without ataxia. PSYCHIATRIC: Cooperative. Good eye contact. Appropriate mood and affect. ED Treatment Course - LABORATORY CBC & Chemistry Diagram: 10/21/19 06:00 10/21/19 06:00 Medical Decision Making - Medical Decision Making 10/20/19 18:32 Patient is a 34-year-old male with past medical history of insulin-dependent diabetes, noncompliant with his medication, presents to the ER today for nausea and vomiting for the past 2 days. He states his symptoms have gotten progressively worse and that he cannot keep anything down including water. He has not taken his insulin today or his blood sugar. Denies fevers, chills, sore throat, difficulty breathing, chest pain, diarrhea and constipation. Admits to dry mouth and polydipsia. A/P: DKA On exam patient has a grossly tender abdomen without focal findings. Given patient's history and HPI, concerning for DKA. Basic labs, EKG sent. Patient has an anion gap of 31, beta hydroxybutyrate of 92, insulin of 592 potassium 6 slightly hemolyzed. Patient to be started on insulin drip with normal half-normal saline with 20 meq of potassium EKG: Rate 92 bpm, normal sinus rhythm. Normal intervals, rightward axis, no acute ST-T wave changes, biatrial enlargement. Abnormal ECG. ReglanErinan given for nausea vomiting. Admit to ICU, spoke with ICU resident Dr. Causey. Discharge - Discharge Information Problems reviewed: Yes Clinical Impression/Diagnosis: IDDM (insulin dependent diabetes mellitus) Abdominal pain Qualifiers: Abdominal location: generalized Qualified Code(s): R10.84 - Generalized abdominal pain DKA (diabetic ketoacidoses) Qualifiers: Diabetes mellitus type: type 1 Diabetes mellitus complication detail: without coma Qualified Code(s): E10.10 - Type 1 diabetes mellitus with ketoacidosis without coma Condition: Stable - Admission Yes - Follow up/Referral - Patient Discharge Instructions - Post Discharge Activity
[2019-10-20] MEDS ORDERED: METOCLOPRAMIDE HCL INJECTION 10 MG/2 ML VIAL ONE (16:02)
[2019-10-20] MEDS ORDERED: ACETAMINOPHEN 1000 MG/100 ML VIAL (NON FORMULARY) IVPB ONE (16:57)
[2019-10-20 17:47] LABS: BILIRUBIN,TOTAL 1.2 mg/dL (0.2-1); CALCIUM 10.2 mg/dL (8.5-10.1); CREATININE 1.7 mg/dL (0.55-1.3)
[2019-10-20] MEDS ORDERED: INSULIN REGULAR HUMAN 100 UNITS/ML *VIAL* (FOR IVP) IVPUSH ONE (17:50)
[2019-10-20] MEDS ORDERED: INSULIN REGULAR 100 UNITS in SODIUM CHLORIDE 99 ML IVPB SCH (18:00)
[2019-10-20] MEDS ORDERED: ONDANSETRON 4 MG/2 ML VIAL IVPUSH ONE (18:14)
[2019-10-20] MEDS ORDERED: SODIUM CHLORIDE 0.45%/POT 20 MEQ/1,000 ML INFUS.BAG IV SCH (18:15)
[2019-10-20] MEDS ORDERED: POTASSIUM CHLORIDE 10 MEQ in SODIUM CHLORIDE 0.45% 1,000 ML IVPB SCH (18:15)
[2019-10-20] MEDS ORDERED: ACETAMINOPHEN INJECTION 100 ML IVPB ONE (18:18)
--- NOTE | 2019-10-20 18:35 | CONSULT ---
Consultation: REQUESTING PROVIDER: Dr. Bethea CONSULT REQUEST: We have been asked to medically evaluate this patient for ICU admission for DKA HISTORY OF PRESENT ILLNESS: This is a 34 year old male with PMH of DM I with multiple admissions at [facility] (last one 1 year ago). Pt was unwilling to provide a history during examination, appeared to be AOx2 and was responding to questions in a few words and stated he was too tired. Spoke with his mother Rosalia, who he lives with. She states he had been drinking yesterday evening, and woke up around 2PM today. After he woke up, pt began complaining of nausea, vomiting, and abdominal cramps, which prompted his admission to the ER. She states the pt has had DM for the past 20 years. He checks his BGMs infrequently, is on sliding scale insulin although she believes he does not take it regularly. She denies any other recent illnesses, fevers, chills, or any other complaints over the past few weeks. REVIEW OF SYSTEMS: CONSTITUTIONAL: Absent: fever, chills, diaphoresis, generalized weakness, malaise, loss of appetite, weight change HEENT: Absent: rhinorrhea, nasal congestion, throat pain, throat swelling, difficulty swallowing, mouth swelling, ear pain, eye pain, visual changes CARDIOVASCULAR: Absent: chest pain, syncope, palpitations, irregular heart rate, lightheadedness, peripheral edema RESPIRATORY: Absent: cough, shortness of breath, dyspnea with exertion, orthopnea, wheezing, stridor, hemoptysis GASTROINTESTINAL: Absent: abdominal pain, abdominal distension, nausea, vomiting, diarrhea, constipation, melena, hematochezia GENITOURINARY: Absent: dysuria, frequency, urgency, hesitancy, hematuria, flank pain, genital pain MUSCULOSKELETAL: Absent: myalgia, arthralgia, joint swelling, back pain, neck pain SKIN: Absent: rash, itching, pallor HEMATOLOGIC/IMMUNOLOGIC: Absent: easy bleeding, easy bruising, lymphadenopathy, frequent infections ENDOCRINE: Absent: unexplained weight gain, unexplained weight loss, heat intolerance, cold intolerance NEUROLOGIC: Absent: headache, focal weakness or paresthesias, dizziness, unsteady gait, seizure, mental status changes, bladder or bowel incontinence PSYCHIATRIC: Absent: anxiety, depression, suicidal or homicidal ideation, hallucinations. PHYSICAL EXAMINATION Vital Signs - 24 hr 10/20/19 14:32 Temperature 98.8 F Pulse Rate 95 H Respiratory 20 Rate Blood Pressure 108/71 O2 Sat by Pulse 100 Oximetry (%) GENERAL: AOx2, drowsy EYES: Pupils equal, round and reactive to light, extraocular movements intact, sclera anicteric, conjunctiva clear. No lid lag. LUNGS: Breath sounds equal, clear to auscultation bilaterally. No wheezes, and no crackles. No accessory muscle use. HEART: RRR, no murmurs ABDOMEN: Soft, nontender, not distended MUSCULOSKELETAL: Normal range of motion at all joints. No bony deformities or tenderness. No CVA tenderness. LOWER EXTREMITIES: 2+ pulses, warm, well-perfused. No calf tenderness. No peripheral edema. NEUROLOGICAL: Cranial nerves II-XII intact. Normal speech. Normal gait. PSYCHIATRIC: Cooperative. Good eye contact. Appropriate mood and affect. SKIN: Warm, dry, normal turgor, no rashes or lesions noted. Laboratory Results - last 24 hr 10/20/19 10/20/19 10/20/19 15:55 15:55 16:30 WBC Cancelled Corrected WBC (auto) Cancelled RBC Cancelled Hgb Cancelled Hct Cancelled MCV Cancelled MCH Cancelled MCHC Cancelled RDW Cancelled Plt Count Cancelled MPV Cancelled Absolute Neuts (auto) Cancelled Neutrophils % Cancelled Lymphocytes % Cancelled Monocytes % Cancelled Eosinophils % Cancelled Basophils % Cancelled Nucleated RBC % Cancelled Platelet Estimate Cancelled Platelet Comment Cancelled VBG pH POC VBG pCO2 POC VBG pO2 VBG HCO3 VBG O2 Sat (Thomas) VBG Base Excess Sodium 131 L Potassium 6.0 H Chloride 92 L Carbon Dioxide 9 L Anion Gap 31 H BUN 30.0 H Creatinine 1.7 H Est GFR (CKD-EPI)AfAm 60.50 Est GFR (CKD-EPI)NonAf 52.20 Random Glucose 529 H* Lactic Acid 4.2 H* Calcium 10.2 H Total Bilirubin 1.2 H AST 40 H ALT 31 Alkaline Phosphatase 92 Total Protein 9.0 H Albumin 5.0 Lipase Beta-Hydroxybutyrate 10/20/19 10/20/19 16:30 16:30 WBC Corrected WBC (auto) RBC Hgb Hct MCV MCH MCHC RDW Plt Count MPV Absolute Neuts (auto) Neutrophils % Lymphocytes % Monocytes % Eosinophils % Basophils % Nucleated RBC % Platelet Estimate Platelet Comment VBG pH Cancelled POC VBG pCO2 Cancelled POC VBG pO2 Cancelled VBG HCO3 Cancelled VBG O2 Sat (Thomas) Cancelled VBG Base Excess Cancelled Sodium Potassium Chloride Carbon Dioxide Anion Gap BUN Creatinine Est GFR (CKD-EPI)AfAm Est GFR (CKD-EPI)NonAf Random Glucose Lactic Acid Calcium Total Bilirubin AST ALT Alkaline Phosphatase Total Protein Albumin Lipase 44 L Beta-Hydroxybutyrate 91.4 H Active Medications Generic Name Dose Route Start Last Admin Trade Name Freq PRN Reason Stop Dose Admin Chlorhexidine Gluconate 1 applic 10/20/19 22:00 Hibiclens For Decolonization - TP HS SENG Heparin Sodium (Porcine) 5,000 unit 10/21/19 02:00 Heparin - SQ Q8H-IV SENG Insulin Human Regular 100 100 mls @ 5.897 mls/hr 10/20/19 18:00 units/ Sodium Chloride IVPB TITR SENG Protocol 0.1 UNITS/KG/HR Potassium Chloride/Sodium Chloride 20 meq in 1,000 mls @ 125 mls/hr 10/20/19 18:15 1/2ns+20meq Kcl IV ASDIR SENG Mupirocin 1 applic 10/20/19 22:00 Bactroban Ointment (For Decolonization) - NS 10/25/19 21:59 BID SENG ASSESSMENT/PLAN: 34 year old male with PMH of DM I with multiple admissions at [facility] (last one 1 year ago). Presented to the ER with nausea, vomiting, and abdominal cramps since 2PM today. In the ER pt was found to have blood glucose of 530 with positive ketones, admitted to ICU for management of DKA. #STATION INSPECTOR - AOx2, will monitor for improvement as IVF continue #CVS - EKG without ST, T wave changes - Stable #Resp - Stable #Renal - BUN/Cr: 30/1.7, baseline seems to be around 1.0-1.1 - LILIAN, likely 2/2 hypovolemia - Will continue to hydrate and monitor #Endo - DKA: Anion gap 31, Glucose 529, Beta Hydroxybutyrate 91.4, LA 4.2 - BGMs Q1H until glucose <250, CMP Q4H - BGM target for 1H after starting drip is at least under 480 (530-50), will double insulin drip if - Insulin started @ 5.89U/HR (0.1 U/kg/HR) - Started on 1/2NS + 20mEQ K, will switch to NS @ 150 without K (K is over 5.5 and corrected Na is under 140) #FEN - Na 131 (corrected 138), K 6.0 - 1/2NS + 20mEQ K @ 125/HR #Prophylaxis - Protonix 40 - Heparin 5k TID #Dispo - Will monitor in ICU until gap closes ATTENDING PHYSICIAN STATEMENT I saw and evaluated the patient. I reviewed the resident's note and discussed the case with the resident. I agree with the resident's findings and plan as documented. SUBJECTIVE: OBJECTIVE: ASSESSMENT AND PLAN:
[2019-10-20] MEDS ORDERED: SODIUM CHLORIDE 1,000 ML IV SCH (19:45)
[2019-10-20] MEDS ORDERED: ONDANSETRON 4 MG/2 ML VIAL IVPUSH PRN (19:46)
[2019-10-20 20:26] LABS: BASO % 0.1 % (0-2.0); EOS % 0.1 % (0-4.5); HEMOGLOBIN 15.7 GM/dL (11.7-16.9); LYMPH % 7.9 % (8-40); MCH 32.4 pg (25.7-33.7); MCHC 32.8 g/dl (32.0-35.9); MEAN CELL VOLUME 98.7 fl (80-96); MEAN PLT VOLUME 9.6 fl (7.5-11.1); MONO % 5.5 % (3.8-10.2); NEUT % 86.4 % (42.8-82.8); PLATELET COUNT 243 K/MM3 (134-434); RBC 4.86 M/mm3 (4.00-5.60); RDW 13.6 % (11.9-15.9); WHITE BLOOD COUNT 20.2 K/mm3 (4.0-10.0)
[2019-10-20 21:39] LABS: ARTERIAL BLD GAS O2 SATURATION 95.9 mmHg (95-98); ARTERIAL BLOOD GAS BASE EXCESS -16.9 mmol/L (-2-2); ARTERIAL BLOOD GAS PO2 96.9 mmHg (80-100)
[2019-10-20 21:43] LABS: ALLENS TEST NEGATIVE
[2019-10-20] MEDS ORDERED: DEXTROSE 5%-0.45% SALINE 1,000 ML IV SCH (23:45)
[2019-10-20] MEDS ORDERED: DEXTROSE 5%-NORMAL SALINE 1,000 ML IV SCH (23:45)
[2019-10-20 23:46] LABS: ALBUMIN 4.2 g/dl (3.4-5.0); BILIRUBIN,TOTAL 1.1 mg/dL (0.2-1); BLOOD UREA NITROGEN 26.7 mg/dL (7-18); CALCIUM 9.3 mg/dL (8.5-10.1); CREATININE 1.6 mg/dL (0.55-1.3); POTASSIUM 5.4 mmol/L (3.5-5.1); TOT PROT 7.7 g/dl (6.4-8.2)
[2019-10-20] MEDS: CHLORHEXIDINE GLUCONATE 4% CLEANSER FOR DECOLONIZATION TP SCH (23:55)
[2019-10-21 00:12] LABS: ARTERIAL BLD GAS O2 SATURATION 96.5 mmHg (95-98); ARTERIAL BLOOD GAS BASE EXCESS -16.3 mmol/L (-2-2); ARTERIAL BLOOD GAS PO2 99.7 mmHg (80-100); ARTERIAL BLOOD GAS pH 7.215 (7.350-7.450)
[2019-10-21 00:15] VITALS: BMI 21.6
[2019-10-21] MEDS ORDERED: INSULIN REGULAR HUMAN 100 UNITS/ML *VIAL* (FOR IVP) IVPUSH ONE (00:50)
[2019-10-21] MEDS ORDERED: INSULIN REGULAR 100 UNITS in SODIUM CHLORIDE 99 ML IVPB SCH (01:00)
[2019-10-21 03:55] LABS: ALBUMIN 3.7 g/dl (3.4-5.0); BILIRUBIN,TOTAL 0.8 mg/dL (0.2-1); BLOOD UREA NITROGEN 22.6 mg/dL (7-18); CREATININE 1.5 mg/dL (0.55-1.3); POTASSIUM 4.5 mmol/L (3.5-5.1); TOT PROT 6.9 g/dl (6.4-8.2)
[2019-10-21] MEDS ORDERED: INSULIN (LEVEMIR) 100 UNITS/ML UNITS SQ SCH ×4 (04:08→22:00)
[2019-10-21] MEDS: HEPARIN NA (PORCINE) 5,000 UNITS/ML 1ML VIAL SQ SCH ×3 (05:35→21:55)
[2019-10-21] MEDS ORDERED: DEXTROSE 10%-WATER - 500 ML IV SCH (06:45)
[2019-10-21] MEDS ORDERED: DEXTROSE 10%-WATER - 1,000 ML IV SCH (06:45)
[2019-10-21 07:06] LABS: ALBUMIN 3.6 g/dl (3.4-5.0); BILIRUBIN,TOTAL 0.9 mg/dL (0.2-1); CALCIUM 8.7 mg/dL (8.5-10.1); CREATININE 1.4 mg/dL (0.55-1.3); MAGNESIUM 2.7 mg/dL (1.8-2.4); PHOSPHOROUS 2.2 mg/dL (2.5-4.9); POTASSIUM 4.3 mmol/L (3.5-5.1); TOT PROT 6.5 g/dl (6.4-8.2)
[2019-10-21] MEDS ORDERED: POTASSIUM CHLORIDE TABS 20 MEQ TABLET.ER (FP) PO ONE (07:07)
[2019-10-21 07:34] LABS: BASO % 0.3 % (0-2.0); HEMATOCRIT 42.9 % (35.4-49); HEMOGLOBIN 14.6 GM/dL (11.7-16.9); LYMPH % 12.5 % (8-40); MCH 32.6 pg (25.7-33.7); MCHC 34.1 g/dl (32.0-35.9); MEAN CELL VOLUME 95.5 fl (80-96); MEAN PLT VOLUME 8.7 fl (7.5-11.1); MONO % 7.6 % (3.8-10.2); NEUT % 79.6 % (42.8-82.8); PLATELET COUNT 208 K/MM3 (134-434); RBC 4.49 M/mm3 (4.00-5.60); RDW 13.3 % (11.9-15.9); WHITE BLOOD COUNT 16.6 K/mm3 (4.0-10.0)
[2019-10-21 08:53] LABS: ARTERIAL BLD GAS O2 SATURATION 96.2 mmHg (95-98); ARTERIAL BLOOD GAS BASE EXCESS -6.3 mmol/L (-2-2); ARTERIAL BLOOD GAS PO2 87.5 mmHg (80-100); ARTERIAL BLOOD GAS pH 7.331 (7.350-7.450)
[2019-10-21 08:55] LABS: ALLENS TEST POSITIVE
[2019-10-21] MEDS: MUPIROCIN 2% TOPICAL OINTMENT FOR DECOLONIZATION NS SCH ×2 (09:13→21:55)
[2019-10-21] MEDS ORDERED: POTASSIUM CHLORIDE TABS 10 MEQ TABLET.ER (FP) PO SCH (10:00)
[2019-10-21] MEDS: INSULIN SLIDING SCALE (NOVOLOG) 1 VIAL SQ SCH ×3 (10:44→17:03)
--- NOTE | 2019-10-21 12:54 | EKG ---
Test Reason : Blood Pressure : / mmHG Vent. Rate : 092 BPM Atrial Rate : 092 BPM P-R Int : 140 ms QRS Dur : 082 ms QT Int : 356 ms P-R-T Axes : 074 059 061 degrees QTc Int : 440 ms NORMAL SINUS RHYTHM BIATRIAL ENLARGEMENT ABNORMAL ECG WHEN COMPARED WITH ECG OF 12-AUG-2019 01:49, SINUS RHYTHM HAS REPLACED ECTOPIC ATRIAL RHYTHM NONSPECIFIC T WAVE ABNORMALITY NO LONGER EVIDENT IN INFERIOR LEADS Confirmed by MD KAR, SHIRA ([id number]) on 10/21/2019 12:54:24 PM Referred By: Confirmed By:SHIRA LAKHANI MD
--- NOTE | 2019-10-21 12:59 | PN ---
Teaching Attending Note Name of Resident: Cassi Spears ATTENDING PHYSICIAN STATEMENT I saw and evaluated the patient. I reviewed the resident's note and discussed the case with the resident. I agree with the resident's findings and plan as documented. SUBJECTIVE: Pt seen and examined in the ICU. Off insulin gtt. Anion gap closed. Tolerating PO. OBJECTIVE: Vital Signs Period Temp Pulse Resp BP Sys/Eid Pulse Ox Last 24 Hr 98.3 F-98.8 F 63-106 14-24 108-156/70-86 98-100 Intake & Output 10/18/19 10/19/19 10/20/19 10/21/19 23:59 23:59 23:59 23:59 Intake Total 2100 822.8 Output Total 600 Balance 2100 222.8 Weight 58.967 kg 57.153 kg Gen: NAD at rest Heart: RRR Lung: decreased breath sounds at the bases Abd: soft, nontender Ext: no edema CBC, BMP 10/21/19 06:00 10/21/19 06:00 Active Medications Chlorhexidine Gluconate (Hibiclens For Decolonization -) 1 applic TP HS [facility] Last Admin: 10/20/19 23:55 Dose: 1 applic Documented by: Heparin Sodium (Porcine) (Heparin -) 5,000 unit SQ TID SENG Last Admin: 10/21/19 05:35 Dose: 5,000 unit Documented by: Insulin Human Regular 100 (units/ Sodium Chloride) 100 mls @ 2.858 mls/hr IVPB TITR [facility]; Protocol Last Titration: 10/21/19 04:25 Dose: 0.05 units/kg/hr, 2.858 mls/hr Documented by: Dextrose (D10w -) 1,000 mls @ 150 mls/hr IV ASDIR [facility] Last Admin: 10/21/19 07:01 Dose: 150 mls/hr Documented by: Insulin Aspart (Novolog Vial Sliding Scale -) 1 vial SQ ACHS [facility]; Protocol Last Admin: 10/21/19 12:10 Dose: 4 units Documented by: Insulin Detemir (Levemir Vial) 10 units SQ BID SENG Last Admin: 10/21/19 05:34 Dose: 10 units Documented by: Mupirocin (Bactroban Ointment (For Decolonization) -) 1 applic NS BID [facility] Stop: 10/25/19 21:59 Last Admin: 10/21/19 09:13 Dose: 1 applic Documented by: Ondansetron HCl (Zofran Injection) 4 mg IVPUSH Q4H PRN PRN Reason: NAUSEA ASSESSMENT AND PLAN: Diabetic Ketoacidosis Acute Kidney Injury Lactic Acidosis Noncompliance - glucose control - PO as tolerated - IVF - monitor urine output, creatinine - DVT prophylaxis - can monitor on floor
--- NOTE | 2019-10-21 14:18 | PN ---
Progress Note (short form) - Note Progress Note: 34 year old male with PMH of DM I with multiple admissions at [facility] (last one 1 year ago) who came to the ED with complaints of n/v/abdominal pain and was found to be in DKA- patient states that he missed a couple of medication doses and he wasn't checking his sugars regularly; he hasnt seen an debit agent in quite a while; he states he is now currently feeling much better denies any n/v and is tolerating a regular diet vitals: stable; wnl gen:NAD; AOx3 LUGS: CTA B/L no rales, rhonchi or wheezing CV: RRR s1 s2 no mrg ABD: soft; NT ND +BS plan: patient not off insulin gtt and tolerating regular diet ISS ACHS BGMS ACHS Levemir 10 BID monitor electrolytes will need endo referral upon dc LILIAN likely 2/2 hypovolemia; improving on IVF will c/w IVF and monitor will order urine lytes as well to calculate FeNa stable to be downgraded to MS Problem List - Problems (1) Abdominal pain Code(s): R10.9 - UNSPECIFIED ABDOMINAL PAIN Qualifiers: Abdominal location: generalized Qualified Code(s): R10.84 - Generalized abdominal pain (2) DKA (diabetic ketoacidoses) Code(s): E13.10 - OTH DIABETES MELLITUS WITH KETOACIDOSIS WITHOUT COMA Qualifiers: Diabetes mellitus type: type 1 Diabetes mellitus complication detail: with out coma Qualified Code(s): E10.10 - Type 1 diabetes mellitus with ketoacidosis without coma
--- NOTE | 2019-10-21 17:20 | HOSP ---
Subjective - Review of Symptoms General: Yes: Fatigue HEENT: No: Head Aches, Visual Changes, Eye Pain, Ear Pain, Dysphasia, Sinus Congestion, Post Nasal Drip, Sore Throat, Other Pulmonary: No: Dyspnea, Cough, Pleuritic Chest Pain, Other Cardiovascular: No: Chest Pain, Palpitations, Orthopnea, Paroxysmal Noc. Dyspnea, Edema, Light Headedness, Other Gastrointestinal: Yes: Nausea Genitourinary: No: Dysuria, NOSYM, Frequency, Incontinence, Hematuria, Retention, Other Musculoskeletal: No: No Symptoms, Back Pain, Crepitus, Decreased ROM, Extremity Pain, Joint Pain, Joint Swelling, Muscle Pain, Muscle Cramps, Muscle Weakness, Other Neurological: No: Weakness, Numbness, Incoordination, Change in speech, Confusion, Seizures, Other Physical Examination Vital Signs: Vital Signs Temperature 98.4 F 10/21/19 06:00 Pulse Rate 86 10/21/19 14:00 Respiratory Rate 24 H 10/21/19 14:00 Blood Pressure 115/69 10/21/19 14:00 O2 Sat by Pulse Oximetry (%) 96 10/21/19 14:00 Constitutional: Yes: No Distress, Calm Eyes: Yes: Conjunctiva Clear, EOM Intact HENT: Yes: Atraumatic, Normocephalic Neck: Yes: Supple Cardiovascular: Yes: Regular Rate and Rhythm Respiratory: Yes: Regular, CTA Bilaterally Gastrointestinal: Yes: Normal Bowel Sounds, Soft Edema: No Labs: CBC, BMP 10/21/19 06:00 10/21/19 06:00 Laboratory Last Values WBC 16.6 K/mm3 (4.0-10.0) H 10/21/19 06:00 Corrected WBC (auto) Cancelled 10/20/19 16:30 RBC 4.49 M/mm3 (4.00-5.60) 10/21/19 06:00 Hgb 14.6 GM/dL (11.7-16.9) 10/21/19 06:00 Hct 42.9 % (35.4-49) 10/21/19 06:00 MCV 95.5 fl (80-96) 10/21/19 06:00 MCH 32.6 pg (25.7-33.7) 10/21/19 06:00 MCHC 34.1 g/dl (32.0-35.9) 10/21/19 06:00 RDW 13.3 % (11.9-15.9) 10/21/19 06:00 Plt Count 208 K/MM3 (134-434) 10/21/19 06:00 MPV 8.7 fl (7.5-11.1) 10/21/19 06:00 Absolute Neuts (auto) 13.2 K/mm3 (1.5-8.0) H 10/21/19 06:00 Neutrophils % 79.6 % (42.8-82.8) 10/21/19 06:00 Neutrophils % (Manual) 87.0 % (42.8-82.8) H 10/20/19 18:30 Band Neutrophils % 0.0 % 10/20/19 18:30 Lymphocytes % 12.5 % (8-40) D 10/21/19 06:00 Lymphocytes % (Manual) 7.0 % (8-40) L 10/20/19 18:30 Monocytes % 7.6 % (3.8-10.2) 10/21/19 06:00 Monocytes % (Manual) 5 % (3.8-10.2) 10/20/19 18:30 Eosinophils % 0.0 % (0-4.5) D 10/21/19 06:00 Eosinophils % (Manual) 0.0 % (0-4.5) 10/20/19 18:30 Basophils % 0.3 % (0-2.0) 10/21/19 06:00 Basophils % (Manual) 0.0 % (0-2.0) 10/20/19 18:30 Myelocytes % (Man) 1 % (0-2) 10/20/19 18:30 Promyelocytes % (Man) 0 % (0-2) 10/20/19 18:30 Blast Cells % (Manual) 0 % (0-0) 10/20/19 18:30 Nucleated RBC % 0 % (0-0) 10/21/19 06:00 Metamyelocytes 0 % (0-2) 10/20/19 18:30 Platelet Estimate Cancelled 10/20/19 16:30 Platelet Comment Cancelled 10/20/19 16:30 Anticoagulation Therapy No Result Required. 10/21/19 08:26 Puncture Site Right radial 10/21/19 08:26 Patient Temperature No Result Required. 10/21/19 08:26 ABG pH 7.331 (7.350-7.450) L 10/21/19 08:26 ABG pCO2 36.50 mmHg (35-45) 10/21/19 08:26 ABG pO2 87.5 mmHg (80-100) 10/21/19 08:26 ABG HCO3 18.9 mmol/L (22-27) L 10/21/19 08:26 ABG O2 Sat (Measured) 96.2 mmHg (95-98) 10/21/19 08:26 ABG O2 Content No Result Required. 10/21/19 08:26 ABG Base Excess -6.3 mmol/L (-2-2) L 10/21/19 08:26 Miguel Test Positive 10/21/19 08:26 VBG pH Cancelled 10/20/19 16:30 POC VBG pCO2 Cancelled 10/20/19 16:30 POC VBG pO2 Cancelled 10/20/19 16:30 VBG HCO3 Cancelled 10/20/19 16:30 VBG O2 Sat (Thomas) Cancelled 10/20/19 16:30 VBG Base Excess Cancelled 10/20/19 16:30 Patient On Oxygen No 10/21/19 08:26 O2 Delivery Device Roomair 10/21/19 08:26 Oxygen Flow Rate 21 10/21/19 08:26 Vent Mode No Result Required. 10/21/19 08:26 Vent Rate No Result Required. 10/21/19 08:26 Mechanical Rate No Result Required. 10/21/19 08:26 PEEP No Result Required. 10/21/19 08:26 Pressure Support Vent No Result Required. 10/21/19 08:26 Sodium 139 mmol/L (136-145) 10/21/19 06:00 Potassium 4.3 mmol/L (3.5-5.1) 10/21/19 06:00 Chloride 110 mmol/L (98-107) H 10/21/19 06:00 Carbon Dioxide 22 mmol/L (21-32) 10/21/19 06:00 Anion Gap 7 MMOL/L (8-16) L 10/21/19 06:00 BUN 21.0 mg/dL (7-18) H 10/21/19 06:00 Creatinine 1.4 mg/dL (0.55-1.3) H 10/21/19 06:00 Est GFR (CKD-EPI)AfAm 76.50 10/21/19 06:00 Est GFR (CKD-EPI)NonAf 66.01 10/21/19 06:00 POC Glucometer 138 UNITS (80-120) 10/21/19 17:00 Random Glucose 110 mg/dL (74-106) H 10/21/19 06:00 Hemoglobin A1c % 9.4 % (4.2-6.3) H 10/21/19 06:00 Lactic Acid 1.0 mmol/L (0.4-2.0) 10/21/19 06:00 Calcium 8.7 mg/dL (8.5-10.1) 10/21/19 06:00 Phosphorus 2.2 mg/dL (2.5-4.9) L 10/21/19 06:00 Magnesium 2.7 mg/dL (1.8-2.4) H 10/21/19 06:00 Total Bilirubin 0.9 mg/dL (0.2-1) 10/21/19 06:00 AST 28 U/L (15-37) 10/21/19 06:00 ALT 24 U/L (13-61) 10/21/19 06:00 Alkaline Phosphatase 61 U/L (45-117) 10/21/19 06:00 Creatine Kinase 103 U/L (26-308) 10/21/19 06:00 Troponin I 0.02 ng/ml (0.00-0.05) 10/21/19 06:00 Total Protein 6.5 g/dl (6.4-8.2) 10/21/19 06:00 Albumin 3.6 g/dl (3.4-5.0) 10/21/19 06:00 Lipase 44 U/L (73-393) L 10/20/19 16:30 Beta-Hydroxybutyrate 91.4 mg/dL (0.2-2.8) H 10/20/19 16:30 Hospitalist Encounter Assessment: This is a 34 yo male with PMH of DM I with multiple admissions at [facility] (last one 1 year ago). Presented to the ER with nausea, vomiting, and abdominal cramps since 2PM today. In the ER pt was found to have blood glucose of 530 with positive ketones. Patient was admitted to ICU for DKA, started on insulin drip. Gap closed early this morning around 3:30 AM. Drip was overlapped with levemir. Patient had LILIAN, likely 2/2 hypovolemia, started on IVF. Patient BUN/Cr improving. Continue to monitor. Patient is stable for transfer to floors. Visit type - Emergency Visit Emergency Visit: Yes ED Registration Date: 10/20/19 Care time: The patient presented to the Emergency Department on the above date and was hospitalized for further evaluation of their emergent condition. - New Patient This patient is new to me today: No - Critical Care Critical Care patient: Yes Total Critical Care Time (in minutes): 38 Critical Care Statement: The care of this patient involved high complexity decision making to prevent further life threatening deterioration of the patient's condition and/or to evaluate & treat vital organ system(s) failure or risk of failure.
--- NOTE | 2019-10-21 17:55 | CONSULT ---
Consult Consult Specialty:: Endocrinology Reason for Consultation:: DKA - History of Present Illness Chief Complaint: Nausea, vomiting History of Present Illness: This is a 34-year-old man with h/o T1DM, noncompliant with his medication, presents to the ER today for nausea and vomiting for the past 2 days. He stated his symptoms have gotten progressively worse and that he could not keep anything down including water. He had been drinking and had missed few doses of Insulin. He had polyuria, polydipsia and dry mouth.Denies fevers, chills, sore throat, difficulty breathing, chest pain, diarrhea and constipation. Pt found to be in DKA and treated with IV insulin and hydration in the ICU. Pt currently feels good. Denies any complaints - History Source History Provided By: Patient, Medical Record - Past Medical History Pulmonary: Yes: Asthma Endocrine: Yes: Diabetes Mellitus - Alcohol/Substance Use Hx Alcohol Use: No History of Substance Use: reports: None - Smoking History Smoking history: Current every day smoker Have you smoked in the past 12 months: No Aproximately how many cigarettes per day: 3 - Social History Usual Living Arrangement: With Parent ADL: Independent Occupation: [employer] History of Recent Travel: No Home Medications - Allergies Allergies/Adverse Reactions: Allergies Allergy/AdvReac Type Severity Reaction Status Date / Time No Known Allergies Allergy Verified 10/20/19 14:31 - Home Medications Home Medications: Ambulatory Orders Ipratropium [place] 2 sprays NS BID PRN #1 spray 09/27/17 Insulin (Novolog 70/30) [Novolog Mix 70/30 Vial] 0 ml SQ DAILY 02/22/18 Insulin NPH Hum/Reg Insulin Hm [Novolin 70-30 Flexpen] 0 unit SQ DAILY 02/22/18 Family Medical History Family Hx Nuerologic Problems: Father (Stroke) Review of Systems - Review of Systems Constitutional: reports: No Symptoms Eyes: reports: No Symptoms HENT: reports: No Symptoms Neck: reports: No Symptoms Cardiovascular: reports: No Symptoms Respiratory: reports: No Symptoms Gastrointestinal: reports: No Symptoms Genitourinary: reports: No Symptoms Breasts: reports: No Symptoms Reported Musculoskeletal: reports: No Symptoms Neurological: reports: No Symptoms Endocrine: reports: No Symptoms Hematology/Lymphatic: reports: No Symptoms Physical Exam Vital Signs: Vital Signs Temperature 98.4 F 10/21/19 06:00 Pulse Rate 86 10/21/19 14:00 Respiratory Rate 24 H 10/21/19 14:00 Blood Pressure 115/69 10/21/19 14:00 O2 Sat by Pulse Oximetry (%) 96 10/21/19 14:00 Constitutional: Yes: No Distress, Calm Eyes: Yes: Conjunctiva Clear, EOM Intact HENT: Yes: Atraumatic, Normocephalic Neck: Yes: Supple, Trachea Midline Cardiovascular: Yes: Regular Rate and Rhythm Respiratory: Yes: Regular, CTA Bilaterally Gastrointestinal: Yes: Normal Bowel Sounds, Soft Musculoskeletal: Yes: WNL Edema: No Neurological: Yes: Alert, Oriented Labs: CBC, BMP 10/21/19 06:00 10/21/19 06:00 Assessment/Plan A/P: T1DM with DKA Anion gap of 31, beta hydroxybutyrate of 92 on admission Now normalized IV hydration Insulin drip may be discontinued Monitor BGM ACHS and 3 AM Got Levermir 10 units in AM Levemir 8 units BID Novolog SS coverage Case discussed with housestaff and nursing staff at bedside Will f/u
[2019-10-21 20:44] VITALS: TEMP 98.1
[2019-10-21] MEDS: CHLORHEXIDINE GLUCONATE 4% CLEANSER FOR DECOLONIZATION TP SCH (21:55)
[2019-10-21] MEDS ORDERED: INSULIN SLIDING SCALE (NOVOLOG) 1 VIAL SQ SCH (22:00)
[2019-10-21 22:10] LABS: BLOOD UREA NITROGEN 14.6 mg/dL (7-18); CALCIUM 8.5 mg/dL (8.5-10.1); CREATININE 1.2 mg/dL (0.55-1.3); POTASSIUM 4.5 mmol/L (3.5-5.1)
--- NOTE | 2019-10-21 22:17 | PN ---
Teaching Attending Note Name of Resident: Fouzia Hall ATTENDING PHYSICIAN STATEMENT I saw and evaluated the patient. I reviewed the resident's note and discussed the case with the resident. I agree with the resident's findings and plan as documented. SUBJECTIVE: Patient seen and examined at bedside, admitted for DKA, LILIAN, 2/2 med non-compliance. Stable for downgrade to [facility]. OBJECTIVE: GA tired appearing, AAox3 HEENT Nc/AT, no oral thrush, neck supple Chest CTAB CVS S1, S2+, RRR Abd Soft, mild tenderness, no guarding BS+ Ext No LE edema, no calf tenderness Vital Signs - 24 hr 10/20/19 10/21/19 10/21/19 22:30 00:00 02:00 Temperature 98.3 F 98.6 F 98.7 F Pulse Rate 102 H 93 H Pulse Rate [ 97 H Apical] Respiratory 23 H 22 H 16 Rate Blood Pressure 140/85 119/70 Blood Pressure 128/80 [Right Arm] O2 Sat by Pulse 100 99 98 Oximetry (%) 10/21/19 10/21/19 10/21/19 04:00 06:00 09:00 Temperature 98.4 F Pulse Rate 63 79 Pulse Rate [ Apical] Respiratory 14 17 Rate Blood Pressure 113/73 121/80 Blood Pressure [Right Arm] O2 Sat by Pulse 99 100 100 Oximetry (%) 10/21/19 10/21/19 10/21/19 14:00 16:00 18:00 Temperature 99.1 F Pulse Rate 86 87 86 Pulse Rate [ Apical] Respiratory 24 H 20 20 Rate Blood Pressure 115/69 116/68 130/84 Blood Pressure [Right Arm] O2 Sat by Pulse 96 Oximetry (%) 10/21/19 10/21/19 10/21/19 20:00 20:44 22:00 Temperature 98.1 F Pulse Rate 84 77 Pulse Rate [ Apical] Respiratory 20 20 Rate Blood Pressure 119/74 127/78 Blood Pressure [Right Arm] O2 Sat by Pulse 98 98 99 Oximetry (%) Laboratory Results - last 24 hr 10/20/19 10/20/19 10/20/19 18:30 22:30 22:30 WBC RBC Hgb Hct MCV MCH MCHC RDW Plt Count MPV Absolute Neuts (auto) Neutrophils % Neutrophils % (Manual) 87.0 H Band Neutrophils % 0.0 Lymphocytes % Lymphocytes % (Manual) 7.0 L Monocytes % Monocytes % (Manual) 5 Eosinophils % Eosinophils % (Manual) 0.0 Basophils % Basophils % (Manual) 0.0 Myelocytes % (Man) 1 Promyelocytes % (Man) 0 Blast Cells % (Manual) 0 Nucleated RBC % 0 Metamyelocytes 0 Anticoagulation Therapy Puncture Site Patient Temperature ABG pH ABG pCO2 ABG pO2 ABG HCO3 ABG O2 Sat (Measured) ABG O2 Content ABG Base Excess Miguel Test Patient On Oxygen O2 Delivery Device Oxygen Flow Rate Vent Mode Vent Rate Mechanical Rate PEEP Pressure Support Vent Sodium 140 Potassium 5.4 H Chloride 106 Carbon Dioxide 12 L Anion Gap 22 H BUN 26.7 H Creatinine 1.6 H Est GFR (CKD-EPI)AfAm 65.10 Est GFR (CKD-EPI)NonAf 56.17 POC Glucometer Random Glucose 183 H Hemoglobin A1c % Lactic Acid 2.7 H* Calcium 9.3 Phosphorus Magnesium Total Bilirubin 1.1 H AST 36 ALT 31 Alkaline Phosphatase 77 Creatine Kinase Troponin I Total Protein 7.7 Albumin 4.2 10/20/19 10/20/19 10/21/19 23:40 23:51 02:00 WBC RBC Hgb Hct MCV MCH MCHC RDW Plt Count MPV Absolute Neuts (auto) Neutrophils % Neutrophils % (Manual) Band Neutrophils % Lymphocytes % Lymphocytes % (Manual) Monocytes % Monocytes % (Manual) Eosinophils % Eosinophils % (Manual) Basophils % Basophils % (Manual) Myelocytes % (Man) Promyelocytes % (Man) Blast Cells % (Manual) Nucleated RBC % Metamyelocytes Anticoagulation Therapy No Result Required. Puncture Site Left brachial Patient Temperature No Result Required. ABG pH 7.215 L ABG pCO2 24.10 L ABG pO2 99.7 ABG HCO3 9.5 L ABG O2 Sat (Measured) 96.5 ABG O2 Content No Result Required. ABG Base Excess -16.3 L Miguel Test Not applicable Patient On Oxygen No O2 Delivery Device Room air Oxygen Flow Rate 21% Vent Mode No Result Required. Vent Rate No Result Required. Mechanical Rate No Result Required. PEEP No Result Required. Pressure Support Vent No Result Required. Sodium Potassium Chloride Carbon Dioxide Anion Gap BUN Creatinine Est GFR (CKD-EPI)AfAm Est GFR (CKD-EPI)NonAf POC Glucometer 198 200 Random Glucose Hemoglobin A1c % Lactic Acid Calcium Phosphorus Magnesium Total Bilirubin AST ALT Alkaline Phosphatase Creatine Kinase Troponin I Total Protein Albumin 10/21/19 10/21/19 10/21/19 03:20 04:11 05:48 WBC RBC Hgb Hct MCV MCH MCHC RDW Plt Count MPV Absolute Neuts (auto) Neutrophils % Neutrophils % (Manual) Band Neutrophils % Lymphocytes % Lymphocytes % (Manual) Monocytes % Monocytes % (Manual) Eosinophils % Eosinophils % (Manual) Basophils % Basophils % (Manual) Myelocytes % (Man) Promyelocytes % (Man) Blast Cells % (Manual) Nucleated RBC % Metamyelocytes Anticoagulation Therapy Puncture Site Patient Temperature ABG pH ABG pCO2 ABG pO2 ABG HCO3 ABG O2 Sat (Measured) ABG O2 Content ABG Base Excess Miguel Test Patient On Oxygen O2 Delivery Device Oxygen Flow Rate Vent Mode Vent Rate Mechanical Rate PEEP Pressure Support Vent Sodium 139 Potassium 4.5 Chloride 111 H Carbon Dioxide 19 L Anion Gap 9 BUN 22.6 H Creatinine 1.5 H Est GFR (CKD-EPI)AfAm 70.38 Est GFR (CKD-EPI)NonAf 60.73 POC Glucometer 140 99 Random Glucose 157 H Hemoglobin A1c % Lactic Acid Calcium 9.0 Phosphorus Magnesium Total Bilirubin 0.8 AST 30 ALT 26 Alkaline Phosphatase 64 Creatine Kinase Troponin I Total Protein 6.9 Albumin 3.7 10/21/19 10/21/19 10/21/19 06:00 06:00 06:00 WBC 16.6 H RBC 4.49 Hgb 14.6 Hct 42.9 MCV 95.5 MCH 32.6 MCHC 34.1 RDW 13.3 Plt Count 208 MPV 8.7 Absolute Neuts (auto) 13.2 H Neutrophils % 79.6 Neutrophils % (Manual) Band Neutrophils % Lymphocytes % 12.5 D Lymphocytes % (Manual) Monocytes % 7.6 Monocytes % (Manual) Eosinophils % 0.0 D Eosinophils % (Manual) Basophils % 0.3 Basophils % (Manual) Myelocytes % (Man) Promyelocytes % (Man) Blast Cells % (Manual) Nucleated RBC % 0 Metamyelocytes Anticoagulation Therapy Puncture Site Patient Temperature ABG pH ABG pCO2 ABG pO2 ABG HCO3 ABG O2 Sat (Measured) ABG O2 Content ABG Base Excess Miguel Test Patient On Oxygen O2 Delivery Device Oxygen Flow Rate Vent Mode Vent Rate Mechanical Rate PEEP Pressure Support Vent Sodium 139 Potassium 4.3 Chloride 110 H Carbon Dioxide 22 Anion Gap 7 L BUN 21.0 H Creatinine 1.4 H Est GFR (CKD-EPI)AfAm 76.50 Est GFR (CKD-EPI)NonAf 66.01 POC Glucometer Random Glucose 110 H Hemoglobin A1c % Lactic Acid 1.0 Calcium 8.7 Phosphorus 2.2 L Magnesium 2.7 H Total Bilirubin 0.9 AST 28 ALT 24 Alkaline Phosphatase 61 Creatine Kinase 103 Troponin I 0.02 Total Protein 6.5 Albumin 3.6 10/21/19 10/21/19 10/21/19 06:00 08:26 08:28 WBC RBC Hgb Hct MCV MCH MCHC RDW Plt Count MPV Absolute Neuts (auto) Neutrophils % Neutrophils % (Manual) Band Neutrophils % Lymphocytes % Lymphocytes % (Manual) Monocytes % Monocytes % (Manual) Eosinophils % Eosinophils % (Manual) Basophils % Basophils % (Manual) Myelocytes % (Man) Promyelocytes % (Man) Blast Cells % (Manual) Nucleated RBC % Metamyelocytes Anticoagulation Therapy No Result Required. Puncture Site Right radial Patient Temperature No Result Required. ABG pH 7.331 L ABG pCO2 36.50 ABG pO2 87.5 ABG HCO3 18.9 L ABG O2 Sat (Measured) 96.2 ABG O2 Content No Result Required. ABG Base Excess -6.3 L Miguel Test Positive Patient On Oxygen No O2 Delivery Device Roomair Oxygen Flow Rate 21 Vent Mode No Result Required. Vent Rate No Result Required. Mechanical Rate No Result Required. PEEP No Result Required. Pressure Support Vent No Result Required. Sodium Potassium Chloride Carbon Dioxide Anion Gap BUN Creatinine Est GFR (CKD-EPI)AfAm Est GFR (CKD-EPI)NonAf POC Glucometer 159 Random Glucose Hemoglobin A1c % 9.4 H Lactic Acid Calcium Phosphorus Magnesium Total Bilirubin AST ALT Alkaline Phosphatase Creatine Kinase Troponin I Total Protein Albumin 10/21/19 10/21/19 10/21/19 09:14 11:41 17:00 WBC RBC Hgb Hct MCV MCH MCHC RDW Plt Count MPV Absolute Neuts (auto) Neutrophils % Neutrophils % (Manual) Band Neutrophils % Lymphocytes % Lymphocytes % (Manual) Monocytes % Monocytes % (Manual) Eosinophils % Eosinophils % (Manual) Basophils % Basophils % (Manual) Myelocytes % (Man) Promyelocytes % (Man) Blast Cells % (Manual) Nucleated RBC % Metamyelocytes Anticoagulation Therapy Puncture Site Patient Temperature ABG pH ABG pCO2 ABG pO2 ABG HCO3 ABG O2 Sat (Measured) ABG O2 Content ABG Base Excess Miguel Test Patient On Oxygen O2 Delivery Device Oxygen Flow Rate Vent Mode Vent Rate Mechanical Rate PEEP Pressure Support Vent Sodium Potassium Chloride Carbon Dioxide Anion Gap BUN Creatinine Est GFR (CKD-EPI)AfAm Est GFR (CKD-EPI)NonAf POC Glucometer 174 244 138 Random Glucose Hemoglobin A1c % Lactic Acid Calcium Phosphorus Magnesium Total Bilirubin AST ALT Alkaline Phosphatase Creatine Kinase Troponin I Total Protein Albumin 10/21/19 10/21/19 21:01 21:05 WBC RBC Hgb Hct MCV MCH MCHC RDW Plt Count MPV Absolute Neuts (auto) Neutrophils % Neutrophils % (Manual) Band Neutrophils % Lymphocytes % Lymphocytes % (Manual) Monocytes % Monocytes % (Manual) Eosinophils % Eosinophils % (Manual) Basophils % Basophils % (Manual) Myelocytes % (Man) Promyelocytes % (Man) Blast Cells % (Manual) Nucleated RBC % Metamyelocytes Anticoagulation Therapy Puncture Site Patient Temperature ABG pH ABG pCO2 ABG pO2 ABG HCO3 ABG O2 Sat (Measured) ABG O2 Content ABG Base Excess Miguel Test Patient On Oxygen O2 Delivery Device Oxygen Flow Rate Vent Mode Vent Rate Mechanical Rate PEEP Pressure Support Vent Sodium 133 L Potassium 4.5 Chloride 100 Carbon Dioxide 24 Anion Gap 9 BUN 14.6 Creatinine 1.2 Est GFR (CKD-EPI)AfAm 92.18 Est GFR (CKD-EPI)NonAf 79.53 POC Glucometer 318 Random Glucose 352 H Hemoglobin A1c % Lactic Acid Calcium 8.5 Phosphorus Magnesium Total Bilirubin AST ALT Alkaline Phosphatase Creatine Kinase Troponin I Total Protein Albumin Home Medications Medication Instructions Recorded Ipratropium [place] 2 sprays NS BID PRN #1 spray 09/27/17 Insulin (Novolog 70/30) [Novolog 0 ml SQ DAILY 02/22/18 Mix 70/30 Vial] Insulin NPH Hum/Reg Insulin Hm 0 unit SQ DAILY 02/22/18 [Novolin 70-30 Flexpen] Current Medications Generic Name Dose Route Start Last Admin Trade Name Freq PRN Reason Stop Dose Admin Chlorhexidine Gluconate 1 applic 10/20/19 22:00 10/21/19 21:55 Hibiclens For Decolonization - TP 1 applic HS SENG Administration Heparin Sodium (Porcine) 5,000 unit 10/21/19 06:00 10/21/19 21:55 Heparin - SQ 5,000 unit TID SENG Administration Insulin Human Regular 100 100 mls @ 2.858 mls/hr 10/21/19 01:00 10/21/19 09:00 units/ Sodium Chloride IVPB 0 units/kg/hr TITR SENG 0 mls/hr Titration Protocol 0.05 UNITS/KG/HR Dextrose 1,000 mls @ 150 mls/hr 10/21/19 06:45 10/21/19 07:01 D10w - IV 150 mls/hr ASDIR SENG Administration Insulin Aspart 1 vial 10/22/19 07:00 Novolog Vial Sliding Scale - SQ TIDAC SENG Protocol Insulin Aspart 0 vial 10/21/19 22:00 10/21/19 21:56 Novolog Vial Sliding Scale - SQ 4 units HS SENG Administration Protocol Insulin Detemir 8 units 10/21/19 22:00 10/21/19 21:55 Levemir Vial SQ 8 units BID@0700,2200 SENG Administration Mupirocin 1 applic 10/20/19 22:00 10/21/19 21:55 Bactroban Ointment (For Decolonization) - NS 10/25/19 21:59 1 applic BID SENG Administration Ondansetron HCl 4 mg 10/20/19 19:46 Zofran Injection IVPUSH Q4H PRN NAUSEA ASSESSMENT AND PLAN: 34 M T1DM Diabetic Ketoacidosis Acute Kidney Injury Lactic Acidosis HTN HLD Non-compliance Plan: Off insulin gtt, recommend insulin with basal coverage BID and supplement w/ ISS keep F/S <200 Hold PJ/ARB in view of LILIAN Needs extensive education regarding insulin regimen, DM diet, management Correct electrolytes to maintain 2,3,4 for Mg/Ph/K respectively Endo following DVT ppx: Heparin SC
[2019-10-22 00:40] VITALS: BP 140/90; PULSE 75
--- NOTE | 2019-10-22 02:56 | PN ---
Progress Note (short form) - Note Progress Note: Called to assess pt d/t to desire to leave AMA. Pt states that he "can't handle it" anymore, referring to hospital treatment. When asked about this hospitalization, he states that he thinks his DKA is d/t not taking his insulin. States that he feels much better. 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 Pt able to demonostrate insight into his medical condition. Pt signed AMA paperwork. IV removed.
[2019-10-22] MEDS ORDERED: INSULIN SLIDING SCALE (NOVOLOG) 1 VIAL SQ SCH (07:00)
== END 2019-10-22 02:30 | disposition left against medical advice (07) | DRG 420 ==
LOC: JER 14:02 → JERBED 18:16 → JICU 23:54
PROVIDERS: ADMIT Internal Medicine Pulmonary Disease; ATTEND Internal Medicine Pulmonary Disease
DX: E10.10 Type 1 diabetes mellitus with ketoacidosis without coma (principal); N17.9 Acute kidney failure, unspecified; E86.1 Hypovolemia; E87.2 Acidosis; Z91.14 Patient's other noncompliance with medication regimen; I10 Essential (primary) hypertension; E78.5 Hyperlipidemia, unspecified; R11.2 Nausea with vomiting, unspecified; R10.84 Generalized abdominal pain
CPT/HCPCS: 36415; 36600; 80048; 80053; 82010; 82550; 82803; 82962; 83036; 83605; 83690; 83735; 84100; 84484; 85025; 93005; 93010; 99285-25; J0131; J1644; U0003

== ENCOUNTER 2019-11-11 15:33 | Emergency (ER) | payer OTHER ==
[2019-11-11 15:50] VITALS: BP 131/81; PULSE 93; TEMP 98; BMI 28.3
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
[2019-11-11] MEDS ORDERED: AZITHROMYCIN 250 MG TABLET PO ONE (16:29)
[2019-11-11] MEDS ORDERED: AZITHROMYCIN 250 MG TABLET ONE (16:54)
--- NOTE | 2019-11-11 17:51 | PDOC ---
History of Present Illness - General Chief Complaint: Rash Stated Complaint: STD testing Time Seen by Provider: 11/11/19 15:47 - History of Present Illness Initial Comments: 11/11/19 17:44 34-year-old male with type 1 diabetes presents for evaluation concern for STDs. Currently asymptomatic unprotected sex 3 days ago. Past History - Medical History Allergies/Adverse Reactions: Allergies Allergy/AdvReac Type Severity Reaction Status Date / Time No Known Allergies Allergy Verified 11/11/19 15:49 Home Medications: Ambulatory Orders Ipratropium [place] 2 sprays NS BID PRN #1 spray 09/27/17 Insulin (Novolog 70/30) [Novolog Mix 70/30 Vial] 0 ml SQ DAILY 02/22/18 Insulin NPH Hum/Reg Insulin Hm [Novolin 70-30 Flexpen] 0 unit SQ DAILY 02/22/18 Anemia: No Asthma: Yes Cancer: No Cardiac Disorders: No CVA: No COPD: No CHF: No Dementia: No Diabetes: Yes (I) GI Disorders: No Disorders: No HTN: No Hypercholesterolemia: No Liver Disease: No Seizures: No Thyroid Disease: No - Surgical History Abdominal Surgery: No Appendectomy: No Cardiac Surgery: No Cholecystectomy: No GI Surgery: No Lung Surgery: No Neurologic Surgery: No Orthopedic Surgery: No - Immunization History Immunization Up to Date: Yes - Psycho-Social/Smoking History Smoking Status: No Smoking History: Never smoked Have you smoked in the past 12 months: No Number of Cigarettes Smoked Daily: 3 Information on smoking cessation initiated: Yes 'Breaking Loose' booklet given: 03/17/16 - Substance Abuse Hx (Audit-C & DAST Scrn) How often the patient has a drink containing alcohol: Never Score: In Men: 4 or > Positive; In Women: 3 or > Positive: 0 Screen Result (Pos requires Nsg. Audit-10AR): Negative In the last yr the pt used illegal drug/Rx for NonMed reason: No Score: Yes response is considered Positive: 0 Screen Result (Positive result requires Nsg. DAST-10): Negative Review of Systems - Review of Systems Constitutional: No: Fever : No: Burning, Dysuria, Discharge, Frequency, Flank Pain, Hematuria *Physical Exam - Vital Signs Last Vital Signs Temp Pulse Resp BP Pulse Ox 98 F 93 H 19 131/81 98 11/11/19 15:44 11/11/19 15:44 11/11/19 15:44 11/11/19 15:44 11/11/19 15:44 - Physical Exam General Appearance: Yes: Nourished, Appropriately Dressed. 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 I have reviewed the pathophysiology with the patient. They are in agreement wit h the treatment plan all questions were answered to their satisfaction. Understanding for follow-up without fail was also conveyed to the patient. Again they are in agreement. Discharge - Discharge Information Problems reviewed: Yes Clinical Impression/Diagnosis: Unprotected sexual intercourse Condition: Stable Disposition: HOME - Admission No - Follow up/Referral - Patient Discharge Instructions Additional Instructions: Your HIV test was negative. You were treated for gonorrhea and chlamydia. Syphilis test is Negative. Return to the emergency room for further issues and without fail follow-up with your primary care physician for further evaluation and treatment options. You may still be HIV positive. Please either abstain from sex or use protection such as condoms until a repeat HIV test is done in 6 months. - Post Discharge Activity
== END 2019-11-11 17:55 | disposition home or self-care (01) ==
LOC: JERFT 15:33
DX: Z72.51 High risk heterosexual behavior (principal)
CPT/HCPCS: 36415; 86780; 87389; 87491; 87591; 99284-25

== ENCOUNTER 2020-01-07 00:56 | Emergency (ER) | payer OTHER ==
[2020-01-07 01:05] VITALS: BMI 23.1
[2020-01-07] MEDS ORDERED: IBUPROFEN 600 MG TABLET (FP) PO ONE ×2 (02:10→02:33)
[2020-01-07 02:57] LABS: VENOUS BASE EXCESS -1.1 mmol/L (-2-2); VENOUS O2 SATURATION 97.9 % (70-80); VENOUS PCO2 39.5 mmHg (38-52); VENOUS PH 7.394 (7.310-7.410)
[2020-01-07 03:04] LABS: BASO % 0.7 % (0-2.0); EOS % 3.3 % (0-4.5); HEMATOCRIT 41.3 % (35.4-49); HEMOGLOBIN 14.1 GM/dL (11.7-16.9); LYMPH % 34.6 % (8-40); MCH 32.6 pg (25.7-33.7); MCHC 34.3 g/dl (32.0-35.9); MEAN PLT VOLUME 8.8 fl (7.5-11.1); MONO % 6.5 % (3.8-10.2); NEUT % 54.9 % (42.8-82.8); PLATELET COUNT 241 K/MM3 (134-434); RBC 4.34 M/mm3 (4.00-5.60); RDW 13.3 % (11.9-15.9); WHITE BLOOD COUNT 5.2 K/mm3 (4.0-10.0)
[2020-01-07 03:09] LABS: CHLORIDE 101 mmol/L (98-107); POTASSIUM 4.7 mmol/L (3.5-5.1); SODIUM 133 mmol/L (136-145)
[2020-01-07 03:11] LABS: CALCIUM 9.2 mg/dL (8.5-10.1)
[2020-01-07 03:12] LABS: ALBUMIN 3.5 g/dl (3.4-5.0); ANION GAP 7 MMOL/L (8-16); BLOOD UREA NITROGEN 9.6 mg/dL (7-18); CO2 25 mmol/L (21-32)
[2020-01-07 03:15] LABS: SGOT/AST 15 U/L (15-37); SGPT/ALT 18 U/L (13-61)
[2020-01-07 03:16] LABS: BILIRUBIN,TOTAL 0.4 mg/dL (0.2-1)
[2020-01-07 03:17] LABS: TOT PROT 6.7 g/dl (6.4-8.2)
[2020-01-07 03:18] LABS: ALK PHOS 71 U/L (45-117)
[2020-01-07 03:23] LABS: GLUCOSE,RANDOM 447 mg/dL (74-106)
[2020-01-07] MEDS ORDERED: LACTATED RINGERS SOLUTION 1000 ML INFUS.BAG IV ONE (03:24)
[2020-01-07] MEDS ORDERED: INSULIN REGULAR HUMAN 100 UNITS/ML *VIAL IVPUSH ONE (03:54)
[2020-01-07 05:47] LABS: POTASSIUM 4.8 mmol/L (3.5-5.1)
[2020-01-07 05:48] LABS: BLOOD UREA NITROGEN 12.1 mg/dL (7-18); CALCIUM 9.4 mg/dL (8.5-10.1)
[2020-01-07 05:52] LABS: CREATININE 1.2 mg/dL (0.55-1.3)
[2020-01-07 06:14] LABS: CHLORIDE 104 mmol/L (98-107); POTASSIUM 4.3 mmol/L (3.5-5.1); SODIUM 138 mmol/L (136-145)
[2020-01-07] MEDS ORDERED: ACETAMINOPHEN 1000 MG/100 ML VIAL (NON FORMULARY) IVPB ONE (06:14)
[2020-01-07 06:16] LABS: ANION GAP 11 MMOL/L (8-16); BLOOD UREA NITROGEN 11.6 mg/dL (7-18); CALCIUM 9.1 mg/dL (8.5-10.1); CO2 23 mmol/L (21-32); GLUCOSE,RANDOM 301 mg/dL (74-106)
[2020-01-07 06:20] LABS: CREATININE 1.1 mg/dL (0.55-1.3)
[2020-01-07] MEDS ORDERED: ACETAMINOPHEN INJECTION 100 ML IVPB ONE (06:27)
[2020-01-07 06:50] VITALS: BP 115/79; PULSE 83; TEMP 97.8
== END 2020-01-07 06:57 | disposition home or self-care (01) ==
LOC: JER 00:56
PROC: 3E013VG Introduction of Insulin into Subcutaneous Tissue, Percutaneous Approach (ICD-10-PCS; principal; 2020-01-07)
PROC: 3E033NZ Introduction of Analgesics, Hypnotics, Sedatives into Peripheral Vein, Percutaneous Approach (ICD-10-PCS; 2020-01-07)
DX: R07.89 Other chest pain (principal); E10.65 Type 1 diabetes mellitus with hyperglycemia
CPT/HCPCS: 36415; 71046-TC-FY; 80048; 80053; 82803; 82962; 84484; 85025; 93005; 93010; 99285-25

== ENCOUNTER 2020-07-07 05:22 | Inpatient (IN) | payer OTHER ==
[2020-07-07] MEDS ORDERED: LACTATED RINGERS SOLUTION 1000 ML INFUS.BAG IV ONE ×2 (05:27→07:49)
[2020-07-07 05:32] VITALS: BMI 22.8
[2020-07-07] MEDS ORDERED: MAG HYDROX/AL HYDROX/SIMETH 30 ML UNIT-DOSE CUP PO ONE (05:42)
[2020-07-07] MEDS ORDERED: FAMOTIDINE 20 MG/50 ML IVPB 20 MG/50 ML MG IVPB ONE (05:42)
[2020-07-07] MEDS ORDERED: ONDANSETRON 4 MG/2 ML VIAL IVPUSH ONE (05:42)
[2020-07-07] MEDS ORDERED: ACETAMINOPHEN 1000 MG/100 ML BAG IVPB ONE (05:42)
[2020-07-07] MEDS ORDERED: ONDANSETRON 4 MG/2 ML VIAL ONE (05:46)
[2020-07-07] MEDS ORDERED: INSULIN REGULAR HUMAN 100 UNITS/ML *VIAL SQ ONE (05:48)
[2020-07-07 06:15] LABS: VENOUS BASE EXCESS -8.4 mmol/L (-2-2); VENOUS O2 SATURATION 90.1 % (70-80); VENOUS PCO2 35.9 mmHg (38-52); VENOUS PH 7.297 (7.310-7.410)
[2020-07-07] MEDS ORDERED: ACETAMINOPHEN INJECTION 100 ML IVPB ONE (06:16)
[2020-07-07] MEDS ORDERED: MAG HYDROX/AL HYDROX/SIMETH 30 ML UNIT-DOSE CUP ONE (06:16)
[2020-07-07 06:19] LABS: BASO % 0.5 % (0-2.0); EOS % 1.1 % (0-4.5); HEMATOCRIT 45.5 % (35.4-49); HEMOGLOBIN 15.6 GM/dL (11.7-16.9); LYMPH % 19.1 % (8-40); MCH 32.9 pg (25.7-33.7); MCHC 34.3 g/dl (32.0-35.9); MEAN CELL VOLUME 96.1 fl (80-96); MEAN PLT VOLUME 9.2 fl (7.5-11.1); MONO % 6.3 % (3.8-10.2); PLATELET COUNT 265 K/MM3 (134-434); RBC 4.73 M/mm3 (4.00-5.60); RDW 13.4 % (11.9-15.9); WHITE BLOOD COUNT 8.6 K/mm3 (4.0-10.0)
[2020-07-07] MEDS ORDERED: INSULIN REGULAR HUMAN 100 UNITS/ML *VIAL ONE (06:19)
[2020-07-07 06:33] LABS: CO2 18 mmol/L (21-32)
[2020-07-07 06:34] LABS: ALBUMIN 4.5 g/dl (3.4-5.0)
[2020-07-07 06:36] LABS: SGOT/AST 57 U/L (15-37); SGPT/ALT 31 U/L (13-61)
[2020-07-07 06:37] LABS: CREATININE 1.6 mg/dL (0.55-1.3)
[2020-07-07 06:38] LABS: BILIRUBIN,TOTAL 0.8 mg/dL (0.2-1); TOT PROT 8.2 g/dl (6.4-8.2)
[2020-07-07 06:39] LABS: ALK PHOS 99 U/L (45-117)
[2020-07-07 06:50] LABS: CHLORIDE 89 mmol/L (98-107); SODIUM 130 mmol/L (136-145)
[2020-07-07 06:53] LABS: INR 0.85 (0.83-1.09); PROTHROMBIN TIME (PATIENT) 10.5 SEC (9.7-13.0)
[2020-07-07 06:56] LABS: ACTIVATED PTT 24.9 SECONDS (25.2-36.5)
[2020-07-07 07:00] LABS: ANION GAP 23 MMOL/L (8-16); GLUCOSE,RANDOM 631 mg/dL (74-106)
[2020-07-07 07:44] LABS: CHLORIDE 92 mmol/L (98-107); SODIUM 131 mmol/L (136-145)
[2020-07-07 07:47] LABS: BLOOD UREA NITROGEN 22.6 mg/dL (7-18); CO2 17 mmol/L (21-32)
[2020-07-07 07:51] LABS: ANION GAP 23 MMOL/L (8-16); CREATININE 1.5 mg/dL (0.55-1.3)
[2020-07-07 07:53] LABS: GLUCOSE,RANDOM 600 mg/dL (74-106)
[2020-07-07] MEDS ORDERED: INSULIN REGULAR 100 UNITS in SODIUM CHLORIDE 99 ML IVPB SCH (08:00)
[2020-07-07 08:13] LABS: PH,URINE 5.5 (5.0-8.0); URINE APPEARANCE CLEAR; URINE BILIRUBIN NEGATIVE (NEGATIVE); URINE COLOR YELLOW; URINE GLUCOSE (UA) 3+ (NEGATIVE); URINE KETONE 3+ (NEGATIVE); URINE LEUK ESTERASE NEGATIVE (NEGATIVE); URINE NITRITE NEGATIVE (NEGATIVE); URINE PROTEIN NEGATIVE (NEGATIVE); URINE UROBILINOGEN 0.2 mg/dL (0.2-1.0)
[2020-07-07 09:07] LABS: CALCIUM 9.8 mg/dL (8.5-10.1)
[2020-07-07 09:08] LABS: BLOOD UREA NITROGEN 22.5 mg/dL (7-18)
[2020-07-07 09:11] LABS: CREATININE 1.6 mg/dL (0.55-1.3)
[2020-07-07 09:18] VITALS: TEMP 98.7
[2020-07-07] MEDS ORDERED: SODIUM CHLORIDE 1,000 ML IV SCH (10:00)
[2020-07-07 10:10] VITALS: PULSE 74
[2020-07-07] MEDS ORDERED: LORazepam 1 MG TABLET PO PRN ×2 (11:35→12:09)
[2020-07-07 12:19] VITALS: BP 142/79
[2020-07-07] MEDS ORDERED: MUPIROCIN 2% TOPICAL OINTMENT FOR DECOLONIZATION NS SCH (13:00)
[2020-07-07 14:25] LABS: BLOOD UREA NITROGEN 15.2 mg/dL (7-18); MAGNESIUM 2.3 mg/dL (1.8-2.4)
[2020-07-07 14:28] LABS: CREATININE 1.1 mg/dL (0.55-1.3); PHOSPHOROUS 2.8 mg/dL (2.5-4.9)
[2020-07-07] MEDS ORDERED: INSULIN (LEVEMIR) 100 UNITS/ML UNITS SQ ONE (15:00)
[2020-07-07] MEDS ORDERED: CHLORHEXIDINE GLUCONATE 4% CLEANSER FOR DECOLONIZATION TP SCH (22:00)
== END 2020-07-07 15:10 | disposition left against medical advice (07) | DRG 420 ==
LOC: JER 05:22 → JERBED 07:53 → JICU 09:49
PROVIDERS: ADMIT Internal Medicine; ATTEND Internal Medicine
DX: E11.10 Type 2 diabetes mellitus with ketoacidosis without coma (principal); Z79.4 Long term (current) use of insulin; N17.9 Acute kidney failure, unspecified; E87.5 Hyperkalemia; F10.10 Alcohol abuse, uncomplicated; E87.1 Hypo-osmolality and hyponatremia; Z91.14 Patient's other noncompliance with medication regimen
CPT/HCPCS: 36415; 71045-TC-FY; 80048; 80053; 80307; 81003; 82010; 82550; 82553; 82803; 82962; 83735; 84100; 84484; 85025; 85610; 85730; 87040; 87086; 93005; 93010; 99285-25; C9803; J0131; U0003; U0005

== ENCOUNTER 2020-08-24 10:06 | Inpatient (IN) | payer OTHER ==
[2020-08-24] MEDS ORDERED: LACTATED RINGERS SOLUTION 1,000 ML/1,000 ML INFUS.BAG IV STA (10:14)
[2020-08-24] MEDS ORDERED: ONDANSETRON 4 MG/2 ML VIAL IVPUSH ONE (10:47)
[2020-08-24 11:08] LABS: VENOUS BASE EXCESS -13.2 mmol/L (-2-2); VENOUS O2 SATURATION 78.3 % (70-80); VENOUS PCO2 36.5 mmHg (38-52)
[2020-08-24] MEDS ORDERED: ONDANSETRON 4 MG/2 ML VIAL ONE (11:10)
[2020-08-24] MEDS ORDERED: FAMOTIDINE 20 MG/50 ML IVPB 20 MG/50 ML MG IVPB ONE ×2 (11:10→11:23)
[2020-08-24 11:11] LABS: VENOUS PH 7.199 (7.310-7.410)
[2020-08-24 11:19] LABS: BASO % 0.6 % (0-2.0); EOS % 3.4 % (0-4.5); HEMOGLOBIN 15.3 GM/dL (11.7-16.9); LYMPH % 24.7 % (8-40); MCH 32.5 pg (25.7-33.7); MCHC 33.2 g/dl (32.0-35.9); MEAN CELL VOLUME 97.8 fl (80-96); MEAN PLT VOLUME 8.7 fl (7.5-11.1); MONO % 6.1 % (3.8-10.2); NEUT % 65.2 % (42.8-82.8); PLATELET COUNT 261 10^3/uL (134-434); RBC 4.71 M/mm3 (4.00-5.60); RDW 13.4 % (11.9-15.9); WHITE BLOOD COUNT 7.2 K/mm3 (4.0-10.0)
[2020-08-24 11:33] LABS: CHLORIDE 97 mmol/L (98-107); SODIUM 133 mmol/L (136-145)
[2020-08-24 11:35] LABS: ANION GAP 22 MMOL/L (8-16); CALCIUM 9.4 mg/dL (8.5-10.1); CO2 15 mmol/L (21-32)
[2020-08-24 11:39] LABS: SGOT/AST 20 U/L (15-37); SGPT/ALT 20 U/L (13-61)
[2020-08-24 11:40] LABS: CREATININE 1.4 mg/dL (0.55-1.3)
[2020-08-24 11:41] LABS: BILIRUBIN,TOTAL 0.6 mg/dL (0.2-1); TOT PROT 7.2 g/dl (6.4-8.2)
[2020-08-24 11:42] LABS: ALK PHOS 78 U/L (45-117); GLUCOSE,RANDOM 657 mg/dL (74-106)
[2020-08-24 11:44] LABS: LACTIC ACID 3.6 mmol/L (0.4-2.0)
[2020-08-24] MEDS ORDERED: INSULIN REGULAR 100 UNITS in SODIUM CHLORIDE 99 ML IVPB SCH ×2 (12:15→15:00)
[2020-08-24 12:40] LABS: PH,URINE 5.5 (5.0-8.0); URINE APPEARANCE CLEAR; URINE BILIRUBIN NEGATIVE (NEGATIVE); URINE COLOR YELLOW; URINE GLUCOSE (UA) 3+ (NEGATIVE); URINE KETONE 4+ (NEGATIVE); URINE LEUK ESTERASE NEGATIVE (NEGATIVE); URINE NITRITE NEGATIVE (NEGATIVE); URINE PROTEIN NEGATIVE (NEGATIVE); URINE UROBILINOGEN 0.2 mg/dL (0.2-1.0)
[2020-08-24 14:32] LABS: VENOUS BASE EXCESS -12.7 mmol/L (-2-2); VENOUS O2 SATURATION 90.1 % (70-80); VENOUS PCO2 31.2 mmHg (38-52); VENOUS PH 7.243 (7.310-7.410)
[2020-08-24 14:52] LABS: CHLORIDE 104 mmol/L (98-107); SODIUM 138 mmol/L (136-145)
[2020-08-24 14:54] LABS: CALCIUM 9.1 mg/dL (8.5-10.1)
[2020-08-24 14:55] LABS: ALBUMIN 3.9 g/dl (3.4-5.0); ANION GAP 21 MMOL/L (8-16); BLOOD UREA NITROGEN 20.8 mg/dL (7-18); CO2 13 mmol/L (21-32); LIPASE 42 U/L (73-393)
[2020-08-24 14:58] LABS: CREATININE 1.4 mg/dL (0.55-1.3); SGOT/AST 19 U/L (15-37); SGPT/ALT 25 U/L (13-61)
[2020-08-24 14:59] LABS: BILIRUBIN,TOTAL 0.6 mg/dL (0.2-1); TOT PROT 7.1 g/dl (6.4-8.2)
[2020-08-24 15:00] LABS: ALK PHOS 75 U/L (45-117)
[2020-08-24 15:03] LABS: GLUCOSE,RANDOM 412 mg/dL (74-106)
[2020-08-24 15:04] LABS: LACTIC ACID 2.8 mmol/L (0.4-2.0)
[2020-08-24] MEDS ORDERED: DEXTROSE 5%-LACTATED RINGERS 1,000 ML IV SCH (15:15)
[2020-08-24 15:40] VITALS: BMI 22.4
[2020-08-24 19:56] LABS: CALCIUM 8.6 mg/dL (8.5-10.1)
[2020-08-24 19:57] LABS: BLOOD UREA NITROGEN 16.4 mg/dL (7-18)
[2020-08-24 19:59] LABS: CREATININE 1.5 mg/dL (0.55-1.3)
[2020-08-24 20:07] LABS: LACTIC ACID 3.3 mmol/L (0.4-2.0)
[2020-08-24] MEDS: INSULIN SLIDING SCALE (NOVOLOG) 1 VIAL SQ SCH (21:29)
[2020-08-24] MEDS: INSULIN (LEVEMIR) 100 UNITS/ML UNITS SQ SCH (21:29)
[2020-08-24] MEDS: SODIUM CHLORIDE 1,000 ML IV SCH (21:30)
[2020-08-24] MEDS: MUPIROCIN 2% TOPICAL OINTMENT FOR DECOLONIZATION NS SCH (21:30)
[2020-08-24] MEDS ORDERED: CHLORHEXIDINE GLUCONATE 4% CLEANSER FOR DECOLONIZATION TP SCH (22:00)
[2020-08-24 23:32] LABS: CALCIUM 8.5 mg/dL (8.5-10.1)
[2020-08-24 23:33] LABS: BLOOD UREA NITROGEN 18.5 mg/dL (7-18)
[2020-08-24 23:36] LABS: CREATININE 1.2 mg/dL (0.55-1.3)
[2020-08-25] MEDS: SODIUM CHLORIDE 1,000 ML IV SCH (03:45)
[2020-08-25 06:19] VITALS: TEMP 97.7
[2020-08-25] MEDS: INSULIN (LEVEMIR) 100 UNITS/ML UNITS SQ SCH (06:21)
[2020-08-25] MEDS: INSULIN SLIDING SCALE (NOVOLOG) 1 VIAL SQ SCH (06:22)
[2020-08-25 06:39] LABS: HEMATOCRIT 38.4 % (35.4-49); HEMOGLOBIN 13.1 GM/dL (11.7-16.9); MCH 32.5 pg (25.7-33.7); MCHC 34.2 g/dl (32.0-35.9); MEAN PLT VOLUME 8.3 fl (7.5-11.1); PLATELET COUNT 230 10^3/uL (134-434); RBC 4.04 M/mm3 (4.00-5.60); RDW 13.4 % (11.9-15.9)
[2020-08-25 06:40] LABS: BLOOD UREA NITROGEN 15.1 mg/dL (7-18); MAGNESIUM 1.7 mg/dL (1.8-2.4)
[2020-08-25 06:43] LABS: CREATININE 0.9 mg/dL (0.55-1.3); PHOSPHOROUS 3.7 mg/dL (2.5-4.9)
[2020-08-25 06:46] LABS: INR 0.87 (0.83-1.09); PROTHROMBIN TIME (PATIENT) 10.6 SEC (9.7-13.0)
[2020-08-25 06:49] LABS: ACTIVATED PTT 23.3 SECONDS (25.2-36.5)
[2020-08-25] MEDS ORDERED: ACETAMINOPHEN 325 MG TABLET (FP) PO PRN (06:56)
[2020-08-25 08:02] VITALS: PULSE 78
[2020-08-25] MEDS ORDERED: POTASSIUM CHLORIDE ORAL LIQUID 20 MEQ/15 ML PO ONE (08:29)
[2020-08-25] MEDS: MUPIROCIN 2% TOPICAL OINTMENT FOR DECOLONIZATION NS SCH (09:06)
[2020-08-25] MEDS ORDERED: LORATADINE 10 MG TABLET PO SCH (10:00)
[2020-08-25 10:14] VITALS: BP 140/96
== END 2020-08-25 10:32 | disposition left against medical advice (07) | DRG 420 ==
LOC: JER 10:06 → JERBED 13:37 → JICU 14:40
PROVIDERS: ADMIT Internal Medicine Pulmonary Disease; ATTEND Internal Medicine Pulmonary Disease
DX: E10.10 Type 1 diabetes mellitus with ketoacidosis without coma (principal); N17.9 Acute kidney failure, unspecified; F10.10 Alcohol abuse, uncomplicated; F17.210 Nicotine dependence, cigarettes, uncomplicated; Z91.14 Patient's other noncompliance with medication regimen
CPT/HCPCS: 36415; 71045-TC-FY; 80048; 80053; 81003; 82010; 82150; 82803; 82962; 83036; 83605; 83690; 83735; 84100; 85025; 85027; 85610; 85730; 87086; 93005; 93010; 99291; C9803; U0003; U0005

== ENCOUNTER 2021-01-25 07:54 | Emergency (ER) | payer OTHER ==
[2021-01-25 08:14] VITALS: BP 121/87; PULSE 83; TEMP 97.5; BMI 23.1
[2021-01-25] MEDS ORDERED: SODIUM CHLORIDE 1,000 ML IV STA (09:25)
[2021-01-25 10:03] LABS: BASO % 0.9 % (0-2.0); EOS % 6.3 % (0-4.5); HEMATOCRIT 45.3 % (35.4-49); HEMOGLOBIN 15.7 GM/dL (11.7-16.9); LYMPH % 35.8 % (8-40); MCH 32.3 pg (25.7-33.7); MCHC 34.7 g/dl (32.0-35.9); MEAN PLT VOLUME 7.7 fl (7.5-11.1); MONO % 7.8 % (3.8-10.2); NEUT % 49.2 % (42.8-82.8); PLATELET COUNT 233 10^3/uL (134-434); RBC 4.87 M/mm3 (4.00-5.60); RDW 12.6 % (11.9-15.9); WHITE BLOOD COUNT 5.4 K/mm3 (4.0-10.0)
[2021-01-25 10:30] LABS: CALCIUM 9.8 mg/dL (8.5-10.1)
[2021-01-25 10:31] LABS: ALBUMIN 3.7 g/dl (3.4-5.0); BLOOD UREA NITROGEN 11.7 mg/dL (7-18)
[2021-01-25 10:34] LABS: CREATININE 1.1 mg/dL (0.55-1.3)
[2021-01-25 10:36] LABS: BILIRUBIN,TOTAL 0.4 mg/dL (0.2-1); TOT PROT 7.5 g/dl (6.4-8.2)
== END 2021-01-25 10:59 | disposition home or self-care (01) ==
LOC: JER 07:54
PROC: 3E0337Z Introduction of Electrolytic and Water Balance Substance into Peripheral Vein, Percutaneous Approach (ICD-10-PCS; principal; 2021-01-25)
DX: R73.9 Hyperglycemia, unspecified (principal)
CPT/HCPCS: 36415; 80053; 82010; 82962; 85025; 99284-25; C9803; U0003; U0005

== ENCOUNTER 2021-03-16 18:24 | Emergency (ER) | payer OTHER ==
[2021-03-16] MEDS ORDERED: SODIUM CHLORIDE 2,000 ML IV STA (19:55)
[2021-03-16 20:36] VITALS: BP 143/103; PULSE 71; BMI 24.4
[2021-03-16 21:21] LABS: VENOUS BASE EXCESS -1.5 mmol/L (-2-2); VENOUS PH 7.338 (7.310-7.410)
[2021-03-16 21:38] LABS: BASO % 0.9 % (0-2.0); EOS % 4.4 % (0-4.5); HEMATOCRIT 43.8 % (35.4-49); HEMOGLOBIN 14.9 GM/dL (11.7-16.9); LYMPH % 34.3 % (8-40); MCH 31.3 pg (25.7-33.7); MEAN CELL VOLUME 92.1 fl (80-96); MEAN PLT VOLUME 8.3 fl (7.5-11.1); MONO % 7.7 % (3.8-10.2); NEUT % 52.7 % (42.8-82.8); PLATELET COUNT 243 10^3/uL (134-434); RBC 4.75 M/mm3 (4.00-5.60); WHITE BLOOD COUNT 4.7 K/mm3 (4.0-10.0)
[2021-03-16 22:04] LABS: BLOOD UREA NITROGEN 15.9 mg/dL (7-18); CALCIUM 9.3 mg/dL (8.5-10.1)
[2021-03-16 22:07] LABS: CREATININE 1.1 mg/dL (0.55-1.3)
[2021-03-16 22:09] LABS: BILIRUBIN,TOTAL 0.4 mg/dL (0.2-1); TOT PROT 7.4 g/dl (6.4-8.2)
== END 2021-03-16 21:56 | disposition left against medical advice (07) ==
LOC: JER 18:24
PROC: 3E0337Z Introduction of Electrolytic and Water Balance Substance into Peripheral Vein, Percutaneous Approach (ICD-10-PCS; principal; 2021-03-16)
DX: E11.65 Type 2 diabetes mellitus with hyperglycemia (principal)
CPT/HCPCS: 36415; 71046-TC-FY; 80053; 82010; 82803; 82962; 85025; 93005; 93010; 99284-25; C9803; U0003; U0005

== ENCOUNTER 2021-06-30 12:42 | Emergency (ER) | payer OTHER ==
[2021-06-30 12:46] VITALS: BP 127/82; PULSE 88; TEMP 98.4; BMI 23.0
== END 2021-06-30 15:44 | disposition left against medical advice (07) ==
LOC: JERFT 12:42
DX: H53.141 Visual discomfort, right eye (principal)
CPT/HCPCS: 99281-25

== ENCOUNTER 2021-10-13 15:51 | Emergency (ER) | payer OTHER ==
[2021-10-13 16:01] VITALS: BP 136/92; PULSE 85; RESP 18; TEMP 98.4; BMI 23.0
== END 2021-10-13 18:46 | disposition left against medical advice (07) ==
LOC: JERFT 15:51
DX: H57.10 Ocular pain, unspecified eye (principal)
CPT/HCPCS: 99281-25

== ENCOUNTER 2022-06-06 23:11 | Emergency (ER) | payer OTHER ==
[2022-06-06 23:30] VITALS: BP 135/97; PULSE 72; RESP 18; TEMP 98.3; BMI 23.9
== END 2022-06-07 06:17 | disposition home or self-care (01) ==
LOC: JER 23:11
DX: E10.649 Type 1 diabetes mellitus with hypoglycemia without coma (principal)
CPT/HCPCS: 82962; 99282-25

== ENCOUNTER 2022-09-03 01:29 | Emergency (ER) | payer OTHER ==
[2022-09-03 01:37] VITALS: RESP 18; TEMP 98.1; BMI 23.9
[2022-09-03 02:43] LABS: BASO % 0.7 % (0-2.0); EOS % 3.6 % (0-4.5); HEMATOCRIT 41.2 % (35.4-49); HEMOGLOBIN 14.1 GM/dL (11.7-16.9); LYMPH % 38.9 % (8-40); MCH 32.1 pg (25.7-33.7); MCHC 34.3 g/dl (32.0-35.9); MEAN CELL VOLUME 93.8 fl (80-96); MEAN PLT VOLUME 8.3 fl (7.5-11.1); MONO % 8.9 % (3.8-10.2); NEUT % 47.9 % (42.8-82.8); PLATELET COUNT 207 10^3/uL (134-434); RBC 4.39 M/mm3 (4.00-5.60); RDW 13.7 % (11.9-15.9); WHITE BLOOD COUNT 6.3 K/mm3 (4.0-10.0)
[2022-09-03 03:03] LABS: POTASSIUM 4.6 mmol/L (3.5-5.1)
[2022-09-03 03:07] LABS: ALBUMIN 3.5 g/dl (3.4-5.0); BLOOD UREA NITROGEN 15.6 mg/dL (7-18)
[2022-09-03 03:11] LABS: CREATININE 1.3 mg/dL (0.55-1.3)
[2022-09-03 03:12] LABS: BILIRUBIN,TOTAL 0.3 mg/dL (0.2-1); TOT PROT 6.6 g/dl (6.4-8.2)
[2022-09-03] MEDS ORDERED: DEXTROSE 50%-WATER 25 GM/50 ML DISP.SYRIN ONE (05:27)
[2022-09-03] MEDS ORDERED: DEXTROSE 50%-WATER - 25 GM/50 ML VIAL IVPUSH ONE (05:32)
[2022-09-03 06:52] VITALS: BP 145/77; PULSE 62
== END 2022-09-03 08:14 | disposition home or self-care (01) ==
LOC: JER 01:29
PROC: 3E033GC Introduction of Other Therapeutic Substance into Peripheral Vein, Percutaneous Approach (ICD-10-PCS; principal; 2022-09-03)
DX: R07.89 Other chest pain (principal); R07.0 Pain in throat; K02.9 Dental caries, unspecified; Z20.822 Contact with and (suspected) exposure to COVID-19
CPT/HCPCS: 36415; 70491-TC; 80053; 82962; 84484; 85025; 87651; 93005; 93010; 99285-25; Q9967

== ENCOUNTER 2022-09-22 20:26 | Emergency (ER) | payer OTHER ==
[2022-09-22 20:43] VITALS: TEMP 98.4; BMI 23.9
[2022-09-22] MEDS ORDERED: MAG HYDROX/AL HYDROX/SIMETH 30 ML UNIT-DOSE CUP PO ONE (22:02)
[2022-09-22] MEDS ORDERED: METOCLOPRAMIDE HCL INJECTION 10 MG/2 ML VIAL IVPB ONE (22:02)
[2022-09-22] MEDS ORDERED: MAG HYDROX/AL HYDROX/SIMETH 30 ML UNIT-DOSE CUP ONE (22:13)
[2022-09-22] MEDS ORDERED: METOCLOPRAMIDE HCL INJECTION 10 MG/2 ML VIAL ONE (22:13)
[2022-09-22] MEDS ORDERED: SODIUM CHLORIDE 0.9% 500 ML INFUS.BAG IV ONE (22:25)
[2022-09-22] MEDS ORDERED: ONDANSETRON 4 MG TABLET PO ONE (22:42)
[2022-09-22] MEDS ORDERED: FAMOTIDINE 20 MG/50 ML IVPB 20 MG/50 ML MG IVPB ONE (22:53)
[2022-09-22] MEDS ORDERED: FAMOTIDINE 10 MG TABLET PO ONE (22:58)
[2022-09-22 23:48] VITALS: BP 148/86; PULSE 80; RESP 20
== END 2022-09-22 23:47 | disposition home or self-care (01) ==
LOC: JER 20:26
PROC: 3E033GC Introduction of Other Therapeutic Substance into Peripheral Vein, Percutaneous Approach (ICD-10-PCS; principal; 2022-09-22)
DX: E11.649 Type 2 diabetes mellitus with hypoglycemia without coma (principal); R10.9 Unspecified abdominal pain; R11.0 Nausea; F10.10 Alcohol abuse, uncomplicated; R51.9 Headache, unspecified
CPT/HCPCS: 82962; 93005; 93010; 99284-25

== ENCOUNTER 2022-12-17 18:36 | Emergency (ER) | payer OTHER ==
[2022-12-17 19:16] VITALS: BP 139/93; PULSE 89; RESP 19; TEMP 98.1; BMI 23.3
== END 2022-12-17 22:05 | disposition home or self-care (01) ==
LOC: JERFT 18:36 → JER 18:36 → JERFT 22:05
DX: R05.9 Cough, unspecified (principal); R09.81 Nasal congestion; J40 Bronchitis, not specified as acute or chronic; Z20.822 Contact with and (suspected) exposure to COVID-19
CPT/HCPCS: 0241U-QW; 71046-TC-FY; 99284-25

== ENCOUNTER 2023-06-17 18:54 | Inpatient (IN) | payer OTHER ==
[2023-06-17 19:19] VITALS: BMI 23.9
[2023-06-17] MEDS ORDERED: ONDANSETRON 4 MG/2 ML VIAL ONE (19:56)
[2023-06-17] MEDS: SODIUM CHLORIDE 0.9% 500 ML INFUS.BAG IV ONE ×2 (20:02→21:35)
[2023-06-17] MEDS: ONDANSETRON 4 MG/2 ML VIAL IVPUSH ONE (20:02)
[2023-06-17 20:17] LABS: VENOUS BASE EXCESS -8.2 mmol/L (-2-2); VENOUS O2 SATURATION 65.3 % (70-80); VENOUS PCO2 30.5 mmHg (38-52); VENOUS PH 7.341 (7.310-7.410)
[2023-06-17 20:22] LABS: BASO % 0.5 % (0-2.0); EOS % 0.8 % (0-4.5); HEMATOCRIT 42.5 % (35.4-49); HEMOGLOBIN 14.1 GM/dL (11.7-16.9); LYMPH % 28.2 % (8-40); MCH 31.7 pg (25.7-33.7); MCHC 33.2 g/dl (32.0-35.9); MEAN CELL VOLUME 95.4 fl (80-96); MEAN PLT VOLUME 7.8 fl (7.5-11.1); MONO % 8.9 % (3.8-10.2); NEUT % 61.6 % (42.8-82.8); PLATELET COUNT 230 10^3/uL (134-434); RBC 4.45 M/mm3 (4.00-5.60); RDW 13.1 % (11.9-15.9); WHITE BLOOD COUNT 6.1 K/mm3 (4.0-10.0)
[2023-06-17 20:32] LABS: CHLORIDE 96 mmol/L (98-107); POTASSIUM 4.4 mmol/L (3.5-5.1); SODIUM 128 mmol/L (136-145)
[2023-06-17 20:36] LABS: ANION GAP 13 mmol/L (4-13); CALCIUM 9.9 mg/dL (8.5-10.1); CO2 18 mmol/L (21-32)
[2023-06-17 20:37] LABS: GLUCOSE,RANDOM 348 mg/dL (74-106)
[2023-06-17 20:39] LABS: CREATININE 1.6 mg/dL (0.55-1.3); SGOT/AST 31 U/L (15-37); SGPT/ALT 36 U/L (13-61)
[2023-06-17 20:41] LABS: BILIRUBIN,TOTAL 1.2 mg/dL (0.2-1); TOT PROT 7.2 g/dl (6.4-8.2)
[2023-06-17 20:42] LABS: ALK PHOS 64 U/L (45-117)
[2023-06-17] MEDS: SODIUM CHLORIDE 1,000 ML IV STA (23:35)
[2023-06-17 23:45] LABS: URINE APPEARANCE CLEAR; URINE BILIRUBIN NEGATIVE (NEGATIVE); URINE COLOR YELLOW; URINE GLUCOSE (UA) 2+ (NEGATIVE); URINE KETONE 4+ (NEGATIVE); URINE LEUK ESTERASE NEGATIVE (NEGATIVE); URINE NITRITE NEGATIVE (NEGATIVE); URINE PROTEIN TRACE (NEGATIVE)
[2023-06-17 23:51] LABS: MAGNESIUM 2.3 mg/dL (1.8-2.4)
[2023-06-17 23:55] LABS: PHOSPHOROUS 0.8 mg/dL (2.5-4.9)
[2023-06-18] MEDS: NAPH,MB-DB/K PH,MBDB POWDER PACKET PO SCH (00:25)
[2023-06-18] MEDS: INSULIN (NOVOLOG) ASPART 100 UNITS/ML 10ML VIAL SQ ONE (04:12)
[2023-06-18] MEDS: INSULIN ASPART SLIDING SCALE (NOVOLOG) 1 VIAL SQ SCH (06:20)
[2023-06-18 08:43] LABS: HEMOGLOBIN 12.9 GM/dL (11.7-16.9); MCH 31.8 pg (25.7-33.7); MCHC 33.8 g/dl (32.0-35.9); MEAN CELL VOLUME 93.9 fl (80-96); MEAN PLT VOLUME 7.6 fl (7.5-11.1); PLATELET COUNT 203 10^3/uL (134-434); RBC 4.05 M/mm3 (4.00-5.60); RDW 12.7 % (11.9-15.9); WHITE BLOOD COUNT 6.7 K/mm3 (4.0-10.0)
[2023-06-18 08:53] LABS: POTASSIUM 3.8 mmol/L (3.5-5.1)
[2023-06-18 09:01] LABS: BLOOD UREA NITROGEN 12.2 mg/dL (7-18); CALCIUM 8.5 mg/dL (8.5-10.1)
[2023-06-18 09:03] LABS: PHOSPHOROUS 1.4 mg/dL (2.5-4.9)
[2023-06-18 09:04] LABS: BILIRUBIN,TOTAL 1.1 mg/dL (0.2-1); CREATININE 1.1 mg/dL (0.55-1.3); TOT PROT 5.8 g/dl (6.4-8.2)
[2023-06-18 09:07] LABS: ALBUMIN 3.1 g/dl (3.4-5.0)
[2023-06-18] MEDS ORDERED: INSULIN (LEVEMIR) 100 UNITS/ML UNITS SQ ONE (09:28)
[2023-06-18] MEDS: HEPARIN NA (PORCINE) 5,000 UNITS/ML 1ML VIAL SQ SCH (09:53)
[2023-06-18] MEDS: INSULIN (LEVEMIR) 100 UNITS/ML UNITS SQ ONE (09:53)
[2023-06-18] MEDS: THIAMINE 100 MG TABLET PO SCH (09:54)
[2023-06-18] MEDS: amLODIPine BESYLATE 5 MG TABLET (FP) PO SCH (09:54)
[2023-06-18] MEDS: FOLIC ACID 1 MG TABLET (FP) PO SCH (09:54)
[2023-06-18] MEDS: SODIUM CHLORIDE 1,000 ML IV SCH (10:22)
[2023-06-18] MEDS ORDERED: SODIUM PHOSPHATE IV SCH (15:30)
[2023-06-18] MEDS ORDERED: SODIUM CHLORIDE IV SCH (15:30)
[2023-06-18] MEDS: POTASSIUM CHLORIDE TABS 20 MEQ TABLET.ER (FP) PO ONE (15:46)
[2023-06-18] MEDS: INSULIN (NOVOLOG) ASPART 100 UNITS/ML 10ML VIAL SQ SCH (16:37)
[2023-06-18] MEDS: SODIUM PHOSPHATE IV SCH (17:43)
[2023-06-18] MEDS: SODIUM CHLORIDE IV SCH (17:43)
[2023-06-18] MEDS: INSULIN (LEVEMIR) 100 UNITS/ML UNITS SQ SCH (22:15)
[2023-06-19 08:06] LABS: HEMATOCRIT 38.7 % (35.4-49); HEMOGLOBIN 13.6 GM/dL (11.7-16.9); MCH 32.7 pg (25.7-33.7); MCHC 35.2 g/dl (32.0-35.9); MEAN CELL VOLUME 92.8 fl (80-96); MEAN PLT VOLUME 7.8 fl (7.5-11.1); PLATELET COUNT 202 10^3/uL (134-434); RBC 4.17 M/mm3 (4.00-5.60); WHITE BLOOD COUNT 3.6 K/mm3 (4.0-10.0)
[2023-06-19 08:23] LABS: POTASSIUM 3.7 mmol/L (3.5-5.1)
[2023-06-19 08:27] LABS: CALCIUM 8.7 mg/dL (8.5-10.1)
[2023-06-19 08:28] LABS: ALBUMIN 3.2 g/dl (3.4-5.0); BLOOD UREA NITROGEN 4.6 mg/dL (7-18)
[2023-06-19 08:30] LABS: PHOSPHOROUS 3.1 mg/dL (2.5-4.9)
[2023-06-19 08:32] LABS: TOT PROT 5.9 g/dl (6.4-8.2)
[2023-06-19] MEDS: INSULIN (LEVEMIR) 100 UNITS/ML UNITS SQ SCH (09:07)
[2023-06-19 10:27] VITALS: BP 149/88; PULSE 86; RESP 18; TEMP 98.1
[2023-06-19] MEDS ORDERED: INSULIN ASPART SLIDING SCALE (NOVOLOG) 1 VIAL SQ ONE (11:34)
== END 2023-06-19 14:05 | disposition home or self-care (01) | DRG 638 ==
LOC: JER 18:54 → JERBED 21:08 → OBSVTOIN 22:44 → J6S 06-18 01:17
PROVIDERS: ADMIT Internal Medicine; ATTEND Internal Medicine
DX: E10.10 Type 1 diabetes mellitus with ketoacidosis without coma (principal); E87.1 Hypo-osmolality and hyponatremia; N17.9 Acute kidney failure, unspecified; I10 Essential (primary) hypertension; E10.65 Type 1 diabetes mellitus with hyperglycemia; J45.909 Unspecified asthma, uncomplicated; F10.10 Alcohol abuse, uncomplicated; E83.39 Other disorders of phosphorus metabolism; E87.8 Other disorders of electrolyte and fluid balance, not elsewhere classified; F17.210 Nicotine dependence, cigarettes, uncomplicated; E86.0 Dehydration
CPT/HCPCS: 36415; 76775-TC; 80053; 81003; 82010; 82550; 82553; 82803; 82962; 83036; 83735; 84100; 85025; 85027; 87086; 93005; 93010; 99285-25; G0378; J1644

== ENCOUNTER 2024-03-09 09:42 | Emergency (ER) | payer OTHER ==
[2024-03-09 10:18] VITALS: BP 171/108; PULSE 87; RESP 16; TEMP 97.4; BMI 24.7
[2024-03-09 11:50] LABS: BASO % 0.3 % (0-2.0); EOS % 0.4 % (0-4.5); HEMATOCRIT 44.7 % (35.4-49); HEMOGLOBIN 15.2 GM/dL (11.7-16.9); LYMPH % 20.3 % (8-40); MCH 31.7 pg (25.7-33.7); MEAN CELL VOLUME 93.4 fl (80-96); MONO % 5.2 % (3.8-10.2); NEUT % 73.8 % (42.8-82.8); PLATELET COUNT 222 10^3/uL (134-434); RBC 4.78 M/mm3 (4.00-5.60); RDW 13.6 % (11.9-15.9); WHITE BLOOD COUNT 5.4 K/mm3 (4.0-10.0)
[2024-03-09 12:07] LABS: CHLORIDE 98 mmol/L (98-107); POTASSIUM 5.5 mmol/L (3.5-5.1); SODIUM 132 mmol/L (136-145)
[2024-03-09 12:09] LABS: ANION GAP 7 mmol/L (4-13); BLOOD UREA NITROGEN 12.1 mg/dL (7-18); CALCIUM 9.4 mg/dL (8.5-10.1); CO2 27 mmol/L (21-32)
[2024-03-09 12:12] LABS: SGOT/AST 18 U/L (15-37); SGPT/ALT 23 U/L (13-61)
[2024-03-09 12:13] LABS: CREATININE 1.2 mg/dL (0.55-1.3); GLUCOSE,RANDOM 408 mg/dL (74-106)
[2024-03-09 12:14] LABS: BILIRUBIN,TOTAL 0.5 mg/dL (0.2-1); TOT PROT 7.6 g/dl (6.4-8.2)
[2024-03-09 12:15] LABS: ALK PHOS 62 U/L (45-117)
[2024-03-09] MEDS: SODIUM CHLORIDE 0.9% 500 ML INFUS.BAG IV ONE (12:47)
== END 2024-03-09 14:54 | disposition home or self-care (01) ==
LOC: JER 09:42
DX: R25.1 Tremor, unspecified (principal); Z20.822 Contact with and (suspected) exposure to COVID-19
CPT/HCPCS: 0241U-QW; 36415; 71045-TC-FY; 80053; 82962; 85025; 93005; 93010; 99285-25

== ENCOUNTER 2024-10-12 05:20 | Emergency (ER) | payer OTHER ==
[2024-10-12 05:48] VITALS: PULSE 90; RESP 18; BMI 24.7
[2024-10-12] MEDS ORDERED: ACETAMINOPHEN 325 MG TABLET (FP) ONE (05:59)
[2024-10-12] MEDS ORDERED: LIDOCAINE VISCOUS 2% ORAL/TOP 15 ML UNIT-DOSE CUP ONE ×2 (05:59→06:00)
[2024-10-12] MEDS: ACETAMINOPHEN 500 MG TABLET (FP) PO ONE (06:11)
[2024-10-12] MEDS: LIDOCAINE VISCOUS 2% ORAL/TOP 15 ML UNIT-DOSE CUP MM ONE (06:11)
[2024-10-12 07:13] VITALS: BP 146/102; TEMP 97.9
[2024-10-12 08:26] LABS: HCV DIAGNOSTIC IN-HOUSE W/RFLX NON-REACTIVE (NONREACTIVE); HIV INTERPRETATION NEGATIVE (NEGATIVE)
[2024-10-12 08:45] LABS: URINE APPEARANCE CLEAR; URINE BILIRUBIN NEGATIVE (NEGATIVE); URINE COLOR YELLOW; URINE GLUCOSE (UA) TRACE (NEGATIVE); URINE KETONE NEGATIVE (NEGATIVE); URINE LEUK ESTERASE NEGATIVE (NEGATIVE); URINE NITRITE NEGATIVE (NEGATIVE); URINE PROTEIN NEGATIVE (NEGATIVE); URINE UROBILINOGEN 0.2 mg/dL (0.2-1.0)
== END 2024-10-12 08:00 | disposition home or self-care (01) ==
LOC: JER 05:20
DX: S30.812A Abrasion of penis, initial encounter (principal); K02.9 Dental caries, unspecified; K08.89 Other specified disorders of teeth and supporting structures; F10.10 Alcohol abuse, uncomplicated; X58.XXXA Exposure to other specified factors, initial encounter
CPT/HCPCS: 36415; 81003; 82962; 86803; 87086; 87389; 87491; 87591; 99283-25